=== PATIENT | female | born 1940 | race Caucasian/White ===

== ENCOUNTER → 2021-01-15 | Emergency (ER) | payer MEDICARE ==
[~2021-01-15] MED LIST: ACET325T53 GT; ACET650S26 NG; ALPR0.25 PO; AMIN30LI25 GT; AMIN887L GT; AMLO-213 PO; ASPI-1420 PO; BENZ236L TP; CALC667C6 PO; CARV3.122 PO; CYAN250T3 PO; EPOE1VIA IV; FAMO20TA8 PO; FURO80TA85 PO; GABA-532 PO; HYDR-4076 PO; HYDR-4303 GT; LOPE2CAP PO; MAG-55 GT; MAGN400O6 GT; NORM10004 IV; NUT.237L67 GT; Nepro GT; ONDA4TAB11 GT; Prosource GT; SEVE800T8 PO; TEMA15CA PO; [UNRECOGNIZED DRUG - CODE] IV
== END | disposition left against medical advice (07) ==
LOC: ER 16:16
DX: Z53.21 Procedure and treatment not carried out due to patient leaving prior to being seen by health care provider (principal)

== ENCOUNTER 2021-03-09 11:10 | Inpatient (IN) | payer MEDICARE, OTHER ==
[~2021-03-09] VITALS: Ht 152.4 cm; Wt 54.0 kg
[2021-03-09] VITALS (23 sets, daily range): BP systolic 86–143; BP diastolic 36–84
--- NOTE | 2021-03-09 11:16 | NUR ---
patient , from home, altered, last known well last night, unresponsive, 02 sat 60% on room air, ems using ambubag on the patient 02 sat 72%. Connected to the monitor and pulse ox.
--- NOTE | 2021-03-09 11:17 | NUR ---
Dr. Escamilla, RN, and RT at bedside for Intubation. 1117am etomidate and rocuronium given IVP, 1118am intubating patient, 1119am intubation done. ET 7.5/23cm, color changed noted. V/S stable. bilateral soft restraint in placed to prevent patient from pulling out IV line, and ET. Will continue to monitor accordingly.
[2021-03-09] MEDS ORDERED: ETOMIDATE 2 MG/ML VIAL IV ONE ×2 (11:30→14:44)
[2021-03-09] MEDS ORDERED: [UNRECOGNIZED DRUG - OTHER] IV ONE (11:30)
[2021-03-09 12:11] LABS: BASOPHILS % (AUTO) 0.8 % (0.0-2.0); HEMATOCRIT 29 % (33-45); HEMOGLOBIN 9.1 g/dL (11.5-14.8); LYMPHOCYTES # (AUTO) 0.3 /CMM (0.8-4.8); LYMPHOCYTES % (AUTO) 5.9 % (20.0-44.0); MEAN CORPUSCULAR HGB CONC 31 g/dl (31.0-36.0); MEAN CORPUSCULAR VOLUME 115 fL (82-100); MONOCYTES # (AUTO) 0.7 /CMM (0.1-1.30); MONOCYTES % (AUTO) 13.9 % (2.0-12.0); NEUTROPHILS # (AUTO) 3.9 /CMM (1.8-8.9); NEUTROPHILS % (AUTO) 79.4 % (43.0-81.0); PLATELET COUNT (AUTO) 146 /CMM (150-450); RED BLOOD CELL COUNT(AUTO) 2.54 MIL/uL (4.0-5.2); WHITE BLOOD COUNT (AUTO) 4.9 K/uL (4.3-11.0)
--- NOTE | 2021-03-09 12:11 | NUR ---
bed 260
[2021-03-09 12:16] LABS: CALCIUM, SERUM 8.4 mg/dL (8.5-10.1); CARBON DIOXIDE 27 mmol/L (21-32); CHLORIDE 94 mmol/L (98-107); CREATININE 3.4 mg/dL (0.6-1.3); GLUCOSE 81 mg/dL (74-106); SODIUM SERUM 132 mmol/L (136-145); UREA NITROGEN, BLOOD 24 mg/dL (7-18)
--- NOTE | 2021-03-09 12:20 | NUR ---
MOVE SHEET SUBMITTED AND CALLED FOR ICU BED.
[2021-03-09 12:26] LABS: D-DIMER 3.42 mg/L(FEU (0.17-0.50)
--- NOTE | 2021-03-09 12:26 | NUR ---
daughter at bedside and talking to Dr. Escamilla.
[2021-03-09 12:31] LABS: ACETAMINOPHEN 0 ug/ml (10-30); ALANINE AMINOTRANSFERASE 16 U/L (12-78); ALBUMIN 2.9 g/dL (3.4-5.0); ALCOHOL, BLOOD < 3 mg/dL (0-0); ALKALINE PHOSPHATASE 159 U/L (46-116); ASPARTATE AMINOTRANSFERASE 39 U/L (15-37); BILIRUBIN,TOTAL 0.8 mg/dL (0.2-1.0); TOTAL PROTEIN, SERUM 7.6 g/dL (6.4-8.2)
[2021-03-09 12:37] LABS: SERUM AMMONIA 53 umol/L (11-32)
[2021-03-09] MEDS ORDERED: CARV3.122 PO (12:52)
[2021-03-09] MEDS ORDERED: SEVE800T8 PO (12:52)
[2021-03-09] MEDS ORDERED: ASPI-1420 PO (12:52)
[2021-03-09] MEDS ORDERED: AMLO-213 PO (12:52)
[2021-03-09] MEDS ORDERED: CYAN250T3 PO (12:52)
[2021-03-09] MEDS ORDERED: LOPE2CAP PO (12:52)
[2021-03-09] MEDS ORDERED: FURO80TA85 PO (12:52)
[2021-03-09] MEDS ORDERED: ALPR0.25 PO (12:52)
[2021-03-09] MEDS ORDERED: CALC667C6 PO (12:52)
[2021-03-09] MEDS ORDERED: HYDR-4076 PO (12:52)
[2021-03-09] MEDS ORDERED: TEMA15CA PO (12:52)
[2021-03-09] MEDS ORDERED: GABA-532 PO (12:52)
[2021-03-09] MEDS ORDERED: FAMO20TA8 PO (12:52)
[2021-03-09 13:13] LABS: CREATINE KINASE, TOTAL 40 U/L (26-192); FERRITIN 7526 ng/mL (8-388); THYROID STIMULATING HORMONE 3.801 uIU/mL (0.358-3.74)
--- NOTE | 2021-03-09 13:13 | NUR ---
report given to Zeenat BAKER for che
[2021-03-09 13:15] LABS: C-REACTIVE PROTEIN 1.6 mg/dL (0.0-0.9)
--- NOTE | 2021-03-09 14:00 | NUR ---
senior government program analyst notes patient admitted from ER EET /vent dependent no acute respiratory distress, no sedation. fio2-100, peep-10, iv access on right forearm, and right femoral triple lumen intact. Left arm av shunt intact. Morales intact, no output. Edema bilateral lower extremities. will monitoring.
--- NOTE | 2021-03-09 14:04 | NUR ---
wheeled patient via gurney accompanied by RT, emt, and RN to ICU. RN assigned at bedside to assume care.
[2021-03-09 14:23] LABS: LYMPHOCYTES % (MANUAL) 4 % (16-48); MONOCYTES % (MANUAL) 8 % (0-11.0); NEUTROPHILS % (MANUAL) 88 (42-76)
[2021-03-09] MEDS ORDERED: ENOXAPARIN SODIUM 40 MG/0.4 ML DISP.SYRIN SQ SCH (14:30)
[2021-03-09] MEDS ORDERED: Z GUARD REMEDY 2 OZ OINT TP PRN (14:30)
[2021-03-09] MEDS ORDERED: MAG HYDROX/AL HYDROX/SIMETH 30 ML UDC PO PRN (14:30)
[2021-03-09] MEDS ORDERED: HYDROCODONE/APAP 5/325MG TABLET PO PRN (14:30)
[2021-03-09] MEDS ORDERED: MAGNESIUM HYDROXIDE 30 ML UDC PO PRN (14:30)
[2021-03-09] MEDS ORDERED: ACETAMINOPHEN 325 MG TABLET PO PRN (14:30)
[2021-03-09] MEDS ORDERED: PROPOFOL 100 ML IV PRN (14:30)
[2021-03-09] MEDS ORDERED: ONDANSETRON HCL/PF 4 MG/2 ML VIAL IVP PRN (14:30)
[2021-03-09] MEDS: PROPOFOL 10MG/ML 50ML 50 ML IV PRN ×2 (14:42→23:20)
[2021-03-09] MEDS ORDERED: ROCURONIUM BROMIDE 50 MG/5 ML IV ONE (14:44)
--- NOTE | 2021-03-09 15:40 | NUR ---
RT PATIENT REC'D TRANSFER FROM ER ON PEEP +10 100%, ABG DONE. PER DR VILA INCREASE PEEP TO 14. ALARMS CHECKED + AUDIBLE. AMBU BAG AT HOB Addendum: 03/09/21 at 1751 by MARV HUERTA RT Amended: Links added.
[2021-03-09 15:43] LABS: BILIRUBIN,DIRECT 0.7 mg/dL (0.0-0.2)
--- NOTE | 2021-03-09 15:45 | NUR ---
RN NOTES GET CALL FROM LAB LACTIC ACID 2.7 , NOTIFIED DR GALLARDO NO NEW ORDERS. WILL MONITORING.
[2021-03-09 15:59] LABS: ABG BASE EXCESS 0.9 mmol/L; ABG OXYGEN SATURATION 89.9 % (92.0-98.5); ABG PCO2 33.9 mmHg (35.0-45.0); ABG PH 7.472 (7.350-7.450); ABG PO2 51.6 mmHg (75.0-100.0); AaDO2 627.5 mmHg; COHb 0.7 % (0.5-1.5); MetHb 0.1 % (0.0-1.5); O2Hb 89.2 % (94.0-97.0); SITE, ABG Right Radial
--- NOTE | 2021-03-09 16:00 | NUR ---
RN NOTES ABG DONE VIA RT ACCORDING RESULT DR VILA ORDERED INCREASE PEEP 14, PO2-51.6 REPEAT ORDER WITHIN TWO HR. ORDER TAKEN AND CARRIED OUT.
--- NOTE | 2021-03-09 16:30 | NUR ---
RN NOTES PATIENT BP DROP 84/42, P- 75, CALLED HOSPITALIST AND GET ORDER LEVOPHED , ORDER TAKEN AND CARRIED OUT. ALSO PATIENT GOING DIALYZED NOW , GET ALBUMIN 25 % ORDER WELL.
[2021-03-09] MEDS: ALBUMIN 25% 25 GM in PREMIX 1 EA IV SCH (17:00)
[2021-03-09] MEDS: NOREPINEPHRINE 8 MG in IV NS 0.9% 242 ML IV PRN (17:16)
--- NOTE | 2021-03-09 17:29 | NUR ---
RN NOTES PT FAMILY NEXT TO THE BED , PATIENT GET HER 1-ST COVID VACCINATION, AND SECOND ONE IS DUE TODAY. ACCORDING DAUGHTER PATIENT HAS HISTORY OF PNEUMONIA.
--- NOTE | 2021-03-09 18:00 | NUR ---
RN NOTES NGT INSERTED, ORDERED CHEST X-RAY FOR PLACEMENT. FINISHED HD AT THIS TIME OUTPUT WAS 2000 ML.
[2021-03-09 18:28] LABS: ABG BASE EXCESS 1.1 mmol/L; ABG OXYGEN SATURATION 89.9 % (92.0-98.5); ABG PCO2 28.3 mmHg (35.0-45.0); ABG PH 7.531 (7.350-7.450); ABG PO2 45.5 mmHg (75.0-100.0); AaDO2 639.2 mmHg; COHb 0.9 % (0.5-1.5); MetHb 0.4 % (0.0-1.5); O2Hb 88.7 % (94.0-97.0); PEEP,BG 5 cm H2O; SITE, ABG Right Radial; VT, ABG 450 mL
--- NOTE | 2021-03-09 18:29 | NUR ---
RT END OF THE SHIFT REPORT, PT. 80 Y OLD FEMALE ORALLY INTUBATE @ [address] LAW Witt RT AT THE BEDSIDE. GOOD COLOR EXCHANGED VIA CAPNOGRAPHY, EQUAL CHEST RISE NOTED PLACED ON VENT WITH NOTED SETTINGS, ALARMS ARE SET AND FUNCTIONAL, VENT PLUGGED INTO RED OUTLET, AMBU BAG REMAIN AT THE BEDSIDE. @1300 VENT CHANGES DONE POST ABG B/S RALES BILATERALLY FAMILY MEMBER AT THE BEDSIDE. SUCTIONED FOR MINIMAL AMOUNT OF YELLOW THICK SECRETIONS, PT. TRANSFERRED TO WI, THAN ICU ROOM 260 REPORT WILL BE PASS TO COMPUTER INFORMATION SYSTEMS PROFESSOR. Addendum: 03/09/21 at 1834 by JAY CASH RT Amended: Links added.
--- NOTE | 2021-03-09 18:40 | NUR ---
RN NOTES NGT INTACT, NO ACUTE RESPIRATORY DISTRESS, INFUSING DIPRIVAN 35MCG/KG/HR, AND LEVOPHED 0.1 MCG/KG/HR ON RIGHT FEMORAL LINE. ASSIST TURN AND REPOSTION, PUGA HAS NO OUTPUT. BM X1. ENDORSED ONCOMING NURSE FOLLOW PLAN OF CARE.
[2021-03-09 18:51] LABS: THYROID STIMULATING HORMONE 3.912 uIU/mL (0.358-3.74)
--- NOTE | 2021-03-09 19:48 | NUR ---
COIL SHAPER NOTE: Rec'd pt in bed, intubated 7.5/23cm at the lip and sedated. Tolerating vent settings well, no resp distress noted at this time. SR on tele monitor. NGT in place, NPO dx. RAC #20 and R femoral HD cath in place, patent and flushed w/ Diprivan infusing at 35mcg/kg and Levo at 0.1mcg/kg/min. Will titrate per protocol. Left arm shunt noted. Morales catheter in place, no output noted at this time. Safety measures in place. Will continue to monitor.
--- NOTE | 2021-03-09 20:14 | NUR ---
RECEIVED PT INTUBATED 7.5 ETT SECURED AT 23CM LIP LINE. TOLERATING VENT SETTINGS. SX'D SML AMT OF THICK YELLOW SECRETIONS. VENT ALARMS SET AND AUDIBLE. CONTINUE [facility] VENT SUPPORT. Addendum: 03/09/21 at 2015 by KEEGAN MONTEMAYOR RT Amended: Links added.
--- NOTE | 2021-03-09 20:35 | NUR ---
PRELIMINARY ECHOCARDIOGRAM SHOWED EF 30-35% WITH SMALL PERICARDIAL EFFUSION. OLIVIA KAPLAN WAS ADVISED OF INITIAL RESULTS
[2021-03-09] MEDS ORDERED: HEPARIN SODIUM, PORCINE 5000 UNITS/1 ML VIAL SQ SCH (21:00)
--- NOTE | 2021-03-09 23:28 | NUR ---
CUSTOMER SALES CONSULTANT NOTE: FiO2 titrated down to 70% by RT. O2 sat WNL. Will continue to monitor closely.
[2021-03-10] VITALS (89 sets, daily range): BP systolic 78–133; BP diastolic 41–79
[2021-03-10] MEDS: PROPOFOL 10MG/ML 50ML 50 ML IV PRN ×2 (01:50→05:45)
--- NOTE | 2021-03-10 03:57 | NUR ---
GAS PROCESSING PLANT OPERATOR NOTE: FiO2 titrated down to 60% by RT. O2 sat WNL. Will continue to monitor.
[2021-03-10 04:16] LABS: BASOPHILS % (AUTO) 0.6 % (0.0-2.0); EOSINOPHILS % (AUTO) 0.4 % (0.0-6.0); HEMATOCRIT 28 % (33-45); HEMOGLOBIN 9.3 g/dL (11.5-14.8); LYMPHOCYTES # (AUTO) 0.7 /CMM (0.8-4.8); LYMPHOCYTES % (AUTO) 8.9 % (20.0-44.0); MEAN CORPUSCULAR HGB CONC 33 g/dl (31.0-36.0); MEAN CORPUSCULAR VOLUME 110 fL (82-100); MONOCYTES # (AUTO) 0.6 /CMM (0.1-1.30); NEUTROPHILS # (AUTO) 6.3 /CMM (1.8-8.9); NEUTROPHILS % (AUTO) 82.1 % (43.0-81.0); PLATELET COUNT (AUTO) 121 /CMM (150-450); RED BLOOD CELL COUNT(AUTO) 2.57 MIL/uL (4.0-5.2); WHITE BLOOD COUNT (AUTO) 7.7 K/uL (4.3-11.0)
[2021-03-10] MEDS: ALBUMIN 25% 25 GM in PREMIX 1 EA IV SCH (04:40)
--- NOTE | 2021-03-10 04:40 | NUR ---
ARTIFICIAL INSEMINATOR NOTE: Per am shift nurse, albumin was ordered for low BP, but pt on Levo drip. 0500 dose of albumin non-administered due to pt still on Levo. Will address in am w/ nephro.
[2021-03-10 04:48] LABS: ALANINE AMINOTRANSFERASE 15 U/L (12-78); ALBUMIN 2.2 g/dL (3.4-5.0); ALKALINE PHOSPHATASE 111 U/L (46-116); ASPARTATE AMINOTRANSFERASE 46 U/L (15-37); BILIRUBIN,TOTAL 0.9 mg/dL (0.2-1.0); CALCIUM, SERUM 7.9 mg/dL (8.5-10.1); CARBON DIOXIDE 25 mmol/L (21-32); CHLORIDE 97 mmol/L (98-107); CREATININE 3.8 mg/dL (0.6-1.3); GLUCOSE 79 mg/dL (74-106); MAGNESIUM 1.8 mg/dL (1.8-2.4); PHOSPHORUS 2.6 mg/dL (2.5-4.9); POTASSIUM 3.4 mmol/L (3.5-5.1); SODIUM SERUM 135 mmol/L (136-145); TOTAL PROTEIN, SERUM 6.2 g/dL (6.4-8.2); UREA NITROGEN, BLOOD 28 mg/dL (7-18)
[2021-03-10 04:49] LABS: IRON, SERUM 17 ug/dl (50-175); TOTAL IRON BINDING CAPACITY 143 ug/dl (250-450)
--- NOTE | 2021-03-10 07:06 | NUR ---
POWER REACTOR OPERATOR NOTE: No acute changes noted. Pt remains intubated and sedated tolerating vent settings well. No resp distress noted throughout shift. Diprivan infusing at 35mcg/kg and Levo infusing at 0.04mcg/kg/min. Kept clean/dry. All due meds given as ordered. Safety measures in place. Will endorse to oncoming nurse for NOAH.
[2021-03-10 07:54] LABS: ABG BASE EXCESS 0.5 mmol/L; ABG OXYGEN SATURATION 99.6 % (92.0-98.5); ABG PCO2 24.6 mmHg (35.0-45.0); ABG PH 7.563 (7.350-7.450); ABG PO2 204.6 mmHg (75.0-100.0); AaDO2 196.1 mmHg; COHb 0.1 % (0.5-1.5); MetHb 0.1 % (0.0-1.5); O2Hb 99.4 % (94.0-97.0); SITE, ABG Right Radial
--- NOTE | 2021-03-10 08:00 | NUR ---
rn notes Get order from shuttleless loom weaver Dr Martinez weaning, stop Diprivan infusion. Titrated Diprivan per protocol. seen patient via proofsheet corrector Dr Olvera notified increased troponin level, and Dr Burns, FIO2-40% at this time. will monitoring.
[2021-03-10] MEDS ORDERED: POTASSIUM PHOSPHATE MM 15 MMOL in IV NS 0.9% 250 ML IV SCH (08:30)
[2021-03-10] MEDS ORDERED: POTASSIUM CHLORIDE 20 MEQ POWDER PACKET NG SCH (08:30)
[2021-03-10] MEDS ORDERED: HEPARIN SODIUM, PORCINE 5000 UNITS/1 ML VIAL IV ONE (09:30)
--- NOTE | 2021-03-10 09:30 | NUR ---
rn notes Patient get extubated at this time, on O2-5LNC, no acute respiratory distress, v/s stable, get order Heparin drip at this time, NGT intact, due medication administered, recheck circulation for restrain. call light within to reach. safety precaution maintained all the time.
[2021-03-10] MEDS ORDERED: Sodium Phosphate 15 MMOL in IV NS 0.9% 245 ML IV SCH (10:00)
[2021-03-10] MEDS: HEPARIN INFUSION/D5W 500 ML IV PRN (10:25)
--- NOTE | 2021-03-10 11:58 | NUR ---
rn notes removed ngt , assess swallow evaluation by RN. Hospitalist notified about patient condition, get order, SE,and renal diet. order taken and carried out. daughter next to the bed.
[2021-03-10] MEDS ORDERED: DC PROPOFOL WHEN EXTUBATED XX SCH (12:00)
[2021-03-10] MEDS ORDERED: IRON SUCROSE COMPLEX 100 MG in IV NS 0.9% 100 ML IV SCH (14:00)
--- NOTE | 2021-03-10 16:56 | NUR ---
sophia ponce per energy conservation engineer order Dr Rivero removed Morales cath, because patient anuric .
--- NOTE | 2021-03-10 18:43 | NUR ---
RN NOTES ASSIST PATIENT EATING DINNER TOLERATED 25% WITH MAXIMUM ASSIST. PATIENT ON O2-5LNC, NO ACUTE DISTRESS, WILL CONSTANT REMIND PATIENT TAKE A DEEP BREATH. INFUSING HEPARIN 765 U/HR, RECHECKED RESTRAIN BILATERAL WRIST. PATIENT HAS BMX4, URINE OUTPUT WAS 15ML. ENDORSED ONCOMING NURSE FOLLOW PLAN OF CARE. WAITING PTT LAB RESULT FOR HEPARIN DRIP ADJUSTMENT.
--- NOTE | 2021-03-10 18:58 | NUR ---
RN NOTES GET CRITICAL LAB RESULT FOR PTT 108.4. NOTIFIED PHARMACIST AND WILL FOLLOW HEPARIN DOSING GUIDELINES ADJUSTMENT. WILL HOLD INFUSION AT THIS TIME, AND RESTART IN 60 MINS.. NOTIFIED ONCOMING RN FOLLOW UP.
--- NOTE | 2021-03-10 20:00 | NUR ---
RN NOTES STARTED HEPARIN DRIP @ 615 U/HR ORDERED. WILL REPEAT PTT @ 2 AM. NO ACTIVE BLEEDING NOTED
--- NOTE | 2021-03-10 21:00 | NUR ---
RN NOTED PERICARE PROVIDED PARTIAL BEDBATH DONE WITH MODERATE AMT. OF LOOSE BROWNISH STOOL.
[2021-03-11] VITALS (51 sets, daily range): BP systolic 80–149; BP diastolic 40–72
[2021-03-11 02:23] LABS: BASOPHILS # (AUTO) 0.1 /CMM (0.0-0.2); BASOPHILS % (AUTO) 0.8 % (0.0-2.0); EOSINOPHILS % (AUTO) 0.7 % (0.0-6.0); HEMATOCRIT 27 % (33-45); HEMOGLOBIN 8.8 g/dL (11.5-14.8); LYMPHOCYTES # (AUTO) 0.6 /CMM (0.8-4.8); LYMPHOCYTES % (AUTO) 7.6 % (20.0-44.0); MEAN CORPUSCULAR HGB CONC 33 g/dl (31.0-36.0); MEAN CORPUSCULAR VOLUME 112 fL (82-100); MONOCYTES # (AUTO) 0.8 /CMM (0.1-1.30); MONOCYTES % (AUTO) 9.6 % (2.0-12.0); NEUTROPHILS # (AUTO) 6.7 /CMM (1.8-8.9); NEUTROPHILS % (AUTO) 81.3 % (43.0-81.0); PLATELET COUNT (AUTO) 125 /CMM (150-450); RED BLOOD CELL COUNT(AUTO) 2.41 MIL/uL (4.0-5.2); WHITE BLOOD COUNT (AUTO) 8.3 K/uL (4.3-11.0)
[2021-03-11 02:46] LABS: BAND % (MANUAL) 1 % (0.0-5.0); EOSINOPHILS % (MANUAL) 1 % (0-4); LYMPHOCYTES % (MANUAL) 5 % (16-48); MONOCYTES % (MANUAL) 9 % (0-11.0); NEUTROPHILS % (MANUAL) 84 (42-76)
--- NOTE | 2021-03-11 03:00 | NUR ---
RN NOTES PATIENT PTT RESULT 54.5, NO CHANGED OF DOSE PER HEPARIN PROTOCOL PATIENT ASLEEP AT THIS TIME, NO ACTIVE BLEEDING PRESENT. HEPARIN DRIP CONTINUE.
[2021-03-11 03:02] LABS: CALCIUM, SERUM 7.5 mg/dL (8.5-10.1); CARBON DIOXIDE 29 mmol/L (21-32); CHLORIDE 96 mmol/L (98-107); CREATININE 4.2 mg/dL (0.6-1.3); GLUCOSE 106 mg/dL (74-106); MAGNESIUM 1.7 mg/dL (1.8-2.4); PHOSPHORUS 5.7 mg/dL (2.5-4.9); POTASSIUM 4.1 mmol/L (3.5-5.1); SODIUM SERUM 132 mmol/L (136-145); UREA NITROGEN, BLOOD 39 mg/dL (7-18)
--- NOTE | 2021-03-11 07:00 | NUR ---
RN NOTES RECEIVED PT ON BED, ALERT/ OPENS EYES TO VERBAL STIMULI, DOES NOT FOLLOW COMMAND, ON 8L O2 SIMPLE MASK , O2 SAT WNL ON TELE SR HR IN 60'S, HEPARIN DRIP AT 615 U/HR IS RUNNING VIA R FEMORAL TLC , SITE CLEAN, DRY AND INTACT, LEFT AV FISTULA WITH + BRUIT AND + THRILL , SR UP x3, CALL LIGHT WITHIN EASY REACH, BED LOCKED AND IN LOWEST POSITION, CONTINUE TO MONITOR
--- NOTE | 2021-03-11 07:02 | NUR ---
RN NOTES PATIENT ASLEEP WELL ON BED. NO SOB OR DISTRESS. FORGETFUL, KEEP ASKING THAT SHE WANT S TO GO TO THE BATHROOM. NEEDS REMINDER ABOUT SITUATION. AFEBRILE. CONTINUE ON O2 8-10 LPM VIA SM, PATIENT DESATING ON NASAL CANULA. SR ON MONITOR. SBP ON LOW 100'S BUT NEVER START PRESSOR PATIENT TOLERATED BUT CLOSELY MONITOR. LEFT AV FISTULA WITH + BRUIT AND + THRILL . KEPT PT CLEAN AND DRY. WITH BMX 2 ENDORSED CONT. OF CARE TO AM NURSE.
--- NOTE | 2021-03-11 09:45 | NUR ---
RN NOTES DR WILLOUGHBY NOTIFED REGARDING TROPONIN 2.042, CONTINUE TO MONITOR
--- NOTE | 2021-03-11 10:00 | NUR ---
RN NOTES heparin drip d/josé luis per dr valenzuela order, dr Cespedes notified , pt going for thoracentesis.
--- NOTE | 2021-03-11 10:00 | NUR ---
RN NOTES HEPARIN DRIP D/CODEY PER DR VILA ORDER , PT WILL HAVE U/S GUIDED THORACENTESIS PER MD ORDER .
--- NOTE | 2021-03-11 10:00 | NUR ---
RN NOTES HEPARIN DRIP D/CODEY PER DR VILA AT THIS TIME FOR THORACENTESIS .
--- NOTE | 2021-03-11 10:30 | NUR ---
RN NOTES TELEPHONE CONSENT OBTAINED FROM PT'S FOR LEFT SIDED THORACENTESIS .
--- NOTE | 2021-03-11 14:00 | NUR ---
RN NOTES LEFT SIDED THORACENTESIS DONE AT THE BEDSIDE BY DR PULIDO , 250CC PLURAL FLUID SENT TO LAB PER MD ORDER .DRESSING TO L UPPER BACH CLEAN ,DRY AND INTACT. CONTINUE TO MONITOR.
[2021-03-11] MEDS: FERRLICET 125MG in 100 ML NS IVPB IV SCH (14:34)
[2021-03-11] MEDS: HEPARIN INFUSION/D5W 500 ML IV PRN (15:37)
--- NOTE | 2021-03-11 15:37 | NUR ---
RN NOTES HEPARIN DRIP RESTARTED PER DR WILLOUGHBY ORDER AT THE PREVIOUS RATE WITH NO BOLUS .
[2021-03-11] MEDS ORDERED: ALBUMIN 25% 25 GM in PREMIX 1 EA IV PRN (17:30)
--- NOTE | 2021-03-11 18:33 | NUR ---
RN NOTES PT REMAINS ON FACE MASK AT 8 L , PT WILL DESATURATE TO LOW 80'S, ON NC, ON TELE SR , NO BM ON THIS SHIFT, HEPARIN GTT AT 615 U/HR RUNNING , NO SIGN OF COMPLICATION NOTED, PT RECEIVING HD AT THIS TIME, SR UP x3, CALL LIGHT WITHIN EASY REACH, BED LOCKED AND IN LOWEST POSITION, WILL ENDORSE TO APPLICATION PACKAGING SPECIALIST NURSE FOR CONTINUITY OF CARE .
--- NOTE | 2021-03-11 19:40 | NUR ---
RN NOTES RECEIVED PATIENT AWAKE ALERT ORIENTED X 2-3 PERIODS OF FORGETFUL NOTED. RESPONSIVE TO VERBAL AND TACTILE STIMULI. AFEBRILE. SR ON MONITOR. NO ACUTE RESPIRATORY DISTRESS ON O2 8LPM VIA SIMPLE MASK. IV SITE ON RIGHT FEMORAL TLC WITH HEPARIN @ 615 UNITS/HR INTACT AND PATENT NEXT PTT WILL BE AT 3AM IN THE MORNING. LEFT AV SHUNT WITH +BRUIT AND +THRILL. S/P DIALYSIS TODAY WITH 2000L PER AM SHIFT. NO SIGNIFICANT NOAH PRESENT. DINNER SERVE AND FED THE PSTIEN AT BEDSIDE WITH 100% MEAL. TOLERATED WELL. KEPT PT CLEAN AND COMFORTABLE IN BED.
--- NOTE | 2021-03-11 23:50 | NUR ---
RN NOTES NOTED PATIENT OXYGEN IS SUSTAINING TO 86-88% VIA SIMPLE MASK NON REBREATHER MASK PLACED @ 12LPM SATURATION WENT UP TO 99-100%. WILL CLOSELY MONITOR.
[2021-03-12] VITALS (24 sets, daily range): BP systolic 94–143; BP diastolic 32–76
[2021-03-12 03:48] LABS: BASOPHILS % (AUTO) 0.3 % (0.0-2.0); EOSINOPHILS % (AUTO) 2.4 % (0.0-6.0); HEMATOCRIT 26 % (33-45); HEMOGLOBIN 8.4 g/dL (11.5-14.8); LYMPHOCYTES # (AUTO) 0.4 /CMM (0.8-4.8); LYMPHOCYTES % (AUTO) 6.8 % (20.0-44.0); MEAN CORPUSCULAR HGB CONC 32 g/dl (31.0-36.0); MEAN CORPUSCULAR VOLUME 113 fL (82-100); MONOCYTES # (AUTO) 0.5 /CMM (0.1-1.30); MONOCYTES % (AUTO) 9.7 % (2.0-12.0); NEUTROPHILS # (AUTO) 4.5 /CMM (1.8-8.9); NEUTROPHILS % (AUTO) 80.8 % (43.0-81.0); PLATELET COUNT (AUTO) 101 /CMM (150-450); RED BLOOD CELL COUNT(AUTO) 2.31 MIL/uL (4.0-5.2); WHITE BLOOD COUNT (AUTO) 5.6 K/uL (4.3-11.0)
[2021-03-12 04:11] LABS: CALCIUM, SERUM 7.9 mg/dL (8.5-10.1); CARBON DIOXIDE 32 mmol/L (21-32); CHLORIDE 95 mmol/L (98-107); CREATININE 3.4 mg/dL (0.6-1.3); GLUCOSE 89 mg/dL (74-106); MAGNESIUM 1.9 mg/dL (1.8-2.4); PHOSPHORUS 5.1 mg/dL (2.5-4.9); SODIUM SERUM 134 mmol/L (136-145); UREA NITROGEN, BLOOD 29 mg/dL (7-18)
--- NOTE | 2021-03-12 06:43 | NUR ---
RN NOTES PATIENT ASLEEP WELL ON BED CONTINUE ON O2 8-10 LPM VIA SIMPLE MASK. AFEBRILE. VSS. NO ACUTE RESPIRATORY DISTRESS. REMAINED SR ON MONITOR. BREATHING EVEN AND UNLABORED. TOLERATED DIALYSIS WELL FROM YESTERDAY. DENIES CHEST PAIN OR ANY PAIN. CONTINUE ON HEPARIN DRIP 615 UNIT/HR LAST PTT RESULT AT 4AM - 66.2 NO DOSE CHANGES PER HEPARIN PROTOCOL ORDER. NEXT PTT IS TOMORROW @ 4AM. IV ISTE ON RIGHT FEMORAL TLC INTACT AND PATENT WITH GOOD BLOOD RETURN AND LAV SHUNT DRESSING IS CLEAN AND DRY WITH +BRUIT AND +THRILL. KEPT PT CLEAN AND COMFORTABLE IN BED. WILL CONT POC.
--- NOTE | 2021-03-12 09:08 | NUR ---
RN NOTE 0800: Received patient from [facility] for Cardioversion. A/Ox4. Noted with Afib 100's. PIV intact. On Amio drip 0.5mg. 0810: Signed consent for cardioversion and moderate sedation. 0838: Patient had cardioversion by Dr. Cespedes, with anesthesiologist at bedside. COnverted to SB 40-50's. Turned off Amio drip. 09: EKG done, relayed to Dr. Cespedes. 0905: Patient is fully awake.Talking to family via phone, VSS.
[2021-03-12] MEDS: ASPIRIN 81 MG TAB.CHEW PO SCH (09:21)
[2021-03-12] MEDS: HEPARIN SODIUM, PORCINE 5000 UNITS/1 ML VIAL SQ SCH ×2 (09:33→21:59)
--- NOTE | 2021-03-12 11:03 | NUR ---
RN NOTE 0715: Received patient resting. On 8LPM O2 via simple mask. Placed on 6LPM via NC, tolerated at this time. With right fem TLC intact. LFA AV shunt with dressing CDI, + bruit/thrill. Citizen Of [place] speaking, noted with confusion and forgetfulness at times. 0730: S/E by Dr. Cespedes, no new order at this time. 0830: DCd Heparin drip per cardio. 0840: Tolerated pureed diet, ST helped on feeding, per ST continue pureed for now due to episodes of desats during eating. 0900: S/E by Dr. Martinez, no thora today. Son at bedside, updated re: patient's condition. 1000: Placed back on 15LPM via NRB mask due to sustaining low 80's, now 93%, will continue to monitor. 1100: No any significant changes noted. Remained on NRB 15L.
[2021-03-12] MEDS: FERRLICET 125MG in 100 ML NS IVPB IV SCH (14:47)
--- NOTE | 2021-03-12 22:12 | NUR ---
CLINICAL PROFESSOR: CALLED AND NOTIFIED DR. VERDIN THAT PT 02 SAT. IN THE 88%-92 SINCE START OF THE SHIFT. MD BLACK ORDER FOR STAT ABG. NOTED AND CARRIED OUT. PT REMAINS LETHARGIC. ABLE TO FOLLOW SIMPLE COMMANDS. WILL CONTINUE TO MONITOR.
[2021-03-12 22:28] LABS: ABG BASE EXCESS 1.7 mmol/L; ABG OXYGEN SATURATION 83.9 % (92.0-98.5); ABG PCO2 112.3 mmHg (35.0-45.0); ABG PH 7.092 (7.350-7.450); ABG PO2 59.5 mmHg (75.0-100.0); AaDO2 541.2 mmHg; COHb 1.6 % (0.5-1.5); MetHb 0.7 % (0.0-1.5); SITE, ABG Right Radial
--- NOTE | 2021-03-12 22:30 | NUR ---
COCONUT JELLY ROLLER: RELAYED ABG RESULT TO DR. VERDIN WT ORDER TO INTUBATE PT. DR. JESUS FROM ED DEP'T. MADE AWARE. CHARGE NURSE GURMEET CALLED AND NOTIFIED DAUGHTER VIKTORIA. ALSO TALKED TO PT. AT BEDSIDE AND PT. NODDED HEAD IN AGREEMENT.
--- NOTE | 2021-03-12 22:40 | NUR ---
COCOA PRESS OPERATOR: PT S/P INTUBATION WITH SIZE 7.0 AND 23 AT THE [facility] WT SETTINGS AC18, TV 450, FI02 100% PEEP 5. SEDATED. 100% 02 SAT. VS WITHIN BASELINE. SAFETY PRECAUTION NOTED. WILL CONTINUE TO MONITOR.
--- NOTE | 2021-03-12 23:00 | NUR ---
PT ON NRB LOW O2 SAT. ABG DONE. NOTIFIED RN AND DR VERDIN WITH CRITICAL RESULTS. CALLED ER MD FOR INTUBATION. DR JESUS AT BEDSIDE FOR INTUBATION. 7.0 ETT SECURED AT 23CM. COLOR CHANGED ON CO2 DETECTOR. EQUAL CHEST RISE. PT PLACED ON 840 VENT. ABG IN 1HR.
--- NOTE | 2021-03-12 23:10 | NUR ---
ETT ADJUSTED TO 22CM.
--- NOTE | 2021-03-12 23:12 | NUR ---
OPTION TRADER: DR. LAMBERT BLACK ADDITIONAL ORDERS TO REPEAT ABG AND CXR IN AN HOUR, GIVE PROPOFOL, NGT INSERTION, AND BILAT. SOFT WRIST RESTRAINTS TO PREVENT SELF-EXTUBATION. NOTED AND CARRIED OUT. Addendum: 03/13/21 at 0004 by ALIVIA GORDON RN AMENDMENT: REPEAT ABG IN AN HOUR, NOT CXR.
[2021-03-13] VITALS (28 sets, daily range): BP systolic 93–158; BP diastolic 39–90
[2021-03-13 00:27] LABS: ABG OXYGEN SATURATION 97.9 % (92.0-98.5); ABG PCO2 40.1 mmHg (35.0-45.0); ABG PO2 90.3 mmHg (75.0-100.0); AaDO2 582.6 mmHg; MetHb 0.7 % (0.0-1.5); O2Hb 96.2 % (94.0-97.0); PEEP,BG 5 cm H2O; SITE, ABG Right Radial
--- NOTE | 2021-03-13 00:27 | NUR ---
ABG POST INTUBATION DONE. NOTIFIED RN WITH THE RESULT.
[2021-03-13] MEDS: PROPOFOL 100 ML IV PRN ×4 (00:58→18:54)
[2021-03-13 04:35] LABS: BASOPHILS % (AUTO) 0.3 % (0.0-2.0); EOSINOPHILS % (AUTO) 0.5 % (0.0-6.0); HEMATOCRIT 25 % (33-45); LYMPHOCYTES # (AUTO) 0.5 /CMM (0.8-4.8); LYMPHOCYTES % (AUTO) 9.2 % (20.0-44.0); MEAN CORPUSCULAR HGB CONC 32 g/dl (31.0-36.0); MEAN CORPUSCULAR VOLUME 114 fL (82-100); MONOCYTES # (AUTO) 0.5 /CMM (0.1-1.30); MONOCYTES % (AUTO) 10.7 % (2.0-12.0); NEUTROPHILS # (AUTO) 4.1 /CMM (1.8-8.9); NEUTROPHILS % (AUTO) 79.3 % (43.0-81.0); PLATELET COUNT (AUTO) 84 /CMM (150-450); RED BLOOD CELL COUNT(AUTO) 2.18 MIL/uL (4.0-5.2); WHITE BLOOD COUNT (AUTO) 5.1 K/uL (4.3-11.0)
[2021-03-13 05:02] LABS: CALCIUM, SERUM 7.8 mg/dL (8.5-10.1); CARBON DIOXIDE 29 mmol/L (21-32); CHLORIDE 93 mmol/L (98-107); GLUCOSE 84 mg/dL (74-106); MAGNESIUM 1.8 mg/dL (1.8-2.4); PHOSPHORUS 4.4 mg/dL (2.5-4.9); POTASSIUM 4.3 mmol/L (3.5-5.1); SODIUM SERUM 131 mmol/L (136-145); UREA NITROGEN, BLOOD 41 mg/dL (7-18)
[2021-03-13 06:01] LABS: BAND % (MANUAL) 1 % (0.0-5.0); EOSINOPHILS % (MANUAL) 1 % (0-4); LYMPHOCYTES % (MANUAL) 12 % (16-48); MONOCYTES % (MANUAL) 6 % (0-11.0); NEUTROPHILS % (MANUAL) 80 (42-76)
--- NOTE | 2021-03-13 06:30 | NUR ---
GARDEN EQUIPMENT MECHANIC: FI02 DECREASED TO 80% SINCE 399 AND TOLERATING WELL. ABG WT IMPROVED RESULTS. REMAINS SEDATED ON DIPRIVAN DRIP AT 30MCG/KG/MIN. OPENS EYES WHEN CALLED BY NAME OR TOUCH AND ABLE TO FOLLOW SIMPLE COMMANDS. BILAT. SOFT WRIST RESTRAINTS IN PLACE FOR EPISODES OF TRYING TO REACH FOR TUBINGS. SKIN AND CIRCULATION WNL. HOB AT 30 DEGREES, SIDERAILS UP X2, BED IN LOWEST POSITION AND LOCKED, BED ALARM ON. VS WITHIN BASELINE. WILL CONTINUE TO MONITOR.
--- NOTE | 2021-03-13 07:30 | NUR ---
OPENING NOTE: REPORT RECEIVED FROM ALIVIA BAKER. PT WAS INTUBATED AT 2250 LAT NIGHT PER REPORT. PT SEDATED ON PROPOFOL. NG TUBE IN PLACE. NO PUGA CATHETER, PT IS ANURIC. PT IS SCHEDULED FOR DIALYSIS TODAY. PT CHECKED ON HOURLY AND PRN BY NURSING STAFF.
[2021-03-13] MEDS: HEPARIN SODIUM, PORCINE 5000 UNITS/1 ML VIAL SQ SCH ×2 (09:02→21:01)
[2021-03-13] MEDS: ASPIRIN 81 MG TAB.CHEW PO SCH (09:02)
--- NOTE | 2021-03-13 09:35 | NUR ---
RT pt received on mechanical vent with current settings. orally intubated, ett size 7.0, 22 at lip. vent plugged in to red outlet. ambu bag at [facility]. small pink tinge, now yellow secretions, suctioned via ett. ett secure. alarms on and audible. no resp distress. no sob. will cont to monitor.
[2021-03-13] MEDS ORDERED: ASPIRIN 81 MG TAB.CHEW NG SCH (09:55)
[2021-03-13] MEDS: ACETAMINOPHEN 650 MG/20.3 ML UDC NG PRN (09:55)
[2021-03-13] MEDS ORDERED: MAG HYDROX/AL HYDROX/SIMETH 30 ML UDC NG PRN (09:56)
[2021-03-13] MEDS ORDERED: MAGNESIUM HYDROXIDE 30 ML UDC NG PRN (09:56)
[2021-03-13] MEDS ORDERED: PHARMACY TO CHANGE PO MEDS TO GT/NG XX PRN (10:00)
[2021-03-13] MEDS ORDERED: ROCURONIUM BROMIDE 50 MG/5 ML IV ONE (11:24)
[2021-03-13 11:29] LABS: ABG BASE EXCESS 1.3 mmol/L; ABG PCO2 31.3 mmHg (35.0-45.0); ABG PH 7.506 (7.350-7.450); AaDO2 256.3 mmHg; COHb 1.1 % (0.5-1.5); MetHb 0.5 % (0.0-1.5); O2Hb 92.5 % (94.0-97.0); SITE, ABG Right Radial; VENT MODE, BG AC 16 400 50% +5
--- NOTE | 2021-03-13 14:56 | NUR ---
DIALYSIS WILL BE STARTING SOON, MEDS DUE AT THIS TIME HELD TILL AFTER DIALYSIS
[2021-03-13] MEDS: NEPRO 1,000 ML BOTTLE GT PRN (18:02)
--- NOTE | 2021-03-13 19:30 | NUR ---
Received report patient HD in progress.Sedated and intubated on full vent support with same settings.No acute distress noted.VS stable.SR per tele monitoring.NGT feeding infusing no residual noted.Maintain HOB elevated. Anuric.NS infusing at TKO via right femoral TLC site intact.Continue monitoring.
--- NOTE | 2021-03-13 19:31 | NUR ---
END OF SHIFT NOTE: PT HAD A FAIRLY UNEVENTFUL DAY. PT IS ANURIC. PT CHECKED THROUGHOUT THE SHIFT FOR BM, NO BM UNTIL RIGHT DIALYSIS WAS STARTING AT 1835. ENDORSED TO NEXT SHIFT. PROPOFOL INFUSING AT 30MCG/KG/MIN PER MD ORDERS. PT CHECKED ON HOURLY AND PRN BY NURSING STAFF.
--- NOTE | 2021-03-13 20:30 | NUR ---
Patient resting HD finished with 500 ml out.Tolerated procedure well.
[2021-03-13] MEDS: FERRLICET 125MG in 100 ML NS IVPB IV SCH (20:38)
[2021-03-13] MEDS: IV NS 0.9% 250 ML IV PRN (22:35)
[2021-03-14] VITALS (58 sets, daily range): BP systolic 49–139; BP diastolic 23–72
--- NOTE | 2021-03-14 | NUR ---
Patient resting VS remains stable.Tolerating feeding well.Turned and repositioned.
[2021-03-14] MEDS: PROPOFOL 100 ML IV PRN ×4 (02:21→22:53)
--- NOTE | 2021-03-14 06:00 | NUR ---
Patient remains sedated and intubated on same settings.VS stable.SR.Oral care done.Bed bath rendered and complete linens changed.Turned and repositioned.No acute distress noted. No significant change noted during the shift.
--- NOTE | 2021-03-14 07:58 | NUR ---
RN NOTES ACCORDING Dr NJ PUT PATIENT CPAP MODE /SIMV FOR BREATHING/MIN, AND TITRATE DIPRIVAN PER PROTOCOL. ORDER TAKEN AND CARRIED OUT. RT NOTIFIED. PATIENT CALM AND COOPERATIVE, NO ACUTE RESPIRATORY DISTRESS HOLD NGR FEEDING. INFUSING TKO 10ML/HR AT FEMORAL, DIPRIVAN 25MCG/KG/HR. . RESIDUAL, AND PLACEMENT OF NGR RECHECKED. RECHECKED CIRCULATION OF RESTRAIN BILATERAL . ASSIST TURN AD REPOSTION. WILL MONITORING.
--- NOTE | 2021-03-14 08:23 | NUR ---
RN NOTES T piece trial at 8AM with ABG 30 minutes later if tolerating. PATIENT CALM AND COOPERATIVE, WILL MONITORING.
--- NOTE | 2021-03-14 08:33 | NUR ---
@ 0833 ON WEANING TRIAL WITH PARAMETERS BELOW PER DR. GOULD: CPAP 5 PS 7 FIO2 40% Addendum: 03/14/21 at 0835 by SLIM FLEMING RT Amended: Links added.
--- NOTE | 2021-03-14 08:42 | NUR ---
BACK TO AC MODE DUE TO 40 RESPIRATION Addendum: 03/14/21 at 0842 by SLIM FLEMING RT Amended: Links added.
--- NOTE | 2021-03-14 08:54 | NUR ---
RN NOTES PATIENT BACK TO THE AC MODEAT THISTIME BECAUSE RESPIRATION 40. will trial T piece tomorrow 7AM with repeat ABG in 30 minutes in anticipation for extubation to BiPAP. RESTARTED DIPRIVAN SEDATION AT THIS TIME.
[2021-03-14 09:26] LABS: BASOPHILS # (AUTO) 0.1 /CMM (0.0-0.2); BASOPHILS % (AUTO) 0.6 % (0.0-2.0); HEMATOCRIT 26 % (33-45); HEMOGLOBIN 8.6 g/dL (11.5-14.8); LYMPHOCYTES # (AUTO) 0.6 /CMM (0.8-4.8); LYMPHOCYTES % (AUTO) 7.3 % (20.0-44.0); MEAN CORPUSCULAR HGB CONC 33 g/dl (31.0-36.0); MEAN CORPUSCULAR VOLUME 113 fL (82-100); MONOCYTES # (AUTO) 0.8 /CMM (0.1-1.30); MONOCYTES % (AUTO) 10.2 % (2.0-12.0); NEUTROPHILS # (AUTO) 6.4 /CMM (1.8-8.9); NEUTROPHILS % (AUTO) 80.9 % (43.0-81.0); PLATELET COUNT (AUTO) 111 /CMM (150-450); RED BLOOD CELL COUNT(AUTO) 2.34 MIL/uL (4.0-5.2); WHITE BLOOD COUNT (AUTO) 7.9 K/uL (4.3-11.0)
[2021-03-14] MEDS: ASPIRIN 81 MG TAB.CHEW NG SCH (09:39)
[2021-03-14] MEDS: HEPARIN SODIUM, PORCINE 5000 UNITS/1 ML VIAL SQ SCH ×2 (09:44→21:08)
[2021-03-14 10:02] LABS: CALCIUM, SERUM 8.1 mg/dL (8.5-10.1); CARBON DIOXIDE 30 mmol/L (21-32); CHLORIDE 100 mmol/L (98-107); CREATININE 3.7 mg/dL (0.6-1.3); GLUCOSE 99 mg/dL (74-106); MAGNESIUM 1.8 mg/dL (1.8-2.4); PHOSPHORUS 3.2 mg/dL (2.5-4.9); SODIUM SERUM 137 mmol/L (136-145); UREA NITROGEN, BLOOD 37 mg/dL (7-18)
--- NOTE | 2021-03-14 11:08 | NUR ---
RN NOTES PATIENT CALM AND COOPERATIVE, SON NEXT TO THE BED, PATIENT SEDATED, NO ACUTE RESPIRATORY DISTRESS, INFUSING DIPRIVAN 35MCG/KG/HR INTACT ON RIGHT FEMORAL LINE. ASSIST TURN AND REPOSTION Q 2 HR. KEEP HOB ELEVATED FOR ASPIRATION PRECAUTION.
[2021-03-14 11:26] LABS: EOSINOPHILS % (MANUAL) 1 % (0-4); LYMPHOCYTES % (MANUAL) 9 % (16-48); MONOCYTES % (MANUAL) 7 % (0-11.0); NEUTROPHILS % (MANUAL) 83 (42-76)
[2021-03-14] MEDS: FERRLICET 125MG in 100 ML NS IVPB IV SCH (14:06)
[2021-03-14] MEDS: NEPRO 1,000 ML BOTTLE GT PRN (17:20)
--- NOTE | 2021-03-14 18:30 | NUR ---
RN NOTES PATIENT SEDATED, NO ACUTE RESPIRATORY DISTRESS, DUE MEDICATION ADMINISTERED. SUCTION, MOUTH CARE DONE. KEEP HOB ELEVATED, INFUSING DIPRIVAN 50MCG/KG/HR, AND TKO ON RIGHT FEMORAL LINE INTACT. PATIENT TOLERATING FEEDING WELL. PATIENT ANURIC, ASSIST TURN AND REPOSTION Q 2 HR. ENDORSED ONCOMING NURSE FOLLOW PLAN OF CARE.
--- NOTE | 2021-03-14 19:31 | NUR ---
HOUSE WIRER HELPER OPENING NOTES: Rec'd pt in bed, intubated 7/22cm at the lip. Tolerating vent settings well. No resp distress noted at this time. SB on tele monitor. Left NGT in place patent and infusing Nepro at 30ml/hr. NO residual noted at this time. Right groin TLC in place w/ Diprivan infusing at 50mcg/kg/min. Will titrate as needed. Bilateral soft wrist restraints in place, will remove per protocol. Pt anuric. Safety measures in place. Will continue to monitor.
--- NOTE | 2021-03-14 22:58 | NUR ---
DIRECTOR OF ANALYTICAL DEVELOPMENT NOTE: Pt noted to be desating down to mid 80s. RT titrated fio2 up to 60%. O2 sat WNL, will continue to monitor.
[2021-03-15] VITALS (61 sets, daily range): BP systolic 98–153; BP diastolic 46–101
[2021-03-15] MEDS: PROPOFOL 100 ML IV PRN ×3 (04:23→18:40)
--- NOTE | 2021-03-15 08:00 | NUR ---
rn notes Patient tolerating vent settings well. No respiratory distress noted at this time. Patient sedated infusing Diprivan 45 mcg/kg/hr. Left NGT in place patent and infusing Nepro at 30ml/hr. NO residual noted at this time.keep hob elevated for aspiration precaution. Right groin TLC in place. Bilateral soft wrist restraints rechecked circulation q2hr, assist turn and reposition q 2 hr. Pt anuric. Safety measures in place. Will continue to monitoring.
--- NOTE | 2021-03-15 08:05 | NUR ---
RN NOTES PATIENT ON SEDATION VACATION AT THIS TIME, TITRATING DIPRIVAN PER PROTOCOL , PATIENT STILL SEDATED. WILL MONITORING.
[2021-03-15] MEDS: ASPIRIN 81 MG TAB.CHEW NG SCH (08:48)
[2021-03-15] MEDS: HEPARIN SODIUM, PORCINE 5000 UNITS/1 ML VIAL SQ SCH ×2 (08:51→21:08)
--- NOTE | 2021-03-15 09:10 | NUR ---
RN NOTES PATIENT GETTING HD AT THIS TIME, WILL MONITORING. SON NEXT TO THE BED.
--- NOTE | 2021-03-15 11:15 | NUR ---
RN NOTES FINISHED HEMODIALYSIS AT THIS TIME OUTPUT WAS 1000ML, ASSIST TURN AND REPOSITION. PER Dr VILA WILL CONTINUE SEDATION TODAY, WILL DO SEDATION VACATION. FAMILY NEXT TO THE BED.
[2021-03-15] MEDS: FERRLICET 125MG in 100 ML NS IVPB IV SCH (14:20)
[2021-03-15] MEDS: NEPRO 1,000 ML BOTTLE GT PRN (16:08)
[2021-03-15] MEDS: IV NS 0.9% 250 ML IV PRN (17:51)
--- NOTE | 2021-03-15 18:30 | NUR ---
rn notes pm care done, suction, mouth care done, vss, no acute respiratory distress patient tolerating ETT setting well. infusing diprivan 30 mcg/kg/hr, and TKO 10ml/hr on femoral cath, intact. assist turn and reposition q 2 hr. running nepro 30ml/hr and intact. keep hob elevated. rechecked circulation of bilateral wrist. endorsed oncoming nurse che.
--- NOTE | 2021-03-15 19:27 | NUR ---
PROGRAMMABLE LOGIC CONTROLLER ASSEMBLER OPENING NOTES: Rec'd pt in bed, intubated 7/22cm at the lip. Tolerating vent settings well. No resp distress noted at this time. SR w/ BBB on tele monitor. Left NGT in place patent and infusing Nepro at 30ml/hr. NO residual noted at this time. Right groin TLC in place w/ Diprivan infusing at 30mcg/kg/min. Will titrate as needed. Bilateral soft wrist restraints in place, will remove per protocol. Pt anuric. Safety measures in place. Will continue to monitor.
[2021-03-16] VITALS (24 sets, daily range): BP systolic 113–158; BP diastolic 49–79
[2021-03-16] MEDS: PROPOFOL 100 ML IV PRN ×2 (02:45→17:16)
--- NOTE | 2021-03-16 07:15 | NUR ---
RN OPENING NOTES RECEIVED PATIENT SEDATED AND ORALLY INTUBATED. SETTINGS AT AC 12 TV 350 FIO2 50% PEEP 5. SR WITH BBB ON BEDSIDE MONITOR. LEFT NGT TO NEPRO AT 30ML/HR. RIGHT GROIN TLC NOTED WITH DIPRIVAN AT 30ML/HR AND N/S TKO. LEFT FA HD ACCESS NOTED. SAFETY CHECKS IN PLACE. WILL CONTINUE TO MONITOR.
[2021-03-16] MEDS: ASPIRIN 81 MG TAB.CHEW NG SCH (08:08)
[2021-03-16] MEDS: HEPARIN SODIUM, PORCINE 5000 UNITS/1 ML VIAL SQ SCH ×2 (08:09→21:28)
--- NOTE | 2021-03-16 09:28 | NUR ---
RT PER DR ARAUJO ORDER PATIENT PLACED ON VENT WEANING TRIAL. RN AWARE Addendum: 03/16/21 at 1341 by MARV HUERTA RT Amended: Links added.
[2021-03-16 10:29] LABS: ABG OXYGEN SATURATION 89.9 % (92.0-98.5); ABG PCO2 40.9 mmHg (35.0-45.0); ABG PH 7.456 (7.350-7.450); ABG PO2 57.7 mmHg (75.0-100.0); AaDO2 180.5 mmHg; COHb 1.1 % (0.5-1.5); MetHb 0.5 % (0.0-1.5); O2Hb 88.5 % (94.0-97.0); SITE, ABG Right Radial
--- NOTE | 2021-03-16 13:39 | NUR ---
RT PER DR VILA PATIENT PLACED BACK ON AC MODE AND PEEP WAS INCREASED TO +8. RN AWARE. Addendum: 03/16/21 at 1340 by MARV HUERTA RT Amended: Links added.
--- NOTE | 2021-03-16 14:00 | NUR ---
RN NOTE LEFT THORACENTESIS WAS PERFORMED AND [address] PULIDO AWARE THAT HEPARIN WAS ADMINISTERED THIS MORNING.
[2021-03-16] MEDS: NEPRO 1,000 ML BOTTLE GT PRN (16:23)
[2021-03-16] MEDS: IV NS 0.9% 250 ML IV PRN (17:16)
--- NOTE | 2021-03-16 18:50 | NUR ---
RN CLOSING NOTES PATIENT REMAINS SEDATED AND ORALLY INTUBATED. SETTINGS AT AC 12 TV 350 FIO2 50% PEEP 8. SR 66 WITH BBB ON BEDSIDE MONITOR. LEFT NGT TO NEPRO AT 30ML/HR. RIGHT GROIN TLC NOTED WITH DIPRIVAN AT 20MCG/KG/HR AND N/S TKO. LEFT FA HD ACCESS NOTED. SAFETY CHECKS IN PLACE. WILL ENDORSE TO NIGHT RN FOR CONTINUITY OF CARE.
--- NOTE | 2021-03-16 19:45 | NUR ---
ICU/WELDER FITTER ARC RECEIVED REPORT FROM DAY NURSE. SEE FLOWSHEET FOR ASSESSMENT. SEE IV SPREAD SHEET FOR TITRATIONS TO THIS. PT WAS TURNED AND REPOSITIONED FOR COMFORT AND CARE. NO ACUTE DISTRESS SEEN AT THIS TIME WILL CONTINUE MONITOR THIS PT.
[2021-03-17] VITALS (40 sets, daily range): BP systolic 111–156; BP diastolic 53–85
--- NOTE | 2021-03-17 | NUR ---
ICU/FIRST AID TEACHER PT WAS TURNED AND REPOSITIONED FOR COMFORT AND CARE. AT THIS TIME FOR MIDNIGHT, PT HAD A TEMP OF 100.6 AX, TYLENOL WAS GIVEN FOR THIS. WILL CONTINUE TO MONITOR THIS PT AND HER TEMP.
[2021-03-17] MEDS: ACETAMINOPHEN 650 MG/20.3 ML UDC NG PRN (01:09)
--- NOTE | 2021-03-17 02:10 | NUR ---
ICU/REIMBURSEMENT REPRESENTATIVE PT WAS GIVEN ORAL CARE AT THIS TIME, PT TOLERATED THIS WELL. PT WAS THEN GIVEN AM CARE AT THIS TIME. PT TOLERATED THIS WELL, PT REMAINS ON CURRENT VENT SETTINGS WITH SATURATION AT 100%. PT WAS TURNED AND REPOSITIONED FOR COMFORT AND CARE. WILL CONTINUE TO MONITOR THIS PT. NO ACUTE DISTRESS SEEN AT THIS TIME.
[2021-03-17 04:16] LABS: BASOPHILS % (AUTO) 0.5 % (0.0-2.0); EOSINOPHILS % (AUTO) 1.7 % (0.0-6.0); HEMATOCRIT 23 % (33-45); HEMOGLOBIN 7.3 g/dL (11.5-14.8); LYMPHOCYTES # (AUTO) 0.7 /CMM (0.8-4.8); LYMPHOCYTES % (AUTO) 7.7 % (20.0-44.0); MEAN CORPUSCULAR HGB CONC 32 g/dl (31.0-36.0); MEAN CORPUSCULAR VOLUME 116 fL (82-100); MONOCYTES # (AUTO) 0.9 /CMM (0.1-1.30); MONOCYTES % (AUTO) 10.5 % (2.0-12.0); NEUTROPHILS # (AUTO) 6.9 /CMM (1.8-8.9); NEUTROPHILS % (AUTO) 79.6 % (43.0-81.0); PLATELET COUNT (AUTO) 139 /CMM (150-450); WHITE BLOOD COUNT (AUTO) 8.6 K/uL (4.3-11.0)
[2021-03-17 04:19] LABS: RED BLOOD CELL COUNT(AUTO) 1.97 MIL/uL (4.0-5.2)
--- NOTE | 2021-03-17 04:20 | NUR ---
ICU/SEGMENT BLOCK LAYER AM LABS WERE DRAWN AND AM CXR WAS DONE. AWAIT FOR ANY ABNORMAL RESULTS.
[2021-03-17 04:22] LABS: CALCIUM, SERUM 8.5 mg/dL (8.5-10.1); CARBON DIOXIDE 29 mmol/L (21-32); CHLORIDE 104 mmol/L (98-107); GLUCOSE 109 mg/dL (74-106); MAGNESIUM 2.1 mg/dL (1.8-2.4); SODIUM SERUM 141 mmol/L (136-145); UREA NITROGEN, BLOOD 50 mg/dL (7-18)
[2021-03-17] MEDS: IV NS 0.9% 250 ML IV PRN (04:38)
[2021-03-17] MEDS: PROPOFOL 100 ML IV PRN ×3 (04:39→17:42)
--- NOTE | 2021-03-17 05:10 | NUR ---
ICU/MULTI SLIDE MACHINE TENDER PT APPEARED AGITATED AFTER AM LABS, NOTIFED CHARGE NURSE WHO THEN INCREASED THE SEDATION TO 25MCG FROM 20. WILL CONTINUE TO MONITOR THIS PT.
--- NOTE | 2021-03-17 07:15 | NUR ---
QA SPECIALIST Bedside report taken from Sarah. Pt sedated and intubated. pt arousable moves bue 2/5 and ble 1/5 but does not follow commands. pt on fio2 50 % tolerating well spo2 100% milagros lung sounds clear and diminished at this bases. pt has ngt and getting nepro @ 30 ml/hr, tolerating well, residuals 0 ml, bowel sounds present. pt anuric, HD pt. pt has generalized edema 2+, no wounds noted. all lines traced. all drips verified. safety measures in place. will continue to monitor.
--- NOTE | 2021-03-17 07:30 | NUR ---
EMERGENCY GENERATOR MECHANIC pt sedated and intubated. pt coughing, aggitated and fighting against ventilator, propofol increased to 30 mcg/kg/min. vitals stable. will continue to monitor.
--- NOTE | 2021-03-17 08:00 | NUR ---
METAL BOX MAKER Pt sedated but still aggitated, pulling at restraints, coughing and fighting against the ventilator. sedation increased to 35 mcg/kg/min. vitals stable. will continue to monitor. sedation increased for comfort and preparation for right side thoracentesis. Dr Martinez aware sedation increased and that aspirin and heparin dose not given in am pending procedure, ok per md. no new orders.
[2021-03-17] MEDS: ASPIRIN 81 MG TAB.CHEW NG SCH (09:00)
[2021-03-17] MEDS: HEPARIN SODIUM, PORCINE 5000 UNITS/1 ML VIAL SQ SCH ×2 (09:00→21:37)
--- NOTE | 2021-03-17 10:30 | NUR ---
STUDIO TECHNICIAN VIDEO OPERATOR Dr Martinez aware that 2 units prbc ready in lab and asked if pt was to be transfused. per md pt hgb 7.3, pt not to be transfused at this time. charge nurse Christine BAKER aware.
--- NOTE | 2021-03-17 10:44 | NUR ---
RESPIRATORY THERAPY MANAGER Telephone consent obtained from bailey Jordan French [phone] , witnessed with Stevie BAKER and placed in pt chart. pathology tech aware. Addendum: 03/17/21 at 1253 by REGISTRY [facility] INPATIENT RN4 RN RESPIRATORY THERAPY MANAGER Telephone consent obtained from bailey French [phone] , witnessed with Stevie BAKER and placed in pt chart. pathology tech aware.
--- NOTE | 2021-03-17 11:01 | NUR ---
PROMOTION PRODUCER roofing technician adrian at bedside doing US and preparing for US guided right thoracentesis. pt sedated. vitals stable. no signs of acute distress at this time. will continue to monitor.
--- NOTE | 2021-03-17 11:22 | NUR ---
PER DIEM PHYSICAL THERAPIST Dr Bolanos at bedside doing right side thoracentesis. pt tolerating well. vitals stable. no signs of acute distress at this time. will continue to monitor.
--- NOTE | 2021-03-17 11:27 | NUR ---
WHEAT AND OATS FLAKE MILLER Stat chest xray ordered per md status post right thoracentesis. awaiting tech.
--- NOTE | 2021-03-17 11:35 | NUR ---
PSYCHOLOGY PHYSICIAN lab called to pharmacy picking tech thoracentesis fluid, fluid labeled and verified. awaiting pickup
--- NOTE | 2021-03-17 11:45 | NUR ---
CARDIOPULMONARY SPECIALIST Pt right thoracentesis pleural fluid samples taken to lab by RN with requisition for cytology per md order and other lab tests labels verified with cath lab manager.
--- NOTE | 2021-03-17 12:49 | NUR ---
COMPUTER ASSEMBLER Telephone consent for blood transfusion taken from pt Jordan French [phone], witnessed with charge nurse Christine BAKER and placed in pt chart.
[2021-03-17] MEDS: PROSOURCE / PROSTAT (PYXIS) 30 ML UDC GT SCH (13:03)
--- NOTE | 2021-03-17 13:25 | NUR ---
PMP Blood transfusion initiated , blood witnessed with charge nurse Christine BAKER. pt vitals stable. no signs of acute distress at this time. blood transfusion started at 60 ml/hr per md order will increase rate per md order as pt tolerate.
--- NOTE | 2021-03-17 13:40 | NUR ---
CLINICAL DOCUMENTATION CONSULTANT pt has no reaction to blood transfusion, rate increased to 150ml/hr per md order to infuse over 2 hrs. pt tolerating well. vitals stable. will continue to monitor.
--- NOTE | 2021-03-17 13:43 | NUR ---
HONEY EXTRACTOR Spoke to Dr Valenzuela and informed that sedation was increased in the morning due to aggitation, coughing and fighting against ventilator and also in preparation for right thoracentesis and blood transfusion, md asked if he would like weaning trial done at this time, no weaning trial to be done at this time, ok to keep sedation as is and will attempt to wean tomorrow 03/[address] valenzuela. charge nurse Christine BAKER aware.
--- NOTE | 2021-03-17 15:45 | NUR ---
MANAGER BATTERY 1 unit PRBC transfusion completed. pt tolerated well. vitals stable. safety measures in place. will continue to monitor.
--- NOTE | 2021-03-17 16:15 | NUR ---
PROJECT CONTROLS SCHEDULER pt had bm, pt bathed and cleaned. linen change done. skin check done, no wounds noted, skin intact. pt tolerated well. vitals stable. safety measures in place. will continue to monitor
[2021-03-17 17:47] LABS: BASOPHILS % (AUTO) 0.2 % (0.0-2.0); EOSINOPHILS % (AUTO) 1.8 % (0.0-6.0); HEMATOCRIT 30 % (33-45); HEMOGLOBIN 9.8 g/dL (11.5-14.8); LYMPHOCYTES # (AUTO) 0.8 /CMM (0.8-4.8); LYMPHOCYTES % (AUTO) 7.7 % (20.0-44.0); MEAN CORPUSCULAR HGB CONC 32 g/dl (31.0-36.0); MEAN CORPUSCULAR VOLUME 109 fL (82-100); MONOCYTES # (AUTO) 0.9 /CMM (0.1-1.30); MONOCYTES % (AUTO) 8.4 % (2.0-12.0); NEUTROPHILS # (AUTO) 8.7 /CMM (1.8-8.9); NEUTROPHILS % (AUTO) 81.9 % (43.0-81.0); PLATELET COUNT (AUTO) 172 /CMM (150-450); RED BLOOD CELL COUNT(AUTO) 2.76 MIL/uL (4.0-5.2); WHITE BLOOD COUNT (AUTO) 10.6 K/uL (4.3-11.0)
[2021-03-17 18:31] LABS: BAND % (MANUAL) 8 % (0.0-5.0); LYMPHOCYTES % (MANUAL) 4 % (16-48); MONOCYTES % (MANUAL) 6 % (0-11.0); NEUTROPHILS % (MANUAL) 82 (42-76)
--- NOTE | 2021-03-17 19:07 | NUR ---
RETAIL SALES LEAD Bedside report given to [facility] nurse Smith . pt sedated and intubated but arousable. pt clean and dry. all lines traced. all drips verified. safety measures in place. no signs of acute distress at this time.
--- NOTE | 2021-03-17 19:25 | NUR ---
ICU/MEDICAL SOCIOLOGIST RECEIVED REPORT FROM DAY NURSE. SEE FLOWSHEET FOR ASSESSMENT. SEE IV SPREAD SHEET FOR TITRATIONS TO THIS. PT WAS TURNED AND REPOSITIONED FOR COMFORT AND CARE. NO ACUTE DISTRESS SEEN AT THIS TIME WILL CONTINUE MONITOR THIS PT.
--- NOTE | 2021-03-17 19:55 | NUR ---
RCVD PT ORALLY INTUBATED WITH ETT 7.0 SECURED @ 22 CM LIP LINE ON VENT WITH THE SETTINGS OF AC 12 ,VT 350, 50% , PEEP 8. SUCTIONED SMALL AMOUNT OF WHITE THIN SECRETIONS. VENT PLUGGED INTO RED OUTLET, VENT ALARMS ON AND AUDIBLE. NO RESPIRATORY DISTRESS NOTED AT THIS TIME. WILL CONTINUE TO MONITOR T/O SHIFT.
--- NOTE | 2021-03-17 21:07 | NUR ---
ICU/SAP SPECIALIST PIANO TUNER POLISHER AND BUFFER CALLED WHO HAPPENED TO BE DR CHIU WAS NOTIFIED THAT THE AM CXR DONE SHOWED THAT THE ETT TUBE SHOULD HAVE BE PULLED BACK 2CM. DR PRECIADO SAID THAT HE ISN'T GOING TO ADDRESS THIS. THAT THIS IS A DAYSHIFT ISSUE, NOT TO BE CALLED IN 14 HRS LATER TO FIXED. CHARGE NURSE MADE AWARE OF THIS OUTCOME AND THAT PT IS GETTING GOOD VOLUME AND NO DISTRESS SEEN.
[2021-03-17] MEDS: NEPRO 1,000 ML BOTTLE GT PRN (21:40)
--- NOTE | 2021-03-17 22:00 | NUR ---
ICU/SOLAR PHOTOVOLTAIC SYSTEMS ENGINEER PT COMPLETED HD TONIGHT WAS ABLE TO REMOVE 2600ML FLUID OFF PT. PT REMAINS STABLE WITH GOOD BLOOD PRESSURE. WILL CONTINUE TO MONITOR THIS PT.
--- NOTE | 2021-03-17 22:30 | NUR ---
ICU/INVESTMENT CONSULTANT PT WAS GIVEN ORAL CARE AT THIS TIME, PT TOLERATED THIS WELL. PT WAS THEN GIVEN PM CARE AT THIS TIME. PT TOLERATED THIS WELL, PT REMAINS ON CURRENT VENT SETTINGS WITH SATURATION AT 100%. PT WAS TURNED AND REPOSITIONED FOR COMFORT AND CARE. WILL CONTINUE TO MONITOR THIS PT. NO ACUTE DISTRESS SEEN AT THIS TIME.
[2021-03-18] VITALS (30 sets, daily range): BP systolic 91–155; BP diastolic 31–81
--- NOTE | 2021-03-18 00:10 | NUR ---
ICU/STUDENT SUCCESS COUNSELOR PT WAS TURNED AND REPOSITIONED FOR COMFORT AND CARE. AT THIS TIME FOR MIDNIGHT, PT HAD A TEMP OF 99.0 AX, WILL CONTINUE TO MONITOR THIS PT. NO ACUTE DISTRESS SEEN AT THIS TIME.
[2021-03-18] MEDS: PROPOFOL 100 ML IV PRN (00:52)
[2021-03-18] MEDS: IV NS 0.9% 250 ML IV PRN (02:14)
[2021-03-18 04:20] LABS: BASOPHILS % (AUTO) 0.2 % (0.0-2.0); EOSINOPHILS % (AUTO) 1.8 % (0.0-6.0); HEMATOCRIT 28 % (33-45); HEMOGLOBIN 9.1 g/dL (11.5-14.8); LYMPHOCYTES # (AUTO) 0.6 K/uL (0.8-4.8); LYMPHOCYTES % (AUTO) 4.8 % (20.0-44.0); MEAN CORPUSCULAR HGB CONC 32 g/dl (31.0-36.0); MEAN CORPUSCULAR VOLUME 109 fL (82-100); MONOCYTES # (AUTO) 0.8 K/uL (0.1-1.30); MONOCYTES % (AUTO) 6.5 % (2.0-12.0); NEUTROPHILS # (AUTO) 9.9 K/uL (1.8-8.9); NEUTROPHILS % (AUTO) 86.7 % (43.0-81.0); PLATELET COUNT (AUTO) 170 K/uL (150-450); RED BLOOD CELL COUNT(AUTO) 2.58 MIL/uL (4.0-5.2); WHITE BLOOD COUNT (AUTO) 11.5 K/uL (4.3-11.0)
[2021-03-18 04:30] LABS: CALCIUM, SERUM 8.4 mg/dL (8.5-10.1); CARBON DIOXIDE 31 mmol/L (21-32); CHLORIDE 102 mmol/L (98-107); CREATININE 3.3 mg/dL (0.6-1.3); GLUCOSE 88 mg/dL (74-106); MAGNESIUM 1.8 mg/dL (1.8-2.4); POTASSIUM 3.9 mmol/L (3.5-5.1); SODIUM SERUM 140 mmol/L (136-145); UREA NITROGEN, BLOOD 39 mg/dL (7-18)
--- NOTE | 2021-03-18 06:00 | NUR ---
ICU/OPS ANALYST SEDATION IS TITRATED DOWN BY CHARGE NURSE DUE TO THE FACT PT WILL BE WING DOWN ON VENT SETTINGS. WILL CONTINUE TO MONITOR THIS PT.
--- NOTE | 2021-03-18 07:20 | NUR ---
ICU/RN PT IS INTUBATED ON THE VENT AC MODE,FIO2-40%,SAT O2-100%.V/S STABLE,AFEBRILE.SEDATED ON DIPRIVAN DRIP.RIGHT FEMORAL TLC.ANURIC ON HD.LEFT FOREARM HD FISTULA, COVERED WITH DRESSING.NG TUBE INFUSING WITH NEPRO AT 30 ML/HR NO RESIDUAL NOTED.SUCTION PROVIDED.LABS REVIEW.
--- NOTE | 2021-03-18 09:00 | NUR ---
ICU/RN DUE MEDS ARE GIVEN ORDERED.PT DIPRIVAN STOP.VENT SETTING CHANGED TO SIMV MODE.PT IS AWAKE,ALERT.FAMILY AT BED SIDE.PT HAS A LOT OF ORAL AND ETT SECRETION.SUCTION PROVIDED.
[2021-03-18] MEDS: PROSOURCE / PROSTAT (PYXIS) 30 ML UDC GT SCH (09:13)
[2021-03-18] MEDS: ASPIRIN 81 MG TAB.CHEW NG SCH (09:34)
[2021-03-18] MEDS: HEPARIN SODIUM, PORCINE 5000 UNITS/1 ML VIAL SQ SCH ×2 (09:34→20:25)
[2021-03-18 11:56] LABS: BAND % (MANUAL) 9 % (0.0-5.0); EOSINOPHILS % (MANUAL) 2 % (0-4); MONOCYTES % (MANUAL) 4 % (0-11.0); NEUTROPHILS % (MANUAL) 85 (42-76)
[2021-03-18 13:03] LABS: LYMPHOCYTES % (MANUAL) 0 % (16-48)
[2021-03-18 15:51] LABS: ABG BASE EXCESS 0.5 mmol/L; ABG OXYGEN SATURATION 91.8 % (92.0-98.5); ABG PCO2 37.2 mmHg (35.0-45.0); ABG PH 7.437 (7.350-7.450); ABG PO2 65.1 mmHg (75.0-100.0); AaDO2 177.3 mmHg; COHb 1.9 % (0.5-1.5); MetHb 1.4 % (0.0-1.5); O2Hb 88.8 % (94.0-97.0); PEEP,BG 5 cm H2O; SITE, ABG Right Radial; VENT MODE, BG SIMV 4 PSV 15
[2021-03-18] MEDS: ACETAMINOPHEN 650 MG/20.3 ML UDC NG PRN (16:53)
[2021-03-18] MEDS: NEPRO 1,000 ML BOTTLE GT PRN (16:53)
--- NOTE | 2021-03-18 17:00 | NUR ---
ICU/RN PM CARE PROVIDED.T-101.7.TYLENOL VIA NG TUBE GIVEN ORDERED.REPOSITION FOR COMFORT.PT IS STILL ON SIMV MODE.AWAKE ,ALERT.FAMILY AT BED SIDE.
--- NOTE | 2021-03-18 19:30 | NUR ---
RN NOTES Received patient in bed on SIMV MODE no distress noted. ETT 04/15,TV-350, FIO2-40, PEEP-5, tolerating well saturation 97% at this time. Femoral TLC, Anuric on HD. Left Forearm HD. NGT in place Nepro running at 30ML/HR no residual noted. All safety measures in place, call light within reach. Will cont to monitor for che.
--- NOTE | 2021-03-18 20:14 | NUR ---
RECEIVED PT ON SIMV MODE. PT IS AWAKE AND NO RESP DISTRESS NOTED. ETT IS 7.0 SECURED AT 22CM. SX'D SML AMT OF THICK YELLOW SECRETIONS. VENT ALARMS SET AND AUDIBLE. AMBU BAG AT BEDSIDE. CONTINUE TO MONITOR. Addendum: 03/18/21 at 2015 by KEEGAN MONTEMAYOR RT Amended: Links added.
[2021-03-19] VITALS (51 sets, daily range): BP systolic 83–164; BP diastolic 35–88
[2021-03-19 04:29] LABS: BASOPHILS % (AUTO) 0.2 % (0.0-2.0); EOSINOPHILS % (AUTO) 0.4 % (0.0-6.0); HEMATOCRIT 25 % (33-45); HEMOGLOBIN 8.1 g/dL (11.5-14.8); LYMPHOCYTES # (AUTO) 0.6 K/uL (0.8-4.8); LYMPHOCYTES % (AUTO) 3.7 % (20.0-44.0); MEAN CORPUSCULAR HGB CONC 33 g/dl (31.0-36.0); MEAN CORPUSCULAR VOLUME 110 fL (82-100); MONOCYTES # (AUTO) 1.2 K/uL (0.1-1.30); MONOCYTES % (AUTO) 7.9 % (2.0-12.0); NEUTROPHILS # (AUTO) 13.4 K/uL (1.8-8.9); NEUTROPHILS % (AUTO) 87.8 % (43.0-81.0); PLATELET COUNT (AUTO) 201 K/uL (150-450); RED BLOOD CELL COUNT(AUTO) 2.28 MIL/uL (4.0-5.2); WHITE BLOOD COUNT (AUTO) 15.2 K/uL (4.3-11.0)
[2021-03-19 04:38] LABS: CALCIUM, SERUM 8.7 mg/dL (8.5-10.1); CARBON DIOXIDE 31 mmol/L (21-32); CHLORIDE 100 mmol/L (98-107); CREATININE 4.1 mg/dL (0.6-1.3); GLUCOSE 103 mg/dL (74-106); POTASSIUM 4.1 mmol/L (3.5-5.1); SODIUM SERUM 138 mmol/L (136-145); UREA NITROGEN, BLOOD 65 mg/dL (7-18)
[2021-03-19] MEDS: ACETAMINOPHEN 650 MG/20.3 ML UDC NG PRN (05:20)
--- NOTE | 2021-03-19 05:20 | NUR ---
PRN Tylenol 650mg given via NGT for Temp-101.1. will cont to monitor.
[2021-03-19 05:41] LABS: LYMPHOCYTES % (MANUAL) 6 % (16-48); MONOCYTES % (MANUAL) 6 % (0-11.0); NEUTROPHILS % (MANUAL) 88 (42-76)
--- NOTE | 2021-03-19 06:20 | NUR ---
Tylenol was effective Fever down to 100.0. Will cont to monitor.
--- NOTE | 2021-03-19 06:39 | NUR ---
RN NOTES No s/s of acute distress noted patient continues on SIMV mode. AM care provided, Turning and repositioning as tolerated. NGT continues on Nephro running at 30ML/hr no residual noted. All safety measures in place, call light within reach. Will endorse to AM nurse for che.
--- NOTE | 2021-03-19 07:05 | NUR ---
RN NOTES Received patient in bed on bed , eyes open, follows simple command , intubated, on SIMV mode, tolerating the setting well, T=99.9, R groin Femoral TLC site clean, dry and intact, pt is Anuric and on HD. NGT in place Nepro running at 30ML/HR no residual noted. All safety measures in place, call light within reach. SR up X3,continue to monitor.
--- NOTE | 2021-03-19 07:49 | NUR ---
WOUND CARE CONSULT: PT PRESENTS WITH BONY SACRAL AREA, PRESENT ON ADMISSION. PT ALSO NOTED TO HAVE ESCHAR/SKIN TEAR TO LEFT ARM NEAR HEMODIALYSIS ACCESS. RECOMMEND SURGICAL CONSULT. DR RENAE NOTIFIED OF CONSULT REQUEST. PT IS ON DAMI ISOFLEX LOW AIRLOSS BED. RECOMMENDATIONS MADE FOR SKIN PROTECTION AND DISCUSSED WITH NURSING STAFF. PT IS INCONTINENT OF STOOL. IN AGREEMENT WITH PLAN OF CARE. Addendum: 03/19/21 at 0750 by LAURENCE SOLIS WNDNU Amended: Links added.
[2021-03-19] MEDS: ASPIRIN 81 MG TAB.CHEW NG SCH (08:17)
[2021-03-19] MEDS: PROSOURCE / PROSTAT (PYXIS) 30 ML UDC GT SCH (08:17)
[2021-03-19] MEDS: HEPARIN SODIUM, PORCINE 5000 UNITS/1 ML VIAL SQ SCH (08:18)
[2021-03-19 08:45] LABS: ABG BASE EXCESS 1.8 mmol/L; ABG OXYGEN SATURATION 92.1 % (92.0-98.5); ABG PCO2 44.8 mmHg (35.0-45.0); ABG PH 7.397 (7.350-7.450); ABG PO2 66.1 mmHg (75.0-100.0); AaDO2 167.6 mmHg; COHb 2.5 % (0.5-1.5); MetHb 0.8 % (0.0-1.5); O2Hb 89.1 % (94.0-97.0); PEEP,BG 5 cm H2O; SITE, ABG Right Radial; VENT MODE, BG SIMV 4 PSV15; VT, ABG 350 mL
[2021-03-19] MEDS ORDERED: DC PROPOFOL WHEN EXTUBATED XX PRN (09:00)
[2021-03-19] MEDS ORDERED: VANCOMYCIN 1 GM in IV D5W 250ml IV ONE (09:30)
[2021-03-19] MEDS: ZOSYN IVPB 2.25 G in IV D5W 50ml IV SCH ×2 (10:37→17:25)
--- NOTE | 2021-03-19 11:05 | NUR ---
RN NOTES PT EXTUBATED PER MD ORDER , ON 6L O2 N/C , O2 SAT WNL, FAMILY AT THE BEDSIDE, CONTINUE TO MONITOR .
--- NOTE | 2021-03-19 11:05 | NUR ---
pt extubated. zero distress noted. placed on 6lpm n/c strong cough. b/s equal
--- NOTE | 2021-03-19 12:58 | NUR ---
RN NOTES PT IS NOT RESPONDING TO PAINFUL STIMULI , EYES CLOSED , NON VERBAL, NOT FOLLOWING COMMAND, ABG DONE DR CADENCE LEE, ABG DONE, ORDER RECEIVED FOR REINTUBATION . ER DOCTOR AND NURSING DRAFTER PLUMBING NOTIFIED, CONTINUE TO MONITOR .
--- NOTE | 2021-03-19 13:04 | NUR ---
RN NOTES PT REINTUBATED, PLACED ON VENT , CONTINUE TO MONITOR
[2021-03-19 13:41] LABS: ABG BASE EXCESS 0.6 mmol/L; ABG OXYGEN SATURATION 90.7 % (92.0-98.5); ABG PCO2 158.8 mmHg (35.0-45.0); ABG PH 6.963 (7.350-7.450); ABG PO2 89.4 mmHg (75.0-100.0); AaDO2 13.2 mmHg; COHb 1.4 % (0.5-1.5); MetHb 0.9 % (0.0-1.5); O2Hb 88.6 % (94.0-97.0)
--- NOTE | 2021-03-19 14:25 | NUR ---
RN NOTES ET TUBE PULLED OUT [address] VILA ORDER BY RT.
[2021-03-19] MEDS: NOREPINEPHRINE 8 MG in IV NS 0.9% 242 ML IV PRN (14:33)
[2021-03-19] MEDS ORDERED: PROPOFOL 100 ML IV PRN (15:00)
[2021-03-19] MEDS ORDERED: MIDAZOLAM HCL 2 MG/2ML VIAL IV STA (15:01)
[2021-03-19] MEDS ORDERED: FENTANYL PF 100MCG/2ML AMPUL IV PRN (15:30)
[2021-03-19] MEDS ORDERED: FENTANYL PF 100MCG/2ML AMPUL IV ONE (15:30)
--- NOTE | 2021-03-19 15:35 | NUR ---
RN NOTES R SIDED CHEST TUBE INSERTED BY DR NORTON, PT TOLERATED WELL, VSS STABLE , CONTINUE TO MONITOR.
[2021-03-19] MEDS ORDERED: ETOMIDATE 2 MG/ML VIAL IV ONE (16:01)
[2021-03-19] MEDS: PROPOFOL 10MG/ML 50ML 50 ML IV PRN (16:09)
[2021-03-19 16:29] LABS: ABG BASE EXCESS 2.7 mmol/L; ABG OXYGEN SATURATION 99.7 % (92.0-98.5); ABG PCO2 35.6 mmHg (35.0-45.0); ABG PH 7.484 (7.350-7.450); ABG PO2 268.7 mmHg (75.0-100.0); AaDO2 408.7 mmHg; COHb 0.9 % (0.5-1.5); MetHb 0.8 % (0.0-1.5); SITE, ABG Right Femoral; VENT MODE, BG AC 20 450 100% +0
--- NOTE | 2021-03-19 18:35 | NUR ---
RN NOTES PT REINTUBATED ON THIS SHIFT , TOLERATING THE VENT SETTING WELL , ON SEDATION AT 15MCG/KG/MIN RUNNING , LEVO AT .04 MCG/KG/MIN FOR BP SUPPORT INFUSING VIA R FEMORAL TLC , RIGHT SIDED CHEST TUBE INTACT, DRAINING LIGHT BLOODY DRAINING , DR NORTON AWARE, TF AT 30CC/HR RUNNING , NO RESIDUAL NOTED, R GROIN TLC SITE , CLEAN , DRY AND INTACT, SR UP x3, CALL LIGHT WITHIN EASY REACH, BED LOCKED AND IN LOWEST POSITION, CONTINUE TO MONITOR.
--- NOTE | 2021-03-19 19:30 | NUR ---
ICU/PRESS TENDER LONG GOODS RECEIVED REPORT FROM DAY NURSE. SEE FLOWSHEET FOR ASSESSMENT. SEE IV SPREAD SHEET FOR TITRATIONS TO THIS. PT WAS TURNED AND REPOSITIONED FOR COMFORT AND CARE. NO ACUTE DISTRESS SEEN AT THIS TIME WILL CONTINUE MONITOR THIS PT.
--- NOTE | 2021-03-19 20:16 | NUR ---
RECEIVED PT INTUBATED ON VENT, 6.0 ETT SECURED AT 21CM. PT IS AWAKE. SX'D MOD AMT OF RED SECRETIONS. ETT CUFF CHECKED. VENT ALARMS SET AND AUDIBLE. AMBU BAG AT BEDSIDE. CONTINUE TO MONITOR. Addendum: 03/19/21 at 2020 by KEEGAN MONTEMAYOR RT Amended: Links added.
--- NOTE | 2021-03-19 22:30 | NUR ---
ICU/MEDICAL RECORDS ANALYST POST HD DONE, HD NURSE TOOK OFF 1000ML.
[2021-03-20] VITALS (61 sets, daily range): BP systolic 69–147; BP diastolic 36–74
[2021-03-20] MEDS: ZOSYN IVPB 2.25 G in IV D5W 50ml IV SCH ×3 (00:11→11:00)
[2021-03-20] MEDS: PROPOFOL 10MG/ML 50ML 50 ML IV PRN ×6 (00:12→22:14)
--- NOTE | 2021-03-20 00:30 | NUR ---
ICU/HELP DESK SUPERVISOR TEMP WAS 103.2, COOLING MEASURES DONE ALONG WITH TYLENOL GIVEN THROUGH N/G TUBE. WILL MONITOR THIS PT
[2021-03-20] MEDS: ACETAMINOPHEN 650 MG/20.3 ML UDC NG PRN ×2 (00:40→20:13)
--- NOTE | 2021-03-20 02:45 | NUR ---
ICU/MARBLE WORKER LEVO WAS TITRATED UP FOR LOW BLOOD PRESSURE FROM [id number], THEN BP STABILIZED. SEE FLOW SHEET FOR ASSESSMENT AND TITRATIONS. WILL CONTINUE TO MONITOR THIS PT AND HER BLOOD PRESSURE.
--- NOTE | 2021-03-20 05:20 | NUR ---
ICU/FULFILLMENT ASSOCIATE LEVO WAS TITRATED DOWN FOR HIGH BLOOD PRESSURE FROM [id number], THEN BP STABILIZED. SEE FLOW SHEET FOR ASSESSMENT AND TITRATIONS. WILL CONTINUE TO MONITOR THIS PT AND HER BLOOD PRESSURE.
[2021-03-20 05:28] LABS: BASOPHILS # (AUTO) 0.1 K/uL (0.0-0.2); BASOPHILS % (AUTO) 0.4 % (0.0-2.0); EOSINOPHILS % (AUTO) 1.7 % (0.0-6.0); HEMATOCRIT 25 % (33-45); HEMOGLOBIN 8.2 g/dL (11.5-14.8); LYMPHOCYTES # (AUTO) 0.6 K/uL (0.8-4.8); LYMPHOCYTES % (AUTO) 3.9 % (20.0-44.0); MEAN CORPUSCULAR HGB CONC 33 g/dl (31.0-36.0); MEAN CORPUSCULAR VOLUME 111 fL (82-100); MONOCYTES # (AUTO) 0.9 K/uL (0.1-1.30); MONOCYTES % (AUTO) 5.5 % (2.0-12.0); NEUTROPHILS # (AUTO) 14.5 K/uL (1.8-8.9); NEUTROPHILS % (AUTO) 88.5 % (43.0-81.0); PLATELET COUNT (AUTO) 241 K/uL (150-450); RED BLOOD CELL COUNT(AUTO) 2.28 MIL/uL (4.0-5.2); WHITE BLOOD COUNT (AUTO) 16.4 K/uL (4.3-11.0)
[2021-03-20 05:39] LABS: CALCIUM, SERUM 8.5 mg/dL (8.5-10.1); CARBON DIOXIDE 29 mmol/L (21-32); CHLORIDE 98 mmol/L (98-107); CREATININE 3.2 mg/dL (0.6-1.3); GLUCOSE 100 mg/dL (74-106); PHOSPHORUS 2.4 mg/dL (2.5-4.9); POTASSIUM 3.6 mmol/L (3.5-5.1); SODIUM SERUM 135 mmol/L (136-145); UREA NITROGEN, BLOOD 50 mg/dL (7-18); VANCOMYCIN,RANDOM 14 ug/ml (18-26)
[2021-03-20] MEDS ORDERED: VANCOMYCIN POST DIALYSIS 500MG IV PRN ×2 (06:00→13:30)
[2021-03-20] MEDS: NEPRO 1,000 ML BOTTLE GT PRN (06:20)
[2021-03-20] MEDS: IV NS 0.9% 250 ML IV PRN (06:21)
--- NOTE | 2021-03-20 07:15 | NUR ---
FUELER NOTES RECEIVED PATIENT SEDATED , RESPONSIVE TO DEEP PAIN STIMULI , NOT IN ACUTE DISTRESS , RESPIRATIONS EVEN AND UNLABORED WITH SPO2 OF 99% VIA MECHANICAL VENT SETTINGS ORDERED , ETT 03/[address] , SR 75 ON BEDSIDE MONITOR , LEFT NARE NGT IN PLACE WITH NEPHRO @ 30ML/HR TOLERATING WELL , R TLC WITH DIRPRIVAN @ 20MCG/KG/MIN , LEVOPHED @ 0.03MCG/KG/MIN AND NS @ TKO INFUSING WELL , ALL NEEDS ATTENDED , HOB @ 45, WILL CONTINUE TO MONITOR Addendum: 03/20/21 at 0827 by NIGEL FRYE RN RIGHT CHEST TUBE IN PLACE , ATTACHED TO SUCTION -20MMHG , NO LEAK NOTED , DRAINING WITH PINK MINIMAL OUTPUT .
--- NOTE | 2021-03-20 08:00 | NUR ---
HOT MILL WORKER NOTES SEDATION VACATION @ 0720 AM , PLACED BACK PT ON DIPRIVAN DUE TO RR OF 30CPM WITH SPO2 OF 90% , PT TRACKS , ABLE TO FOLLOW SIMPLE COMMANDS , WILL CONTINUE TO MONITOR
[2021-03-20] MEDS: PROSOURCE / PROSTAT (PYXIS) 30 ML UDC GT SCH (08:18)
[2021-03-20] MEDS: ASPIRIN 81 MG TAB.CHEW NG SCH (08:19)
--- NOTE | 2021-03-20 08:28 | NUR ---
HEALTH POLICY ANALYST NOTES ASPIRIN HELD NOTED WITH MINIMAL PINKISH OUTPUT THRU CHEST TUBE . WILL CONTINUE TO MONITOR.
--- NOTE | 2021-03-20 10:36 | NUR ---
MANAGER MAINTENANCE NOTES SEEN AND EVALUATED BY DR COTA, DISCUSSED LABS , PT ON LEVOPHED @ 0.01MCG/KG/MIN , SEDATED @ 20MCG/KG/MIN OF DIPRIVAN , T MAX OF 103.2 @ MIDNIGHT , BLOOD CULTURES ARE STILL PENDING , 98.3 TEMP @ 0800 , RIGHT CHEST TUBE NOTED WITH MINIMAL BLOODY OUTPUT , ASPIRIN ORDERED HELD , DISCUSSED CURRENT CHEST XRAY , ROOFING SALES REPRESENTATIVE AWARE .
[2021-03-20] MEDS: FLUCONAZOLE (100 MG) 100 MG TABLET PO SCH (11:57)
--- NOTE | 2021-03-20 12:09 | NUR ---
CHILD CARE ASSISTANT NOTES SEEN AND EVALUATED BY DR GOULD @ 6313 , DISCUSSED CHEST XRAY , LABS , OFF LEVOPHED @1030 AM , SEDATED , T MAX OF 103.2 AT MIDNIGHT , TOLERATING TUBE FEEDING , NO BLEEDING NOTED , NOTED WITH JUGULAR VEIN DISTENTION , HD YESTERDAY 1L OUT , PER MD CHANGE TV TO 380 AND ORDER ABG , NOTIFIED DR GOULD REGARDING ABG RESULTS , NO NEW ORDERS RECEIVED .
[2021-03-20] MEDS: MEROPENEM 500 MG in IV NS 0.9% 50 ML IV SCH ×2 (12:21→23:13)
--- NOTE | 2021-03-20 14:04 | NUR ---
BRAKES INSPECTOR NOTES CHANDNI MIDLINE # 18 PLACED , RIGHT FEMORAL TLC REMOVED , SENT CATH TIP FOR CULTURE , NO BLEEDING NOTED , WILL CONTINUE TO MONITOR
[2021-03-20] MEDS ORDERED: VANCOMYCIN 500 MG in IV D5W 100 ML IV ONE (15:00)
[2021-03-20] MEDS ORDERED: VANCOMYCIN 500 MG in IV D5W 100ml IV ONE (15:00)
[2021-03-20 16:45] LABS: ABG BASE EXCESS 3.5 mmol/L; ABG OXYGEN SATURATION 90.9 % (92.0-98.5); ABG PCO2 39.6 mmHg (35.0-45.0); ABG PH 7.461 (7.350-7.450); ABG PO2 57.8 mmHg (75.0-100.0); AaDO2 181.9 mmHg; COHb 2.4 % (0.5-1.5); MetHb 1.1 % (0.0-1.5); O2Hb 87.7 % (94.0-97.0); PEEP,BG 0 cm H2O; SITE, ABG Right Brachial; VT, ABG 380 mL
[2021-03-20] MEDS ORDERED: VANCOMYCIN 1 GM in IV D5W 250 ML IV ONE (18:00)
--- NOTE | 2021-03-20 20:14 | NUR ---
ICU/REVERSE UNIT OPERATOR 1999 TEMP WAS 101.6, COOLING MEASURES DONE ALONG WITH TYLENOL GIVEN. WILL MONITOR THIS PT'S TEMP.
[2021-03-21] VITALS (24 sets, daily range): BP systolic 93–154; BP diastolic 46–80
[2021-03-21] MEDS: IV NS 0.9% 250 ML IV PRN ×2 (02:11→23:52)
[2021-03-21] MEDS: NEPRO 1,000 ML BOTTLE GT PRN (02:11)
[2021-03-21] MEDS: PROPOFOL 10MG/ML 50ML 50 ML IV PRN ×2 (02:19→06:26)
[2021-03-21] MEDS ORDERED: VANCOMYCIN POST DIALYSIS 500MG IV PRN (05:00)
[2021-03-21 05:13] LABS: BASOPHILS # (AUTO) 0.1 K/uL (0.0-0.2); BASOPHILS % (AUTO) 0.5 % (0.0-2.0); EOSINOPHILS % (AUTO) 1.8 % (0.0-6.0); HEMATOCRIT 22 % (33-45); HEMOGLOBIN 7.2 g/dL (11.5-14.8); LYMPHOCYTES # (AUTO) 0.5 K/uL (0.8-4.8); LYMPHOCYTES % (AUTO) 4.2 % (20.0-44.0); MEAN CORPUSCULAR HGB CONC 33 g/dl (31.0-36.0); MEAN CORPUSCULAR VOLUME 110 fL (82-100); MONOCYTES # (AUTO) 0.9 K/uL (0.1-1.30); MONOCYTES % (AUTO) 6.5 % (2.0-12.0); NEUTROPHILS # (AUTO) 11.5 K/uL (1.8-8.9); PLATELET COUNT (AUTO) 250 K/uL (150-450); WHITE BLOOD COUNT (AUTO) 13.2 K/uL (4.3-11.0)
[2021-03-21 05:14] LABS: RED BLOOD CELL COUNT(AUTO) 1.97 MIL/uL (4.0-5.2)
[2021-03-21 05:59] LABS: CALCIUM, SERUM 8.9 mg/dL (8.5-10.1); CARBON DIOXIDE 28 mmol/L (21-32); CHLORIDE 96 mmol/L (98-107); CREATININE 3.7 mg/dL (0.6-1.3); GLUCOSE 95 mg/dL (74-106); MAGNESIUM 2.1 mg/dL (1.8-2.4); POTASSIUM 3.7 mmol/L (3.5-5.1); SODIUM SERUM 134 mmol/L (136-145); UREA NITROGEN, BLOOD 71 mg/dL (7-18)
--- NOTE | 2021-03-21 07:00 | NUR ---
INK JET OPERATOR NOTES RECEIVED PATIENT, INTUBATED AND SEDATED, ON DIPRIVAN AT 30MCG/KG/MIN, , RESPONSIVE TO PAINFUL STIMULI , NOT IN ACUTE DISTRESS , RESPIRATIONS EVEN AND UNLABORED WITH SPO2 OF 95% VIA MECHANICAL VENT SETTINGS ORDERED , ETT 03/[address] , SR 73 ON BEDSIDE MONITOR , LEFT NARE NGT IN PLACE WITH NEPHRO @ 30ML/HR TOLERATING WELL , R UPPER ARM MIDLINE SITE CLEAN, DRY AND INTACT, SR UP x3, CALL LIGHT WITHIN EASY REACH, BED LOCKED AND IN LOWEST POSITION, ALL NEEDS ATTENDED , HOB @ 45, WILL CONTINUE TO MONITOR.
[2021-03-21] MEDS: FLUCONAZOLE (100 MG) 100 MG TABLET PO SCH (08:23)
[2021-03-21] MEDS: PROSOURCE / PROSTAT (PYXIS) 30 ML UDC GT SCH (08:23)
[2021-03-21] MEDS: ASPIRIN 81 MG TAB.CHEW NG SCH (08:23)
[2021-03-21] MEDS: MEROPENEM 500 MG in IV NS 0.9% 50 ML IV SCH ×2 (11:47→23:46)
--- NOTE | 2021-03-21 12:00 | NUR ---
RN NOTES PT TOLERATING SIMV MODE WELL, MODERATED AMOUNT OF THIN SECRETION NOTED, O2 SAT WNL, CONTINUE TO MONITOR.
--- NOTE | 2021-03-21 17:56 | NUR ---
RT PATIENT REMAINS ORALLY INTUBATED ON [facility] VENT ON SIMV WEANING MODE. PATIENT TOLERATING WEANING MODE AT THIS TIME. KOKOU BAG AT HOG. Addendum: 03/21/21 at 1757 by MARV HUERTA RT Amended: Links added.
--- NOTE | 2021-03-21 18:00 | NUR ---
RN NOTES PT REMAINS INTUBATED , CALM AND COOPERATIVE , ON SIMV MODE, ET TUBE SUCTIONING DONE PRN ON THIS SHIFT, NO CHEST TUBE DRAINING NOTED ON THIS SHIFT, R UPPER ARM MIDLINE SITE CLEAN, DRY AND INTACT, SR UP x3, CALL LIGHT WITHIN EASY REACH, BED LOCKED AND IN LOWEST POSITION, SUPPORTIVE FAMILY AT THE BEDSIDE, WILL ENDORSE TO MIRROR POLISHER NURSE FOR CONTINUITY OF CARE .
--- NOTE | 2021-03-21 19:00 | NUR ---
RN NOTE RECEIVED PATIENT IN BED RESTING CLOSE EYES,RESPONSIVE TO PAIN STIMULI, ON MECHANICAL VENT ETT 03/15 AC 14 TV 380 FIO2 40% PEEP 0 ON CHEST TUBE, ON ORAL G-TUBE NEPHRO 30CC/HR CHECKED PLACEMENT IN PLACE,NO RESIDUAL NOTED,IV SITE IS ON RIGHT UPPER ARM MIDLINE INTACT PATENT AND LEFT FOREARM AV FISTULA,INCONTINENT TO BOWEL/BLADDER SAFETY MEASURE IMPLEMENT,BED IN LOW POSITION AND LOCKED,HEAD OF THE BED ELEVATED,CONTINUE TO MONITOR.
[2021-03-21] MEDS: ACETAMINOPHEN 650 MG/20.3 ML UDC NG PRN (21:04)
[2021-03-22] VITALS (50 sets, daily range): BP systolic 112–166; BP diastolic 49–97
[2021-03-22] MEDS ORDERED: diphenhydrAMINE HCL 50 MG/ML VIAL ONE (01:16)
[2021-03-22 05:09] LABS: BASOPHILS % (AUTO) 0.5 % (0.0-2.0); EOSINOPHILS % (AUTO) 2.6 % (0.0-6.0); HEMATOCRIT 23 % (33-45); HEMOGLOBIN 7.3 g/dL (11.5-14.8); LYMPHOCYTES # (AUTO) 0.4 K/uL (0.8-4.8); LYMPHOCYTES % (AUTO) 4.8 % (20.0-44.0); MEAN CORPUSCULAR HGB CONC 32 g/dl (31.0-36.0); MEAN CORPUSCULAR VOLUME 113 fL (82-100); MONOCYTES # (AUTO) 0.8 K/uL (0.1-1.30); MONOCYTES % (AUTO) 8.7 % (2.0-12.0); NEUTROPHILS # (AUTO) 7.8 K/uL (1.8-8.9); NEUTROPHILS % (AUTO) 83.4 % (43.0-81.0); PLATELET COUNT (AUTO) 299 K/uL (150-450); WHITE BLOOD COUNT (AUTO) 9.3 K/uL (4.3-11.0)
[2021-03-22 05:29] LABS: CALCIUM, SERUM 9.1 mg/dL (8.5-10.1); CARBON DIOXIDE 27 mmol/L (21-32); CHLORIDE 95 mmol/L (98-107); CREATININE 4.3 mg/dL (0.6-1.3); GLUCOSE 99 mg/dL (74-106); MAGNESIUM 2.2 mg/dL (1.8-2.4); PHOSPHORUS 3.8 mg/dL (2.5-4.9); POTASSIUM 3.8 mmol/L (3.5-5.1); SODIUM SERUM 133 mmol/L (136-145)
[2021-03-22 05:38] LABS: UREA NITROGEN, BLOOD 88 mg/dL (7-18)
--- NOTE | 2021-03-22 07:05 | NUR ---
AMPOULE EXAMINER NOTES RECEIVED PATIENT, INTUBATED , FOLLOWS SIMPLE COMMAND, TOLERAING SIMV MODE ON VENT WELL, NO DISTRESS NOTED, LEFT NARE NGT IN PLACE WITH NEPHRO @ 30ML/HR TOLERATING WELL , R UPPER ARM MIDLINE SITE CLEAN, DRY AND INTACT, SR UP x3, CALL LIGHT WITHIN EASY REACH, BED LOCKED AND IN LOWEST POSITION, ALL NEEDS ATTENDED , HOB @ 45, WILL CONTINUE TO MONITOR.
--- NOTE | 2021-03-22 07:19 | NUR ---
RN NOTE PATIENT REMAINS ON MECHANICAL VENT OPEN EYES ORALLY INTUBATED, ON NGT HEAD OF THE BED ELEVATED NOT ACUTE DISTRESS NOTED,ALL DUE MEDS GIVEN MD ORDERED KEPT CLEAN AND DRY REPOSITIONED EVERY 2 HOURS ALL NEEDS MET ENDORSE NEXT COMING SHIFT FOR CONTINUATION OF CARE.
[2021-03-22] MEDS: FLUCONAZOLE (100 MG) 100 MG TABLET PO SCH (08:25)
[2021-03-22] MEDS: ASPIRIN 81 MG TAB.CHEW NG SCH (08:25)
[2021-03-22] MEDS: PROSOURCE / PROSTAT (PYXIS) 30 ML UDC GT SCH (08:25)
[2021-03-22] MEDS: MEROPENEM 500 MG in IV NS 0.9% 50 ML IV SCH ×2 (11:08→23:43)
[2021-03-22] MEDS: ACETAMINOPHEN 650 MG/20.3 ML UDC NG PRN (12:41)
--- NOTE | 2021-03-22 13:00 | NUR ---
RN NOTES O2 SAT IN 80'S , PT PLACED BACK ON AC MODE , FIO2 100%, PER DR VILA ORDER .
--- NOTE | 2021-03-22 13:38 | NUR ---
RT POST DIALYSIS PATIENT WAS PLACED BACK ON AC MODE AND FIO2 INCREASED TO 100% FOR DESATURATION AND INCREASED HR. Addendum: 03/22/21 at 1339 by MARV HUERTA RT Amended: Links added.
[2021-03-22] MEDS: NEPRO 1,000 ML BOTTLE GT PRN (15:32)
--- NOTE | 2021-03-22 18:00 | NUR ---
RN NOTES PT REMAINS INTUBATED, ON AC MODE , O2 SAT WNL, PT RECEIVED HD ON AND ONE UNIT OF PRBC ON THIS SHIFT, ON TELE SR HR IN 90'S, TOLERATING TF AT 30CC/HR WELL, SR UP x3, CALL LIGHT WITHIN EASY REACH, BED LOCKED AND IN LOWEST POSITION, WILL ENDORSE TO [employer] SPECIALIST NURSE FOR CONTINUITY OF CARE .
--- NOTE | 2021-03-22 19:37 | NUR ---
ACCOUNTS RECEIVABLE REPRESENTATIVE OPENING NOTES: Rec'd pt in bed, asleep, easily arousable. Pt intubated 6/21cm at the lip. Tolerating vent settings well. No resp distress noted at this time. SR on tele monitor. CHANDNI midline patent and flushed. LFA AV fistula in place. GTF patent and infusing Nepro at 30ml/hr. Pt anuric. Safety measures in place. Will continue to monitor. Addendum: 03/22/21 at 2028 by ROSAURA FAM RN TF via Left NGT Right chest tube in place, dressing secure.
[2021-03-23] VITALS (29 sets, daily range): BP systolic 93–164; BP diastolic 50–102
[2021-03-23] MEDS: IV NS 0.9% 250 ML IV PRN (06:15)
--- NOTE | 2021-03-23 07:30 | NUR ---
RN OPENING NOTES Patient is on mechanical vent settings bernabe well with 02 sat 95%. No c/o pain or discomfort. Patient ng tube to LEFT nare, running at patent at 30 cc/hour. Chest tube noted. Bed is in lowest and locked position. Call light with in reach.
[2021-03-23 08:30] LABS: ABG BASE EXCESS 3.1 mmol/L; ABG OXYGEN SATURATION 93.5 % (92.0-98.5); ABG PCO2 51.9 mmHg (35.0-45.0); ABG PH 7.365 (7.350-7.450); ABG PO2 69.1 mmHg (75.0-100.0); COHb 1.6 % (0.5-1.5); MetHb 1.8 % (0.0-1.5); O2Hb 90.3 % (94.0-97.0); PEEP,BG 5 cm H2O; SITE, ABG Right Radial; VENT MODE, BG AC 50%; VT, ABG 380 mL
--- NOTE | 2021-03-23 09:30 | NUR ---
Spoke to Dr ELLSWORTH regarding patient's surgery consult for Trach. Per MD unable to do so today and will inform staff.
[2021-03-23] MEDS: ASPIRIN 81 MG TAB.CHEW NG SCH (09:46)
[2021-03-23] MEDS: FLUCONAZOLE (100 MG) 100 MG TABLET PO SCH (09:46)
[2021-03-23] MEDS: PROSOURCE / PROSTAT (PYXIS) 30 ML UDC GT SCH (09:46)
--- NOTE | 2021-03-23 12:00 | NUR ---
Received call from Anna ( daughter ) , per daughter the family and patient't do not wish to have the tracheostomy placed and would also like to change the code status to DNR. Informed SECURITY ASSISTANT Sherri regarding patient's family's request.
[2021-03-23] MEDS: MEROPENEM 500 MG in IV NS 0.9% 50 ML IV SCH (12:08)
--- NOTE | 2021-03-23 12:18 | NUR ---
SS Note: Per pt.'s daughter, Kimberly's request SW completed verification of admission letter and emailed it to . SW will be available as needed.
--- NOTE | 2021-03-23 14:16 | NUR ---
Called Dr Shi in ED and informed her regarding patient's ET cuff being not able to inflate fully per RT. Awaiting arrival
--- NOTE | 2021-03-23 14:35 | NUR ---
Called Surgery and spoke to Chetan and per staff, anesthesiologist will be called. Patient monitored in the mean time with RT.
--- NOTE | 2021-03-23 15:01 | NUR ---
Patient current vitals 139/84, RR 20 Pulse 106 and 94% on vent trach settings of fi02 50 %, PEEP of 5
--- NOTE | 2021-03-23 15:15 | NUR ---
AWAITING DR YANCEY FOR ET TUBE INSERTION, TRANSFER AND PUMPHOUSE OPERATOR IN ROOM FOR OBSERVATION WHILE WAITING.
--- NOTE | 2021-03-23 16:00 | NUR ---
ET TUBE INSERTED BY MD YANCEY TO RIGHT SIDE OF THE MOUTH 6.0 21 AT THE LIP, 02 SATURATION AND VITALS STABLE. [address] VILA IN THE ROOM.
[2021-03-23] MEDS: PROPOFOL 100 ML IV PRN (16:39)
[2021-03-23 16:57] LABS: ABG BASE EXCESS -1.3 mmol/L; ABG OXYGEN SATURATION 99.5 % (92.0-98.5); ABG PCO2 42.3 mmHg (35.0-45.0); ABG PO2 209.2 mmHg (75.0-100.0); AaDO2 461.5 mmHg; COHb 1.6 % (0.5-1.5); MetHb 1.2 % (0.0-1.5); O2Hb 96.7 % (94.0-97.0); SITE, ABG Right Radial; VENT MODE, BG AC 14 380 +5 100%
[2021-03-23] MEDS ORDERED: ETOMIDATE 2 MG/ML VIAL IV ONE (18:13)
[2021-03-23] MEDS ORDERED: SUCCINYLCHOLINE CHLORIDE 20 MG/ML VIAL IV ONE (18:13)
--- NOTE | 2021-03-23 18:37 | NUR ---
RT END OF THE SHIFT REPORT PT. 80 Y OLD FEMALE. REC. IN ICU 0700 ORALLY INTUBATED, ETT #6.0@21 CM LIP LINE, ON VENT WITH NOTED SETTINGS, ALARMS ARE SET AND FUNCTIONAL. B/S RALES BILATERALLY SUX'D FOR MINIMAL AMT. WHITE THICK SECRETIONS. BILATERALLY CHEST RISE NOTED VENT PLUGGED INTO RED OUTLET, AMBU BAG AT THE BEDSIDE. NO CHANGES POST ABG PER DR. VILA, @0800 FIO2 TITRATED TO 50% @1510 NOTICED ETT CUFF IS LEAKING DIGITAL DIRECTOR, RN AND ER MD NOTIFIED, DR. VILA NOTIFIED, @1553 X2 RT AT THE BEDSIDE. ASSISTED ANESTHESIOLOGIST TO REINTUBATED AND EXCHANGED ETT #6.0 @21 CM LIP LINE PLACED BACK ON VENT WITH NOTED SETTINGS, DR. VILA AT THE BEDSIDE. AND POST ABG IN WILL BE DRAWN. @1655 POST ABG FIO2 TITRATED TO 50% PER DR. VILA ORDER GI TECH DONE HME CHANGED. NO CHANGES PT. REMAIN STABLE AND REPORT WILL PASS TO PM SHIFT. Addendum: 03/23/21 at 1843 by JAY CASH RT Amended: Links added.
--- NOTE | 2021-03-23 19:27 | NUR ---
RN CLOSING NOTES Patient is sedated and on mechanical vent settings bernabe well with 02 sat 97%. No c/o pain or discomfort. Patient ng tube to right nare, running at patent at 30 cc/hour. Patient had two small bm's during shift. On propofol drip started at 5mcg/kg /min and increased to 15 mcg/kg/min during shift report due to patient being slightly restless. Patient's vitals WNL. Turned and repositioned q2h. Chest tube noted . Endorsed to next shift for NOAH. Bed is in lowest and locked position. Call light with in reach.
--- NOTE | 2021-03-23 19:30 | NUR ---
ICU/ELECTRIC MOTOR REPAIRING SUPERVISOR RECEIVED REPORT FROM DAY NURSE. SEE FLOWSHEET FOR ASSESSMENT. SEE IV SPREAD SHEET FOR TITRATIONS TO SEDATION BY TUBE LANCER NURSE. PT WAS TURNED AND REPOSITIONED FOR COMFORT AND CARE. NO ACUTE DISTRESS SEEN AT THIS TIME WILL CONTINUE MONITOR THIS PT.
--- NOTE | 2021-03-23 21:10 | NUR ---
ICU/THERAPEUTIC RECREATION DIRECTOR PT APPEARS TO BE SLIGHTLY AGITATED, NOTIFED CHARGE NURSE WHO THEN INCREASED THE SEDATION TO 20MCG FROM 15. WILL CONTINUE TO CLOSELY MONITOR THIS PT AND HER SEDATION.
--- NOTE | 2021-03-23 23:00 | NUR ---
ICU/MANAGER SPEECH PT WAS GIVEN ORAL CARE AT THIS TIME, PT TOLERATED THIS WELL. PT WAS THEN GIVEN PM CARE AT THIS TIME. PT TOLERATED THIS WELL, PT REMAINS ON CURRENT VENT SETTINGS WITH SATURATION AT 95-99%. PT WAS TURNED AND REPOSITIONED FOR COMFORT AND CARE. WILL CONTINUE TO MONITOR THIS PT. NO ACUTE DISTRESS SEEN AT THIS TIME.
[2021-03-24] VITALS (49 sets, daily range): BP systolic 110–169; BP diastolic 50–99
[2021-03-24] MEDS: MEROPENEM 500 MG in IV NS 0.9% 50 ML IV SCH (00:13)
[2021-03-24] MEDS: PROPOFOL 100 ML IV PRN ×3 (00:13→21:09)
--- NOTE | 2021-03-24 02:35 | NUR ---
ICU/MEAT SEAFOOD ASSOCIATE PT WAS GIVEN ORAL CARE AT THIS TIME, PT TOLERATED THIS WELL. PT WAS THEN GIVEN PM CARE AT THIS TIME. PT TOLERATED THIS WELL, PT REMAINS ON CURRENT VENT SETTINGS WITH SATURATION AT 95%. PT WAS TURNED AND REPOSITIONED FOR COMFORT AND CARE. WILL CONTINUE TO MONITOR THIS PT. NO ACUTE DISTRESS SEEN AT THIS TIME.
[2021-03-24 04:25] LABS: BASOPHILS # (AUTO) 0.1 K/uL (0.0-0.2); BASOPHILS % (AUTO) 0.7 % (0.0-2.0); EOSINOPHILS % (AUTO) 4.3 % (0.0-6.0); HEMATOCRIT 22 % (33-45); HEMOGLOBIN 7.4 g/dL (11.5-14.8); LYMPHOCYTES # (AUTO) 0.6 K/uL (0.8-4.8); LYMPHOCYTES % (AUTO) 6.1 % (20.0-44.0); MEAN CORPUSCULAR HGB CONC 34 g/dl (31.0-36.0); MEAN CORPUSCULAR VOLUME 111 fL (82-100); MONOCYTES # (AUTO) 0.8 K/uL (0.1-1.30); MONOCYTES % (AUTO) 8.1 % (2.0-12.0); NEUTROPHILS # (AUTO) 7.8 K/uL (1.8-8.9); NEUTROPHILS % (AUTO) 80.8 % (43.0-81.0); PLATELET COUNT (AUTO) 329 K/uL (150-450); WHITE BLOOD COUNT (AUTO) 9.6 K/uL (4.3-11.0)
[2021-03-24 04:27] LABS: RED BLOOD CELL COUNT(AUTO) 1.98 MIL/uL (4.0-5.2)
[2021-03-24 04:42] LABS: CALCIUM, SERUM 8.6 mg/dL (8.5-10.1); CARBON DIOXIDE 28 mmol/L (21-32); CHLORIDE 98 mmol/L (98-107); GLUCOSE 87 mg/dL (74-106); MAGNESIUM 2.1 mg/dL (1.8-2.4); PHOSPHORUS 3.4 mg/dL (2.5-4.9); POTASSIUM 3.6 mmol/L (3.5-5.1); SODIUM SERUM 135 mmol/L (136-145); UREA NITROGEN, BLOOD 79 mg/dL (7-18)
--- NOTE | 2021-03-24 04:55 | NUR ---
ICU/RECRUITMENT AND OUTREACH ASSISTANT AM LABS WERE DRAWN AND AM CXR WAS DONE. AWAIT FOR ANY ABNORMAL RESULTS.
[2021-03-24] MEDS: NEPRO 1,000 ML BOTTLE GT PRN ×2 (04:56→17:37)
[2021-03-24] MEDS: IV NS 0.9% 250 ML IV PRN (04:56)
--- NOTE | 2021-03-24 08:00 | NUR ---
rn notes X-ray result: Stable congestive heart failure. Left lower lung atelectasis or airspace disease. patient calm and cooperative. on EEt sedation, infusing Diprivan 25mcg/kg/hr intact on right ua midline.. chest tub intact, no leakage, monitoring. rechecked bilateral soft restrain circulation. running Nepro 30ml/hr intact residual is 10ml. patient un uric, going to be dialyzed today. av shunt intact on left arm. keep hob elevated for aspiration precaution. will monitoring.
[2021-03-24 08:44] LABS: ABG BASE EXCESS 2.4 mmol/L; ABG OXYGEN SATURATION 96.5 % (92.0-98.5); ABG PCO2 45.4 mmHg (35.0-45.0); ABG PH 7.401 (7.350-7.450); ABG PO2 91.4 mmHg (75.0-100.0); COHb 1.5 % (0.5-1.5); O2Hb 94.1 % (94.0-97.0); PEEP,BG 5 cm H2O; SITE, ABG Right Radial; VT, ABG 380 mL
[2021-03-24] MEDS: ASPIRIN 81 MG TAB.CHEW NG SCH (09:30)
[2021-03-24] MEDS: FLUCONAZOLE (100 MG) 100 MG TABLET PO SCH (09:32)
[2021-03-24] MEDS: PROSOURCE / PROSTAT (PYXIS) 30 ML UDC GT SCH (09:33)
--- NOTE | 2021-03-24 11:00 | NUR ---
RN Notes According at bedside agrees to proceed with tracheostomy. patient sedation vacation done. increased sedation to 25mcg/kg/hr. due medication administered. assist turn and reposition .
[2021-03-24] MEDS: CEFEPIME 1 GM in IV D5W 50 ML IV SCH (12:00)
[2021-03-24] MEDS ORDERED: EPOETIN ALFA (4000 UNIT) 4,000 UNIT/ML VIAL IV SCH (15:00)
[2021-03-24] MEDS: EPOETIN ALFA (2000 UNIT) 2,000 UNIT/ML VIAL IV SCH (15:04)
--- NOTE | 2021-03-24 16:00 | NUR ---
RN NOTES PM CARE DONE, SUCTION, MOUTH CARE, DUE MEDICATION ADMINISTERED, INFUSING DIPRIVAN 20MCG/KG/HR, AND TKO 10ML/HR ON RIGHT MIDLINE. ASSIST TURN AND REPOSTION Q 2 HR.
--- NOTE | 2021-03-24 17:56 | NUR ---
rn notes patient getting HD at this time.
--- NOTE | 2021-03-24 18:49 | NUR ---
rn notes patient getting one units of blood at this time given to the hemodialysis nure to be infused during HD, t-97.4, p-80, r-17, bp- 153/78. patient EET/vent with sedation. no acute respiratory distress. endorsed oncoming nurse follow plan of care.
--- NOTE | 2021-03-24 19:20 | NUR ---
ICU/JOCKEY AGENT TRIED TO GET CONSENT FOR TRACH FROM , HOWEVER HE SAID HE WOULD SIGN IT IN THE MORNING AT BEDSIDE. CHARGE NURSE MADE AWARE.
--- NOTE | 2021-03-24 19:45 | NUR ---
ICU/FACSIMILE MACHINE OPERATOR RECEIVED REPORT FROM DAY NURSE. SEE FLOWSHEET FOR ASSESSMENT. SEE IV SPREAD SHEET FOR TITRATIONS TO SEDATION BY ONION TOPPER NURSE. PT WAS TURNED AND REPOSITIONED FOR COMFORT AND CARE. NO ACUTE DISTRESS SEEN AT THIS TIME WILL CONTINUE MONITOR THIS PT.
--- NOTE | 2021-03-24 21:50 | NUR ---
ICU/PRIMARY GRADE TEACHER PROGRESS CLERK NURSE INCREASED SEDATION FOR AGITATION, PT WAS ABLE TO OPEN EYES AND MOVE AROUND. SEDATION WAS INCREASED TO 25MCG FROM 20MCG. WILL CONTINUE TO MONITOR THIS PT.
--- NOTE | 2021-03-24 22:30 | NUR ---
ICU/COTTON CANDY MAKER JEWELRY TECHNICIAN NURSE INCREASED SEDATION FOR AGITATION, PT WAS ABLE TO OPEN EYES AND MOVE AROUND. SEDATION WAS INCREASED TO 30MCG FROM 25MCG. WILL CONTINUE TO MONITOR THIS PT.
--- NOTE | 2021-03-24 23:10 | NUR ---
ICU/CLINICAL RESEARCH SPEC CAREER SERVICES ASSISTANT NURSE INCREASED SEDATION FOR AGITATION, PT WAS ABLE TO OPEN EYES AND MOVE AROUND. SEDATION WAS INCREASED TO 35MCG FROM 30MCG. WILL CONTINUE TO MONITOR THIS PT.
[2021-03-25] VITALS (25 sets, daily range): BP systolic 120–160; BP diastolic 57–91
--- NOTE | 2021-03-25 02:00 | NUR ---
ICU/CHILD PROTECTIVE SERVICES SOCIAL WORKER PT WAS GIVEN ORAL CARE AT THIS TIME, PT TOLERATED THIS WELL. PT WAS THEN GIVEN AM CARE AT THIS TIME. PT TOLERATED THIS WELL, PT REMAINS ON CURRENT VENT SETTINGS WITH SATURATION AT 95%-97%. PT WAS TURNED AND REPOSITIONED FOR COMFORT AND CARE. WILL CONTINUE TO MONITOR THIS PT. NO ACUTE DISTRESS SEEN AT THIS TIME.
[2021-03-25] MEDS: IV NS 0.9% 250 ML IV PRN (03:30)
[2021-03-25] MEDS: PROPOFOL 100 ML IV PRN ×3 (03:43→18:46)
[2021-03-25 04:26] LABS: BASOPHILS % (AUTO) 0.2 % (0.0-2.0); EOSINOPHILS % (AUTO) 4.4 % (0.0-6.0); HEMATOCRIT 26 % (33-45); HEMOGLOBIN 8.7 g/dL (11.5-14.8); LYMPHOCYTES # (AUTO) 0.4 K/uL (0.8-4.8); LYMPHOCYTES % (AUTO) 4.6 % (20.0-44.0); MEAN CORPUSCULAR HGB CONC 34 g/dl (31.0-36.0); MEAN CORPUSCULAR VOLUME 109 fL (82-100); MONOCYTES # (AUTO) 0.6 K/uL (0.1-1.30); MONOCYTES % (AUTO) 6.3 % (2.0-12.0); NEUTROPHILS # (AUTO) 7.7 K/uL (1.8-8.9); NEUTROPHILS % (AUTO) 84.5 % (43.0-81.0); PLATELET COUNT (AUTO) 362 K/uL (150-450); WHITE BLOOD COUNT (AUTO) 9.1 K/uL (4.3-11.0)
[2021-03-25 04:39] LABS: CALCIUM, SERUM 8.5 mg/dL (8.5-10.1); CARBON DIOXIDE 30 mmol/L (21-32); CHLORIDE 100 mmol/L (98-107); GLUCOSE 100 mg/dL (74-106); MAGNESIUM 2.1 mg/dL (1.8-2.4); PHOSPHORUS 3.4 mg/dL (2.5-4.9); POTASSIUM 3.9 mmol/L (3.5-5.1); SODIUM SERUM 137 mmol/L (136-145); UREA NITROGEN, BLOOD 56 mg/dL (7-18)
[2021-03-25 06:11] LABS: EOSINOPHILS % (MANUAL) 9 % (0-4); LYMPHOCYTES % (MANUAL) 2 % (16-48); METAMYELOCYTES % 1 % (0-0); MONOCYTES % (MANUAL) 4 % (0-11.0); MYELOCYTES % 2 % (0-0); NEUTROPHILS % (MANUAL) 82 (42-76)
--- NOTE | 2021-03-25 07:00 | NUR ---
RN NOTES RECEIVED PT ON BED, INTUBATED AND SEDATED ON DIPRIVAN AT 35 MCG/KG/MIN, PT RESPONDS TO PAINFUL STIMULI , ON TELE SR HR IN 60'S , TF AT 30CC/HR RUNNING , TOLERATING WELL, NO RESIDUAL NOTED, R CHEST TUBE SITE CLEAN, DRY AND INTACT, NO COMPLICATION NOTED, R UPPER ARM MIDLINE SITE CLEAN ,DRY AND INTACT, SR UP x3, CALL LIGHT WITHIN EASY REACH, BED LOCKED AND IN LOWEST POSITION, CONTINUE TO MONITOR.
[2021-03-25] MEDS: PROSOURCE / PROSTAT (PYXIS) 30 ML UDC GT SCH (08:18)
[2021-03-25] MEDS: FLUCONAZOLE (100 MG) 100 MG TABLET PO SCH (08:18)
[2021-03-25] MEDS: ASPIRIN 81 MG TAB.CHEW NG SCH (08:18)
--- NOTE | 2021-03-25 10:45 | NUR ---
RN NOTES TRACHEOSTOMY TUBE PLACEMENT CONSENT OBTAINED FROM PT'S .
[2021-03-25] MEDS: CEFEPIME 1 GM in IV D5W 50 ML IV SCH (12:04)
--- NOTE | 2021-03-25 14:00 | NUR ---
RN NOTES DR SURESH NOTIFIED REGARDING TRACHEOSTOMY TUBE PLACEMENT .
--- NOTE | 2021-03-25 14:15 | NUR ---
RT NOTE: PATIENT'S ANCHORFAST WITH BUILT IN BITE BLOCK CHANGED DUE TO IT PUSHING ON THE TONGUE AND DRAWING BLOOD. SECURED 6.0 ETT AT 21CM MID LIP LINE WITH NEW ANCHOR FAST AND SEPARATE ORANGE BITE BLOCK. PATIENT TOLERATING WELL. WILL CONTINUE TO MONITOR.
--- NOTE | 2021-03-25 18:00 | NUR ---
RN NOTES PT REMAINS INTUBATED AND SEDATED ON VENT , TOLERAING CURRENT SETTING WELL, O2 SAT WNL, TOLERATING TF AT 30CC/HR WELL,FAMILY NOTIFED REGARDING TRACHEOSTOMY TUBE PLACEMENT TOMORROW , SR UP x3, CALL LIGHT WITHIN EASY REACH, BED LOCKED AND IN LOWEST POSITION, WILL ENDORSE TO STRIPING MACHINE OPERATOR NURSE FOR CONTINUITY OF CARE .
[2021-03-26] VITALS (35 sets, daily range): BP systolic 121–160; BP diastolic 54–89
[2021-03-26] MEDS: PROPOFOL 100 ML IV PRN ×3 (02:59→15:24)
[2021-03-26] MEDS: IV NS 0.9% 250 ML IV PRN (03:00)
[2021-03-26 04:29] LABS: BASOPHILS # (AUTO) 0.1 K/uL (0.0-0.2); BASOPHILS % (AUTO) 0.7 % (0.0-2.0); EOSINOPHILS % (AUTO) 5.8 % (0.0-6.0); HEMATOCRIT 27 % (33-45); HEMOGLOBIN 8.9 g/dL (11.5-14.8); LYMPHOCYTES # (AUTO) 0.7 K/uL (0.8-4.8); LYMPHOCYTES % (AUTO) 7.6 % (20.0-44.0); MEAN CORPUSCULAR HGB CONC 33 g/dl (31.0-36.0); MEAN CORPUSCULAR VOLUME 108 fL (82-100); MONOCYTES # (AUTO) 0.7 K/uL (0.1-1.30); MONOCYTES % (AUTO) 8.2 % (2.0-12.0); NEUTROPHILS # (AUTO) 6.9 K/uL (1.8-8.9); NEUTROPHILS % (AUTO) 77.7 % (43.0-81.0); PLATELET COUNT (AUTO) 437 K/uL (150-450); RED BLOOD CELL COUNT(AUTO) 2.47 MIL/uL (4.0-5.2); WHITE BLOOD COUNT (AUTO) 8.9 K/uL (4.3-11.0)
[2021-03-26 04:40] LABS: ALANINE AMINOTRANSFERASE 12 U/L (12-78); ALBUMIN 1.5 g/dL (3.4-5.0); ALKALINE PHOSPHATASE 307 U/L (46-116); ASPARTATE AMINOTRANSFERASE 35 U/L (15-37); BILIRUBIN,TOTAL 1.4 mg/dL (0.2-1.0); CALCIUM, SERUM 8.9 mg/dL (8.5-10.1); CARBON DIOXIDE 27 mmol/L (21-32); CHLORIDE 99 mmol/L (98-107); CREATININE 3.7 mg/dL (0.6-1.3); GLUCOSE 93 mg/dL (74-106); MAGNESIUM 2.1 mg/dL (1.8-2.4); PHOSPHORUS 4.2 mg/dL (2.5-4.9); POTASSIUM 3.9 mmol/L (3.5-5.1); SODIUM SERUM 136 mmol/L (136-145); TOTAL PROTEIN, SERUM 6.5 g/dL (6.4-8.2); UREA NITROGEN, BLOOD 71 mg/dL (7-18)
[2021-03-26 04:58] LABS: NEUTROPHILS % (MANUAL) 73 (42-76)
[2021-03-26 04:59] LABS: BAND % (MANUAL) 7 % (0.0-5.0); BASOPHILS % (MANUAL) 0 % (0.0-2.0); EOSINOPHILS % (MANUAL) 4 % (0-4); LYMPHOCYTES % (MANUAL) 6 % (16-48); MONOCYTES % (MANUAL) 10 % (0-11.0)
--- NOTE | 2021-03-26 06:30 | NUR ---
YARDER OPERATOR: NO SIGNIFICANT NOAH DURING THE SHIFT. REMAINED INTUBATED/SEDATED WT VENT SETTINGS ORDERED. VS WITHIN BASELINE. STARTED NPO AT MIDNIGHT FOR TRACHEOSTOMY PROCEDURE TODAY. PRE-OP CHECKLIST INITIATED. BILAT. WRIST RESTRAINTS IN PLACE FOR EPISODES OF TRYING TO REACH TUBINGS. SKIN AND CIRCULATION WNL. HOB AT 35 DEGREES. BED IN LOWEST POSITION AND LOCKED. BED ALARM ACTIVATED. SIDERAILS UP X2. HEMODIALYSIS STARTED. HD NURSE AT BED SIDE. WILL CONTINUE TO MONITOR.
--- NOTE | 2021-03-26 07:05 | NUR ---
WELLNESS TRAINER Bedside report taken from [facility] nurse Bijal BAKER. pt sedated and intubated but arousable. pt opens eyes, does not follow commands but moves bue 3/5 and ble 1/5. PERRLA. pt on ventilator, tolerating well fio2 40%, milagros lung sounds clear but diminished. pt sr on monitor. pt has ngt, clamped, npo pending trach placement later today. bowel sounds present. pt has bue bruising and skin tear and sacral redness see flowsheet. all lines traced. all drips verified. vitals stable. safety measures in place. HD in progress at this time. HD nurse at bedside. pt tolerating well. will continue to monitor.
--- NOTE | 2021-03-26 07:48 | NUR ---
FISH CONSERVATIONIST Dr Olvera at bedside assessing pt and updated on pt status. md aware that pt to have trach placement later today approx 1pm, ok per md. no new orders.
[2021-03-26] MEDS: PROSOURCE / PROSTAT (PYXIS) 30 ML UDC GT SCH (08:49)
[2021-03-26] MEDS: ASPIRIN 81 MG TAB.CHEW NG SCH (08:50)
--- NOTE | 2021-03-26 08:50 | NUR ---
TECHNICAL SUPPORT CONSULTANT Aspirin held per Dr Martinez d/t trach placement and risk of bleeding. Charge nurse Christine BAKER aware.
--- NOTE | 2021-03-26 09:10 | NUR ---
REGISTERED LAND SURVEYOR propofol and tubing changed per protocol. pt had bm. pt bathed and cleaned. linen changed. skin check done, MASD and skin breakdown noted on lower buttocks, barrier cream applied. pt tolerated well. will continue to monitor
--- NOTE | 2021-03-26 10:34 | NUR ---
RUG SIZER Pt and son at bedside, per and son they discussed with pt family about trach placement. family is refusing trach placement at this time because per son and "pt is very sick and trach is just a short term fix". Pt , son and family want to initiate comfort measures and allow pt to pass peacefully. Charge nurse Christine informed and came to bedside to discuss decision with pt and son, pt family verbalized understanding, no questions noted at this time, family want comfort measures. Dr Tai, OR team and Dr Leal called and informed of pt family decision for comfort measures.
[2021-03-26] MEDS: CEFEPIME 1 GM in IV D5W 50 ML IV SCH (11:12)
[2021-03-26] MEDS: Z GUARD REMEDY 2 OZ OINT TP SCH ×2 (12:00→20:42)
--- NOTE | 2021-03-26 13:00 | NUR ---
ON SITE MANAGER Dr Leal at bedside talking to pt family about comfort measures. per family they want pt to be on comfort measures initiated 03/27/2021 around 12 pm so that pt , pt daughter and pt 2 sons are all able to be at bedside. Dr Leal also discussed code status with pt family also to which they agreed to making pt DNR and code status was updated in pt chart. Charge nurse Christine BAKER aware.
[2021-03-26] MEDS: EPOETIN ALFA (2000 UNIT) 2,000 UNIT/ML VIAL IV SCH (15:17)
--- NOTE | 2021-03-26 19:05 | NUR ---
QUARRY BOSS Bedside report given to Jeni BAKER. pt sedated and intubated but arousable. vitals stable. no signs of acute distress at this time. pt clean and dry. safety measures in place. comfort measures 03/27/2021 endorsed to [facility] nurse.
--- NOTE | 2021-03-26 19:16 | NUR ---
horticulture supervisor notes PT REMAINS INTUBATED AND SEDATED ON VENT , TOLERATING CURRENT SETTING WELL, O2 SAT WNL, PER ENDORSEMENT FAMILY WILL COME [place] DAUGHTER AND SON WILL COME [place] TO DO COMFORT MEASURES AT BEDSIDE AT 12NOON ,WITH RIGHT ARM UA MIDLINE INTACT AND PATENT , LEFT FA AV FISTULA WITH BRUIT AND THRILL , PTS ON PROPOFOL AT 35 MCG/KG /MIN TOLERATING WELL , WITH RIGHT CHEST TUBE INTACT AND PATENT , NGT INTACT AT 55CM MARKED ON RIGHT NOSTRILS . SR UP x3, CALL LIGHT WITHIN EASY REACH, BED LOCKED AND IN LOWEST POSITION, WILL ENDORSE TO CORK INSULATION INSTALLER NURSE FOR CONTINUITY OF CARE .
--- NOTE | 2021-03-26 20:15 | NUR ---
horticulture supervisor notes at bedside updated with pts condition ,v/s stable afebrile , pts on npo status , on monitor sr 72 ,no sob no distress noted , suction secretion done and prn sating 97%. turn and reposition .continue to monitor pts .
[2021-03-27] VITALS (27 sets, daily range): BP systolic 111–151; BP diastolic 49–77
[2021-03-27] MEDS: PROPOFOL 100 ML IV PRN ×3 (01:12→17:42)
--- NOTE | 2021-03-27 06:53 | NUR ---
agricultural education instructor notes Pts remains on vent deisy setting , will endorse to rn day shift for continuity of care family will come today for patient at 12noon to be comfort measures.
--- NOTE | 2021-03-27 07:59 | NUR ---
RN Note; Pt received asleep, Open eyes with tactile stimuli. On ETT/Vent settings tolerating well. SR on tele monitor. No S/S of distress noted. Aspiration precautions observed. Safety measures observed. Will continue to monitor closely. Plan for comfort measures today.
[2021-03-27] MEDS: PROSOURCE / PROSTAT (PYXIS) 30 ML UDC GT SCH (08:35)
[2021-03-27] MEDS: ASPIRIN 81 MG TAB.CHEW NG SCH (08:36)
[2021-03-27] MEDS: Z GUARD REMEDY 2 OZ OINT TP SCH ×2 (08:36→21:30)
--- NOTE | 2021-03-27 12:00 | NUR ---
RN note: decided to go with tracheostomy procedure. Refused comfort measures. Family spoke with Dr. Santiago at bedside. New consent signed by for tracheostomy. Placed in the chart.
[2021-03-27] MEDS: NEPRO 1,000 ML BOTTLE GT PRN (17:22)
--- NOTE | 2021-03-27 18:49 | NUR ---
RN Note: Spoke with glass laminating operator, Confirm no plan for tracheostomy procedure today, Ok to resume tube feeding. G-tube placement checked. Started tube feeding, aspiration precaution observed. No significant changes noted during shift. Will endorse to PM shift for continuity of care.
--- NOTE | 2021-03-27 19:00 | NUR ---
RN NOTE REPORT RECEIVED FROM BRADY BAKER, PATIENT IN BED, SEDATED, IN NO S/SX OF ACUTE DISTRESS AT THIS TIME. SATURATION AT 93% ON ET TUBE CONNECTED TO MECHANICAL VENTILATOR WITH SETTINGS PRESCRIBED, SR ON THE MONITOR, HR IS 73. NOTED NG TUBE AT R NARE, POSITIVE PLACEMENT VERIFIED BY ASPIRATION AND AUSCULTATION, ON TUBE FEEDING OF NEPRO AT 30 ML/HR. NOTED B SOFT WRIST RESTRAINTS, SKIN AND CIRCULATION WAS CHECKED. NOTED LFA AV SHUNT, AND CHANDNI MIDLINE, ALL HUBS PATENT AND FLUSHING WELL, NO S/S OF INFECTION NOTED, WITH PROPOFOL AT 35 MCG/KG/MIN, AND NS AT TKO. SAFETY MEASURES IMPLEMENTED. PATIENT BED ALARM IS ON. HEAD OF BED ELEVATED. BED IS LOCKED, IN LOWEST POSITION AND SIDE RAILS UP. CALL LIGHT WITHIN REACH OF THE PATIENT. WILL CONTINUE TO MONITOR AND REASSESS FOR ANY CHANGES.
[2021-03-28] VITALS (43 sets, daily range): BP systolic 113–164; BP diastolic 53–104
[2021-03-28] MEDS: PROPOFOL 100 ML IV PRN ×3 (02:23→17:52)
--- NOTE | 2021-03-28 07:23 | NUR ---
RN NOTE PATIENT REMAINS SEDATED, CHANDNI MIDLINE INTACT WITH PROPOFOL INFUSING AT 30 MCG/KG/MIN, AND NS AT TKO, SATURATION AT 94% ON 40% FIO2 VIA ET TUBE CONNECTED TO MECHANICAL VENTILATOR. NEPRO RUNNING AT 30 ML/HR VIA NG TUBE AT R NARE. ASPIRATION PRECAUTIONS MAINTAINED, SAFETY MEASURES IMPLEMENTED. PATIENT BED ALARM IS ON. HEAD OF BED ELEVATED. BED IS LOCKED, IN LOWEST POSITION AND SIDE RAILS UP. ENDORSED TO MARSHA BAKER FOR CONTINUATION OF CARE.
--- NOTE | 2021-03-28 07:40 | NUR ---
RN OPENING NOTE RECEIVED PATIENT SEDATED AND ORALLY INTUBATED. TOLERATING MECHVENT SETTINGS AC 14 TV 350 FIO2 40% PEEP 5. SR 72 ON BEDSIDE MONITOR. NG TUBE RIGHT NARE CONNECTED TO NEPRO AT 30 ML/HR. LFA AV SHUNT. BRUIT AND THRILL PRESENT. CHANDNI MIDLINE WITH PROPFOL AT 30 MCG/KG/HR AND N/S AT TKO. SAFETY CHECKS IN PLACE. WILL CONTINUE TO MONITOR.
[2021-03-28] MEDS: PROSOURCE / PROSTAT (PYXIS) 30 ML UDC GT SCH (08:11)
[2021-03-28] MEDS: ASPIRIN 81 MG TAB.CHEW NG SCH (08:12)
[2021-03-28] MEDS: Z GUARD REMEDY 2 OZ OINT TP SCH ×2 (08:12→21:07)
[2021-03-28] MEDS: IV NS 0.9% 250 ML IV PRN (17:06)
[2021-03-28] MEDS: NEPRO 1,000 ML BOTTLE GT PRN (17:06)
--- NOTE | 2021-03-28 18:43 | NUR ---
RN CLOSING NOTE PATIENT REMAINS SEDATED AND ORALLY INTUBATED. TOLERATING MECHVENT SETTINGS AC 14 TV 350 FIO2 40% PEEP 5. SR 81 ON BEDSIDE MONITOR. NG TUBE RIGHT NARE CONNECTED TO NEPRO AT 30 ML/HR TOLERATING WELL. LFA AV SHUNT. BRUIT AND THRILL PRESENT. CHANDNI MIDLINE WITH PROPOFOL AT 30 MCG/KG/HR AND N/S AT TKO. SAFETY CHECKS IN PLACE. WILL ENDORSE TO NIGHT RN FOR CONTINUITY OF CARE.
[2021-03-29] VITALS (49 sets, daily range): BP systolic 116–180; BP diastolic 51–95
[2021-03-29] MEDS: PROPOFOL 100 ML IV PRN ×2 (05:05→14:58)
--- NOTE | 2021-03-29 08:00 | NUR ---
RN NOTES RECEIVED PATIENT REMAINS SEDATED, ON EET /MECHANICAL VENTFIO2-40%, O2-94%, NO ACUTE RESPIRATORY DISTRESS. CHANDNI MIDLINE INTACT WITH PROPOFOL INFUSING AT 30 MCG/KG/MIN, AND NS AT TKO. NGT NEPRO RUNNING AT 30 ML/HR , NO RESIDUAL, PLACEMENT ALSO CHECKED. KEEP HOB ELEVATED ALL THE TOME 40%. PATIENT UNURIC. AV SHUNT ON LEFT ARM INTACT. SAFETY MEASURES IMPLEMENTED. SIDE RAILS UP.ASSIST TURN AND REPOSTION Q 2 HR. WILL MONITORING.
--- NOTE | 2021-03-29 09:28 | NUR ---
RN NOTES NO SEDATION VACATION PATIENT TODAY PER DR ARAUJO ORDER. WILL MONITORING.
[2021-03-29] MEDS: ASPIRIN 81 MG TAB.CHEW NG SCH (09:29)
[2021-03-29] MEDS: PROSOURCE / PROSTAT (PYXIS) 30 ML UDC GT SCH (09:29)
[2021-03-29] MEDS: Z GUARD REMEDY 2 OZ OINT TP SCH ×2 (09:30→21:29)
[2021-03-29 11:42] LABS: CALCIUM, SERUM 8.6 mg/dL (8.5-10.1); CARBON DIOXIDE 23 mmol/L (21-32); CHLORIDE 99 mmol/L (98-107); CREATININE 4.2 mg/dL (0.6-1.3); GLUCOSE 116 mg/dL (74-106); POTASSIUM 3.9 mmol/L (3.5-5.1); SODIUM SERUM 134 mmol/L (136-145); UREA NITROGEN, BLOOD 71 mg/dL (7-18)
[2021-03-29 11:48] LABS: ALANINE AMINOTRANSFERASE 6 U/L (12-78); ALKALINE PHOSPHATASE 268 U/L (46-116); ASPARTATE AMINOTRANSFERASE 27 U/L (15-37); BILIRUBIN,TOTAL 1.2 mg/dL (0.2-1.0); MAGNESIUM 2.2 mg/dL (1.8-2.4); PHOSPHORUS 5.7 mg/dL (2.5-4.9); TOTAL PROTEIN, SERUM 6.3 g/dL (6.4-8.2)
[2021-03-29 11:58] LABS: ALBUMIN 1.4 g/dL (3.4-5.0)
--- NOTE | 2021-03-29 12:00 | NUR ---
RN NOTES PATIENT DNR, PALN IS TRACHEOSTOMY INSERTION ON 03/30/21. CONSENT SIGNED WITH . ASSIST TURN AND REPOSTION Q 2 HR.
--- NOTE | 2021-03-29 13:00 | NUR ---
RN NOTES PATIENT VSS, NO ACUTE RESPIRATORY DISTRESS, REPORT GIVEN ADEL RN FOR FOLLOW UP PLAN OF CARE.
--- NOTE | 2021-03-29 13:00 | NUR ---
RN NOTES RECEIVED PT FROM MAXINE BAKER, CONTINUE TO MONITOR.
[2021-03-29 14:35] LABS: BASOPHILS # (AUTO) 0.1 K/uL (0.0-0.2); BASOPHILS % (AUTO) 1.1 % (0.0-2.0); EOSINOPHILS % (AUTO) 4.2 % (0.0-6.0); HEMATOCRIT 24 % (33-45); HEMOGLOBIN 7.9 g/dL (11.5-14.8); LYMPHOCYTES # (AUTO) 0.7 K/uL (0.8-4.8); LYMPHOCYTES % (AUTO) 5.4 % (20.0-44.0); MEAN CORPUSCULAR HGB CONC 32 g/dl (31.0-36.0); MEAN CORPUSCULAR VOLUME 114 fL (82-100); MONOCYTES # (AUTO) 0.6 K/uL (0.1-1.30); MONOCYTES % (AUTO) 4.7 % (2.0-12.0); NEUTROPHILS # (AUTO) 10.7 K/uL (1.8-8.9); NEUTROPHILS % (AUTO) 84.6 % (43.0-81.0); PLATELET COUNT (AUTO) 475 K/uL (150-450); RED BLOOD CELL COUNT(AUTO) 2.14 MIL/uL (4.0-5.2); WHITE BLOOD COUNT (AUTO) 12.7 K/uL (4.3-11.0)
[2021-03-29 15:48] LABS: BAND % (MANUAL) 1 % (0.0-5.0); EOSINOPHILS % (MANUAL) 4 % (0-4); LYMPHOCYTES % (MANUAL) 8 % (16-48); MONOCYTES % (MANUAL) 1 % (0-11.0); NEUTROPHILS % (MANUAL) 85 (42-76); REACTIVE LYMPHOCYTES 1 % (0-0)
--- NOTE | 2021-03-29 15:50 | NUR ---
RN NOTES AT THE END OF THE HEMODIALYSIS, PT'S HR DROPPED TO 50'S , O2 SAT IN 60'S , HD STOPPED . 900 CC OUTPUT FROM HD PER HD NURSE OBTAINED . VSS BACK TO NORMAL SOON HD STOPPED . CONTINUE TO MONITOR
[2021-03-29] MEDS: EPOETIN ALFA (2000 UNIT) 2,000 UNIT/ML VIAL IV SCH (15:58)
--- NOTE | 2021-03-29 17:06 | NUR ---
RT POST DIALYSIS PATIENT WAS PLACED ON 100% FOR SOB AND DESATURATION. SPO2 INCREASED. WILL REMAIN ON 100% AND WILL BEGIN TO TITRATE DOWN SLOWLY Addendum: 03/29/21 at 1708 by MARV HUERTA RT Amended: Links added.
[2021-03-29] MEDS: NEPRO 1,000 ML BOTTLE GT PRN (17:45)
--- NOTE | 2021-03-29 18:37 | NUR ---
RN NOTES PT REMAINS INTUBATED AND SEDATED , ON DIPRIVAN AT 25MCG/KG/MIN INFUSING, ET TUBE SUCTIONING DONE NEEDED, TF TA 30CC/HR RUNNING , NO RESIDUAL NOTED, WILL ENDORSE TO BOBJ DEVELOPER NURSE FOR CONTINUITY OF CARE
--- NOTE | 2021-03-29 19:33 | NUR ---
AUTO GARAGE ATTENDANT OPENING NOTES: Rec'd pt in bed, intubated and sedated. Tolerating vent settings well. No resp distress noted at this time. SR on tele monitor. Right nare NGT in place w/ Nepro infusing at 30ml/hr. Tolerating well, no residual noted at this time. CHANDNI midline with Propofol at 25mcg/kg. LFA AV shunt intact. Pt anuric. No pain noted at this time. Safety measures in place. Will continue to monitor.
--- NOTE | 2021-03-29 21:21 | NUR ---
BUILD TECHNICIAN NOTE: Pt's fio2 titrated down to 80% by RT. O2 sat WNL. Will continue to monitor.
[2021-03-29] MEDS: IV NS 0.9% 250 ML IV PRN (23:23)
--- NOTE | 2021-03-29 23:50 | NUR ---
ELECTRIC ACCOUNTING MACHINE OPERATOR NOTE: Pt's TF turned off, pt npo after mn dx for trach placement in am.
[2021-03-30] VITALS (29 sets, daily range): BP systolic 109–154; BP diastolic 56–86
[2021-03-30] MEDS: PROPOFOL 100 ML IV PRN ×3 (00:45→22:00)
--- NOTE | 2021-03-30 02:08 | NUR ---
FREEZER LABORATORY TECHNICIAN NOTE: RT titrated fio2 down to 60%. Will continue to monitor.
[2021-03-30 04:17] LABS: BASOPHILS % (AUTO) 0.2 % (0.0-2.0); EOSINOPHILS % (AUTO) 4.8 % (0.0-6.0); HEMATOCRIT 23 % (33-45); HEMOGLOBIN 7.3 g/dL (11.5-14.8); LYMPHOCYTES # (AUTO) 0.7 K/uL (0.8-4.8); LYMPHOCYTES % (AUTO) 5.4 % (20.0-44.0); MEAN CORPUSCULAR HGB CONC 32 g/dl (31.0-36.0); MEAN CORPUSCULAR VOLUME 115 fL (82-100); MONOCYTES # (AUTO) 0.9 K/uL (0.1-1.30); MONOCYTES % (AUTO) 6.8 % (2.0-12.0); NEUTROPHILS # (AUTO) 10.4 K/uL (1.8-8.9); NEUTROPHILS % (AUTO) 82.8 % (43.0-81.0); PLATELET COUNT (AUTO) 464 K/uL (150-450); WHITE BLOOD COUNT (AUTO) 12.6 K/uL (4.3-11.0)
[2021-03-30 04:49] LABS: RED BLOOD CELL COUNT(AUTO) 1.98 MIL/uL (4.0-5.2)
[2021-03-30 04:50] LABS: CALCIUM, SERUM 8.4 mg/dL (8.5-10.1); CARBON DIOXIDE 28 mmol/L (21-32); CHLORIDE 101 mmol/L (98-107); CREATININE 3.5 mg/dL (0.6-1.3); GLUCOSE 93 mg/dL (74-106); MAGNESIUM 2.1 mg/dL (1.8-2.4); SODIUM SERUM 138 mmol/L (136-145); UREA NITROGEN, BLOOD 57 mg/dL (7-18)
--- NOTE | 2021-03-30 05:51 | NUR ---
MEMBERSHIP SALES ADVISOR NOTE: RT titrated fio2 down to 50%. Will continue to monitor.
--- NOTE | 2021-03-30 07:10 | NUR ---
TELE MARKETING EXECUTIVE OPENING NOTES: Received pt in bed, intubated and sedated. Tolerating vent settings well. No resp distress noted at this time. SR on tele monitor. Right nare NGT in place, clamped for pending surgery.CHANDNI midline with Propofol at 25mcg/kg/min. LFA AV shunt intact. Pt anuric. No pain noted at this time. Safety measures in place. Will continue to monitor.
[2021-03-30] MEDS: ASPIRIN 81 MG TAB.CHEW NG SCH (08:18)
[2021-03-30] MEDS: Z GUARD REMEDY 2 OZ OINT TP SCH ×2 (08:18→21:10)
[2021-03-30] MEDS: PROSOURCE / PROSTAT (PYXIS) 30 ML UDC GT SCH (08:18)
--- NOTE | 2021-03-30 18:48 | NUR ---
DIGITAL COORDINATOR NOTES PATIENT IN BED INTUBATED AND ON VENT TOLERATING CURRENT SETTING OF AC 14, TV 380, FIO2 50%, PEEP 5. SATING 95%, TF ON HOLD, NPO DUE TO PENDING TRACH AND PEG PLACEMENT, ALL CONSENT SIGNED AND PRE OP CHECKLIST DONE, S/P 1 UNIT OF PRBC, TOLERATED WELL, WOUND CARE TX DONE, IV ACCESS CHANDNI MIDLINE WITH PROPOFOL RUNNING @ 25MCG/KG/MIN, LFA AV SHUNT, BRUIT AND THRILL NOTED, PER FAMILY TO CALL THEM WHEN THE SURGEON IS ABOUT TO DO THE PROCEDURE, SAFETY MEASURES IN MAINTAINED, WILL ENDORSE TO RIGGING WORKER NURSE FOR NOAH.
--- NOTE | 2021-03-30 19:21 | NUR ---
DETAILER PHARMACEUTICALS OPENING NOTES: Rec'd pt in bed, intubated 6/21cm at the lip and sedated. Tolerating vent settings well. No resp distress noted at this time. SR on tele monitor. Right nare NGT in place. Pt NPO dx for trach and gt placement. CHANDNI midline in place w/ Propofol infusing at 25mcg/kg. LFA AV shunt intact. Pt anuric. No pain noted at this time. Safety measures in place. Will continue to monitor.
--- NOTE | 2021-03-30 19:30 | NUR ---
BALING MACHINE OPERATOR NOTE: Dr. Garica at bedside for GT placement.
--- NOTE | 2021-03-30 19:39 | NUR ---
WORKERS COMPENSATION ATTORNEY NOTE: GT placed w/ new order from Dr. Garcia to start tube feeding tomorrow. Addendum: 03/30/21 at 2013 by ROSAURA FAM RN Right OSPINA d/c'd
[2021-03-31] VITALS (53 sets, daily range): BP systolic 91–196; BP diastolic 34–104
--- NOTE | 2021-03-31 02:45 | NUR ---
CENTRIFUGAL SUPERVISOR NOTE: Pt's PEG site noted to have small amount of blood. Pressure applied, will continue to monitor.
[2021-03-31] MEDS: IV NS 0.9% 250 ML IV PRN (04:46)
--- NOTE | 2021-03-31 06:24 | NUR ---
AIRPLANE DISPATCH CLERK NOTE: 0600: Pt noted to be bleeding from new peg site w/ clotting. 0610: Paged container washer machine Chema Burton NP who stated to call TEREZA who placed the peg. 06: Paged Dr. Garcia, awaiting response. Addendum: 03/31/21 at 0629 by ROSAURA FAM RN Moderate amount of bleeding noted.
--- NOTE | 2021-03-31 06:39 | NUR ---
MISSILE TRACKING TECHNICIAN NOTE: Spoke w/ Dr. Garcia who gave order to apply essie. Noted and will carry out.
--- NOTE | 2021-03-31 07:22 | NUR ---
WOUND CARE CONSULT: PT SEEN FOR SACRAL INTACT DEEP TISSUE INJURY. RECOMMENDATIONS MADE FOR SKIN PROTECTION AND DISCUSSED WITH NURSING STAFF. PT FOLLOWED BY PLASTIC SURGERY TEAM FOR LEFT ARM. PT NOTED TO HAVE MULTIPLE CO-MORBIDITIES INCLUDING ACUTE RESPIRATORY FAILURE (CURRENTLY INTUBATED0, NON ST ELEVATION NE, END STAGE RENAL FAILURE (ON HEMODIALYSIS), ANEMIA, GENERALIZED EDEMA, ENCEPHALOPATHY WELL RT PNEUMOTHORAX WITH CHEST TUBE. PT RECEIVED PEG TUBE YESTERDAY. DUE TO MULTIPLE CO-MORBIDITIES, FURTHER SKIN BREAKDOWN MAY BE UNAVOIDABLE. PT IS ON DAMI ISOFLEX LOW AIRLOSS BED. ALL SKIN PROTECTION MEASURES IN PLACE. MD IN AGREEMENT WITH PLAN OF CARE. Addendum: 03/31/21 at 0726 by LAURENCE SOLIS WNDNU Amended: Links added.
--- NOTE | 2021-03-31 07:30 | NUR ---
RN OPENING NOTE ETT PT SEMIFOWLER'SAND SEDATED ON VENT SETTINGS 6/21 CM AT THE LIP, AC 14, TV 380, FIO2 50%, PEEP 5, TOLERATING WELL, SPO2 99%, NO S/S OF RESP DISTRESS OR SOB, BREATHING EVEN AND UNLABORED. PT HAS RT CHEST TUBE INTACT TO SUCTION. PT HAS ACTIVE BLEED AT PEG TUBE INSERTION SITE, COVERED IN DRESSINGS (SATURATED) AND SANDBAGS FOR PRESSURE (PER CLINICAL VETERINARIAN RN, DR EMMA FIELD); INFORMED HEADEND TECHNICIAN YE WELL. PT BP CURRENTLY STABLE, ASYMPTOMATIC. WILL CHANGE DRSG SHORTLY. PT HAS CHANDNI MIDLINE INFUSING DIPRIVAN @ 25 MCG/KG/MIN, FLUSHED AND PATENT, NO S/S OF INFECTION OR INFILTRATION. PT LFA AV SHUNT INTACT. PT HAS LFA SKIN TEAR COVERED IN C/D/I DRSG AND MASD TO BUTTOCKS COVERED IN MEPILEX. ALL PT SAFETY PRECAUTIONS IN PLACE, WILL CONT TO MONITOR
[2021-03-31] MEDS: PROPOFOL 100 ML IV PRN (07:57)
[2021-03-31] MEDS ORDERED: ROCURONIUM BROMIDE 50 MG/5 ML IV ONE (08:30)
[2021-03-31] MEDS ORDERED: FENTANYL PF 100MCG/2ML AMPUL IV ONE (08:30)
[2021-03-31] MEDS: PROSOURCE / PROSTAT (PYXIS) 30 ML UDC GT SCH (08:55)
[2021-03-31] MEDS: ASPIRIN 81 MG TAB.CHEW NG SCH (08:56)
[2021-03-31] MEDS ORDERED: LIDOCAINE 2%-EPI 1:100,000 30 ML VIAL TP ONE (09:00)
[2021-03-31] MEDS: Z GUARD REMEDY 2 OZ OINT TP SCH ×2 (09:03→22:00)
--- NOTE | 2021-03-31 09:15 | NUR ---
RN NOTE DR JAN NORTON SUTURED PEG SITE LACERATION THAT WAS BLEEDING FROM PEG PLACEMENT YESTERDAY. BLEEDING HAS STOPPED, WILL CONT TO MONITOR.
[2021-03-31 09:27] LABS: CALCIUM, SERUM 8.6 mg/dL (8.5-10.1); CARBON DIOXIDE 25 mmol/L (21-32); CHLORIDE 102 mmol/L (98-107); CREATININE 4.2 mg/dL (0.6-1.3); GLUCOSE 73 mg/dL (74-106); POTASSIUM 4.5 mmol/L (3.5-5.1); SODIUM SERUM 140 mmol/L (136-145); UREA NITROGEN, BLOOD 65 mg/dL (7-18)
--- NOTE | 2021-03-31 09:30 | NUR ---
@ 6345 BEDSIDE TR[address] DONE BY DR. MEJIA AND DR. NORTON. NEW TRACH INSERTED WITH SIZE 8.0 SHILEY. BREATH SOUNDS CLEAR BILATERAL ON POST TRACH PROCEDURE. Addendum: 03/31/21 at 1011 by SLIM FLEMING RT Amended: Links added.
[2021-03-31 09:31] LABS: MAGNESIUM 2.1 mg/dL (1.8-2.4); PHOSPHORUS 5.8 mg/dL (2.5-4.9)
[2021-03-31 09:42] LABS: BASOPHILS # (AUTO) 0.1 K/uL (0.0-0.2); BASOPHILS % (AUTO) 0.8 % (0.0-2.0); EOSINOPHILS % (AUTO) 5.1 % (0.0-6.0); HEMATOCRIT 26 % (33-45); HEMOGLOBIN 8.5 g/dL (11.5-14.8); LYMPHOCYTES # (AUTO) 0.7 K/uL (0.8-4.8); LYMPHOCYTES % (AUTO) 6.4 % (20.0-44.0); MEAN CORPUSCULAR HGB CONC 32 g/dl (31.0-36.0); MEAN CORPUSCULAR VOLUME 111 fL (82-100); MONOCYTES # (AUTO) 0.9 K/uL (0.1-1.30); MONOCYTES % (AUTO) 8.3 % (2.0-12.0); NEUTROPHILS # (AUTO) 8.8 K/uL (1.8-8.9); NEUTROPHILS % (AUTO) 79.4 % (43.0-81.0); PLATELET COUNT (AUTO) 471 K/uL (150-450); RED BLOOD CELL COUNT(AUTO) 2.38 MIL/uL (4.0-5.2); WHITE BLOOD COUNT (AUTO) 11.1 K/uL (4.3-11.0)
--- NOTE | 2021-03-31 10:00 | NUR ---
RN NOTE OCTAVIANO 8 TRACH PLACED BEDSIDE AT 0930. NO COMPLICATIONS DURING PROCEDURE. PT STABLE ON SAME VENT SETTINGS, SPO2 98%, NO SIGNS OF RESP DISTRESS OR SOB, BREATHING EVENA ND UNLABORED. WILL CONT TO MONITOR
[2021-03-31] MEDS ORDERED: NEPRO 1,000 ML BOTTLE GT SCH (14:00)
[2021-03-31] MEDS: EPOETIN ALFA (2000 UNIT) 2,000 UNIT/ML VIAL IV SCH (15:53)
[2021-03-31] MEDS: NEPRO 1,000 ML BOTTLE GT PRN (16:27)
--- NOTE | 2021-03-31 16:30 | NUR ---
RN NOTE PT HD FINISHED, 500cc REMOVED. PT TOLERATED WELL WITH NO COMPLICATIONS. SLIGHT MP ELEVATION, WILL CONT TO MONITOR
--- NOTE | 2021-03-31 17:00 | NUR ---
OLIVIA FERGUSON NEPRO 1.8 STARTED @ 1700 @ 15 ML/HR; GOAL RATE OF 30 ML/HR. GTUBE AUSCULTATED FOR POSITIVE PLACEMENT, FLUSHED AND IS PATENT
[2021-03-31] MEDS: HYDROCODONE/APAP 5/325MG TABLET NG PRN (18:31)
--- NOTE | 2021-03-31 19:00 | NUR ---
JOURNEYMAN ELECTRICIAN PV INSTALLER CLOSING NOTE PT IN STABLE CONDITION. TOLERATING VENT SETTING WELL. ALL PT SAFETY PRECAUTION INPLACE. NOAH ENDORSED TO DEPARTMENT SUPERVISOR NURSE
--- NOTE | 2021-03-31 19:45 | NUR ---
ICU/CAFETERIA MANAGER RECEIVED REPORT FROM DAY NURSE. SEE FLOWSHEET FOR ASSESSMENT. NO IV TO ADDRESS ON THE IV SPREAD SHEET FOR TITRATIONS. THE SEDATION WAS TURNED OFF BY THE DAY RN NURSE. PT WAS TURNED AND REPOSITIONED FOR COMFORT AND CARE. NO ACUTE DISTRESS SEEN AT THIS TIME WILL CONTINUE MONITOR THIS PT
--- NOTE | 2021-03-31 23:00 | NUR ---
ICU/ENERGY PROJECTS LEAD INCREASED THE FEEDING TO 20ML FROM 15ML. PT IS TOLERATING THIS WELL WITH NO RESIDUALS. GOAL IS SET FOR 30.
[2021-04-01] VITALS (29 sets, daily range): BP systolic 116–185; BP diastolic 64–96
[2021-04-01] MEDS: HYDROCODONE/APAP 5/325MG TABLET NG PRN ×4 (01:29→20:52)
--- NOTE | 2021-04-01 01:30 | NUR ---
ICU/SUPERVISOR HANGING AND TRIMMING PT APPEARS TO BE IN PAIN WITH INCREASED HEART RATE OF 100'S, NORCO 1 TAB WAS GIVEN FOR THIS. FLACC SCALE USED WAS 7/10. WILL CONTINUE TO MONITOR THIS PT.
--- NOTE | 2021-04-01 03:17 | NUR ---
ICU/ORDER ENTRY CLERK RT TITRATED FIO2 DOWN TO 40% FROM 50%. WILL CONTINUE TO MONITOR THIS PT AND HER SATURATION.
[2021-04-01 04:35] LABS: BASOPHILS # (AUTO) 0.1 K/uL (0.0-0.2); BASOPHILS % (AUTO) 0.8 % (0.0-2.0); EOSINOPHILS % (AUTO) 4.2 % (0.0-6.0); HEMATOCRIT 23 % (33-45); HEMOGLOBIN 7.4 g/dL (11.5-14.8); LYMPHOCYTES # (AUTO) 0.6 K/uL (0.8-4.8); LYMPHOCYTES % (AUTO) 4.8 % (20.0-44.0); MEAN CORPUSCULAR HGB CONC 32 g/dl (31.0-36.0); MEAN CORPUSCULAR VOLUME 112 fL (82-100); NEUTROPHILS # (AUTO) 11.3 K/uL (1.8-8.9); NEUTROPHILS % (AUTO) 83.2 % (43.0-81.0); PLATELET COUNT (AUTO) 430 K/uL (150-450); RED BLOOD CELL COUNT(AUTO) 2.07 MIL/uL (4.0-5.2); WHITE BLOOD COUNT (AUTO) 13.6 K/uL (4.3-11.0)
[2021-04-01 04:54] LABS: CALCIUM, SERUM 8.7 mg/dL (8.5-10.1); CARBON DIOXIDE 27 mmol/L (21-32); CHLORIDE 102 mmol/L (98-107); CREATININE 3.3 mg/dL (0.6-1.3); GLUCOSE 84 mg/dL (74-106); MAGNESIUM 2.2 mg/dL (1.8-2.4); POTASSIUM 3.9 mmol/L (3.5-5.1); SODIUM SERUM 140 mmol/L (136-145); UREA NITROGEN, BLOOD 46 mg/dL (7-18)
--- NOTE | 2021-04-01 06:00 | NUR ---
icu/card feeder g/tube feeding is at goal of 30ml. no residuals seen or noted.
--- NOTE | 2021-04-01 06:26 | NUR ---
ICU/INFORMIX DEVELOPER PT APPEARS TO BE IN PAIN WITH INCREASED HEART RATE OF 110'S, NORCO 1 TAB WAS GIVEN FOR THIS. FLACC SCALE USED WAS 7/10. WILL CONTINUE TO MONITOR THIS PT.
--- NOTE | 2021-04-01 07:30 | NUR ---
REPORT RECEIVED FROM ALMA STOKES. PT LETHARGIC, RESPONDS TO PAIN ONLY. TRACH WAS PLACED YESTERDAY. TUBE FEEDING INFUSING PER PEG TUBE PER MD ORDERS. PT IS ANURIC. LAST DIALYSIS WAS YESTERDAY. PT CHECKED ON HOURLY AND PRN BY NURSING STAFF.
--- NOTE | 2021-04-01 07:38 | NUR ---
vent changes below for weaning trial per dr. valenzuela: cpap 5 ps 15 fio2 40% Addendum: 04/01/21 at 0739 by SLIM FLEMING RT Amended: Links added.
[2021-04-01] MEDS: Z GUARD REMEDY 2 OZ OINT TP SCH ×2 (09:12→20:38)
[2021-04-01] MEDS: PROSOURCE / PROSTAT (PYXIS) 30 ML UDC GT SCH (09:12)
[2021-04-01 09:25] LABS: ABG BASE EXCESS 0.7 mmol/L; ABG OXYGEN SATURATION 95.5 % (92.0-98.5); ABG PCO2 49.4 mmHg (35.0-45.0); ABG PO2 81.5 mmHg (75.0-100.0); AaDO2 146.9 mmHg; COHb 1.5 % (0.5-1.5); MetHb 0.2 % (0.0-1.5); O2Hb 93.9 % (94.0-97.0); SITE, ABG Right Radial; VENT MODE, BG PS 15
--- NOTE | 2021-04-01 18:22 | NUR ---
END OF SHIFT NOTE: PT HAD A FAIRLY UNEVENTFUL SHIFT. 1 UNIT OF PRBC'S GIVEN PER MD ORDERS. CHEST TUBE WAS CLAMPED PER DR VILA. NO DIALYSIS TODAY. 1 BM NOTED. PT IS ANURIC. PT PUT ON CPAP AT 0735 THIS AM AND REMAINS AT THIS TIME. PT CHECKED ON HOURLY AND PRN BY NURSING STAFF.
--- NOTE | 2021-04-01 19:45 | NUR ---
ICU/BOOM TRUCK DRIVER RECEIVED REPORT FROM DAY NURSE. SEE FLOWSHEET FOR ASSESSMENT. NO IV TO ADDRESS ON THE IV SPREAD SHEET FOR TITRATIONS. PT IS CURRENTLY ON CPAP ON THE VENT, SATURATION IS 100%. PT WAS TURNED AND REPOSITIONED FOR COMFORT AND CARE. NO ACUTE DISTRESS SEEN AT THIS TIME WILL CONTINUE MONITOR THIS PT
--- NOTE | 2021-04-01 20:06 | NUR ---
RCVD PT WITH TRACH SHILEY 8 PERC ON MECH VENT WITH THE SETTING OF CPAP , PS 15, PEEP 5 AND FIO2 40%. SUCTIONED MODERATE AMOUNT OF HILLIARD THICK SECRETIONS. VENT PLUGGED INTO RED OUTLET, VENT ALARMS ON AND AUDIBLE. MOBILE HEALTH VEHICLE OPERATOR DONE. CUFF INFLATED. NO RESPIRATORY DISTRESS NOTED AT THIS TIME. AMBU BAG @ BEDSIDE. WILL CONTINUE TO MONITOR PT T/O SHIFT
--- NOTE | 2021-04-01 20:15 | NUR ---
ICU/BOWLING BALL ASSEMBLER NOTICED THAT PT HAS A LEFT EAR WOUND WITH SCAB, PHOTO DOCUMENT WAS DONE AND PLACED IN CHART.
[2021-04-01] MEDS: NEPRO 1,000 ML BOTTLE GT PRN (20:39)
--- NOTE | 2021-04-01 21:00 | NUR ---
ICU/BAR CATCHER PT APPEARS TO BE IN PAIN WITH INCREASED HEART RATE TO 100'S AND BLOOD PRESSURE OF 170'S. NORCO 5/325 1 TAB GIVEN VIA G/TUBE. WILL MONITOR THIS PT AND HER PAIN.
--- NOTE | 2021-04-01 22:00 | NUR ---
ICU/MEDICAL DIRECTOR/HEAD TEAM PHYSICIAN ID LEAD DATA ENTRY OPERATOR CAME IN SAID THAT IF PT RUNS TEMP AGAIN AT 100.5 THEN DO BLOOD C[address]. PLACE THIS A NURSING MISC. STANDING ORDER.
[2021-04-02] VITALS (26 sets, daily range): BP systolic 119–180; BP diastolic 71–91
--- NOTE | 2021-04-02 00:10 | NUR ---
ICU/MANAGER SERVICES AT BEDSIDE FOR AWHILE, THEN WENT HOME.
--- NOTE | 2021-04-02 02:25 | NUR ---
ICU/FRUIT FARMWORKER PT WAS GIVEN ORAL CARE AT THIS TIME, PT TOLERATED THIS WELL. PT WAS THEN GIVEN AM CARE AT THIS TIME. PT TOLERATED THIS WELL, PT REMAINS ON CURRENT VENT SETTINGS OF CPAP WITH SATURATION AT 100%. PT WAS TURNED AND REPOSITIONED FOR COMFORT AND CARE. WILL CONTINUE TO MONITOR THIS PT. NO ACUTE DISTRESS SEEN AT THIS TIME.
[2021-04-02 04:19] LABS: BASOPHILS # (AUTO) 0.1 K/uL (0.0-0.2); BASOPHILS % (AUTO) 0.5 % (0.0-2.0); EOSINOPHILS % (AUTO) 4.8 % (0.0-6.0); HEMATOCRIT 25 % (33-45); HEMOGLOBIN 8.4 g/dL (11.5-14.8); LYMPHOCYTES # (AUTO) 0.9 K/uL (0.8-4.8); LYMPHOCYTES % (AUTO) 6.3 % (20.0-44.0); MEAN CORPUSCULAR HGB CONC 33 g/dl (31.0-36.0); MEAN CORPUSCULAR VOLUME 108 fL (82-100); MONOCYTES # (AUTO) 1.4 K/uL (0.1-1.30); MONOCYTES % (AUTO) 9.4 % (2.0-12.0); NEUTROPHILS # (AUTO) 11.7 K/uL (1.8-8.9); PLATELET COUNT (AUTO) 426 K/uL (150-450); RED BLOOD CELL COUNT(AUTO) 2.36 MIL/uL (4.0-5.2); WHITE BLOOD COUNT (AUTO) 14.9 K/uL (4.3-11.0)
[2021-04-02 04:44] LABS: CALCIUM, SERUM 8.9 mg/dL (8.5-10.1); CARBON DIOXIDE 28 mmol/L (21-32); CHLORIDE 102 mmol/L (98-107); CREATININE 4.1 mg/dL (0.6-1.3); GLUCOSE 116 mg/dL (74-106); MAGNESIUM 2.1 mg/dL (1.8-2.4); PHOSPHORUS 4.6 mg/dL (2.5-4.9); POTASSIUM 3.8 mmol/L (3.5-5.1); SODIUM SERUM 141 mmol/L (136-145); UREA NITROGEN, BLOOD 55 mg/dL (7-18)
[2021-04-02] MEDS: ACETAMINOPHEN 650 MG/20.3 ML UDC NG PRN (05:15)
--- NOTE | 2021-04-02 05:15 | NUR ---
icu/real estate recruiter pt given Tylenol via g/tube for flacc scale of 4/10. will monitor this pt's pain. pt had a large bm, this was cleaned then pt was turned and repositioned for comfort and care.
[2021-04-02 06:24] LABS: EOSINOPHILS % (MANUAL) 4 % (0-4); LYMPHOCYTES % (MANUAL) 6 % (16-48); MONOCYTES % (MANUAL) 4 % (0-11.0); NEUTROPHILS % (MANUAL) 86 (42-76)
--- NOTE | 2021-04-02 07:30 | NUR ---
OPENING NOTE: REPORT RECEIVED FROM [facility]. UNEVENTFUL NIGHT EXCEPT 2 LOOSE BMS. PT APPEARS TO BE A LITTLE MORE ALERT TODAY, OPENS EYES AND APPEARS TO BE MOUTHING WORDS. PT CHECKED ON HOURLY AND PRN BY NURSING STAFF.
--- NOTE | 2021-04-02 08:50 | NUR ---
CHEST TUBE REMOVED WITHOUT DIFFICULTY BY DR VILA. OCCLUSIVE DRESSING APPLIED.
[2021-04-02] MEDS: PROSOURCE / PROSTAT (PYXIS) 30 ML UDC GT SCH (10:58)
[2021-04-02] MEDS: Z GUARD REMEDY 2 OZ OINT TP SCH ×2 (10:58→21:57)
[2021-04-02] MEDS: HYDROCODONE/APAP 5/325MG TABLET NG PRN (14:44)
[2021-04-02] MEDS: EPOETIN ALFA (2000 UNIT) 2,000 UNIT/ML VIAL IV SCH (14:45)
[2021-04-02 18:15] LABS: ABG BASE EXCESS 3.9 mmol/L; ABG OXYGEN SATURATION 98.6 % (92.0-98.5); ABG PCO2 45.9 mmHg (35.0-45.0); ABG PH 7.417 (7.350-7.450); AaDO2 178.9 mmHg; COHb 2.6 % (0.5-1.5); MetHb 4.1 % (0.0-1.5); PEEP,BG 5 cm H2O; SITE, ABG Right Radial; VT, ABG 400 mL
--- NOTE | 2021-04-02 18:26 | NUR ---
END OF SHIFT NOTE: PT WAS SUPPOSED TO TRANSFER TO SUB ACUTE AFTER DIALYSIS BUT PT'S SATS DROPPED ON CPAP. PT WAS PUT ON AC AT 1710, O2 TITRATED UP TO 50% AT 1745. DR VILA NOTIFIED. TRANSFER CANCELLED FOR TONIGHT. CHEST XRAY AND ABGS ORDERED. PT HAD 3 BMS THIS SHIFT. HD WITH 1000 OUT. PAIN MEDICATION GIVEN X1 FOR ELEVATED BP AND FACIAL GRIMACING. PT CHECKED ON HOURLY AND PRN BY NURSING STAFF.
--- NOTE | 2021-04-02 20:00 | NUR ---
RN NOTE RECEIVED PT ON VENT WITH SETTINGS OF AC 14 TV 400 FIO2 40 % PEEP 5. NO SIGNS OF DISTRESS NOTED. O2 SAT AT 93-94 %. RT MADE AWARE, RT CHANGED FIO2 TO 50 %. PT GT PATENT AND IN PLACE, ON GT FEEDING OF NEPRO, NO RESIDUALS NOTED. KEPT HOB ELEVATED. IV PATENT AND INTACT. RESTRAINTS ON BILATERAL WRIST, WITH GOOD CIRCULATION. WILL CONTINUE TO MONITOR.
--- NOTE | 2021-04-02 20:35 | NUR ---
RN NOTE PT AT BEDSIDE.
[2021-04-03] VITALS (13 sets, daily range): BP systolic 131–172; BP diastolic 75–95
[2021-04-03] MEDS: HYDROCODONE/APAP 5/325MG TABLET NG PRN ×2 (01:23→08:42)
--- NOTE | 2021-04-03 02:30 | NUR ---
RN NOTE PT SLEEPING, CALM. RELEASED FROM WRIST RESTRAINTS, NO EPISODE OF PULLING OUT TUBINGS. WILL CONTINUE TO MONITOR.
[2021-04-03] MEDS: NEPRO 1,000 ML BOTTLE GT PRN (05:06)
--- NOTE | 2021-04-03 06:14 | NUR ---
RT NOTE Pt rec'd tr[facility] on noted settings as charted. pt sx'd for mod amt of pale yellow secretions. trach is patent and secured. Alarms are set and audible. Ambu bag bedside. Vent plugged into red outlet. will continue to monitor closely. Addendum: 04/03/21 at 0616 by RENE GAO RT Amended: Links added.
--- NOTE | 2021-04-03 06:45 | NUR ---
RN NOTE PT TOLERATING VENT SETTINGS, NOT IN ANY DISTRESS. NO SIGNIFICANT CHANGES NOTED. PT OPEN EYES TO TOUCH TACTILE. CONTINUE ON GT FEEDING, TOLERATING WELL NO RESIDUAL NOTED, NO S/SX OF ASPIRATION NOTED. KEPT HOB ELEVATED. BRUIT AND THRILL PRESENT ON LEFT ARM AV SHUNT, NO BLEEDING NOTED. KEPT CLEAN AND COMFORTABLE, PT HAD 1 BM. CONTINUE OFF RESTRAINTS, NO EPISODE OF RESTLESSNESS OR PULLING OUT TUBES. WILL ENDORSE TO NEXT SHIFT NURSE FOR NOAH.
--- NOTE | 2021-04-03 07:15 | NUR ---
RN OPENING NOTE Received patient asleep in bed appears calm and relaxed no signs of distress. Patient on vent, settings: AC 14, TV 400 FiO2 50% PEEP 5, O2 sat: 94% Patient is obtunded opens eyes but non verbal. Tele reading SR 90s. GTF running Nepro 30cc/hr tolerating well. Bilateral restraints off will monitor if needed throughout the day. CHANDNI midline flushes well. Noted with high BP 170 mmHg. Safety measures reinforced. Will cont to monitor.
[2021-04-03] MEDS: PROSOURCE / PROSTAT (PYXIS) 30 ML UDC GT SCH (08:40)
[2021-04-03] MEDS: Z GUARD REMEDY 2 OZ OINT TP SCH (08:41)
--- NOTE | 2021-04-03 08:45 | NUR ---
Switched to CPAP 15, PEEP 5 40%. O2 Sat 95%
[2021-04-03] MEDS ORDERED: Nepro GT (10:49)
[2021-04-03] MEDS ORDERED: Prosource GT (10:49)
[2021-04-03] MEDS ORDERED: EPOE1VIA IV (10:49)
[2021-04-03] MEDS ORDERED: ACET650S26 NG (10:49)
[2021-04-03 10:55] LABS: ABG BASE EXCESS 3.2 mmol/L; ABG OXYGEN SATURATION 97.1 % (92.0-98.5); ABG PH 7.386 (7.350-7.450); ABG PO2 93.5 mmHg (75.0-100.0); AaDO2 135.4 mmHg; COHb 1.9 % (0.5-1.5); MetHb 1.3 % (0.0-1.5); SITE, ABG Right Radial
--- NOTE | 2021-04-03 11:00 | NUR ---
ABG RESULTS CAME BACK WITHIN NORMAL LIMITS
--- NOTE | 2021-04-03 13:10 | NUR ---
SUPERVISOR CIGAR MAKING HAND NOTE Patient was transferred to Subacute Unit room 273 with resp therapist. Patient hooked to CPAP. No signs of distress. Gave report to Sarah Garcia Chart and paperwork given.
[2021-04-03] MEDS ORDERED: MAGN400O6 GT (17:51)
[2021-04-03] MEDS ORDERED: NORM10004 IV (17:51)
[2021-04-03] MEDS ORDERED: ACET325T53 GT (17:51)
[2021-04-03] MEDS ORDERED: MAG-55 GT (17:51)
[2021-04-03] MEDS ORDERED: AMIN30LI25 GT (17:51)
[2021-04-03] MEDS ORDERED: BENZ236L TP ×2 (17:51)
[2021-04-03] MEDS ORDERED: [UNRECOGNIZED DRUG - CODE] IV (17:51)
[2021-04-03] MEDS ORDERED: HYDR-4303 GT (17:51)
== END 2021-04-03 12:36 | DRG 4 ==
LOC: ER 11:14 → ICU 13:42
PROVIDERS: ADMIT Internal Medicine; ATTEND Nurse Practitioner Acute Care
PROC: 0BH18EZ Insertion of Endotracheal Airway into Trachea, Via Natural or Artificial Opening Endoscopic (ICD-10-PCS; 2021-03-09)
PROC: 5A1945Z Respiratory Ventilation, 24-96 Consecutive Hours (ICD-10-PCS; 2021-03-09)
PROC: 5A1D70Z Performance of Urinary Filtration, Intermittent, Less than 6 Hours Per Day (ICD-10-PCS; 2021-03-09)
PROC: 0W9B3ZZ Drainage of Left Pleural Cavity, Percutaneous Approach (ICD-10-PCS; 2021-03-11)
PROC: 0BH18EZ Insertion of Endotracheal Airway into Trachea, Via Natural or Artificial Opening Endoscopic (ICD-10-PCS; 2021-03-12)
PROC: 5A1955Z Respiratory Ventilation, Greater than 96 Consecutive Hours (ICD-10-PCS; principal; 2021-03-13)
PROC: 30233N1 Transfusion of Nonautologous Red Blood Cells into Peripheral Vein, Percutaneous Approach (ICD-10-PCS; 2021-03-17)
PROC: 0W993ZZ Drainage of Right Pleural Cavity, Percutaneous Approach (ICD-10-PCS; 2021-03-17)
PROC: 5A1955Z Respiratory Ventilation, Greater than 96 Consecutive Hours (ICD-10-PCS; 2021-03-19)
PROC: 0W9930Z Drainage of Right Pleural Cavity with Drainage Device, Percutaneous Approach (ICD-10-PCS; 2021-03-19)
PROC: 05HB33Z Insertion of Infusion Device into Right Basilic Vein, Percutaneous Approach (ICD-10-PCS; 2021-03-20)
PROC: 0DH63UZ Insertion of Feeding Device into Stomach, Percutaneous Approach (ICD-10-PCS; 2021-03-30)
PROC: 0B113F4 Bypass Trachea to Cutaneous with Tracheostomy Device, Percutaneous Approach (ICD-10-PCS; 2021-03-31)
PROC: 0BJ08ZZ Inspection of Tracheobronchial Tree, Via Natural or Artificial Opening Endoscopic (ICD-10-PCS; 2021-03-31)
DX: J96.21 Acute and chronic respiratory failure with hypoxia (principal); J69.0 Pneumonitis due to inhalation of food and vomit; I21.A1 Myocardial infarction type 2; N18.6 End stage renal disease; E43 Unspecified severe protein-calorie malnutrition; I50.23 Acute on chronic systolic (congestive) heart failure; I13.2 Hypertensive heart and chronic kidney disease with heart failure and with stage 5 chronic kidney disease, or end stage renal disease; G93.40 Encephalopathy, unspecified; E87.2 Acidosis; J90 Pleural effusion, not elsewhere classified; J98.11 Atelectasis; J93.9 Pneumothorax, unspecified; I31.3 Pericardial effusion (noninflammatory); J96.22 Acute and chronic respiratory failure with hypercapnia; Z86.73 Personal history of transient ischemic attack (TIA), and cerebral infarction without residual deficits; D50.9 Iron deficiency anemia, unspecified; D63.8 Anemia in other chronic diseases classified elsewhere; G62.9 Polyneuropathy, unspecified; I25.2 Old myocardial infarction; I70.0 Atherosclerosis of aorta; K29.70 Gastritis, unspecified, without bleeding; M89.8X9 Other specified disorders of bone, unspecified site; Z88.5 Allergy status to narcotic agent; Z79.82 Long term (current) use of aspirin; Z79.899 Other long term (current) drug therapy; Z20.822 Contact with and (suspected) exposure to COVID-19; Z99.2 Dependence on renal dialysis; S51.812A Laceration without foreign body of left forearm, initial encounter; X58.XXXA Exposure to other specified factors, initial encounter; Y92.9 Unspecified place or not applicable; L89.156 Pressure-induced deep tissue damage of sacral region; L98.9 Disorder of the skin and subcutaneous tissue, unspecified; R32 Unspecified urinary incontinence; Z66 Do not resuscitate; Z51.5 Encounter for palliative care
CPT/HCPCS: 31623; 31720; 36415; 36600; 43246; 70450-TC; 71045-TC; 80048-TC; 80053-TC; 80061-TC; 80202-TC; 82140-TC; 82248-TC; 82550-TC; 82728-TC; 82803-TC; 82962-TC; 83540-TC; 83605-TC; 83615-TC; 83735-TC; 83880; 83970; 84100-TC; 84439-TC; 84443-TC; 84478-TC; 84484-TC; 85025-TC; 85378-TC; 85610-TC; 85730-TC; 86140-TC; 86704; 86705; 86706; 86803; 86850-TC; 87040-TC; 87070-TC; 87075-TC; 87081-TC; 87086-TC; 87102-TC; 87340; 88108-TC; 88305-TC; 89051-TC; 90935-TC; 92526; 92611-TC; 93307-TC; 94002-TC; 94003-TC; 94760-TC; 94799-TC; 99082-TC; A4216; A4624; A6253; A6403; A7526; A9563; C1751; G0378; G0480; J0330; J0692; J0885; J1200; J1644; J2185; J2250; J2405; J2543; J2704; J2916; J3010; J3370; J3490; J7030; J7050; J7060; P9016; P9047; U0003

== ENCOUNTER 2021-04-02 15:45 | Inpatient (IN) | payer MEDICARE, OTHER ==
[~2021-04-02] VITALS: Ht 152.4 cm; Wt 57.6 kg
[~2021-04-02 15:45] MED LIST changes: -ACET325T53 GT; -ACET650S26 NG; -AMIN30LI25 GT; -AMIN887L GT; -BENZ236L TP; -EPOE1VIA IV; -HYDR-4303 GT; -MAG-55 GT; -MAGN400O6 GT; -NORM10004 IV; -NUT.237L67 GT; -Nepro GT; -ONDA4TAB11 GT; -Prosource GT; -[UNRECOGNIZED DRUG - CODE] IV
[2021-04-03] MEDS ORDERED: ACET650S26 NG (10:49)
[2021-04-03] MEDS ORDERED: EPOE1VIA IV (10:49)
[2021-04-03] MEDS ORDERED: Nepro GT (10:49)
[2021-04-03] MEDS ORDERED: Prosource GT (10:49)
[2021-04-03] MEDS ORDERED: AMIN30LI25 GT (17:51)
[2021-04-03] MEDS ORDERED: ACET325T53 GT (17:51)
[2021-04-03] MEDS ORDERED: NORM10004 IV (17:51)
[2021-04-03] MEDS ORDERED: BENZ236L TP ×2 (17:51)
[2021-04-03] MEDS ORDERED: MAG-55 GT (17:51)
[2021-04-03] MEDS ORDERED: MAGN400O6 GT (17:51)
[2021-04-03] MEDS ORDERED: [UNRECOGNIZED DRUG - CODE] IV (17:51)
[2021-04-03] MEDS ORDERED: HYDR-4303 GT (17:51)
--- NOTE | 2021-04-03 18:00 | NUR ---
Resident admitted to subacute under the care of Dr. López with the following diagnosis, respiratory failure, acute hypoxemic and hypercarbic, tracheostomy, non-ST elevation NE, End Stage Renal Disease on Hemodialysis, CHF, GT, Severe protein calorie, malnutrition, Anemia of chronic disease, Hx. CVA, S/P sepsis/ pneumonia, mineral bone disease, acute on chronic encephalopathy. Patient awake, open eyes make eye contact, does not follow command. Body check done, L FA wound with scab, L fistula and R midline in place. Per report patient has been tolerating CPAP setting PS 15, Peep 5, and Fio2 40%. Resident received first dose of Covid-19 vaccine on 12/16/20. Admission orders verified with Dr. López. Notified patient's of admission by leaving message in his voice mail. Frequent monitoring done.
[2021-04-03 18:34] VITALS: BP 166/95
[2021-04-03] MEDS ORDERED: MAG HYDROX/AL HYDROX/SIMETH 30 ML UDC NG PRN (18:52)
[2021-04-03] MEDS ORDERED: MAGNESIUM HYDROXIDE 30 ML UDC NG PRN (18:52)
[2021-04-03] MEDS ORDERED: ACETAMINOPHEN 650 MG/20.3 ML UDC NG PRN (18:52)
[2021-04-03] MEDS ORDERED: EPOETIN ALFA (2000 UNIT) 2,000 UNIT/ML VIAL IV SCH (18:52)
[2021-04-03] MEDS ORDERED: HYDROCODONE/APAP 5/325MG TABLET NG PRN (18:52)
[2021-04-03] MEDS ORDERED: MAGNESIUM HYDROXIDE 30 ML UDC GT PRN (18:55)
[2021-04-03] MEDS ORDERED: MAG HYDROX/AL HYDROX/SIMETH 30 ML UDC GT PRN (18:55)
[2021-04-03] MEDS ORDERED: HYDROCODONE/APAP 5/325MG TABLET GT PRN (18:56)
[2021-04-03] MEDS ORDERED: ACETAMINOPHEN 650 MG/20 ML UDC- SA PATIENTS-FEVER ONLY GT PRN (19:00)
[2021-04-03 19:28] VITALS: BP 157/83
[2021-04-03 22:00] VITALS: BP 155/95
--- NOTE | 2021-04-04 00:53 | NUR ---
RN NOTE INITIAL BP FOR 0000 157/83 RECHECKED PATIENT BP FOR 0000. 147/82. MADE CHARGE KNOWN. NO PRN BP MEDICATION DAVID.
[2021-04-04 01:12] VITALS: BP 155/95
--- NOTE | 2021-04-04 01:30 | NUR ---
SA RN NOTES EPISODES OF CONSTANT TRACH PULL OUT ATTEMPTS. WILL KEEP CLOSE MONITORING OF PATIENT. CHARGE NURSE MADE KNOWN.
[2021-04-04 04:00] VITALS: BP 156/88
--- NOTE | 2021-04-04 06:37 | NUR ---
RN NOTES PATIENT MRSA AND COVID TEST DONE AND SENT IN THE LAB.
[2021-04-04] MEDS ORDERED: NEPRO 1,000 ML BOTTLE NG PRN (07:00)
[2021-04-04] MEDS ORDERED: HYDROGEN PEROXIDE 480 ML BOTTLE TP PRN (07:00)
[2021-04-04 08:00] VITALS: BP 106/80
[2021-04-04] MEDS ORDERED: TUBERCULIN,PURIF.PROT.DERIV. 5 TU/0.1 ML VIAL ID ONE (08:00)
--- NOTE | 2021-04-04 08:00 | NUR ---
Seen and examined by Dr. Martinez, no new order given.
[2021-04-04] MEDS: HYDROGEN PEROXIDE 480 ML BOTTLE TP SCH ×2 (08:28→20:24)
[2021-04-04] MEDS: PROSOURCE / PROSTAT (PYXIS) 30 ML UDC GT SCH (08:30)
[2021-04-04] MEDS: Z GUARD REMEDY 4 OZ OINT TP SCH ×2 (09:00→21:16)
[2021-04-04] MEDS: NEOMY SULF/BACITRAC ZN/POLY 15 GM TUBE TP SCH ×2 (09:00→21:16)
[2021-04-04] MEDS: VITAMINS A AND D 56.7 GM TUBE TP SCH ×4 (09:00→21:16)
--- NOTE | 2021-04-04 12:30 | NUR ---
Seen and examined by Dr. López, no new order given.
[2021-04-04 17:43] VITALS: BP 145/85
[2021-04-04] MEDS: ACETAMINOPHEN 650 MG/20 ML UDC- SA PATIENTS-PAIN ONLY GT PRN (17:58)
[2021-04-04 18:36] VITALS: BP 143/84
--- NOTE | 2021-04-04 19:20 | NUR ---
4 Family members visited today, 1 at a time, son, , and 2 granddaughters. Screened, showed vaccination record, temp checked, washed hands before entering pt. room.
[2021-04-04 20:38] VITALS: BP 144/77
[2021-04-05 07:33] VITALS: BP 152/83
[2021-04-05] MEDS: HYDROGEN PEROXIDE 480 ML BOTTLE TP SCH ×2 (08:12→21:02)
[2021-04-05] MEDS: NEOMY SULF/BACITRAC ZN/POLY 15 GM TUBE TP SCH ×2 (09:33→21:02)
[2021-04-05] MEDS: Z GUARD REMEDY 4 OZ OINT TP SCH (09:33)
[2021-04-05] MEDS: PROSOURCE / PROSTAT (PYXIS) 30 ML UDC GT SCH (09:33)
[2021-04-05] MEDS: VITAMINS A AND D 56.7 GM TUBE TP SCH ×4 (09:33→21:02)
--- NOTE | 2021-04-05 10:22 | NUR ---
WOUND CARE CONSULT: PT PRESENTS WITH INTACT SACRAL DEEP TISSUE INJURY, LEFT EAR INTACT DEEP TISSUE INJURY AND LEFT ARM DRY WOUND, ALL PRESENT ON ADMISSION. PT HAS BEEN FOLLOWED IN PAST BY SURGICAL TEAM FOR LEFT ARM. DR TRIVEDI MADE AWARE OF PT ADMISSION TO SUBACUTE. RECOMMENDATIONS MADE FOR SKIN PROTECTION AND WOUND CARE. DISCUSSED WITH NURSING STAFF. MD IN AGREEMENT WITH PLAN OF CARE. PT IS ON FIRST STEP [facility].
--- NOTE | 2021-04-05 12:00 | NUR ---
Called , Jordan French, at home phone number no answer; called work phone number and picked up by son, Pérez-he said per his father it is ok to talk to him and give information. Discussed Sub acute Baseline Resident Care Plan with Pérez and was thankful.
--- NOTE | 2021-04-05 12:37 | NUR ---
INTAKE PAPERWORK: The patient was admitted to on 04/12/2021. RON met with the pt.s , Jordan French [phone] to obtain collateral information and complete the patient's intake paperwork consisting of : (Patient Right's Acknowledgement, Documentation of Preferred Intensity of Care, Conditions of Admission, CDPH Agreement, Voluntary Prior Express Consent form, and An Important Message from Medicare). Jordan expressed that the intensity of care provided to the pt. should include Full Code: Maximum Treatment & CPR. RON notified charge nurse of code status change and filed admission paperwork in pt.'s chart. This SW addressed all of the familys questions. RON provided Jordan with a copy of the Bill of Rights (In German), [facility] visitation guidelines, and Conservatorship/Advanced Healthcare Directive informational packet. Pairer Substandard educated Jordan on Advanced Health Care Directive and Conservatorship. Per Jordan, he there is no conservator or POA at this time. Jordan stated he will notify RON if he becomes interested in filing for conservatorship. RON will be available as needed. Addendum: 04/07/21 at 1524 by DAVE VELASQUEZ The patient was admitted to on 04/03/2021.
[2021-04-05] MEDS: ONDANSETRON HCL/PF 4 MG/2 ML VIAL IVP PRN (13:33)
--- NOTE | 2021-04-05 14:05 | NUR ---
Resident left for dialysis via ambulance but taken back to the room because patient vomited in the hallway. According to ambulance staff they spoke with someone at the dialysis (unable to recall the name) who said that they cannot take the patient because she is unstable with VS as follows: HR 111, B/P 155/85 and vomiting episode. Attempted to call [facility] to confirm conversation but placed on a long hold and unable to speak with anybody until ambulance staff decided to leave. Called dialysis center again, spoke with OLIVIA Gillis explained the delay and action taken by ambulance staff. She said to send the patient back and they will reassess the patient when she gets there. Elis said to call them back once ambulance picked up the patient. Immediately inform SSD to call ambulance to return back to the facility.
[2021-04-05 14:12] VITALS: BP 165/90
--- NOTE | 2021-04-05 14:35 | NUR ---
Called [facility] at [phone], spoke with Sarah Cardona requesting to contact ambulance to ask if they will be able to come back. While waiting for Sarah Cardona to confirm if she was able to contact the ambulance, spoke with Mimi from dialysis center informing her that we are still waiting for ambulance to arrive. According to Mimi, their cut off time is 1430 and will reschedule her treatment tomorrow at 1230 PM. Meanwhile cancelled transportation for today instead to reschedule for tomorrow with rock picker time between 11-11:30, reservation number [id number].
--- NOTE | 2021-04-05 15:42 | NUR ---
Dr. Rivero, piping drafter covering for Dr. Walters seen and examined resident. Reported that patient did not go for dialysis today due to episode of vomiting and tachycardia, however dialysis is reschedule for tomorrow and last dialysis was done on Monday. Dr. Rivero ordered stat CBC and CMP. Resident's Jordan French made aware that dialysis was not done today. He requested to see patient today.
[2021-04-05 16:03] LABS: BASOPHILS % (AUTO) 0.3 % (0.0-2.0); EOSINOPHILS % (AUTO) 2.2 % (0.0-6.0); HEMATOCRIT 23 % (33-45); HEMOGLOBIN 7.6 g/dL (11.5-14.8); LYMPHOCYTES # (AUTO) 0.6 K/uL (0.8-4.8); LYMPHOCYTES % (AUTO) 5.3 % (20.0-44.0); MEAN CORPUSCULAR HGB CONC 33 g/dl (31.0-36.0); MEAN CORPUSCULAR VOLUME 112 fL (82-100); MONOCYTES # (AUTO) 1.2 K/uL (0.1-1.30); NEUTROPHILS # (AUTO) 8.7 K/uL (1.8-8.9); NEUTROPHILS % (AUTO) 81.2 % (43.0-81.0); PLATELET COUNT (AUTO) 330 K/uL (150-450); RED BLOOD CELL COUNT(AUTO) 2.06 MIL/uL (4.0-5.2); WHITE BLOOD COUNT (AUTO) 10.7 K/uL (4.3-11.0)
--- NOTE | 2021-04-05 16:24 | NUR ---
Left a message to Dr. López informing him that patient did not go to dialysis today due to episode of vomiting, and tachycardia. MD also made aware that patient's signed Preferred Intensity of Care (PIC) indicating patient is Full Code.
[2021-04-05 16:28] LABS: CALCIUM, SERUM 8.9 mg/dL (8.5-10.1); CARBON DIOXIDE 28 mmol/L (21-32); CHLORIDE 97 mmol/L (98-107); CREATININE 4.7 mg/dL (0.6-1.3); GLUCOSE 120 mg/dL (74-106); POTASSIUM 4.3 mmol/L (3.5-5.1); SODIUM SERUM 136 mmol/L (136-145); UREA NITROGEN, BLOOD 75 mg/dL (7-18)
[2021-04-05 16:34] LABS: ALANINE AMINOTRANSFERASE 6 U/L (12-78); ALBUMIN 1.7 g/dL (3.4-5.0); ALKALINE PHOSPHATASE 221 U/L (46-116); ASPARTATE AMINOTRANSFERASE 23 U/L (15-37); BILIRUBIN,TOTAL 1.8 mg/dL (0.2-1.0); TOTAL PROTEIN, SERUM 7.1 g/dL (6.4-8.2)
[2021-04-05 16:58] LABS: BAND % (MANUAL) 1 % (0.0-5.0); EOSINOPHILS % (MANUAL) 1 % (0-4); LYMPHOCYTES % (MANUAL) 5 % (16-48); MONOCYTES % (MANUAL) 12 % (0-11.0); NEUTROPHILS % (MANUAL) 81 (42-76)
--- NOTE | 2021-04-05 17:40 | NUR ---
Resident's visited, Covid-19 screening done and hand hygiene protocol followed. Resident in bed at this time no further episode of vomiting, HOB elevated, no s/s of aspiration. Reported stat CBC and CMP result to Dr. Rivero, upholstery cutter no new order given. Endorsed to incoming shift.
--- NOTE | 2021-04-05 18:35 | NUR ---
PATIENT NOTICED FEVER 100.8, ALSO EPISODE OF VOMITED X 2. TEMPERATURE DOWN 98.7 AFTER GIVEN TYLENOL AND STOP VOMITING AFTER ADMINISTERED ZOFRAN. RECEDED STAT LABS ORDER, WILL CONTINUE TO MONITOR.
[2021-04-05] MEDS ORDERED: EPOETIN ALFA (2000 UNIT) 2,000 UNIT/ML VIAL IV PRN (19:30)
--- NOTE | 2021-04-05 19:35 | NUR ---
RN NOTES Seen and examined by Aisha Allan NP, with no new orders.
[2021-04-05 20:03] VITALS: BP 130/75
[2021-04-06 07:24] VITALS: BP 155/81
[2021-04-06] MEDS: HYDROGEN PEROXIDE 480 ML BOTTLE TP SCH ×2 (08:02→21:00)
[2021-04-06] MEDS: VITAMINS A AND D 56.7 GM TUBE TP SCH ×4 (09:00→21:07)
[2021-04-06] MEDS: NEOMY SULF/BACITRAC ZN/POLY 15 GM TUBE TP SCH ×2 (09:00→21:07)
[2021-04-06] MEDS: PROSOURCE / PROSTAT (PYXIS) 30 ML UDC GT SCH (09:00)
--- NOTE | 2021-04-06 09:10 | NUR ---
pressure support decrease from [address] valenzuela. spo2 98% hr - 91 94 bpm RR - 16 - 18 BPM no increase work of breathing noted. Addendum: 04/06/21 at 0912 by SLIM FLEMING RT Amended: Links added.
--- NOTE | 2021-04-06 11:07 | NUR ---
Called pt's Jordan to offer Covid-19 vaccine, left message. Informed Dr Martinez this morning that pt received the first dose of Covid vaccine in November 2020. Dr Martinez said to give the second dose if pt is off antibiotics. Pt not on antibiotics at this time.
[2021-04-06 12:00] VITALS: BP 126/74
[2021-04-06 12:21] VITALS: BP 151/75
--- NOTE | 2021-04-06 13:54 | NUR ---
Pt on contact and droplet isolation for Covid observation. Reminded staff to observe isolation precautions, perform proper handwashing/hand hygiene and wear PPEs.
[2021-04-06] MEDS: NEPRO 1,000 ML BOTTLE NG PRN (16:43)
--- NOTE | 2021-04-06 17:58 | NUR ---
Pt's Jordan French visited this afternoon. He has no Covid symptoms, T 97.7 F. He gave proof of Covid vaccination. Educated him regarding visitation policies, isolation precautions, hand hygiene, and wearing of PPEs. He gave consent for pt's second dose of Moderna Covid vaccine. Education was provided regarding vaccine and possible side effects.
[2021-04-06] MEDS ORDERED: COVID-19 VACC,MRNA(MODERNA) 100 MCG/0.5 ML IM ONE (18:30)
[2021-04-06 20:00] VITALS: BP 126/74
[2021-04-07 07:47] VITALS: BP 169/83
[2021-04-07] MEDS: HYDROGEN PEROXIDE 480 ML BOTTLE TP SCH ×2 (08:24→19:38)
[2021-04-07] MEDS: NEOMY SULF/BACITRAC ZN/POLY 15 GM TUBE TP SCH ×2 (09:00→21:49)
[2021-04-07] MEDS: VITAMINS A AND D 56.7 GM TUBE TP SCH ×4 (09:00→21:49)
[2021-04-07] MEDS: PROSOURCE / PROSTAT (PYXIS) 30 ML UDC GT SCH (09:00)
[2021-04-07] MEDS: ONDANSETRON HCL/PF 4 MG/2 ML VIAL IVP PRN (09:03)
[2021-04-07 13:17] VITALS: BP 155/78
[2021-04-07] MEDS: NEPRO 1,000 ML BOTTLE NG PRN (17:29)
[2021-04-07 20:15] VITALS: BP 127/81
[2021-04-08] MEDS: ONDANSETRON HCL/PF 4 MG/2 ML VIAL IVP PRN (01:53)
--- NOTE | 2021-04-08 02:15 | NUR ---
RN NOTES Patient noted with episode of vomiting coffee-ground emesis, Zofran 4mg IV given IVP. GT feeding held. Notified with orders to do STAT CBC and CMP, start Protonix 40mg IV BID and GI consult; all noted and carried out. Will closely monitor.
[2021-04-08 02:43] LABS: BASOPHILS # (AUTO) 0.1 K/uL (0.0-0.2); BASOPHILS % (AUTO) 0.5 % (0.0-2.0); EOSINOPHILS % (AUTO) 0.9 % (0.0-6.0); HEMATOCRIT 24 % (33-45); HEMOGLOBIN 7.4 g/dL (11.5-14.8); LYMPHOCYTES # (AUTO) 0.6 K/uL (0.8-4.8); LYMPHOCYTES % (AUTO) 4.5 % (20.0-44.0); MEAN CORPUSCULAR HGB CONC 31 g/dl (31.0-36.0); MEAN CORPUSCULAR VOLUME 117 fL (82-100); MONOCYTES # (AUTO) 1.2 K/uL (0.1-1.30); MONOCYTES % (AUTO) 9.2 % (2.0-12.0); NEUTROPHILS # (AUTO) 11.4 K/uL (1.8-8.9); NEUTROPHILS % (AUTO) 84.9 % (43.0-81.0); PLATELET COUNT (AUTO) 363 K/uL (150-450); RED BLOOD CELL COUNT(AUTO) 2.03 MIL/uL (4.0-5.2); WHITE BLOOD COUNT (AUTO) 13.4 K/uL (4.3-11.0)
[2021-04-08 02:56] LABS: ALANINE AMINOTRANSFERASE 6 U/L (12-78); ALBUMIN 1.8 g/dL (3.4-5.0); ALKALINE PHOSPHATASE 195 U/L (46-116); ASPARTATE AMINOTRANSFERASE 23 U/L (15-37); BILIRUBIN,TOTAL 1.1 mg/dL (0.2-1.0); CARBON DIOXIDE 27 mmol/L (21-32); CHLORIDE 101 mmol/L (98-107); CREATININE 1.8 mg/dL (0.6-1.3); GLUCOSE 126 mg/dL (74-106); POTASSIUM 3.2 mmol/L (3.5-5.1); SODIUM SERUM 137 mmol/L (136-145); TOTAL PROTEIN, SERUM 7.4 g/dL (6.4-8.2); UREA NITROGEN, BLOOD 32 mg/dL (7-18)
[2021-04-08] MEDS: ACETAMINOPHEN 650 MG/20 ML UDC- SA PATIENTS-PAIN ONLY GT PRN (03:30)
[2021-04-08] MEDS ORDERED: POTASSIUM CHLORIDE 10 MEQ/50 ML PREMIXED IVPB FOR PERIPHERAL LINE IV ONE (06:00)
[2021-04-08] MEDS ORDERED: POTASSIUM CL. PREMIX PERIPHER. 100 ML ONE (06:20)
--- NOTE | 2021-04-08 06:55 | NUR ---
RN NOTES Relayed lab results to with orders to replace Potassium with 20meq's KCL IV one time. Also called and spoke to with orders to drain gtube by gravity and get consent for EGD, noted and carried out. Will endorsed accordingly to morning shift.
--- NOTE | 2021-04-08 07:40 | NUR ---
RN NOTES Hooked patient gtube to drain by gravity, draining bloody output continuously. Patient turned pale, heart rate increased to 130's. Notified Dr. López with orders to transfer patient to ER for evaluation. Gtube clamped, transferred and endorsed to OCCUPATIONAL THERAPY TECHNICIAN accordingly.
--- NOTE | 2021-04-08 07:45 | NUR ---
RN NOTES Called and spoke to spouse Jordan French, notified of transfer and bed hold for 7days.
[2021-04-08] MEDS ORDERED: PANTOPRAZOLE 40 MG VIAL IV SCH (09:00)
[2021-04-08] MEDS ORDERED: Z GUARD REMEDY 2 OZ OINT TP SCH (09:00)
[2021-04-08] MEDS ORDERED: NUT.237L67 GT (09:34)
[2021-04-08] MEDS ORDERED: AMIN887L GT (09:34)
[2021-04-08] MEDS ORDERED: ONDA4TAB11 GT (09:34)
[2021-04-13] MEDS ORDERED: CT SWABBABLE VALVE TRANS SET 1 EA INFUS.SET MC ONE (12:39)
[2021-04-13] MEDS ORDERED: IOHEXOL-300 100 ML VIAL IV ONE (12:39)
[2021-04-13] MEDS ORDERED: IV NS 0.9% 250 ML IV ONE (12:39)
--- NOTE | 2021-04-15 14:34 | NUR ---
RON called the pt.'s , Jordan French [phone] to notify him that the 7 day bed hold was up yesterday. Family stated they are unable to pay bed hold fee. Noted. SW will be available as needed.
== END 2021-04-08 16:00 | disposition short-term general hospital (02) | DRG 207 ==
LOC: SA 04-03 13:05
PROVIDERS: ADMIT Internal Medicine; ATTEND Internal Medicine
PROC: 5A1955Z Respiratory Ventilation, Greater than 96 Consecutive Hours (ICD-10-PCS; principal; 2021-04-03)
DX: J96.11 Chronic respiratory failure with hypoxia (principal); N18.6 End stage renal disease; I21.4 Non-ST elevation (NSTEMI) myocardial infarction; Z99.11 Dependence on respirator [ventilator] status; I13.2 Hypertensive heart and chronic kidney disease with heart failure and with stage 5 chronic kidney disease, or end stage renal disease; K92.2 Gastrointestinal hemorrhage, unspecified; J96.12 Chronic respiratory failure with hypercapnia; J96.22 Acute and chronic respiratory failure with hypercapnia; R13.10 Dysphagia, unspecified; D64.9 Anemia, unspecified; I50.9 Heart failure, unspecified; S30.0XXA Contusion of lower back and pelvis, initial encounter; S00.432A Contusion of left ear, initial encounter; X58.XXXA Exposure to other specified factors, initial encounter; Y93.9 Activity, unspecified; Y92.89 Other specified places as the place of occurrence of the external cause; Z99.2 Dependence on renal dialysis
CPT/HCPCS: 31720; 36415; 80053-TC; 85025-TC; 86580-TC; 87081-TC; 94003-TC; 94760-TC; 94762-TC; 94799-TC; 97110-TC; 97112-TC; 97530-TC; A4623; A7526; J0885; J2405; J3480; J7030; J7050; Q9967; U0003

== ENCOUNTER 2021-06-23 12:53 | Inpatient (IN) | payer MEDICARE, OTHER ==
[~2021-06-23] VITALS: Ht 162.6 cm; Wt 80.3 kg
[~2021-06-23 12:53] MED LIST changes: +ACET325T53 GT; +ALBU2.5V13 IH; -ALPR0.25 PO; +AMIN30LI25 GT; -AMLO-213 PO; +AMLO10TA4 GT; -ASPI-1420 PO; -CALC667C6 PO; -CARV3.122 PO; +CARV6.25 GT; +CHOL4PAC GT; -CYAN250T3 PO; +EPOE40002 IJ; -FAMO20TA8 PO; -FURO80TA85 PO; -GABA-532 PO; -HYDR-4076 PO; +HYDR-4303 GT; +IPRA0.2S49 IH; -LOPE2CAP PO; +LORA-259 GT; +METR-147 GT; +NUT.237L67 GT; +ONDA4TAB11 GT; -SEVE800T8 PO; -TEMA15CA PO; +VANC50SO3 GT; +WHEA1POW6 GT
--- NOTE | 2021-06-23 13:08 | NUR ---
[facility] NA[facility]A. PATIENT A/OX2, BREATHING EVEN AND UNLABORED, ON A TRACHE, TOLERATING CURRENT VENT SETTINGS. PLACED ON THE PRODUCTION ENGINEER TRACK.
[2021-06-23] MEDS ORDERED: ONDANSETRON HCL/PF 4 MG/2 ML VIAL ONE (14:12)
--- NOTE | 2021-06-23 14:29 | NUR ---
PER DR. BERUMEN, CANCEL IV FLUIDS AT THIS TIME.
[2021-06-23] MEDS ORDERED: ONDANSETRON HCL/PF 4 MG/2 ML VIAL IVP ONE (14:30)
[2021-06-23] MEDS ORDERED: IV NS 0.9% 1,000 ML BAG IV ONE (14:30)
[2021-06-23 14:41] LABS: BASOPHILS % (AUTO) 0.5 % (0.0-2.0); EOSINOPHILS % (AUTO) 2.1 % (0.0-6.0); HEMATOCRIT 35 % (33-45); LYMPHOCYTES # (AUTO) 0.8 K/uL (0.8-4.8); LYMPHOCYTES % (AUTO) 11.1 % (20.0-44.0); MEAN CORPUSCULAR HGB CONC 32 g/dl (31.0-36.0); MEAN CORPUSCULAR VOLUME 120 fL (82-100); MONOCYTES # (AUTO) 0.7 K/uL (0.1-1.30); MONOCYTES % (AUTO) 9.9 % (2.0-12.0); NEUTROPHILS # (AUTO) 5.6 K/uL (1.8-8.9); NEUTROPHILS % (AUTO) 76.4 % (43.0-81.0); PLATELET COUNT (AUTO) 259 K/uL (150-450); RED BLOOD CELL COUNT(AUTO) 2.91 MIL/uL (4.0-5.2); WHITE BLOOD COUNT (AUTO) 7.3 K/uL (4.3-11.0)
--- NOTE | 2021-06-23 14:45 | NUR ---
PER REPORT FROM SUB-ACUTE PATIENT IS ANURIC.
--- NOTE | 2021-06-23 14:50 | NUR ---
COVID SWAB SENT TO LAB.
[2021-06-23] MEDS ORDERED: NEUTRA PHOS GT (14:51)
[2021-06-23] MEDS ORDERED: METO5SOL2 GT (14:51)
[2021-06-23] MEDS ORDERED: FOLI0.8T2 GT (14:51)
[2021-06-23] MEDS ORDERED: PETR113O TP (14:51)
[2021-06-23] MEDS ORDERED: MELA3TAB41 GT (14:51)
[2021-06-23] MEDS ORDERED: ALLA266C2 TP (14:51)
[2021-06-23] MEDS ORDERED: PANT40SU2 GT (14:51)
[2021-06-23] MEDS ORDERED: DIPH25CA51 GT (14:51)
[2021-06-23] MEDS ORDERED: ACID1TAB12 GT (14:51)
[2021-06-23] MEDS ORDERED: ONDA-97 GT (14:51)
[2021-06-23] MEDS ORDERED: GUAI100S11 GT (14:51)
[2021-06-23] MEDS ORDERED: HYDR1SOL TP (14:51)
[2021-06-23] MEDS ORDERED: IPRA0.2S9 IH (14:51)
[2021-06-23 16:32] LABS: CARBON DIOXIDE 26 mmol/L (21-32); CHLORIDE 102 mmol/L (98-107); CREATININE 2.7 mg/dL (0.6-1.3); GLUCOSE 111 mg/dL (74-106); POTASSIUM 3.9 mmol/L (3.5-5.1); SODIUM SERUM 138 mmol/L (136-145); UREA NITROGEN, BLOOD 48 mg/dL (7-18)
[2021-06-23 16:38] LABS: ALANINE AMINOTRANSFERASE 14 U/L (12-78); ALBUMIN 1.9 g/dL (3.4-5.0); ALKALINE PHOSPHATASE 281 U/L (46-116); ASPARTATE AMINOTRANSFERASE 27 U/L (15-37); BILIRUBIN,DIRECT 0.2 mg/dL (0.0-0.2); BILIRUBIN,TOTAL 0.3 mg/dL (0.2-1.0); LIPASE 309 U/L (73-393)
[2021-06-23] MEDS ORDERED: ASPIRIN 300 MG/SUPP.RECT RC ONE ×2 (17:00→17:11)
--- NOTE | 2021-06-23 17:36 | NUR ---
REPORT GIVEN TO PHYLLIS BAKER FOR NOAH.
--- NOTE | 2021-06-23 18:15 | NUR ---
RN NOTES RECEIVED REPORT FROM NIR ELLIOTT RN. PATIENT CAME AT 1815 VITAL SIGN WAS TAKEN AND WILL ENDORSE TO CARVER HAND RN FOR NOAH.
[2021-06-23] MEDS ORDERED: MAGNESIUM HYDROXIDE 30 ML UDC PO PRN (19:00)
[2021-06-23] MEDS ORDERED: ACETAMINOPHEN 325 MG TABLET PO PRN (19:00)
[2021-06-23] MEDS ORDERED: ZOLPIDEM TARTRATE 5 MG TABLET PO PRN (19:00)
[2021-06-23] MEDS ORDERED: MAG HYDROX/AL HYDROX/SIMETH 30 ML UDC PO PRN (19:00)
[2021-06-23] MEDS ORDERED: ONDANSETRON HCL/PF 4 MG/2 ML VIAL IVP PRN (19:00)
[2021-06-23] MEDS ORDERED: Z GUARD REMEDY 2 OZ OINT TP PRN (19:00)
--- NOTE | 2021-06-23 19:15 | NUR ---
RN OPENING/ADMITTING NOTE PATIENT IN BED, EYES OPEN, PATIENT IS NON VERBAL, ABLE TO NOD HEAD TO ANSWER QUESTIONS. PATIENT IS ON VENT SUPPORT, TOLERATING CURRENT SETTINGS AT 95% O2 SAT. PATIENT HAS A RECTAL TUBE, INTACT. GTUBE IN PLACE, NO RESIDUAL AT THIS TIME. PATIENT HAS A JOSE AV FISTULA AND A RFA 20 G, FLUSHING WELL. FAMILY AT BEDSIDE. SAFETY MEASURES IN PLACE: BED LOCKED AND IN LOWEST POSITION, CALL LIGHT WITHIN REACH, SIDE RAILS UP, HOB ELEVATED. WILL MONITOR PATIENT CLOSELY.
[2021-06-23 20:00] VITALS: BP 116/66
--- NOTE | 2021-06-23 20:00 | NUR ---
RN NOTE FOLLOWED UP WITH DR. COBURN REGARDING MED RECON AND NPO STATUS. NO RESPONSE.
[2021-06-23 23:04] LABS: BAND % (MANUAL) 4 % (0.0-5.0); EOSINOPHILS % (MANUAL) 1 % (0-4); LYMPHOCYTES % (MANUAL) 9 % (16-48); METAMYELOCYTES % 1 % (0-0); MONOCYTES % (MANUAL) 9 % (0-11.0); MYELOCYTES % 2 % (0-0); NEUTROPHILS % (MANUAL) 74 (42-76)
[2021-06-24] VITALS: BP 154/76
[2021-06-24 04:00] VITALS: BP 125/61
[2021-06-24 06:46] LABS: BASOPHILS # (AUTO) 0.1 K/uL (0.0-0.2); BASOPHILS % (AUTO) 0.9 % (0.0-2.0); EOSINOPHILS % (AUTO) 4.5 % (0.0-6.0); HEMATOCRIT 36 % (33-45); HEMOGLOBIN 11.2 g/dL (11.5-14.8); LYMPHOCYTES # (AUTO) 0.7 K/uL (0.8-4.8); LYMPHOCYTES % (AUTO) 11.9 % (20.0-44.0); MEAN CORPUSCULAR HGB CONC 31 g/dl (31.0-36.0); MEAN CORPUSCULAR VOLUME 121 fL (82-100); MONOCYTES # (AUTO) 0.6 K/uL (0.1-1.30); MONOCYTES % (AUTO) 10.5 % (2.0-12.0); NEUTROPHILS # (AUTO) 4.4 K/uL (1.8-8.9); NEUTROPHILS % (AUTO) 72.2 % (43.0-81.0); PLATELET COUNT (AUTO) 242 K/uL (150-450); RED BLOOD CELL COUNT(AUTO) 2.99 MIL/uL (4.0-5.2); WHITE BLOOD COUNT (AUTO) 6.1 K/uL (4.3-11.0)
--- NOTE | 2021-06-24 07:20 | NUR ---
RN CLOSING NOTE PATIENT IN BED, EYES OPEN. PATIENT ABLE TO MAKE NEEDS KNOWN BY MOUTHING WORDS AND GESTURING. PATIENT ABLE TO FOLLOW COMMANDS. VENT SETTINGS TOLERATED. BREATHING EVEN AND UNLABORED, SATURATING 98%. SAFETY MEASURES MAINTAINED. ALL NEEDS MET AND ATTENDED. ALL ORDERS CARRIED OUT. ENDORSED TO DAY SHIFT RN FOR NOAH.
[2021-06-24 07:31] LABS: CALCIUM, SERUM 8.2 mg/dL (8.5-10.1); CARBON DIOXIDE 24 mmol/L (21-32); CHLORIDE 102 mmol/L (98-107); CHOLESTEROL 68 mg/dL (<200); CREATININE 2.8 mg/dL (0.6-1.3); GLUCOSE 83 mg/dL (74-106); HDL CHOLESTEROL 36 mg/dL (40-60); LDL 26 mg/dL (0-99); MAGNESIUM 2.5 mg/dL (1.8-2.4); PHOSPHORUS 4.1 mg/dL (2.5-4.9); POTASSIUM 3.9 mmol/L (3.5-5.1); SODIUM SERUM 134 mmol/L (136-145); THYROID STIMULATING HORMONE 3.469 uIU/mL (0.358-3.74); TRIGLYCERIDES 77 mg/dL (30-150); UREA NITROGEN, BLOOD 52 mg/dL (7-18)
--- NOTE | 2021-06-24 07:50 | NUR ---
TELE/RN OPENING NOTES RECEIVED PATIENT IN BED, EYES OPEN. PATIENT IS ON TRACH AND VENT DEPENDENT. PATIENT IN NO APPARENT RESPIRATORY DISTRESS NOTED. NO SIGN AND SYMPTOM OF PAIN NOTED AT THIS TIME. WILL CONTINUE TO MONITOR.
[2021-06-24 08:00] VITALS: BP 134/64
[2021-06-24] MEDS: ASPIRIN EC 81 MG TABLET.DR PO SCH (09:00)
[2021-06-24] MEDS: PANTOPRAZOLE 40 MG VIAL IV SCH (09:17)
--- NOTE | 2021-06-24 11:16 | NUR ---
TELE/RN NOTES VTE SCORE >5 AND HOME MEDICATIONS RECONCILIATION DR[address] COBURN WAS AWARE. NO NEW ORDER AT THIS TIME. WILL FOLLOW UP.
[2021-06-24 12:00] VITALS: BP 104/60
[2021-06-24 16:00] VITALS: BP 130/65
--- NOTE | 2021-06-24 19:25 | NUR ---
TELE/RN CLOSING NOTES PATIENT IS ON BED ALERT AND ORIENTED X1. PATIENT IS ON TRACH AND VENT DEPENDENT SATURATION 100%. PATIENT IN NO APPARENT RESPIRATORY DISTRESS NOTED. NO SIGN AND SYMPTOM OF PAIN NOTED AT THIS TIME. TELE MONITOR READING SINUS RHYTHM 67BPM. IV ACCESS AT RIGHT FOREARM # 20G PATENT AND INTACT. SEEN AND EXAMINED BY MD WITH ORDERS MADE AND CARRIED OUT. ALL DUE MEDICATIONS WAS GIVEN. SAFETY PRECAUTIONS WAS IN PLACED. BED IN LOWEST POSITION AND LOCKED. SIDE RAILS UP X2. HEMODIALYSIS IS ON GOING. CALL LIGHT WITHIN REACH. WILL ENDORSE TO BEAN SORTER RN FOR CONTINUITY OF CARE.
--- NOTE | 2021-06-24 19:30 | NUR ---
CIVIL CAD DESIGNER OPENING NOTES PATIENT WAS LAST SEEN AWAKE IN BED RESTING. PATIENT'S ALERT AND ORIENTED X1. PATIENT IS ON A VENT IN NO RESPIRATORY DISTRESS NOTED. PATIENT'S CONNECTED TO A TELE MONITOR WITH NO CARDIAC DISTRESS NOTED. SAFETY MEASURES IN PLACE: BED LOCKED, BED ALARM ON, SIDE RAILS UP X3, AND CALL LIGHT WITHIN REACH. HEMODIALYSIS IS ONGOING. WILL CONTINUE TO MONITOR THE PATIENT.
--- NOTE | 2021-06-24 19:55 | NUR ---
PT RCVD TRACHED WITH SHILEY 8 CUFFED ON VENT WITH CPAP MODE 40%, PEEP 5 , PS 15. TRACH IS PATENT AND SECURED . SUCTIONED SMALL AMOUNT OF YELLOW THICK SECRETIONS. VENT PLUGGED INTO RED OUTLET , VENT ALARMS ON AND AUDIBLE. NO RESPIRATORY DISTRESS NOTED AT THIS TIME. WILL CONTINUE TO MONITOR PT T/O THE SHIFT.
[2021-06-24 20:00] VITALS: BP 115/72
--- NOTE | 2021-06-24 21:12 | NUR ---
OXYACETYLENE WELDER NOTES PATIENT'S HD IS FINISHED. OUTPUT IS 2L. PATIENT'S IN NO ACUTE DISTRESS, WILL CONTINUE TO MONITOR THE PATIENT. Addendum: 06/25/21 at 0346 by ANALIA WELLS RN BP= 132/66, HR= 62, 02 SAT.=100%
[2021-06-25] VITALS: BP 125/59
[2021-06-25 04:00] VITALS: BP 114/57
[2021-06-25 07:00] LABS: BASOPHILS # (AUTO) 0.1 K/uL (0.0-0.2); BASOPHILS % (AUTO) 1.5 % (0.0-2.0); EOSINOPHILS % (AUTO) 3.3 % (0.0-6.0); HEMATOCRIT 32 % (33-45); HEMOGLOBIN 10.3 g/dL (11.5-14.8); LYMPHOCYTES # (AUTO) 0.7 K/uL (0.8-4.8); LYMPHOCYTES % (AUTO) 12.3 % (20.0-44.0); MEAN CORPUSCULAR HGB CONC 32 g/dl (31.0-36.0); MEAN CORPUSCULAR VOLUME 117 fL (82-100); MONOCYTES # (AUTO) 0.5 K/uL (0.1-1.30); MONOCYTES % (AUTO) 8.3 % (2.0-12.0); NEUTROPHILS # (AUTO) 4.3 K/uL (1.8-8.9); NEUTROPHILS % (AUTO) 74.6 % (43.0-81.0); PLATELET COUNT (AUTO) 246 K/uL (150-450); RED BLOOD CELL COUNT(AUTO) 2.76 MIL/uL (4.0-5.2); WHITE BLOOD COUNT (AUTO) 5.7 K/uL (4.3-11.0)
[2021-06-25 07:18] LABS: CALCIUM, SERUM 7.9 mg/dL (8.5-10.1); CARBON DIOXIDE 27 mmol/L (21-32); CHLORIDE 98 mmol/L (98-107); CREATININE 2.2 mg/dL (0.6-1.3); GLUCOSE 52 mg/dL (74-106); MAGNESIUM 2.2 mg/dL (1.8-2.4); PHOSPHORUS 3.8 mg/dL (2.5-4.9); POTASSIUM 3.7 mmol/L (3.5-5.1); SODIUM SERUM 133 mmol/L (136-145); UREA NITROGEN, BLOOD 34 mg/dL (7-18)
--- NOTE | 2021-06-25 07:50 | NUR ---
INTERNATIONAL SOURCING MANAGER OPENING NOTES CHECKED MORNING LABS; GLUCOSE 53. DID ACCU-CHECK WITH A RESULT OF 46 AND REPEAT BS 45. D50 ORDERED AND INFORMED MD PER PROTOCOL. PATIENT AWAKE
[2021-06-25] MEDS ORDERED: DEXTROSE 50%-WATER 50 ML DISP.SYRIN IVP ONE (08:00)
[2021-06-25 08:17] VITALS: BP 124/61
[2021-06-25] MEDS: PANTOPRAZOLE 40 MG VIAL IV SCH (08:20)
[2021-06-25] MEDS: ASPIRIN EC 81 MG TABLET.DR PO SCH (08:20)
--- NOTE | 2021-06-25 08:25 | NUR ---
SPEECH THERAPY TEACHER NOTES ACCU-CHECK WITH BS 81
--- NOTE | 2021-06-25 08:39 | NUR ---
RED HAT ENGINEER NOTES RECEIVED PATIENT IN BED, AWAKE, A/OX1, NON-VERBAL. PATIENT ON VENT, TOLERATING VENT SETTINGS WELL AT THIS TIME. BREATHING EVEN AND UNLABORED; NO SOB NOTED. TELE MONITOR WITH A CURRENT READING OF NSR 67. R WRIST IV ACCESS; SL PRESENT AND INTACT. JOSE AV FISTULA PRESENT. FLEXI-SEAL IN PLACE AND INTACT. SAFETY PRECAUTIONS IN PLACE; BED IN LOW POSITION AND LOCKED, RAILS UP X2, CALL LIGHT WITHIN REACH. WILL CONTINUE TO MONITOR PATIENT.
[2021-06-25 09:44] LABS: BAND % (MANUAL) 6 % (0.0-5.0); EOSINOPHILS % (MANUAL) 3 % (0-4); LYMPHOCYTES % (MANUAL) 14 % (16-48); METAMYELOCYTES % 2 % (0-0); MONOCYTES % (MANUAL) 8 % (0-11.0); NEUTROPHILS % (MANUAL) 67 (42-76)
[2021-06-25 11:28] VITALS: BP 125/57
[2021-06-25] MEDS ORDERED: NEPRO 1,000 ML BOTTLE GT PRN ×2 (12:00→15:00)
[2021-06-25 16:30] VITALS: BP 120/64
--- NOTE | 2021-06-25 18:34 | NUR ---
SOLID CENTER WINDER CLOSING NOTES: PATIENT REMAINS IN BED, ASLEEP, A/OX1, NON-VERBAL. PATIENT ON VENT, TOLERATING VENT SETTINGS WELL AT THIS TIME. BREATHING EVEN AND UNLABORED; NO SOB NOTED. TELE MONITOR WITH A CURRENT READING OF NSR 60S. R WRIST IV ACCESS; SL PRESENT AND INTACT. JOSE AV FISTULA PRESENT. G-TUBE IN PLACE INFUSING NEPRO AT 35 MLS/HR. FLEXI-SEAL IN PLACE AND INTACT. ALL NEEDS ATTENDED DURING THE DAY. SAFETY PRECAUTIONS IN PLACE; BED IN LOW POSITION AND LOCKED, RAILS UP X2, CALL LIGHT WITHIN REACH. WILL ENDORSE TO TAX CONSULTANT NURSE.
--- NOTE | 2021-06-25 19:20 | NUR ---
EMERGENCY DEPARTMENT NURSE OPENING NOTES: RECEIVED PATIENT IN BED, AWAKE, NON VERBAL. OPENS MOUTH, SMILES. NO S/S OF DISTRESS NOTED. NO COMPLAIN OF PAIN. HOB ELEVATED AT ALL TIMES. AT THE BEDSIDE. WITH TF AT 35ML/HOUR, MACHINE IS BEEN BEEPING SINCE IT WAS STARTED PER OILVIA LEMUS, OCCLUDED. TUBING FLUSHED AND CLEARED THE OCCLUSION, MACHINE WORKED AND FEEDING IS RUNNING AT 35ML/HOUR. CALL LIGHT WITHIN REACH. BED IN LOWEST AND LOCKED POSITION. BED ALARM ON.
[2021-06-25 20:00] VITALS: BP 109/53
[2021-06-26] VITALS: BP 124/70
--- NOTE | 2021-06-26 03:59 | NUR ---
PATIENT RECEIVED ON TRACH TO VENT WITH SETTINGS OF CPAP 5, PS 15, 40%. SUCTIONED FOR MINIMAL, THIN, CLEAR SECRETIONS. AMBU BAG AT BEDSIDE. VENT AND PULSE OXIMETER ALARMS AUDIBLE AND VISIBLE. TRACH ADAM AND HME CHANGED. Addendum: 06/26/21 at 0400 by CARLEY TURNER RT Amended: Links added.
[2021-06-26 04:00] VITALS: BP 113/61
--- NOTE | 2021-06-26 06:15 | NUR ---
LEATHER STRETCHER CLOSING NOTES: PATIENT IN BED, AWAKE, NON-VERBAL. ALERT. NO S/S OF DISTRESS NOTED. CALL LIGHT WITHIN REACH. HOB ELEVATED AT ALL TIMES. WITH TF NEPRO AT 35ML/ HOUR. GT SITE IS CLEAN AND DRY NO LEAKING, DRY GAUZE PLACED. BED ALARM ON, BED IN LOWEST AND LOCKED POSITION. TURNED AND REPOSITIONED U2RTFEP. HEELS OFFLOADED AT ALL TIMES.
[2021-06-26 06:31] LABS: BASOPHILS % (AUTO) 0.6 % (0.0-2.0); EOSINOPHILS % (AUTO) 2.5 % (0.0-6.0); HEMATOCRIT 32 % (33-45); HEMOGLOBIN 10.3 g/dL (11.5-14.8); LYMPHOCYTES # (AUTO) 0.7 K/uL (0.8-4.8); LYMPHOCYTES % (AUTO) 11.7 % (20.0-44.0); MEAN CORPUSCULAR HGB CONC 32 g/dl (31.0-36.0); MEAN CORPUSCULAR VOLUME 117 fL (82-100); MONOCYTES # (AUTO) 0.7 K/uL (0.1-1.30); MONOCYTES % (AUTO) 11.2 % (2.0-12.0); NEUTROPHILS # (AUTO) 4.4 K/uL (1.8-8.9); PLATELET COUNT (AUTO) 259 K/uL (150-450); RED BLOOD CELL COUNT(AUTO) 2.76 MIL/uL (4.0-5.2)
[2021-06-26 07:09] LABS: CALCIUM, SERUM 7.7 mg/dL (8.5-10.1); CARBON DIOXIDE 27 mmol/L (21-32); CHLORIDE 98 mmol/L (98-107); CREATININE 2.8 mg/dL (0.6-1.3); GLUCOSE 89 mg/dL (74-106); MAGNESIUM 2.3 mg/dL (1.8-2.4); PHOSPHORUS 3.8 mg/dL (2.5-4.9); POTASSIUM 3.7 mmol/L (3.5-5.1); SODIUM SERUM 132 mmol/L (136-145); UREA NITROGEN, BLOOD 42 mg/dL (7-18)
--- NOTE | 2021-06-26 07:55 | NUR ---
TELE/RN OPENING NOTE RECEIVED PATIENT IN BED, AWAKE, NON-VERBAL. ALERT. NO S/S OF DISTRESS NOTED. CURRENTLY ON TRACH TO VENT WITH SETTINGS CPAP-5, PS-15, 40%. WITH TF NEPRO AT 35ML/ HOUR. GT SITE IS CLEAN AND DRY NO LEAKING, DRY GAUZE PLACED. SAFETY PRECAUTIONS IN PLACED: CALL LIGHT WITHIN REACH. HOB ELEVATED AT ALL TIMES. BED ALARM ON, BED IN LOWEST AND LOCKED POSITION. HEELS OFFLOADED. WILL CONTINUE TO MONITOR PATIENT.
[2021-06-26 08:00] VITALS: BP 129/65
[2021-06-26] MEDS ORDERED: PANTOPRAZOLE 40 MG/PACK PACK GT SCH (09:00)
[2021-06-26] MEDS: ASPIRIN EC 81 MG TABLET.DR PO SCH (09:29)
[2021-06-26 12:12] VITALS: BP 127/60
[2021-06-26 12:18] LABS: BAND % (MANUAL) 4 % (0.0-5.0); EOSINOPHILS % (MANUAL) 2 % (0-4); LYMPHOCYTES % (MANUAL) 11 % (16-48); METAMYELOCYTES % 2 % (0-0); MONOCYTES % (MANUAL) 10 % (0-11.0); MYELOCYTES % 2 % (0-0); NEUTROPHILS % (MANUAL) 69 (42-76)
--- NOTE | 2021-06-26 13:00 | NUR ---
TELE/RN NOTES- HEMODIALYSIS HEMODIALYSIS STARTED. WILL MONITOR.
--- NOTE | 2021-06-26 15:00 | NUR ---
TELE/RN NOTES HEMODIALYSIS ENDED. 3 LITERS OUT.
[2021-06-26 16:00] VITALS: BP 118/68
[2021-06-26] MEDS ORDERED: PANT40SU2 GT (16:44)
[2021-06-26] MEDS ORDERED: Aspirin Ec PO (16:44)
--- NOTE | 2021-06-26 18:50 | NUR ---
TELE/OVERHAULER HELPER NOTES PATIENT IS MEDICALLY STABLE, DR COBURN ORDERED DISCHARGE BACK TO [facility] FOR THE PATIENT. CALLED IN ENDORSEMENT AND WAS ABLE TO SPEAK TO OLIVIA CHAMBERS CHARGE NURSE AT THE SUBACUTE UNIT. TRANSFERRED PATIENT AT THE UNIT.
[2021-06-28 11:07] LABS: HEPATITIS Be AB Negative (Negative)
== END 2021-06-26 18:48 | DRG 280 ==
LOC: ER 13:01 → TELE 17:13
PROVIDERS: ADMIT Student in an Organized Health Care Education/Training Program; ATTEND Student in an Organized Health Care Education/Training Program
PROC: 5A1945Z Respiratory Ventilation, 24-96 Consecutive Hours (ICD-10-PCS; principal; 2021-06-23)
PROC: 5A1D70Z Performance of Urinary Filtration, Intermittent, Less than 6 Hours Per Day (ICD-10-PCS; 2021-06-24)
DX: I21.4 Non-ST elevation (NSTEMI) myocardial infarction (principal); N18.6 End stage renal disease; I50.31 Acute diastolic (congestive) heart failure; I13.2 Hypertensive heart and chronic kidney disease with heart failure and with stage 5 chronic kidney disease, or end stage renal disease; G93.40 Encephalopathy, unspecified; J96.10 Chronic respiratory failure, unspecified whether with hypoxia or hypercapnia; Z99.11 Dependence on respirator [ventilator] status; D62 Acute posthemorrhagic anemia; Z93.0 Tracheostomy status; Z99.2 Dependence on renal dialysis; D63.1 Anemia in chronic kidney disease; R13.10 Dysphagia, unspecified; E83.89 Other disorders of mineral metabolism; Z87.19 Personal history of other diseases of the digestive system; M81.0 Age-related osteoporosis without current pathological fracture; Z93.1 Gastrostomy status
CPT/HCPCS: 31720; 36415; 71045-TC; 80048-TC; 80061-TC; 80076-TC; 82962-TC; 83690-TC; 83735-TC; 84100-TC; 84443-TC; 84484-TC; 85025-TC; 86707; 87081-TC; 87350; 90935-TC; 93307-TC; 94002-TC; 94003-TC; 94760-TC; 94762-TC; 94799-TC; 99082-TC; C9113; C9803; G0378; J2405; J7030; U0003

== ENCOUNTER 2021-07-09 16:39 | Inpatient (IN) | payer MEDICARE, OTHER ==
[~2021-07-09] VITALS: Ht 162.6 cm; Wt 65.3 kg
[~2021-07-09 16:39] MED LIST changes: +ACID1TAB12 GT; +ALLA266C2 TP; +Aspirin Ec PO; +DIPH25CA51 GT; -EPOE40002 IJ; +FOLI0.8T2 GT; +GUAI100S11 GT; +HYDR1SOL TP; -IPRA0.2S49 IH; +IPRA0.2S9 IH; +MELA3TAB41 GT; +METO5SOL2 GT; -METR-147 GT; +NEUTRA PHOS GT; +ONDA-97 GT; -ONDA4TAB11 GT; +PANT40SU2 GT; +PETR113O TP; -VANC50SO3 GT; -WHEA1POW6 GT
--- NOTE | 2021-07-09 17:02 | NUR ---
BIB [facility]. STARTED VOMITING [facility]. THE PATIENT RESPONSIVE TO HER NAME. THE PATIENT IS VENT DEPENDENT. RECTAL TUBE AND GT PRESENT. ATTACHED TO THE MONITOR.
--- NOTE | 2021-07-09 17:10 | NUR ---
PATIENT IS KNOWN TO BE ANURIC FROM PREVIOUS REPORT.
--- NOTE | 2021-07-09 17:10 | NUR ---
RT NOTE PT PLACED ON MECHANICAL VENT WITH CHARTED SETTINGS. SETTINGS RCVD FROM TRANSPORT RT. PT TRACH IS PATENT AND SECURE. AMBU BAG AT BEDSIDE. VENT ALARMS ARE ON AND AUDIBLE. VENT PLUGGED INTO RED OUTLET.
--- NOTE | 2021-07-09 17:14 | NUR ---
BLOOD SPECIMEN COLLECTED AND SENT TO THE LAB
[2021-07-09 17:25] LABS: BASOPHILS % (AUTO) 0.3 % (0.0-2.0); EOSINOPHILS % (AUTO) 2.9 % (0.0-6.0); HEMATOCRIT 32 % (33-45); HEMOGLOBIN 10.2 g/dL (11.5-14.8); LYMPHOCYTES # (AUTO) 0.8 K/uL (0.8-4.8); LYMPHOCYTES % (AUTO) 12.8 % (20.0-44.0); MEAN CORPUSCULAR HGB CONC 32 g/dl (31.0-36.0); MEAN CORPUSCULAR VOLUME 119 fL (82-100); MONOCYTES # (AUTO) 0.4 K/uL (0.1-1.30); MONOCYTES % (AUTO) 6.6 % (2.0-12.0); NEUTROPHILS # (AUTO) 4.9 K/uL (1.8-8.9); NEUTROPHILS % (AUTO) 77.4 % (43.0-81.0); PLATELET COUNT (AUTO) 294 K/uL (150-450); RED BLOOD CELL COUNT(AUTO) 2.71 MIL/uL (4.0-5.2); WHITE BLOOD COUNT (AUTO) 6.4 K/uL (4.3-11.0)
[2021-07-09 17:36] LABS: CALCIUM, SERUM 8.2 mg/dL (8.5-10.1); CARBON DIOXIDE 30 mmol/L (21-32); CHLORIDE 99 mmol/L (98-107); CREATININE 1.6 mg/dL (0.6-1.3); GLUCOSE 87 mg/dL (74-106); POTASSIUM 3.3 mmol/L (3.5-5.1); SODIUM SERUM 136 mmol/L (136-145); UREA NITROGEN, BLOOD 25 mg/dL (7-18)
[2021-07-09 17:49] LABS: ALANINE AMINOTRANSFERASE 17 U/L (12-78); ALBUMIN 1.9 g/dL (3.4-5.0); ALKALINE PHOSPHATASE 216 U/L (46-116); ASPARTATE AMINOTRANSFERASE 30 U/L (15-37); BILIRUBIN,DIRECT 0.1 mg/dL (0.0-0.2); BILIRUBIN,TOTAL 0.4 mg/dL (0.2-1.0); LIPASE 286 U/L (73-393); TOTAL PROTEIN, SERUM 8.5 g/dL (6.4-8.2)
[2021-07-09] MEDS ORDERED: MAG355OR18 GT (17:49)
[2021-07-09 19:06] LABS: BAND % (MANUAL) 1 % (0.0-5.0); EOSINOPHILS % (MANUAL) 6 % (0-4); LYMPHOCYTES % (MANUAL) 17 % (16-48); MONOCYTES % (MANUAL) 4 % (0-11.0); NEUTROPHILS % (MANUAL) 72 (42-76)
--- NOTE | 2021-07-09 19:28 | NUR ---
CALLED [facility], PAGED PENNY CHACON NP
[2021-07-09] MEDS ORDERED: ONDANSETRON HCL/PF - ER 4 MG/2 ML VIAL IV ONE (20:00)
--- NOTE | 2021-07-09 20:02 | NUR ---
PATIENT RETURNED FROM CT
--- NOTE | 2021-07-09 20:12 | NUR ---
covid swab collected and sent to lab
[2021-07-09] MEDS ORDERED: ONDANSETRON HCL/PF 4 MG/2 ML VIAL ONE (20:19)
[2021-07-09] MEDS ORDERED: Z GUARD REMEDY 2 OZ OINT TP PRN (21:00)
[2021-07-09] MEDS ORDERED: MAGNESIUM HYDROXIDE 30 ML UDC PO PRN (21:00)
[2021-07-09] MEDS ORDERED: VANCOMYCIN HCL 1.25 GM in IV D5W 260 ML IV ONE (21:00)
[2021-07-09] MEDS ORDERED: MAG HYDROX/AL HYDROX/SIMETH 30 ML UDC PO PRN (21:00)
[2021-07-09] MEDS ORDERED: ONDANSETRON HCL/PF 4 MG/2 ML VIAL IVP PRN (21:00)
[2021-07-09] MEDS ORDERED: CEFEPIME 1 GM in IV D5W 50 ML IV ONE (21:00)
[2021-07-09] MEDS ORDERED: ACETAMINOPHEN 325 MG TABLET PO PRN (21:00)
--- NOTE | 2021-07-09 21:09 | NUR ---
REPORT GIVEN TO NICHOLAS BAKER FOR NOAH.
[2021-07-09] MEDS ORDERED: CEFEPIME 1 GM VIAL ONE (21:25)
[2021-07-09] MEDS ORDERED: VANCOMYCIN 1 GM VIAL ONE (21:31)
[2021-07-09] MEDS ORDERED: VANCOMYCIN 500 MG VIAL ONE (21:50)
--- NOTE | 2021-07-09 22:10 | NUR ---
Patient taken up to assigned room via ACLS protocols. Alert and oriented. Patient denies any pain.
[2021-07-09 22:15] VITALS: BP 112/41
--- NOTE | 2021-07-09 23:00 | NUR ---
Patient arrived to unit at 2215 via gurney accompanied by RN, EMT, RT. Patient alert and oriented to self. Able to nod head and mouth words for basic communication. Initial VS Temp 99.7 (cooling measures initiated), HR 58, RR 19, O2 sat 98%, BP 112/41. Patient has generalized edema/anasarca +3 making bodily tissues firm to touch. Heart rate and rhythm regular. Lung sounds diminished at bases, bowel sounds hypoactive, abdomen firm and tender, cap refill <3 seconds to extremities. Discoloration to sacrum -blanchable applied mepilex, will reposition q2h, keep clean and dry. Bruising to RFA, AVF to LFA +bruit and thrill. No signs of distress currently. Patient denies pain. Oriented to unit protocols, call light, and staff members, all safety measures in place.
[2021-07-09] MEDS ORDERED: GUAIFENESIN 300 MG/15 ML UDC GT PRN (23:30)
[2021-07-09] MEDS ORDERED: NEPRO VAN 237 ML CAN GT SCH (23:30)
[2021-07-09] MEDS ORDERED: ACETAMINOPHEN 650 MG/20.3 ML UDC GT PRN (23:30)
[2021-07-09] MEDS ORDERED: HYDROCODONE/APAP 5/325MG TABLET GT PRN (23:30)
[2021-07-09] MEDS ORDERED: MAG HYDROX/AL HYDROX/SIMETH 30 ML UDC GT PRN (23:30)
[2021-07-09] MEDS ORDERED: CARVEDILOL 6.25 MG TABLET GT SCH (23:30)
[2021-07-09] MEDS ORDERED: ONDANSETRON 4 MG TAB.RAPDIS GT PRN (23:45)
[2021-07-09] MEDS ORDERED: DIPHENHYDRAMINE HCL 12.5 MG/5 ML UDC GT PRN (23:45)
[2021-07-09] MEDS ORDERED: LORAZEPAM 0.5 MG TABLET GT PRN (23:45)
[2021-07-10] VITALS: BP 137/57
[2021-07-10] MEDS ORDERED: METOCLOPRAMIDE HCL 10 MG/10 ML UDC GT SCH
[2021-07-10] MEDS: METOCLOPRAMIDE HCL 10 MG/2 ML VIAL IV SCH ×4 (00:33→17:46)
[2021-07-10] MEDS: HEPARIN SODIUM, PORCINE 5000 UNITS/1 ML VIAL SQ SCH ×3 (00:35→21:20)
[2021-07-10] MEDS: ALBUTEROL FS 2.5 MG/0.5 ML VIAL.NEB IH SCH ×4 (01:30→20:00)
[2021-07-10] MEDS: IPRATROPIUM NEB FS 0.5 MG/2.5 ML AMPUL.NEB IH SCH ×4 (01:30→20:00)
[2021-07-10 04:00] VITALS: BP 136/72
--- NOTE | 2021-07-10 06:37 | NUR ---
Patient has been alert to sound and touch oriented to self. Slept well though easy to wake. No further episodes of nausea or vomiting. Patient's GT on LIS 100cc output yellowish stomach contents. Patient suctioned frequently - minimal thick white sputum output. R hand #20G intact and patent -flushing well. SR low 60s on monitor. O2 sats kept above 93%. Repositioned q2h, kept clean and dry.
[2021-07-10] MEDS ORDERED: VANCOMYCIN POST DIALYSIS 500MG IV PRN (07:00)
--- NOTE | 2021-07-10 07:10 | NUR ---
RN OPENING NOTES. RECEIVED PATIENT AWAKE IN BED AT THIS TIME. NON-VERBAL. NO SOB NOTED, NO S/O PAIN OR FACIAL GRIMACE NOTED. RESPIRATIONS EVEN AND UNLABORED. PT NOTED ON A MECHANICAL VENT READING AC 15, TV 350, FIO2 40%, PEEP 5, CUFFED ESTHER #8, ON TELEMONITOR READING SR 63. LFA AVF INTACT, CLEAN AND DRY, IV ACCESS NOTED IN RHAND G#20, INTACT, PATENT AND FLUSHING WELL. ASPIRATION AND SAFETY PRECAUTIONS IN PLACE AND MAINTAINED AT ALL TIMES. BED IN LOWEST LOCKED POSITION, HOB ELEVATED, SIDE RAILS UP X2, CALL LIGHT AND TABLE WITHIN REACH, WILL CONTINUE TO MONITOR
[2021-07-10 08:00] VITALS: BP 121/55
[2021-07-10] MEDS: PANTOPRAZOLE 40 MG VIAL IV SCH (08:47)
[2021-07-10] MEDS: NEUTRA PHOS 1 POWD.PACKET GT SCH ×2 (09:00→17:00)
[2021-07-10] MEDS: CHOLESTYRAMINE/ASPARTAME 4 G/PKT PACKET GT SCH ×2 (09:00→21:00)
[2021-07-10] MEDS: ACIDOPHILUS/BULGARICUS 1 EACH TAB.CHEW GT SCH ×2 (09:00→17:00)
[2021-07-10] MEDS: AMLODIPINE BESYLATE 10 MG TABLET GT SCH (09:00)
[2021-07-10] MEDS ORDERED: HEPARIN SODIUM, PORCINE 5000 UNITS/1 ML VIAL SQ SCH (09:00)
[2021-07-10] MEDS ORDERED: PANTOPRAZOLE 40 MG/PACK PACK GT SCH (09:00)
[2021-07-10] MEDS: PROSOURCE / PROSTAT (PYXIS) 30 ML UDC GT SCH ×2 (09:00→17:00)
[2021-07-10] MEDS: VIT B CMPLX 3/FA/VIT C/BIOTIN 1 TAB TABLET GT SCH (09:00)
[2021-07-10] MEDS: CARVEDILOL 6.25 MG TABLET GT SCH ×2 (09:00→22:00)
[2021-07-10] MEDS: Z GUARD REMEDY 2 OZ OINT TP SCH ×2 (09:13→21:20)
[2021-07-10 15:10] LABS: BASOPHILS % (AUTO) 0.5 % (0.0-2.0); EOSINOPHILS % (AUTO) 2.1 % (0.0-6.0); HEMATOCRIT 26 % (33-45); HEMOGLOBIN 8.3 g/dL (11.5-14.8); LYMPHOCYTES # (AUTO) 1.2 K/uL (0.8-4.8); LYMPHOCYTES % (AUTO) 14.9 % (20.0-44.0); MEAN CORPUSCULAR HGB CONC 32 g/dl (31.0-36.0); MEAN CORPUSCULAR VOLUME 118 fL (82-100); MONOCYTES # (AUTO) 0.6 K/uL (0.1-1.30); MONOCYTES % (AUTO) 8.1 % (2.0-12.0); NEUTROPHILS # (AUTO) 5.9 K/uL (1.8-8.9); NEUTROPHILS % (AUTO) 74.4 % (43.0-81.0); PLATELET COUNT (AUTO) 237 K/uL (150-450); RED BLOOD CELL COUNT(AUTO) 2.16 MIL/uL (4.0-5.2)
[2021-07-10 15:40] LABS: CALCIUM, SERUM 7.4 mg/dL (8.5-10.1); CARBON DIOXIDE 30 mmol/L (21-32); CHLORIDE 101 mmol/L (98-107); CREATININE 2.1 mg/dL (0.6-1.3); GLUCOSE 69 mg/dL (74-106); MAGNESIUM 1.9 mg/dL (1.8-2.4); PHOSPHORUS 2.3 mg/dL (2.5-4.9); POTASSIUM 3.3 mmol/L (3.5-5.1); SODIUM SERUM 134 mmol/L (136-145); UREA NITROGEN, BLOOD 35 mg/dL (7-18)
[2021-07-10 15:49] LABS: CHOLESTEROL 60 mg/dL (<200); HDL CHOLESTEROL 27 mg/dL (40-60); LDL 23 mg/dL (0-99); THYROID STIMULATING HORMONE 3.286 uIU/mL (0.358-3.74); TRIGLYCERIDES 80 mg/dL (30-150)
[2021-07-10 16:09] VITALS: BP 140/66
[2021-07-10 17:02] LABS: EOSINOPHILS % (MANUAL) 5 % (0-4); LYMPHOCYTES % (MANUAL) 14 % (16-48); MONOCYTES % (MANUAL) 5 % (0-11.0); NEUTROPHILS % (MANUAL) 76 (42-76)
--- NOTE | 2021-07-10 18:40 | NUR ---
RN CLOSING NOTES PATIENT AWAKE IN BED AT THIS TIME.PATIENT REMAINED STABLE THROUGHOUT SHIFT. ALL CARE, NEEDS, MEDICATIONS AND TREATMENT ADMINISTERED ANTICIPATED PER ORDER. PATIENT KEPT CLEAN AND DRY. PATIENT ONGOING HD AT THIS TIME. PATIENT REPOSITIONED Q2H AND PRN. ASPIRATION AND SAFETY PRECAUTIONS IN PLACE AND MAINTAINED AT ALL TIMES. BED IN LOWEST LOCKED POSITION, HOB ELEVATED, SIDE RAILS UP X2, CALL LIGHT AND TABLE WITHIN REACH, WILL ENDORSE TO JUKE BOX MECHANIC NURSE FOR NOAH
[2021-07-10 20:00] VITALS: BP 115/50
[2021-07-10] MEDS ORDERED: CEFEPIME 1 GM in IV D5W 50 ML IV SCH (21:00)
[2021-07-10] MEDS ORDERED: VANCOMYCIN 1 GM VIAL ONE (21:23)
[2021-07-10] MEDS: MELATONIN 3 MG TABLET GT SCH (22:00)
[2021-07-11] VITALS: BP 121/76
[2021-07-11] MEDS: METOCLOPRAMIDE HCL 10 MG/2 ML VIAL IV SCH ×4 (00:36→17:07)
[2021-07-11] MEDS: ALBUTEROL FS 2.5 MG/0.5 ML VIAL.NEB IH SCH ×4 (01:34→19:55)
[2021-07-11] MEDS: IPRATROPIUM NEB FS 0.5 MG/2.5 ML AMPUL.NEB IH SCH ×4 (01:34→19:55)
[2021-07-11 04:00] VITALS: BP 145/66
--- NOTE | 2021-07-11 06:40 | NUR ---
WEB DEVELOPMENT MANAGER NOTES AWAKE & ALERT. NOT IN ANY DISTRESS. NO SOB NOTED. DENIES ANY PAIN OR DISCOMFORT AT THIS TIME. ON TELE SR @ 71 WITH IV-HL PATENT & INTACT. AM CARE DONE. MONITORED ACCORDINGLY. CALL LIGHT WITHIN REACH. BED IN LOWEST POSITION. SR UP X 3 WITH BED ALARM ON FOR SAFETY. WILL ENDORSE TO NEXT SHIFT.
--- NOTE | 2021-07-11 07:30 | NUR ---
RN OPENING NOTE RECEIVED PATIENT IN BED. A/O X1. NON VERBAL. ON [facility] VENT SHILEY #8 WITH SETTINGS OF AC 15 TV 350 FI02 40% PEEP 5. TELE READING SHOWS SR 80's. FLEXI SEAL, INTACT. GT CONNECTED TO LOW INTERMITTENT SUCTION. LFA AV FISTULA C/D/I. R HAND #20 G, INTACT AND PATENT. SAFETY MEASURES MAINTAINED. BED IN LOWEST POSITION, BRAKES LOCKED. SIDE RAILS UP X2. CALL LIGHT WITHIN REACH. WILL CONTINUE PLAN OF CARE.
[2021-07-11 08:00] VITALS: BP 122/53
[2021-07-11] MEDS ORDERED: POTASSIUM CHLORIDE 20 MEQ POWDER PACKET GT ONE (08:00)
[2021-07-11] MEDS: CARVEDILOL 6.25 MG TABLET GT SCH ×2 (08:40→21:57)
[2021-07-11] MEDS: AMLODIPINE BESYLATE 10 MG TABLET GT SCH (08:41)
[2021-07-11] MEDS: ACIDOPHILUS/BULGARICUS 1 EACH TAB.CHEW GT SCH ×2 (08:41→16:09)
[2021-07-11] MEDS: VIT B CMPLX 3/FA/VIT C/BIOTIN 1 TAB TABLET GT SCH (08:41)
[2021-07-11] MEDS: NEUTRA PHOS 1 POWD.PACKET GT SCH ×2 (08:41→16:10)
[2021-07-11] MEDS: CHOLESTYRAMINE/ASPARTAME 4 G/PKT PACKET GT SCH ×2 (08:42→21:00)
[2021-07-11] MEDS: PROSOURCE / PROSTAT (PYXIS) 30 ML UDC GT SCH ×2 (08:42→16:10)
[2021-07-11] MEDS: PANTOPRAZOLE 40 MG VIAL IV SCH (08:43)
[2021-07-11] MEDS: HEPARIN SODIUM, PORCINE 5000 UNITS/1 ML VIAL SQ SCH ×2 (08:44→21:58)
[2021-07-11] MEDS: Z GUARD REMEDY 2 OZ OINT TP SCH ×2 (08:51→21:56)
[2021-07-11 12:00] VITALS: BP 144/72
[2021-07-11 16:00] VITALS: BP 126/56
--- NOTE | 2021-07-11 18:07 | NUR ---
RN CLOSING NOTE PATIENT RESTING IN BED. A/O X2. ON [facility] VENT [place] #8 REMAINS ON SETTINGS AC 15 TV 350 FI02 40% PEEP 5. TELE READING SHOWS SR 70-80's. FLEXI SEAL, INTACT. GT CONNECTED TO LOW INTERMITTENT SUCTION. LFA AV FISTULA C/D/I. R FA #22 G, INTACT AND PATENT. DUE MEDS GIVEN ORDERED. SAFETY MEASURES MAINTAINED. BED IN LOWEST POSITION, BRAKES LOCKED. SIDE RAILS UP X2. KEPT CALL LIGHT WITHIN REACH. WILL ENDORSE CONTINUITY OF CARE TO ONCOMING SHIFT. .
[2021-07-11 20:35] VITALS: BP 128/56
[2021-07-11] MEDS: MELATONIN 3 MG TABLET GT SCH (21:58)
[2021-07-12 01:09] VITALS: BP 121/74
[2021-07-12] MEDS: METOCLOPRAMIDE HCL 10 MG/2 ML VIAL IV SCH ×3 (01:14→12:20)
[2021-07-12] MEDS: ALBUTEROL FS 2.5 MG/0.5 ML VIAL.NEB IH SCH ×3 (01:40→13:09)
[2021-07-12] MEDS: IPRATROPIUM NEB FS 0.5 MG/2.5 ML AMPUL.NEB IH SCH ×3 (01:40→13:09)
[2021-07-12 04:23] VITALS: BP 149/55
--- NOTE | 2021-07-12 06:08 | NUR ---
CATTLE KNOCKER NOTES AWAKE & ALERT. NOT IN ANY DISTRESS. NO SOB NOTED. WITH SAME VENT SETTINGS. DENIES ANY PAIN OR DISCOMFORT AT THIS TIME. ON TELE SB @ 56 WITH IV-HL PATENT & INTACT. AM CARE DONE. MONITORED ACCORDINGLY. CALL LIGHT WITHIN REACH. BED IN LOWEST POSITION. SR UP X 3 WITH BED ALARM ON FOR SAFETY. WILL ENDORSE TO NEXT SHIFT.
--- NOTE | 2021-07-12 07:34 | NUR ---
RN NOTES RECEIVED PATIENT IN BED, AWAKE AND ALERT. NON VERBAL, BUT ABLE TO ANSWER SIMPLE YES OR NO QUESTIONS BY NODDING OR SHAKING HEAD. ON [facility] VENT SHILEY #8 WITH SETTINGS OF AC 15, TV 350, FI02 40%, PEEP 5. TELE READING SHOWS SR 80's. FLEXI SEAL, INTACT. GT CONNECTED TO LOW INTERMITTENT SUCTION. LFA AV FISTULA C/D/I. R HAND #20 G, INTACT AND PATENT. SAFETY MEASURES MAINTAINED. BED IN LOWEST POSITION, BRAKES LOCKED. SIDE RAILS UP X2. CALL LIGHT WITHIN REACH. WILL CONTINUE TO MONITOR PATIENT.
[2021-07-12 08:00] VITALS: BP 136/64
[2021-07-12] MEDS: ACIDOPHILUS/BULGARICUS 1 EACH TAB.CHEW GT SCH (09:00)
[2021-07-12] MEDS: NEUTRA PHOS 1 POWD.PACKET GT SCH (09:00)
[2021-07-12] MEDS: VIT B CMPLX 3/FA/VIT C/BIOTIN 1 TAB TABLET GT SCH (09:00)
[2021-07-12] MEDS: CHOLESTYRAMINE/ASPARTAME 4 G/PKT PACKET GT SCH (09:00)
[2021-07-12] MEDS: PROSOURCE / PROSTAT (PYXIS) 30 ML UDC GT SCH (09:00)
[2021-07-12] MEDS: PANTOPRAZOLE 40 MG VIAL IV SCH (09:30)
[2021-07-12] MEDS: HEPARIN SODIUM, PORCINE 5000 UNITS/1 ML VIAL SQ SCH (09:31)
--- NOTE | 2021-07-12 10:59 | NUR ---
RN NOTES DIALYSIS NURSE CURRENTLY AT BEDSIDE FOR HD.
[2021-07-12] MEDS: Z GUARD REMEDY 2 OZ OINT TP SCH (11:47)
[2021-07-12 12:00] VITALS: BP 142/62
[2021-07-12 13:04] LABS: ALANINE AMINOTRANSFERASE 12 U/L (12-78); ALBUMIN 1.7 g/dL (3.4-5.0); ALKALINE PHOSPHATASE 126 U/L (46-116); ASPARTATE AMINOTRANSFERASE 22 U/L (15-37); BILIRUBIN,TOTAL 0.5 mg/dL (0.2-1.0); CALCIUM, SERUM 7.9 mg/dL (8.5-10.1); CARBON DIOXIDE 29 mmol/L (21-32); CHLORIDE 101 mmol/L (98-107); CREATININE 1.9 mg/dL (0.6-1.3); MAGNESIUM 1.9 mg/dL (1.8-2.4); PHOSPHORUS 2.1 mg/dL (2.5-4.9); POTASSIUM 3.1 mmol/L (3.5-5.1); SODIUM SERUM 139 mmol/L (136-145); TOTAL PROTEIN, SERUM 7.3 g/dL (6.4-8.2); UREA NITROGEN, BLOOD 21 mg/dL (7-18)
[2021-07-12 13:15] LABS: GLUCOSE 38 mg/dL (74-106)
[2021-07-12 13:58] LABS: BASOPHILS % (AUTO) 0.4 % (0.0-2.0); EOSINOPHILS % (AUTO) 1.3 % (0.0-6.0); HEMATOCRIT 25 % (33-45); HEMOGLOBIN 8.2 g/dL (11.5-14.8); LYMPHOCYTES # (AUTO) 0.8 K/uL (0.8-4.8); LYMPHOCYTES % (AUTO) 14.2 % (20.0-44.0); MEAN CORPUSCULAR HGB CONC 32 g/dl (31.0-36.0); MEAN CORPUSCULAR VOLUME 118 fL (82-100); MONOCYTES # (AUTO) 0.6 K/uL (0.1-1.30); MONOCYTES % (AUTO) 11.7 % (2.0-12.0); NEUTROPHILS # (AUTO) 3.9 K/uL (1.8-8.9); NEUTROPHILS % (AUTO) 72.4 % (43.0-81.0); PLATELET COUNT (AUTO) 236 K/uL (150-450); RED BLOOD CELL COUNT(AUTO) 2.15 MIL/uL (4.0-5.2); WHITE BLOOD COUNT (AUTO) 5.4 K/uL (4.3-11.0)
--- NOTE | 2021-07-12 14:04 | NUR ---
RN NOTES SPOKE W/ DR. LAM AND MADE AWARE OF PATIENT'S BLOOD GLUCOSE LEVEL PER LAB REPORT, W/ ORDER NOTED. PER MD, STILL OKAY TO DISCHARGE PATIENT TO SUB ACUTE TODAY.
[2021-07-12] MEDS ORDERED: DEXTROSE 50%-WATER 50 ML DISP.SYRIN IVP ONE (14:30)
--- NOTE | 2021-07-12 14:45 | NUR ---
RN NOTES INITIAL PATIENT REPORT GIVEN TO RANI CHARGE NURSE T SUB-ACUTE.
--- NOTE | 2021-07-12 14:57 | NUR ---
RN NOTES BLOOD GLUCOSE INCREASED TO 99MG/DL.
--- NOTE | 2021-07-12 14:58 | NUR ---
RN NOTES SPOKE W/ RT AND RANI, CHARGE NURSE; OK TO TRANSFER PATIENT TO SUB-ACUTE IN 30MINS.
--- NOTE | 2021-07-12 16:24 | NUR ---
CRITICAL CARE CNS NOTES PATIENT WAS SEEN BY DR. LAM TODAY, WITH ORDER TO DISCHARGE BACK TO SUB ACUTE UNIT FOR CONTINUITY OF CARE. DISCHARGE INSTRUCTION AND EDUCATION GIVEN TO PATIENT AND RY SARAVIA. PATIENT UNABLE TO SIGN THE DISCHARGE FORM AND BELONGINGS LIST FORM. FORMS WERE CO-SIGNED AND WITNESSED BY 2 RN'S. IV LINE REMOVED, NO BLEEDING NOTED. FLEXISEAL INTACT, RT AT BEDSIDE FOR TRACH MANAGEMENT. TRANSFERRED PATIENT TO SUB ACUTE VIA OWN BED, ACCOMPANIED BY 3 STAFF. BEDSIDE ENDORSEMENT GIVEN TO RANI. RY AND AWARE OF THIS DISCAHRGE.
[2021-07-12 17:39] LABS: BAND % (MANUAL) 3 % (0.0-5.0); LYMPHOCYTES % (MANUAL) 7 % (16-48); MONOCYTES % (MANUAL) 3 % (0-11.0); NEUTROPHILS % (MANUAL) 87 (42-76)
[2021-07-12] MEDS ORDERED: MAGN400O6 GT (19:07)
[2021-07-12] MEDS ORDERED: ALLA266C2 TP (19:07)
[2021-07-12] MEDS ORDERED: PANT40SU2 GT (19:07)
[2021-07-12] MEDS ORDERED: CARV6.252 GT (19:07)
[2021-07-12] MEDS ORDERED: CHOL4PAC9 GT (19:07)
[2021-07-13] MEDS ORDERED: PANTOPRAZOLE 40 MG/PACK PACK GT SCH (09:00)
== END 2021-07-12 15:58 | DRG 208 ==
LOC: ER 17:34 → MED 22:05 → TELE 07-10 00:01
PROVIDERS: ADMIT Registered Nurse; ATTEND Internal Medicine
PROC: 5A1945Z Respiratory Ventilation, 24-96 Consecutive Hours (ICD-10-PCS; principal; 2021-07-09)
PROC: 5A1D70Z Performance of Urinary Filtration, Intermittent, Less than 6 Hours Per Day (ICD-10-PCS; 2021-07-10)
DX: J69.0 Pneumonitis due to inhalation of food and vomit (principal); I50.33 Acute on chronic diastolic (congestive) heart failure; N18.6 End stage renal disease; I13.2 Hypertensive heart and chronic kidney disease with heart failure and with stage 5 chronic kidney disease, or end stage renal disease; J96.10 Chronic respiratory failure, unspecified whether with hypoxia or hypercapnia; J98.11 Atelectasis; Z99.11 Dependence on respirator [ventilator] status; G93.49 Other encephalopathy; M81.0 Age-related osteoporosis without current pathological fracture; D63.1 Anemia in chronic kidney disease; E78.5 Hyperlipidemia, unspecified; Z99.2 Dependence on renal dialysis; Z87.440 Personal history of urinary (tract) infections; R13.10 Dysphagia, unspecified; Z86.73 Personal history of transient ischemic attack (TIA), and cerebral infarction without residual deficits; Z93.0 Tracheostomy status; Z93.1 Gastrostomy status; E83.9 Disorder of mineral metabolism, unspecified; Z20.822 Contact with and (suspected) exposure to COVID-19; Z86.19 Personal history of other infectious and parasitic diseases
CPT/HCPCS: 31720; 36415; 71045-TC; 80048-TC; 80053-TC; 80061-TC; 80076-TC; 80202-TC; 82962-TC; 83690-TC; 83735-TC; 83880; 84100-TC; 84443-TC; 84484-TC; 85025-TC; 87081-TC; 90935-TC; 94003-TC; 94760-TC; 94762-TC; 94799-TC; 99082-TC; C9113; C9803; G0378; J0692; J1644; J2405; J2765; J3370; J7030; J7060; U0003

== ENCOUNTER 2021-08-23 14:39 | Inpatient (IN) | payer MEDICARE, OTHER ==
[~2021-08-23] VITALS: Ht 162.6 cm; Wt 67.3 kg
[~2021-08-23 14:39] MED LIST changes: -Aspirin Ec PO; +CARV6.252 GT; -CHOL4PAC GT; +CHOL4PAC9 GT; -HYDR1SOL TP; +MAG355OR18 GT; +MAGN400O6 GT; -PETR113O TP
--- NOTE | 2021-08-23 14:50 | NUR ---
The patient is bibra88, from HD center, 58 mins on HD c/o chest pain non radiating. Vent/trach dependent and tolerates vent settings well. RT at the bedside.GT, rectal tube present. Left lower arm AV shunt present. Attached to the monitor. Will continue to monitor the patient.
--- NOTE | 2021-08-23 14:57 | NUR ---
IV LINE IS ESTABLISHED, BLOOD SPECIMEN COLLECTED AND SENT TO THE LAB
--- NOTE | 2021-08-23 15:00 | NUR ---
RT Pt brought into ER by paramedics, pt received trached and being manually ventilated. Pt was placed on mechanical ventilation and initially started on SIMV 6, 350, 40%, +5, PS 15 and was not tolerating, pt had mild abdominal muscle usage, was unable to maintain adequate VT, and was hypoxic. Pt was placed on her last known AC settings. Pt appears to be more comfortable at this time, no SOB or respiratory distress noted. P Addendum: 08/23/21 at 1510 by LOPEZ ORDONEZ RT Amended: Links added.
--- NOTE | 2021-08-23 15:11 | NUR ---
X-RAY TECH AT THE BEDSIDE
--- NOTE | 2021-08-23 15:29 | NUR ---
COVID PCR COLLECTED AND SENT TO LAB
--- NOTE | 2021-08-23 15:30 | NUR ---
1530 ABG DONE FIO2 ON 40%; DR. BARDALES AWARE
[2021-08-23 15:34] LABS: ABG BASE EXCESS 1.1 mmol/L; ABG PCO2 57.9 mmHg (35.0-45.0); ABG PH 7.309 (7.350-7.450); ABG PO2 59.1 mmHg (75.0-100.0); COHb 1.5 % (0.5-1.5); MetHb 0.3 % (0.0-1.5); O2Hb 88.8 % (94.0-97.0); PEEP,BG 5 cm H2O; SITE, ABG Right Radial; VT, ABG 350 mL
--- NOTE | 2021-08-23 15:36 | NUR ---
PT TOLERATING VENT SETTINGS WELL AT 95% AC 16 PEEPP FIO2 50% VT 350
[2021-08-23 15:42] LABS: BASOPHILS % (AUTO) 0.3 % (0.0-2.0); EOSINOPHILS % (AUTO) 5.3 % (0.0-6.0); HEMATOCRIT 38 % (33-45); HEMOGLOBIN 11.8 g/dL (11.5-14.8); LYMPHOCYTES # (AUTO) 0.8 K/uL (0.8-4.8); LYMPHOCYTES % (AUTO) 9.6 % (20.0-44.0); MEAN CORPUSCULAR HGB CONC 31 g/dl (31.0-36.0); MEAN CORPUSCULAR VOLUME 128 fL (82-100); MONOCYTES # (AUTO) 0.3 K/uL (0.1-1.30); MONOCYTES % (AUTO) 3.3 % (2.0-12.0); NEUTROPHILS # (AUTO) 6.5 K/uL (1.8-8.9); NEUTROPHILS % (AUTO) 81.5 % (43.0-81.0); PLATELET COUNT (AUTO) 299 K/uL (150-450); RED BLOOD CELL COUNT(AUTO) 2.96 MIL/uL (4.0-5.2)
[2021-08-23 15:53] LABS: CALCIUM, SERUM 8.3 mg/dL (8.5-10.1); CHLORIDE 97 mmol/L (98-107); CREATININE 2.1 mg/dL (0.6-1.3); GLUCOSE 124 mg/dL (74-106); POTASSIUM 3.9 mmol/L (3.5-5.1); SODIUM SERUM 132 mmol/L (136-145); UREA NITROGEN, BLOOD 33 mg/dL (7-18)
[2021-08-23] MEDS ORDERED: ONDANSETRON HCL/PF 4 MG/2 ML VIAL ONE (15:57)
[2021-08-23 15:59] LABS: CARBON DIOXIDE 26 mmol/L (21-32)
[2021-08-23] MEDS ORDERED: ONDANSETRON HCL/PF - ER 4 MG/2 ML VIAL IV ONE (16:00)
--- NOTE | 2021-08-23 16:10 | NUR ---
RALPH (SON) AT PT'S BEDSIDE.
[2021-08-23] MEDS ORDERED: ASPIRIN 81 MG TAB.CHEW ONE (17:27)
[2021-08-23] MEDS ORDERED: ASPIRIN 81 MG TAB.CHEW GT ONE (17:30)
--- NOTE | 2021-08-23 17:38 | NUR ---
ADMINISTERED ASPIRIN 162MG GT ORDERED. GT TO LLQ; PATENT AND INTACT. 0ML RESIDUAL OUTPUT.
[2021-08-23] MEDS ORDERED: VANC125C11 GT (18:12)
[2021-08-23] MEDS ORDERED: VITS5OIN2 TP (18:12)
[2021-08-23] MEDS ORDERED: HYDR1SOL TD (18:12)
[2021-08-23 18:45] LABS: BAND % (MANUAL) 7 % (0.0-5.0); EOSINOPHILS % (MANUAL) 4 % (0-4); LYMPHOCYTES % (MANUAL) 13 % (16-48); MONOCYTES % (MANUAL) 2 % (0-11.0); NEUTROPHILS % (MANUAL) 74 (42-76)
--- NOTE | 2021-08-23 19:40 | NUR ---
RT Pt received trached on [facility] vent on MD ordered AC mode settings. Airway patent and secured. PRACTICE ADMINISTRATOR done. Pt suctioned. Alarms set and audible. Vent plugged into red outlet. Will cont to monitor. Addendum: 08/24/21 at 0259 by DONA ANDERSON RT Amended: Links added.
[2021-08-23] MEDS ORDERED: ACETAMINOPHEN 325 MG TABLET PO ONE (21:00)
[2021-08-23] MEDS ORDERED: MEROPENEM 500 MG in IV NS 0.9% 50 ML IV ONE (21:00)
--- NOTE | 2021-08-23 21:00 | NUR ---
ORAL TEMP 101.8. CATIA SALGADO AWARE
--- NOTE | 2021-08-23 21:05 | NUR ---
COOLING MEASURES IN PLACE. SKIN WARM TO TOUCH. WILL REASSES TEMP PER PROTOCOL.
--- NOTE | 2021-08-23 21:12 | NUR ---
RT Attempted to titrate FIO2 to 40%, SpO2 decreased to 91%. Placed backed on 50% FIO2. Will cont to monitor.
[2021-08-23] MEDS ORDERED: MEROPENEM 500 MG VIAL IV ONE (21:32)
[2021-08-23] MEDS ORDERED: ACETAMINOPHEN 325 MG TABLET ONE (21:33)
--- NOTE | 2021-08-23 22:48 | NUR ---
CALLED ICU TO GIVE REPORT; AWAITING CALL BACK FROM ULICES BAKER
[2021-08-24] VITALS (23 sets, daily range): BP systolic 96–158; BP diastolic 37–93
--- NOTE | 2021-08-24 00:30 | NUR ---
REPORT GIVEN TO ULICES BAKER FOR NOAH
--- NOTE | 2021-08-24 00:32 | NUR ---
REPORT GIVEN TO OLIVIA ELENA FOR NOAH
--- NOTE | 2021-08-24 00:49 | NUR ---
PT TRANSFERRED TO ICU 252 VIA ACLS PROTOCOL AND WITH RT. VSS.
--- NOTE | 2021-08-24 01:30 | NUR ---
RN NOTES 0044 AM - ADMITTED PATIETN FROM ER WITH TRACH SHILEY 8 CONNECTED TO VENT SETTING AC 16 TV 350 FIO2 50% PEEP 5 TOLERATED WELL SATURATION 95%.PATIENT COMES FROM HD AND COMPLAINED OF NON RADIATING CHEST PAIN. DENIES CHEST PAIN AT THIS TIME. NO SOB OR DISTRESS NOTED. CONNECTED TO MONITOR WITH NSR. LOW GRADE FEVER NOTED. TEMP 99.8 COOLING MEASURES PROVIDED. IV SITE ON RAC AND RFA G 20 INTACT AND PATENT. RECTAL TUBE PRESENT WITH WATERY BROWNISH , YELLOW COLOR STOOL. SKIN INTACT. TURN AND REPOSITION PATIENT COMFORTABLE. KEPT PT CLEAN AND DRY. WILL CONTINUE MONITOR. 0500 AM - NOTED THAT THE PATIENT STILL DONT HAVE PHYSICIAN ORDER ,CALL AND SPOKE [facility] DR. JONES AND ASKED AN ONCALL DOCTOR PER MD TO CALL THE ONE WHO ADMITTED PATIENT OR THE LITIGATION EXAMINER OF PATIENT. WE WILL TRY TO CALL LITIGATION EXAMINER,. 0700 AM - PATIENT REMAINED STABLE. DENIES CHEST PAIN. NO SIGNIFICANT CHANGE OF CONDITION THROUGHOUT THE SHIFT. PATIENT DOESN'T HAVE ADMIT ORDER YET ENDORSED TO NEXT AM SHIFT TO GET HOLD WITH LITIGATION EXAMINER FOR ORDER.
--- NOTE | 2021-08-24 07:53 | NUR ---
RN NOTE RECEIVED PT FROM RN. NO ORDERS PLACED. MESSAGED DR. STEVE TO PLACE ORDERS.
--- NOTE | 2021-08-24 08:29 | NUR ---
RN NOTE PT AXILLARY FEVER OF 100.4. COOLING MEASURES APPLIED. NO ORDERS PLACED YET.
[2021-08-24] MEDS ORDERED: MAG HYDROX/AL HYDROX/SIMETH 30 ML UDC GT PRN (09:00)
[2021-08-24] MEDS ORDERED: diphenhydrAMINE HCL 25 MG CAPSULE MC PRN (09:00)
[2021-08-24] MEDS ORDERED: MAGNESIUM HYDROXIDE 30 ML UDC GT PRN (09:00)
--- NOTE | 2021-08-24 09:22 | NUR ---
RT DR VILA VT INCREASED TO 400 Addendum: 08/24/21 at 0923 by MARV HUERTA RT Amended: Links added.
[2021-08-24] MEDS: ACETAMINOPHEN 325 MG TABLET PO PRN (09:30)
[2021-08-24] MEDS ORDERED: MAG HYDROX/AL HYDROX/SIMETH 30 ML UDC PO PRN (09:30)
[2021-08-24] MEDS ORDERED: Z GUARD REMEDY 2 OZ OINT TP PRN (09:30)
[2021-08-24] MEDS ORDERED: PIPERACILLIN /TAZOBACTAM 2.25 G in IV D5W 50 ML IV SCH (09:30)
[2021-08-24] MEDS ORDERED: MAGNESIUM HYDROXIDE 30 ML UDC PO PRN (09:30)
[2021-08-24] MEDS ORDERED: ONDANSETRON HCL/PF 4 MG/2 ML VIAL IVP PRN (09:30)
[2021-08-24] MEDS: AMLODIPINE BESYLATE 10 MG TABLET GT SCH (09:31)
[2021-08-24] MEDS: CARVEDILOL 6.25 MG TABLET GT SCH ×2 (09:31→17:39)
[2021-08-24] MEDS: Z GUARD REMEDY 2 OZ OINT TP SCH ×2 (09:31→21:29)
[2021-08-24] MEDS: PANTOPRAZOLE 40 MG/PACK PACK GT SCH (09:31)
[2021-08-24] MEDS: PIPERACILLIN /TAZOBACTAM 2.25 G in IV D5W 50 ML IV SCH ×3 (10:00→15:46)
[2021-08-24] MEDS ORDERED: VANCOMYCIN 1 GM in IV D5W 250 ML IV ONE (10:00)
[2021-08-24] MEDS: CHOLESTYRAMINE/ASPARTAME 4 G/PKT PACKET GT SCH ×2 (11:01→23:11)
--- NOTE | 2021-08-24 11:50 | NUR ---
RN NOTE BOTH R FOREARM IV'S REMOVED DUE TO PAIN. MIDLINE REQUESTED
[2021-08-24] MEDS: ALBUTEROL FS 2.5 MG/0.5 ML VIAL.NEB IH SCH ×2 (13:07→19:54)
[2021-08-24] MEDS: IPRATROPIUM NEB FS 0.5 MG/2.5 ML AMPUL.NEB IH SCH ×2 (13:07→19:54)
--- NOTE | 2021-08-24 13:36 | NUR ---
RN NOTE RU MIDLINE PLACED
[2021-08-24] MEDS: NEPRO 1,000 ML BOTTLE GT PRN (13:37)
--- NOTE | 2021-08-24 14:10 | NUR ---
RN NOTE PER LAB CALCITONIN 8.33. KORY COTA NOTIFIED
[2021-08-24] MEDS: VANCOMYCIN HCL 125 MG/2.5 ML ORAL.SUSP PO SCH ×2 (18:57→23:11)
--- NOTE | 2021-08-24 19:30 | NUR ---
RN NOTES PT FOUND SEMI FALL'S DISPLAYING NO S/S OF DISTRESS, FLACC = 0 AND BILATERAL RISE AND FALL OF THE CHEST OBSERVED. RECTAL TUBE INTACT BELOW PATIENT DRAINING BY GRAVITY. SBAR AND REPORT GIVEN TO CANTEEN OPERATOR RN. SAFETY MEASURES IN PLACE, BED LOCKED AND IN LOWEST POSITION, SIDE RAILS UPX2, CALL LIGHT WITHIN REACH, BED ALARM ARMED. PT ENDORSED IN STABLE CONDITION FOR NOAH. ALL QUESTIONS ANSWERED.
--- NOTE | 2021-08-24 19:35 | NUR ---
RN NOTES RECEIVED PATIENT AWAKE ON BED WITH TRACH CONNECTED TO MECHANICAL VENTILATOR, SETTING TOLERATED WELL. SR ON MONITOR SATURATION 98%. DROPLET PRECAUTION STRICTLY OBSERVED DUE TO PENDING PCR. PATIENT IS AOX1-2 MOUTHING WORDS IN JAPANESE. DENIES SOB OR CHEST PAIN. WITH IV SITE ON CHANDNI MIDLINE HL INTACT AND PATENT. + BRUIT AND + THRILL ON JOSE PRESENT FO RHD ACCESS. WITH GOOD PULSES. GTF NEPHRO @ 45 CC/HR ONGOING HOB KEPT ELEVATED LOW RESIDUAL, PATENCY CHECKED. PATIENT CONTINUE WITH RECTAL TUBE WITH LOOSE YELLOW BROWN COLOR OUTPUT. TURN AND REPOSITION FOR SKIN MANAGEMENT. KEPT CLEAN AND COMFORTABLE IN BED. SAFETY MEASURES PROVIDED. WILL CONTINUE TO MONITOR.
[2021-08-24] MEDS: LORAZEPAM 1 MG TABLET GT PRN (23:11)
[2021-08-25] VITALS (30 sets, daily range): BP systolic 97–143; BP diastolic 54–76
[2021-08-25] MEDS: IPRATROPIUM NEB FS 0.5 MG/2.5 ML AMPUL.NEB IH SCH ×4 (02:02→19:37)
[2021-08-25] MEDS: ALBUTEROL FS 2.5 MG/0.5 ML VIAL.NEB IH SCH ×4 (02:02→19:37)
[2021-08-25] MEDS ORDERED: VANCOMYCIN 500 MG in IV D5W 100 ML IV PRN (06:00)
[2021-08-25] MEDS: VANCOMYCIN HCL 125 MG/2.5 ML ORAL.SUSP PO SCH ×4 (06:04→23:15)
[2021-08-25] MEDS: ACETAMINOPHEN 325 MG TABLET PO PRN ×3 (06:05→23:15)
[2021-08-25 06:10] LABS: BASOPHILS # (AUTO) 0.1 K/uL (0.0-0.2); BASOPHILS % (AUTO) 0.9 % (0.0-2.0); EOSINOPHILS % (AUTO) 1.6 % (0.0-6.0); HEMATOCRIT 31 % (33-45); HEMOGLOBIN 9.8 g/dL (11.5-14.8); LYMPHOCYTES # (AUTO) 0.4 K/uL (0.8-4.8); LYMPHOCYTES % (AUTO) 2.9 % (20.0-44.0); MEAN CORPUSCULAR HGB CONC 32 g/dl (31.0-36.0); MEAN CORPUSCULAR VOLUME 123 fL (82-100); MONOCYTES # (AUTO) 0.7 K/uL (0.1-1.30); MONOCYTES % (AUTO) 5.3 % (2.0-12.0); NEUTROPHILS # (AUTO) 11.9 K/uL (1.8-8.9); NEUTROPHILS % (AUTO) 89.3 % (43.0-81.0); PLATELET COUNT (AUTO) 267 K/uL (150-450); WHITE BLOOD COUNT (AUTO) 13.3 K/uL (4.3-11.0)
[2021-08-25 06:25] LABS: CALCIUM, SERUM 7.9 mg/dL (8.5-10.1); CARBON DIOXIDE 25 mmol/L (21-32); CHLORIDE 99 mmol/L (98-107); GLUCOSE 106 mg/dL (74-106); PHOSPHORUS 4.6 mg/dL (2.5-4.9); POTASSIUM 4.1 mmol/L (3.5-5.1); SODIUM SERUM 134 mmol/L (136-145); UREA NITROGEN, BLOOD 48 mg/dL (7-18)
[2021-08-25 06:27] LABS: EOSINOPHILS % (MANUAL) 1 % (0-4); LYMPHOCYTES % (MANUAL) 10 % (16-48); MONOCYTES % (MANUAL) 5 % (0-11.0); NEUTROPHILS % (MANUAL) 84 (42-76)
--- NOTE | 2021-08-25 07:22 | NUR ---
RN NOTES PATIENT ASLEEP WELL. TRACH AND VENT TOLERATED WELL. LOW GRADE FEVER NOTED TMAX 100 DEGREE. COOLING MEASURES PROVIDED LAST TEMP CHECKED WAS 99.6 DEG FAHRENHEIT. GTF TOLERATED WELL WITH MINIMAL RESIDUAL. DUE MEDS ADMINISTERED ORDERED. TURN AND REPOSITION Q2H AND PRN. PATIENT COMPLAIN OF PAIN ON LOWER EXT NOTED BLE SWOLLEN, WARM TO TOUCH AND RED. TYLENOL PRN ADMINISTERED TO COVER THE PAIN AND LOW GRADE TEMP. KEPT PT CLEAN AND COMFORTABLE IN BED. CALL LIGHT PROMPTLY ATTENDED.
--- NOTE | 2021-08-25 07:22 | NUR ---
RN OPENING; RECEIVED PT IN BED, A/OX1. PT ON MECH VENT, WITH SETTINGS ORDERED. PT ON NEPHRO FEEDING @ [id number] HRS NOTED. RUNNING WELL. NO C/O PAIN AT THIS TIME. NO SOB OR DISTRESS NOTED. SAFETY MEASURES RENDERED, BED IN LOWEST POS. LOCKED, SIDE RAILS UP X3, WITH CALL LIGHT WITHIN REACH. WILL CONTINUE TO MONITOR.
[2021-08-25] MEDS: PANTOPRAZOLE 40 MG/PACK PACK GT SCH (08:07)
[2021-08-25] MEDS: VIT B CMPLX 3/FA/VIT C/BIOTIN 1 TAB TABLET GT SCH (08:07)
[2021-08-25 08:15] LABS: ABG BASE EXCESS -0.1 mmol/L; ABG OXYGEN SATURATION 94.4 % (92.0-98.5); ABG PCO2 37.3 mmHg (35.0-45.0); ABG PH 7.427 (7.350-7.450); ABG PO2 70.8 mmHg (75.0-100.0); AaDO2 171.5 mmHg; COHb 1.3 % (0.5-1.5); MetHb 0.3 % (0.0-1.5); O2Hb 92.9 % (94.0-97.0); PEEP,BG 5 cm H2O; SITE, ABG Right Radial; VT, ABG 400 mL
[2021-08-25] MEDS: Z GUARD REMEDY 2 OZ OINT TP SCH ×2 (09:10→21:05)
[2021-08-25] MEDS ORDERED: ALBUMIN 25% 25 GM in PREMIX 1 EA IV PRN (09:30)
[2021-08-25] MEDS: CHOLESTYRAMINE/ASPARTAME 4 G/PKT PACKET GT SCH ×2 (10:36→23:16)
--- NOTE | 2021-08-25 16:01 | NUR ---
RN NOTES; REPORT GIVEN TO OLIVIA LEAHY. PT IN BED RESTING. NO SIGNIFICANT CHANGES IN PT HEALTH STATUS.
--- NOTE | 2021-08-25 16:01 | NUR ---
RN NOTES RECEIVID PT FROM MELA RN FOR CONTINUITY OF CARE.
[2021-08-25] MEDS: CARVEDILOL 6.25 MG TABLET GT SCH (17:18)
--- NOTE | 2021-08-25 18:25 | NUR ---
RN NOTES NO SIGNIFICANT CHANGES NOTED , WILL ENDORSE TO FAMILY AND MARRIAGE COUNSELLOR NURSE FOR CONTINUITY OF CARE.
--- NOTE | 2021-08-25 19:35 | NUR ---
RN OPENING NOTE ICU PT REC'D IN BED, STILL ON PRECAUTIONS FOR CDIFF AND R/O COVID PER HOSP POLICY. PT IS ALERT AND ORIENTED, PT IS TRACH TO VENT. ON TELE MONITORING NSR HR 67. PT VENT SETTINGS SH 8 AC 16 TIDAL VOL 400 FIO2 40% AND PEEP 5. NO DISTRESS NOTED, PT O2 SAT 99% AT THIS TIME. PT DENIES PAIN. GT PATENT, 0 RESIDUAL. ASPIRATED, FLUSHED. MID LINE FLUSHED ASEPTICALLY. LEFT AV FISTULA NOTED, SIGN FOR NO /IV/BP/LAB DRAW ON LEFT POSTED. PT ABLE TO MAKE NEEDS KNOWN. SAFETY MEASURES IN PLACE. HOB ELEVATED SIDE RAILS UP X3 BED LOCKED IN LOWEST POSITION WITH BED ALARM ON. CALL LIGHT WITHIN REACH WILL CONT TO MONITOR.
[2021-08-25] MEDS: LORAZEPAM 1 MG TABLET GT PRN (21:12)
--- NOTE | 2021-08-25 21:12 | NUR ---
RN NOTE ANXIETY PT C/O ANXIETY, MAKING IT DIFFICULT TO BREATHE, ADMIN ATIVAN 0.5MG REQUESTED BY PT, ORDERED
--- NOTE | 2021-08-25 21:15 | NUR ---
RECEIVED PT TRACHED SHLY 8 ON [facility] VENT. PT IS AWAKE NO RESP DISTRESS. SX'D SMALL AMT OF THICK YELLOW SECRETIONS. VENT ALARMS SET AND AUDIBLE. CONTINUE TO MONITOR. Addendum: 08/25/21 at 2116 by KEEGAN MONTEMAYOR RT Amended: Links added.
[2021-08-25] MEDS: NEPRO 1,000 ML BOTTLE GT PRN (21:28)
--- NOTE | 2021-08-25 23:46 | NUR ---
RN NOTE TEMP PT ORAL TEMP 101.4 ADMIN TYLENOL 650MG ORDERED, COOLING MEASURES IN PLACE, COLD BATH AND ICE PACKS APPLIED TO AXILLARY AND GROIN, COLD COMPRESS APPLIED TO HEAD, BUT PT REFUSES AND CONTINUES TO ASK FOR BLANKETS DESPITE EDUCATION X3 WILL F/U TEMP
[2021-08-26] VITALS (21 sets, daily range): BP systolic 108–142; BP diastolic 56–75
[2021-08-26] MEDS: ALBUTEROL FS 2.5 MG/0.5 ML VIAL.NEB IH SCH ×4 (01:06→19:56)
[2021-08-26] MEDS: IPRATROPIUM NEB FS 0.5 MG/2.5 ML AMPUL.NEB IH SCH ×4 (01:06→19:56)
--- NOTE | 2021-08-26 01:30 | NUR ---
RN NOTE TEMP F/U IS 99.6
[2021-08-26 04:17] LABS: BASOPHILS % (AUTO) 0.3 % (0.0-2.0); EOSINOPHILS % (AUTO) 2.6 % (0.0-6.0); HEMATOCRIT 30 % (33-45); HEMOGLOBIN 9.6 g/dL (11.5-14.8); LYMPHOCYTES # (AUTO) 0.6 K/uL (0.8-4.8); LYMPHOCYTES % (AUTO) 6.6 % (20.0-44.0); MEAN CORPUSCULAR HGB CONC 33 g/dl (31.0-36.0); MEAN CORPUSCULAR VOLUME 123 fL (82-100); MONOCYTES # (AUTO) 0.8 K/uL (0.1-1.30); MONOCYTES % (AUTO) 8.9 % (2.0-12.0); NEUTROPHILS # (AUTO) 7.2 K/uL (1.8-8.9); NEUTROPHILS % (AUTO) 81.6 % (43.0-81.0); PLATELET COUNT (AUTO) 243 K/uL (150-450); RED BLOOD CELL COUNT(AUTO) 2.41 MIL/uL (4.0-5.2); WHITE BLOOD COUNT (AUTO) 8.9 K/uL (4.3-11.0)
[2021-08-26 04:39] LABS: CARBON DIOXIDE 29 mmol/L (21-32); CHLORIDE 100 mmol/L (98-107); CREATININE 2.3 mg/dL (0.6-1.3); GLUCOSE 98 mg/dL (74-106); MAGNESIUM 2.1 mg/dL (1.8-2.4); PHOSPHORUS 3.4 mg/dL (2.5-4.9); POTASSIUM 3.7 mmol/L (3.5-5.1); SODIUM SERUM 134 mmol/L (136-145); UREA NITROGEN, BLOOD 29 mg/dL (7-18)
[2021-08-26] MEDS: VANCOMYCIN HCL 125 MG/2.5 ML ORAL.SUSP PO SCH ×3 (06:04→17:15)
[2021-08-26] MEDS ORDERED: IV NS 0.9% 250 ML IV PRN ×2 (06:30)
[2021-08-26] MEDS ORDERED: IV NS 0.9% 250 ML IV ONE (06:30)
[2021-08-26 06:31] LABS: EOSINOPHILS % (MANUAL) 1 % (0-4); LYMPHOCYTES % (MANUAL) 6 % (16-48); MONOCYTES % (MANUAL) 7 % (0-11.0); NEUTROPHILS % (MANUAL) 86 (42-76)
--- NOTE | 2021-08-26 06:41 | NUR ---
RN NOTE ASIDE FROM TEMP, NO SIGNIFICANT CHANGES. PT STILL PENDING BLOOD CX, NO CHANGE TO VENT SETTINGS, VS STABLE, WNL OF PT. GTUBE RUNNING, TO BE TURNED OFF AT 1400. 400CC OUT OF RECTAL TUBE. PT NEEDS ATTENDED, RESTING AT THIS TIME. SAFETY MEASURES IN PLACE. WILL ENDORSE TO DAY SHIFT RN FOR CONTINUATION OF CARE Addendum: 08/26/21 at 0643 by FRANSICO HAUSER RN WOUND CARE DONE, TURN REPOSITIONED Q2H. BED BATH LINEN CHANGE DONE.
--- NOTE | 2021-08-26 07:00 | NUR ---
RN NOTE RECEIVED PT ON BED, STILL ON PRECAUTIONS FOR C-DIFF AND R/O COVID PER HOSPITAL POLICY. PT IS ALERT/ NON VERBAL , VENT/ TRACH DEPENDENT , TOLERATING VENT SETTING WELL , O2 SAT WNL, PT IS TRACH TO VENT. ON TELE MONITORING NSR HR IN 60'S , GT PATENT, 0 RESIDUAL. ASPIRATED, FLUSHED. MID LINE FLUSHED ASEPTICALLY. LEFT AV FISTULA NOTED, PT ABLE TO MAKE NEEDS KNOWN. SAFETY MEASURES IN PLACE. HOB ELEVATED SIDE RAILS UP X3 BED LOCKED IN LOWEST POSITION WITH BED ALARM ON. CALL LIGHT WITHIN EASY REACH WILL CONT TO MONITOR.-
[2021-08-26] MEDS: VIT B CMPLX 3/FA/VIT C/BIOTIN 1 TAB TABLET GT SCH (08:11)
[2021-08-26] MEDS: CARVEDILOL 6.25 MG TABLET GT SCH ×2 (08:14→17:15)
[2021-08-26] MEDS: AMLODIPINE BESYLATE 10 MG TABLET GT SCH (08:14)
[2021-08-26] MEDS: PANTOPRAZOLE 40 MG/PACK PACK GT SCH (08:14)
[2021-08-26] MEDS: Z GUARD REMEDY 2 OZ OINT TP SCH ×2 (08:15→21:07)
[2021-08-26] MEDS: CHOLESTYRAMINE/ASPARTAME 4 G/PKT PACKET GT SCH ×2 (11:04→22:42)
[2021-08-26] MEDS ORDERED: DOSING PER PHARMACY-AMIKACI IV XX PRN (12:00)
--- NOTE | 2021-08-26 12:00 | NUR ---
RN NOTES FAMILY AT THE BEDSIDE, TOLERAING TF WELL, CONTINUE TO MONITOR.
[2021-08-26] MEDS ORDERED: VANCOMYCIN 1 GM in IV D5W 250 ML IV ONE (13:00)
[2021-08-26] MEDS ORDERED: AMIKACIN 1,000 MG in IV D5W 100 ML IV ONE (13:00)
[2021-08-26] MEDS: LORAZEPAM 1 MG TABLET GT PRN (13:13)
[2021-08-26] MEDS: METRONIDAZOLE 500 MG TABLET PO SCH ×2 (13:13→21:03)
--- NOTE | 2021-08-26 16:15 | NUR ---
RN NOTES PT TRANSFERRED TO ROOM 311-1, TELE STATUS VIA ACLS PROTOCOL , REPORT GIVEN TO LYLY BAKER FOR CONTINUITY OF CARE .
--- NOTE | 2021-08-26 16:20 | NUR ---
MINE LABORER NOTES RECEIVED PT FROM ICU VIA BED, PATIENT IS AWAKE, A&O X 3, ABLE TO MOUTH WORDS, ON PRECAUTIONS FOR C-DIFF, VENT/ TRACH DEPENDENT , TOLERATING VENT SETTINGS WELL , O2 SAT WNL, ON TELE MONITORING SHOWING NSR HR IN 60'S , GT IN PLACE, PATENT, NO RESIDUAL NOTED. ASPIRATED, FLUSHED. NOTED WITH CHANDNI MID LINE, PATENT NAD FLUSHES WELL. LEFT AV FISTULA NOTED, (+) BRUIT, (+) THRILL. SAFETY MEASURES IN PLACE: KEPT HOB ELEVATED, SIDE RAILS UP X3 BED LOCKED IN LOWEST POSITION WITH BED ALARM ON. CALL LIGHT WITHIN EASY REACH, WILL CONTINUE TO MONITOR ACCORDINGLY. Addendum: 08/26/21 at 1702 by LYLY HERNANDEZ RN NOTED WITH FLEXISEAL.
--- NOTE | 2021-08-26 18:55 | NUR ---
PACKING MACHINE FEEDER CLOSING NOTES PATIENT IN BED, AWAKE, A&O X 3, ABLE TO MOUTH WORDS, ON PRECAUTIONS FOR C-DIFF, VENT/ TRACH DEPENDENT , TOLERATING VENT SETTINGS WELL , O2 SAT WNL, ON TELE MONITORING SHOWING NSR HR IN 60'S , GT IN PLACE, PATENT, NO RESIDUAL NOTED. ASPIRATED, FLUSHED. NOTED WITH CHANDNI MID LINE, PATENT AND FLUSHES WELL. LEFT AV FISTULA NOTED, (+) BRUIT, (+) THRILL. NOTED WITH FLEXISEAL. SAFETY MEASURES IN PLACE: KEPT HOB ELEVATED, SIDE RAILS UP X3 BED LOCKED IN LOWEST POSITION WITH BED ALARM ON. CALL LIGHT WITHIN EASY REACH. ALL NEEDS ATTENDED AND MET, DUE MEDS GIVEN ORDERED. WILL ENDORSE TO ONCOMING SHIFT FOR NOAH.
--- NOTE | 2021-08-26 19:30 | NUR ---
HIRED HAND NOTES SR-82 ON TELE MONITOR,ON BED A/O X3,ON TRACH TO VENT AC-16,TV-400,FIO1-40%,PEEP-5,SHILEY#6 TOLERATED WELL,SUCTION MUCUS NEEDED.WITH CHANDNI MIDLINE FOR MEDS,LEFT ARM FISTULA FOR HD ACCESS,GT IN PLACE,INTACT AND PATENT.NO RESIDUAL VOLUME NOTED.ISOLATION PRECAUTION FOR C-DIFF POSITIVE.ON FLEXICIL.WILL CONTINUE TO MONITOR STATUS.
[2021-08-26] MEDS: NEPRO 1,000 ML BOTTLE GT PRN (19:56)
--- NOTE | 2021-08-26 20:00 | NUR ---
TRUCK STRIKER NOTES STARTED ON GT FEEDING AT 45ML/HR RATE X 18 HOURS,ON AT 2000,OFF AT 1300.HOB ELEVATED FOR ASPIRATION PRECAUTION.
[2021-08-27] VITALS (7 sets, daily range): BP systolic 122–144; BP diastolic 66–75
[2021-08-27] MEDS: VANCOMYCIN HCL 125 MG/2.5 ML ORAL.SUSP PO SCH ×4 (00:43→17:00)
[2021-08-27] MEDS: IPRATROPIUM NEB FS 0.5 MG/2.5 ML AMPUL.NEB IH SCH ×3 (01:38→13:12)
[2021-08-27] MEDS: ALBUTEROL FS 2.5 MG/0.5 ML VIAL.NEB IH SCH ×3 (01:38→13:12)
[2021-08-27] MEDS: METRONIDAZOLE 500 MG TABLET PO SCH ×2 (05:09→12:43)
[2021-08-27] MEDS: ACETAMINOPHEN 325 MG TABLET PO PRN (05:15)
[2021-08-27] MEDS ORDERED: VANCOMYCIN 500 MG in IV D5W 100 ML IV PRN (06:00)
[2021-08-27] MEDS ORDERED: AMIKACIN 500 MG in IV D5W 100 ML IV PRN (06:00)
--- NOTE | 2021-08-27 06:24 | NUR ---
WATER SYSTEMS ENGINEER NOTES NO SIGNIFICANT CHANGE IN STATUS,SLIGHT TEMP OF 99.2,GT FEEDING TOLERATED WELL,NO RESIDUAL VOLUME.HOB ELEVATED,SUCTION MUCUS NEEDED.VENT SETTINGS TOLERATED WELL,IN NO ACUTE DISTRESS.
[2021-08-27 06:51] LABS: BASOPHILS % (AUTO) 0.5 % (0.0-2.0); EOSINOPHILS % (AUTO) 5.7 % (0.0-6.0); HEMATOCRIT 29 % (33-45); HEMOGLOBIN 9.6 g/dL (11.5-14.8); LYMPHOCYTES # (AUTO) 0.6 K/uL (0.8-4.8); LYMPHOCYTES % (AUTO) 8.3 % (20.0-44.0); MEAN CORPUSCULAR HGB CONC 33 g/dl (31.0-36.0); MEAN CORPUSCULAR VOLUME 121 fL (82-100); MONOCYTES # (AUTO) 0.7 K/uL (0.1-1.30); MONOCYTES % (AUTO) 9.9 % (2.0-12.0); NEUTROPHILS # (AUTO) 5.1 K/uL (1.8-8.9); NEUTROPHILS % (AUTO) 75.6 % (43.0-81.0); PLATELET COUNT (AUTO) 241 K/uL (150-450); RED BLOOD CELL COUNT(AUTO) 2.42 MIL/uL (4.0-5.2); WHITE BLOOD COUNT (AUTO) 6.8 K/uL (4.3-11.0)
[2021-08-27 07:04] LABS: CALCIUM, SERUM 8.1 mg/dL (8.5-10.1); CARBON DIOXIDE 24 mmol/L (21-32); CHLORIDE 98 mmol/L (98-107); CREATININE 2.8 mg/dL (0.6-1.3); GLUCOSE 114 mg/dL (74-106); MAGNESIUM 2.3 mg/dL (1.8-2.4); PHOSPHORUS 3.3 mg/dL (2.5-4.9); POTASSIUM 3.9 mmol/L (3.5-5.1); SODIUM SERUM 131 mmol/L (136-145); UREA NITROGEN, BLOOD 38 mg/dL (7-18)
--- NOTE | 2021-08-27 07:30 | NUR ---
BANQUET SERVER ON CALL OPENING NOTE RECEIVED PT IN BED WITH EYES CLOSED, AROUSABLE TO STIMULATION. A/O X3. PT ON TRACH TO VENT WITH PRESCRIBED SETTINGS: AC-16, TV-400, FIO2-40%, PEEP-5, SHILEY-#6 WITH NO SOB OR S/S OF RESPIRATORY DISTRESS NOTED. PT ON EXTERNAL DIGITAL PHOTOGRAPHIC PRINTER READING SR. PT HAS NO C/O PAIN OR DISCOMFORT AT THIS TIME. PT ON GTUBE WITH NEPRO RUNNING AT 45ML/HR, INTACT AND PATENT. PT NOTED WITH FLEXISEAL INTACT. IV ACCESS IN CHANDNI MIDLINE, INTACT AND PATENT. PT NOTED WITH LEFT ARM FISTULA FOR HD ACCESS. ISOLATION PRECAUTIONS MAINTAINED FOR POSITIVE C-DIFF. SAFETY PRECAUTIONS MAINTAINED. BED IN LOWEST LOCKED POSITION, HOB ELEVATED, SIDE RAILS UP X2. CALL LIGHT AND TABLE WITHIN REACH. WILL CONTINUE TO MONITOR.
[2021-08-27] MEDS: VIT B CMPLX 3/FA/VIT C/BIOTIN 1 TAB TABLET GT SCH (08:32)
[2021-08-27] MEDS: PANTOPRAZOLE 40 MG/PACK PACK GT SCH (08:32)
[2021-08-27] MEDS: Z GUARD REMEDY 2 OZ OINT TP SCH (09:26)
[2021-08-27 09:37] LABS: EOSINOPHILS % (MANUAL) 8 % (0-4); LYMPHOCYTES % (MANUAL) 7 % (16-48); MONOCYTES % (MANUAL) 9 % (0-11.0); NEUTROPHILS % (MANUAL) 76 (42-76)
[2021-08-27] MEDS: CHOLESTYRAMINE/ASPARTAME 4 G/PKT PACKET GT SCH (11:18)
--- NOTE | 2021-08-27 11:48 | NUR ---
RN NOTE HD TX COMPLETED AT THIS TIME. PER COLLEGE BASKETBALL COACH EVELYN, OUTPUT=3L. PT IN STABLE CONDITION AND TOLERATED WELL WITH NO COMPLICATIONS NOTED. WILL CONTINUE TO MONITOR PT.
[2021-08-27] MEDS: CARVEDILOL 6.25 MG TABLET GT SCH (16:40)
--- NOTE | 2021-08-27 18:00 | NUR ---
REPORT GIVEN TO OLIVIA EARLY FOR NOAH.
--- NOTE | 2021-08-27 19:20 | NUR ---
SOA INTEGRATION DEVELOPERMILLINERY BLOCKER NOTE PT DISCHARGED TO [facility] SUBACUTE AT THIS TIME. PT IS MEDICALLY STABLE AND CLEARED FOR DISCHARGE BY KORY COTA. ALL PT CARE, NEEDS, MEDICATIONS, AND TREATMENT ADMINISTERED PER ORDER. PT KEPT CLEAN AND DRY. PT TRANSPORTED TO SUBACUTE UNIT VIA BED ACCOMPANIED BY OLIVIA MONTESINOS AND RT RENE. CHARGE NURSE MARCO A AND KORY COTA AWARE.
== END 2021-08-27 19:20 | DRG 870 ==
LOC: ER 14:44 → ICU 22:12 → TELE 08-26 16:23
PROVIDERS: ADMIT Internal Medicine; ATTEND Nurse Practitioner Family
PROC: 5A1955Z Respiratory Ventilation, Greater than 96 Consecutive Hours (ICD-10-PCS; principal; 2021-08-23)
PROC: 05H533Z Insertion of Infusion Device into Right Subclavian Vein, Percutaneous Approach (ICD-10-PCS; 2021-08-24)
PROC: B546ZZA Ultrasonography of Right Subclavian Vein, Guidance (ICD-10-PCS; 2021-08-24)
PROC: 5A1D70Z Performance of Urinary Filtration, Intermittent, Less than 6 Hours Per Day (ICD-10-PCS; 2021-08-25)
DX: A41.9 Sepsis, unspecified organism (principal); J15.6 Pneumonia due to other Gram-negative bacteria; I50.33 Acute on chronic diastolic (congestive) heart failure; N18.6 End stage renal disease; J96.22 Acute and chronic respiratory failure with hypercapnia; J96.21 Acute and chronic respiratory failure with hypoxia; I13.2 Hypertensive heart and chronic kidney disease with heart failure and with stage 5 chronic kidney disease, or end stage renal disease; E87.1 Hypo-osmolality and hyponatremia; Z99.11 Dependence on respirator [ventilator] status; G93.40 Encephalopathy, unspecified; A04.72 Enterocolitis due to Clostridium difficile, not specified as recurrent; Z20.822 Contact with and (suspected) exposure to COVID-19; Z87.440 Personal history of urinary (tract) infections; Z99.2 Dependence on renal dialysis; D63.1 Anemia in chronic kidney disease; E78.5 Hyperlipidemia, unspecified; F41.9 Anxiety disorder, unspecified; M81.0 Age-related osteoporosis without current pathological fracture; E83.9 Disorder of mineral metabolism, unspecified; R13.10 Dysphagia, unspecified; Z86.19 Personal history of other infectious and parasitic diseases; Z86.73 Personal history of transient ischemic attack (TIA), and cerebral infarction without residual deficits; D53.1 Other megaloblastic anemias, not elsewhere classified; Z93.1 Gastrostomy status; Z93.0 Tracheostomy status; I25.2 Old myocardial infarction
CPT/HCPCS: 31720; 36410; 36415; 36600; 71045-TC; 80048-TC; 80150; 80202-TC; 82803-TC; 83735-TC; 84100-TC; 84484-TC; 85025-TC; 86706; 87040-TC; 87081-TC; 87340; 90935-TC; 94002-TC; 94003-TC; 94760-TC; 94762-TC; 94799-TC; 99082-TC; A4216; A7526; G0378; J0278; J2185; J2405; J2543; J3370; J7030; J7042; J7050; J7060; P9047; U0003

== ENCOUNTER 2021-09-25 00:01 | Inpatient (IN) | payer MEDICARE, MEDICAID ==
[~2021-09-25] VITALS: Ht 162.6 cm; Wt 75.3 kg
[~2021-09-25 00:01] MED LIST changes: -GUAI100S11 GT; +HYDR1SOL TD; -MAG355OR18 GT; -MAGN400O6 GT; +VITS5OIN2 TP
[2021-09-27] MEDS: HYDROGEN PEROXIDE 480 ML BOTTLE TP SCH ×2 (10:00→21:03)
[2021-09-27] MEDS ORDERED: LORAZEPAM 0.5 MG TABLET GT PRN (10:00)
[2021-09-27] MEDS ORDERED: MAGNESIUM HYDROXIDE 30 ML UDC GT PRN (10:00)
[2021-09-27] MEDS: VIT B CMPLX 3/FA/VIT C/BIOTIN 1 TAB TABLET GT SCH (10:46)
[2021-09-27] MEDS: NEUTRA PHOS 1 POWD.PACKET GT SCH (10:46)
[2021-09-27] MEDS: ACIDOPHILUS/BULGARICUS 1 EACH TAB.CHEW GT SCH ×2 (10:46→17:00)
[2021-09-27] MEDS: CHOLESTYRAMINE/ASPARTAME 4 G/PKT PACKET GT SCH ×2 (10:46→21:11)
[2021-09-27] MEDS: PANTOPRAZOLE 40 MG/PACK PACK GT SCH (10:46)
[2021-09-27] MEDS: PROSOURCE / PROSTAT (PYXIS) 30 ML UDC GT SCH ×2 (10:46→17:00)
[2021-09-27] MEDS: METOCLOPRAMIDE HCL 10 MG/10 ML UDC GT SCH ×2 (12:33→18:29)
[2021-09-27] MEDS: HYDROCODONE/APAP 5/325MG TABLET GT PRN (12:34)
[2021-09-27] MEDS: IPRATROPIUM NEB FS 0.5 MG/2.5 ML AMPUL.NEB NEB SCH ×2 (13:30→19:56)
[2021-09-27] MEDS: ALBUTEROL FS 2.5 MG/0.5 ML VIAL.NEB NEB SCH ×2 (13:30→19:56)
[2021-09-27 14:25] VITALS: BP 148/60
[2021-09-27 19:21] VITALS: BP 156/82
[2021-09-27] MEDS: MELATONIN 3 MG TABLET GT SCH (21:11)
[2021-09-27] MEDS: Z GUARD REMEDY 4 OZ OINT TP SCH (21:11)
[2021-09-27] MEDS: VITAMINS A AND D 56.7 GM TUBE TP SCH (21:11)
[2021-09-27 22:00] VITALS: BP 156/82
[2021-09-28] MEDS: METOCLOPRAMIDE HCL 10 MG/10 ML UDC GT SCH ×4 (00:37→17:03)
[2021-09-28] MEDS: IPRATROPIUM NEB FS 0.5 MG/2.5 ML AMPUL.NEB NEB SCH ×4 (01:24→19:19)
[2021-09-28] MEDS: ALBUTEROL FS 2.5 MG/0.5 ML VIAL.NEB NEB SCH ×4 (01:24→19:19)
[2021-09-28 07:25] VITALS: BP 106/66
[2021-09-28] MEDS: HYDROGEN PEROXIDE 480 ML BOTTLE TP SCH ×2 (08:38→21:39)
[2021-09-28] MEDS: CARVEDILOL 6.25 MG TABLET PEG SCH (09:00)
[2021-09-28] MEDS: NEUTRA PHOS 1 POWD.PACKET GT SCH (09:08)
[2021-09-28] MEDS: PANTOPRAZOLE 40 MG/PACK PACK GT SCH (09:08)
[2021-09-28] MEDS: CHOLESTYRAMINE/ASPARTAME 4 G/PKT PACKET GT SCH ×2 (09:08→20:31)
[2021-09-28] MEDS: VIT B CMPLX 3/FA/VIT C/BIOTIN 1 TAB TABLET GT SCH (09:08)
[2021-09-28] MEDS: AMLODIPINE BESYLATE 10 MG TABLET PEG SCH (09:08)
[2021-09-28] MEDS: ACIDOPHILUS/BULGARICUS 1 EACH TAB.CHEW GT SCH ×2 (09:08→17:03)
[2021-09-28] MEDS: PROSOURCE / PROSTAT (PYXIS) 30 ML UDC GT SCH ×2 (09:08→17:03)
[2021-09-28] MEDS: VITAMINS A AND D 56.7 GM TUBE TP SCH ×2 (09:09→20:31)
[2021-09-28] MEDS: Z GUARD REMEDY 4 OZ OINT TP SCH ×2 (09:09→20:31)
[2021-09-28 12:44] VITALS: BP 143/64
[2021-09-28 17:05] VITALS: BP 143/54
[2021-09-28 19:39] VITALS: BP 152/79
[2021-09-28] MEDS: MELATONIN 3 MG TABLET GT SCH (21:12)
[2021-09-28 22:33] VITALS: BP 152/74
[2021-09-29] MEDS: METOCLOPRAMIDE HCL 10 MG/10 ML UDC GT SCH ×4 (00:28→17:13)
[2021-09-29] MEDS: NEPRO 1,000 ML BOTTLE GT PRN (00:42)
[2021-09-29 01:07] VITALS: BP 127/74
[2021-09-29] MEDS: IPRATROPIUM NEB FS 0.5 MG/2.5 ML AMPUL.NEB NEB SCH ×4 (01:15→19:45)
[2021-09-29] MEDS: ALBUTEROL FS 2.5 MG/0.5 ML VIAL.NEB NEB SCH ×4 (01:15→19:45)
[2021-09-29 07:25] VITALS: BP 152/75
[2021-09-29] MEDS: ACIDOPHILUS/BULGARICUS 1 EACH TAB.CHEW GT SCH ×2 (08:24→17:12)
[2021-09-29] MEDS: PROSOURCE / PROSTAT (PYXIS) 30 ML UDC GT SCH ×2 (08:25→17:12)
[2021-09-29] MEDS: Z GUARD REMEDY 4 OZ OINT TP SCH ×2 (08:26→21:10)
[2021-09-29] MEDS: VITAMINS A AND D 56.7 GM TUBE TP SCH ×2 (08:27→21:10)
[2021-09-29] MEDS: VIT B CMPLX 3/FA/VIT C/BIOTIN 1 TAB TABLET GT SCH (08:29)
[2021-09-29] MEDS: NEUTRA PHOS 1 POWD.PACKET GT SCH (08:29)
[2021-09-29] MEDS: CHOLESTYRAMINE/ASPARTAME 4 G/PKT PACKET GT SCH ×2 (08:29→21:10)
[2021-09-29] MEDS: PANTOPRAZOLE 40 MG/PACK PACK GT SCH (08:29)
[2021-09-29] MEDS: HYDROGEN PEROXIDE 480 ML BOTTLE TP SCH ×2 (09:09→19:45)
[2021-09-29 10:00] VITALS: BP 152/75
[2021-09-29] MEDS: ONDANSETRON 4 MG TAB.RAPDIS GT PRN ×2 (13:22→21:52)
[2021-09-29 13:26] VITALS: BP 143/72
[2021-09-29 19:27] VITALS: BP 149/84
[2021-09-29] MEDS: MELATONIN 3 MG TABLET GT SCH (21:10)
[2021-09-29] MEDS: LOPERAMIDE HCL UDC 2 MG/15 ML LIQUID PO PRN (21:52)
[2021-09-29 22:00] VITALS: BP 149/84
[2021-09-30 00:15] VITALS: BP 121/65
[2021-09-30] MEDS: ALBUTEROL FS 2.5 MG/0.5 ML VIAL.NEB NEB SCH ×4 (01:31→19:45)
[2021-09-30] MEDS: IPRATROPIUM NEB FS 0.5 MG/2.5 ML AMPUL.NEB NEB SCH ×4 (01:31→19:45)
[2021-09-30] MEDS: METOCLOPRAMIDE HCL 10 MG/10 ML UDC GT SCH ×5 (05:20→23:32)
[2021-09-30 07:22] VITALS: BP 138/72
[2021-09-30] MEDS: HYDROGEN PEROXIDE 480 ML BOTTLE TP SCH ×2 (08:03→20:36)
[2021-09-30] MEDS: Z GUARD REMEDY 4 OZ OINT TP SCH ×2 (09:00→21:35)
[2021-09-30] MEDS: CARVEDILOL 6.25 MG TABLET PEG SCH (09:00)
[2021-09-30] MEDS: VITAMINS A AND D 56.7 GM TUBE TP SCH ×2 (09:00→21:35)
[2021-09-30] MEDS: AMLODIPINE BESYLATE 10 MG TABLET PEG SCH (09:00)
[2021-09-30] MEDS: ONDANSETRON 4 MG TAB.RAPDIS GT PRN (09:23)
[2021-09-30] MEDS: ACIDOPHILUS/BULGARICUS 1 EACH TAB.CHEW GT SCH ×2 (09:25→17:42)
[2021-09-30] MEDS: NEUTRA PHOS 1 POWD.PACKET GT SCH (09:25)
[2021-09-30] MEDS: CHOLESTYRAMINE/ASPARTAME 4 G/PKT PACKET GT SCH ×2 (09:25→21:35)
[2021-09-30] MEDS: PANTOPRAZOLE 40 MG/PACK PACK GT SCH (09:25)
[2021-09-30] MEDS: VIT B CMPLX 3/FA/VIT C/BIOTIN 1 TAB TABLET GT SCH (09:25)
[2021-09-30] MEDS: PROSOURCE / PROSTAT (PYXIS) 30 ML UDC GT SCH ×2 (09:25→17:42)
[2021-09-30 11:58] VITALS: BP 148/85
[2021-09-30] MEDS: NEPRO 1,000 ML BOTTLE GT PRN (18:00)
[2021-09-30 20:40] VITALS: BP 147/72
[2021-09-30] MEDS: MELATONIN 3 MG TABLET GT SCH (21:35)
[2021-10-01] MEDS: IPRATROPIUM NEB FS 0.5 MG/2.5 ML AMPUL.NEB NEB SCH ×5 (01:23→19:16)
[2021-10-01] MEDS: ALBUTEROL FS 2.5 MG/0.5 ML VIAL.NEB NEB SCH ×5 (01:23→19:16)
[2021-10-01 01:38] VITALS: BP 125/65
[2021-10-01] MEDS: METOCLOPRAMIDE HCL 10 MG/10 ML UDC GT SCH ×4 (05:30→23:18)
[2021-10-01 07:11] VITALS: BP 142/73
[2021-10-01] MEDS: HYDROGEN PEROXIDE 480 ML BOTTLE TP SCH ×2 (09:00→21:00)
[2021-10-01] MEDS: PROSOURCE / PROSTAT (PYXIS) 30 ML UDC GT SCH ×2 (09:50→17:48)
[2021-10-01] MEDS: NEUTRA PHOS 1 POWD.PACKET GT SCH (09:50)
[2021-10-01] MEDS: PANTOPRAZOLE 40 MG/PACK PACK GT SCH (09:50)
[2021-10-01] MEDS: Z GUARD REMEDY 4 OZ OINT TP SCH ×2 (09:50→20:40)
[2021-10-01] MEDS: CHOLESTYRAMINE/ASPARTAME 4 G/PKT PACKET GT SCH ×2 (09:50→20:40)
[2021-10-01] MEDS: VIT B CMPLX 3/FA/VIT C/BIOTIN 1 TAB TABLET GT SCH (09:50)
[2021-10-01] MEDS: VITAMINS A AND D 56.7 GM TUBE TP SCH ×2 (09:50→20:40)
[2021-10-01] MEDS: ACIDOPHILUS/BULGARICUS 1 EACH TAB.CHEW GT SCH ×2 (09:50→17:48)
[2021-10-01] MEDS: ONDANSETRON 4 MG TAB.RAPDIS GT PRN (09:51)
[2021-10-01] MEDS: ACETAMINOPHEN 650 MG/20 ML UDC- SA PATIENTS-PAIN ONLY GT PRN ×2 (12:22→20:41)
[2021-10-01 12:24] VITALS: BP 140/71
[2021-10-01 19:35] VITALS: BP 136/74
[2021-10-01] MEDS: LOPERAMIDE HCL UDC 2 MG/15 ML LIQUID PO PRN (20:41)
[2021-10-01] MEDS: MELATONIN 3 MG TABLET GT SCH (21:20)
[2021-10-02] MEDS: ALBUTEROL FS 2.5 MG/0.5 ML VIAL.NEB NEB SCH ×4 (01:48→19:17)
[2021-10-02] MEDS: IPRATROPIUM NEB FS 0.5 MG/2.5 ML AMPUL.NEB NEB SCH ×4 (01:48→19:17)
[2021-10-02] MEDS: NEPRO 1,000 ML BOTTLE GT PRN (05:08)
[2021-10-02] MEDS: METOCLOPRAMIDE HCL 10 MG/10 ML UDC GT SCH ×3 (05:08→17:13)
[2021-10-02 07:23] VITALS: BP 138/67
[2021-10-02 07:24] VITALS: BP 138/67
[2021-10-02] MEDS: HYDROGEN PEROXIDE 480 ML BOTTLE TP SCH ×2 (08:13→21:05)
[2021-10-02] MEDS: PROSOURCE / PROSTAT (PYXIS) 30 ML UDC GT SCH ×2 (08:52→17:13)
[2021-10-02] MEDS: ACIDOPHILUS/BULGARICUS 1 EACH TAB.CHEW GT SCH ×2 (08:52→17:13)
[2021-10-02] MEDS: VIT B CMPLX 3/FA/VIT C/BIOTIN 1 TAB TABLET GT SCH (08:55)
[2021-10-02] MEDS: NEUTRA PHOS 1 POWD.PACKET GT SCH (08:55)
[2021-10-02] MEDS: CHOLESTYRAMINE/ASPARTAME 4 G/PKT PACKET GT SCH ×2 (08:55→21:08)
[2021-10-02] MEDS: PANTOPRAZOLE 40 MG/PACK PACK GT SCH (08:55)
[2021-10-02] MEDS: VITAMINS A AND D 56.7 GM TUBE TP SCH ×2 (08:56→21:27)
[2021-10-02] MEDS: Z GUARD REMEDY 4 OZ OINT TP SCH ×2 (08:56→21:08)
[2021-10-02] MEDS: CARVEDILOL 6.25 MG TABLET PEG SCH (08:58)
[2021-10-02] MEDS: AMLODIPINE BESYLATE 10 MG TABLET PEG SCH (08:59)
[2021-10-02] MEDS: ACETAMINOPHEN 650 MG/20 ML UDC- SA PATIENTS-PAIN ONLY GT PRN (10:34)
[2021-10-02 13:15] VITALS: BP 135/69
[2021-10-02 19:54] VITALS: BP 162/73
[2021-10-02] MEDS: MELATONIN 3 MG TABLET GT SCH (21:27)
[2021-10-02] MEDS: MAG HYDROX/AL HYDROX/SIMETH 30 ML UDC GT PRN (21:28)
[2021-10-03 00:30] VITALS: BP 130/66
[2021-10-03] MEDS: IPRATROPIUM NEB FS 0.5 MG/2.5 ML AMPUL.NEB NEB SCH ×4 (01:26→19:26)
[2021-10-03] MEDS: ALBUTEROL FS 2.5 MG/0.5 ML VIAL.NEB NEB SCH ×4 (01:26→19:26)
[2021-10-03] MEDS: METOCLOPRAMIDE HCL 10 MG/10 ML UDC GT SCH ×4 (05:42→17:38)
[2021-10-03 07:38] VITALS: BP 140/72
[2021-10-03] MEDS: HYDROGEN PEROXIDE 480 ML BOTTLE TP SCH ×2 (08:10→20:06)
[2021-10-03] MEDS: ACIDOPHILUS/BULGARICUS 1 EACH TAB.CHEW GT SCH ×2 (09:00→17:38)
[2021-10-03] MEDS: CARVEDILOL 6.25 MG TABLET PEG SCH (09:00)
[2021-10-03] MEDS: AMLODIPINE BESYLATE 10 MG TABLET PEG SCH (09:00)
[2021-10-03] MEDS: NEUTRA PHOS 1 POWD.PACKET GT SCH (09:00)
[2021-10-03] MEDS: CHOLESTYRAMINE/ASPARTAME 4 G/PKT PACKET GT SCH ×2 (09:00→20:35)
[2021-10-03] MEDS: PROSOURCE / PROSTAT (PYXIS) 30 ML UDC GT SCH ×2 (09:00→17:38)
[2021-10-03] MEDS: PANTOPRAZOLE 40 MG/PACK PACK GT SCH (09:00)
[2021-10-03] MEDS: Z GUARD REMEDY 4 OZ OINT TP SCH ×2 (09:00→20:36)
[2021-10-03] MEDS: VIT B CMPLX 3/FA/VIT C/BIOTIN 1 TAB TABLET GT SCH (09:00)
[2021-10-03] MEDS: VITAMINS A AND D 56.7 GM TUBE TP SCH ×2 (09:00→20:36)
[2021-10-03 11:57] VITALS: BP 136/72
[2021-10-03] MEDS: NEPRO 1,000 ML BOTTLE GT PRN (13:03)
[2021-10-03 20:19] VITALS: BP 142/78
[2021-10-03] MEDS: MELATONIN 3 MG TABLET GT SCH (21:13)
[2021-10-04] MEDS: METOCLOPRAMIDE HCL 10 MG/10 ML UDC GT SCH ×4 (00:10→18:17)
[2021-10-04] MEDS: ALBUTEROL FS 2.5 MG/0.5 ML VIAL.NEB NEB SCH ×5 (00:54→19:25)
[2021-10-04] MEDS: IPRATROPIUM NEB FS 0.5 MG/2.5 ML AMPUL.NEB NEB SCH ×5 (00:54→19:25)
[2021-10-04] MEDS: HYDROCODONE/APAP 5/325MG TABLET GT PRN (00:59)
[2021-10-04 07:46] VITALS: BP 142/77
[2021-10-04] MEDS: HYDROGEN PEROXIDE 480 ML BOTTLE TP SCH ×2 (09:15→21:00)
[2021-10-04] MEDS: VIT B CMPLX 3/FA/VIT C/BIOTIN 1 TAB TABLET GT SCH (09:52)
[2021-10-04] MEDS: Z GUARD REMEDY 4 OZ OINT TP SCH ×2 (09:52→20:33)
[2021-10-04] MEDS: ACIDOPHILUS/BULGARICUS 1 EACH TAB.CHEW GT SCH ×2 (09:52→18:00)
[2021-10-04] MEDS: PANTOPRAZOLE 40 MG/PACK PACK GT SCH (09:52)
[2021-10-04] MEDS: VITAMINS A AND D 56.7 GM TUBE TP SCH ×2 (09:52→20:33)
[2021-10-04] MEDS: CHOLESTYRAMINE/ASPARTAME 4 G/PKT PACKET GT SCH ×2 (09:52→20:31)
[2021-10-04] MEDS: NEUTRA PHOS 1 POWD.PACKET GT SCH (09:52)
[2021-10-04] MEDS: PROSOURCE / PROSTAT (PYXIS) 30 ML UDC GT SCH ×2 (09:52→18:00)
[2021-10-04] MEDS: ONDANSETRON 4 MG TAB.RAPDIS GT PRN (09:54)
[2021-10-04] MEDS: ACETAMINOPHEN 650 MG/20 ML UDC- SA PATIENTS-PAIN ONLY GT PRN (11:59)
[2021-10-04 13:18] VITALS: BP 140/68
[2021-10-04 20:17] VITALS: BP 128/71
[2021-10-04] MEDS: MELATONIN 3 MG TABLET GT SCH (21:14)
[2021-10-05] MEDS: METOCLOPRAMIDE HCL 10 MG/10 ML UDC GT SCH ×5 (00:26→23:25)
[2021-10-05] MEDS: NEPRO 1,000 ML BOTTLE GT PRN (00:29)
[2021-10-05] MEDS: ALBUTEROL FS 2.5 MG/0.5 ML VIAL.NEB NEB SCH ×4 (01:52→19:52)
[2021-10-05] MEDS: IPRATROPIUM NEB FS 0.5 MG/2.5 ML AMPUL.NEB NEB SCH ×4 (01:52→19:52)
[2021-10-05 07:56] VITALS: BP 142/70
[2021-10-05] MEDS: VIT B CMPLX 3/FA/VIT C/BIOTIN 1 TAB TABLET GT SCH (08:05)
[2021-10-05] MEDS: NEUTRA PHOS 1 POWD.PACKET GT SCH (08:05)
[2021-10-05] MEDS: ACIDOPHILUS/BULGARICUS 1 EACH TAB.CHEW GT SCH ×2 (08:05→16:59)
[2021-10-05] MEDS: PROSOURCE / PROSTAT (PYXIS) 30 ML UDC GT SCH ×2 (08:05→16:59)
[2021-10-05] MEDS: CARVEDILOL 6.25 MG TABLET PEG SCH (08:05)
[2021-10-05] MEDS: PANTOPRAZOLE 40 MG/PACK PACK GT SCH (08:05)
[2021-10-05] MEDS: CHOLESTYRAMINE/ASPARTAME 4 G/PKT PACKET GT SCH ×2 (08:05→20:23)
[2021-10-05] MEDS: AMLODIPINE BESYLATE 10 MG TABLET PEG SCH (08:06)
[2021-10-05] MEDS: VITAMINS A AND D 56.7 GM TUBE TP SCH ×2 (08:06→20:23)
[2021-10-05] MEDS: Z GUARD REMEDY 4 OZ OINT TP SCH ×2 (08:06→20:23)
[2021-10-05] MEDS: HYDROGEN PEROXIDE 480 ML BOTTLE TP SCH ×2 (09:00→20:08)
[2021-10-05] MEDS: HYDROCODONE/APAP 5/325MG TABLET GT PRN ×2 (11:18→20:23)
[2021-10-05 13:21] VITALS: BP 136/72
[2021-10-05 20:11] VITALS: BP 134/55
[2021-10-05] MEDS: MELATONIN 3 MG TABLET GT SCH (21:09)
[2021-10-05] MEDS: ONDANSETRON 4 MG TAB.RAPDIS GT PRN (23:25)
[2021-10-06] MEDS: ALBUTEROL FS 2.5 MG/0.5 ML VIAL.NEB NEB SCH ×4 (00:41→20:00)
[2021-10-06] MEDS: IPRATROPIUM NEB FS 0.5 MG/2.5 ML AMPUL.NEB NEB SCH ×4 (00:41→20:00)
[2021-10-06] MEDS: METOCLOPRAMIDE HCL 10 MG/10 ML UDC GT SCH ×3 (05:23→17:52)
[2021-10-06] MEDS: NEPRO 1,000 ML BOTTLE GT PRN (05:23)
[2021-10-06 08:02] VITALS: BP 140/72
[2021-10-06] MEDS: HYDROGEN PEROXIDE 480 ML BOTTLE TP SCH ×2 (09:27→21:46)
[2021-10-06] MEDS: VIT B CMPLX 3/FA/VIT C/BIOTIN 1 TAB TABLET GT SCH (09:53)
[2021-10-06] MEDS: Z GUARD REMEDY 4 OZ OINT TP SCH ×2 (09:53→21:16)
[2021-10-06] MEDS: PROSOURCE / PROSTAT (PYXIS) 30 ML UDC GT SCH ×2 (09:53→17:52)
[2021-10-06] MEDS: NEUTRA PHOS 1 POWD.PACKET GT SCH (09:53)
[2021-10-06] MEDS: ACIDOPHILUS/BULGARICUS 1 EACH TAB.CHEW GT SCH ×2 (09:53→17:52)
[2021-10-06] MEDS: CHOLESTYRAMINE/ASPARTAME 4 G/PKT PACKET GT SCH ×2 (09:53→21:16)
[2021-10-06] MEDS: PANTOPRAZOLE 40 MG/PACK PACK GT SCH (09:53)
[2021-10-06] MEDS: VITAMINS A AND D 56.7 GM TUBE TP SCH ×2 (09:54→21:17)
[2021-10-06 13:49] VITALS: BP 141/69
[2021-10-06 20:21] VITALS: BP 141/82
[2021-10-06] MEDS: MELATONIN 3 MG TABLET GT SCH (22:27)
[2021-10-07] MEDS: METOCLOPRAMIDE HCL 10 MG/10 ML UDC GT SCH ×4 (00:09→17:18)
[2021-10-07] MEDS: GUAIFENESIN 300 MG/15 ML UDC GT PRN (00:22)
[2021-10-07] MEDS: ONDANSETRON 4 MG TAB.RAPDIS GT PRN (02:03)
[2021-10-07] MEDS: IPRATROPIUM NEB FS 0.5 MG/2.5 ML AMPUL.NEB NEB SCH ×4 (02:21→20:04)
[2021-10-07] MEDS: ALBUTEROL FS 2.5 MG/0.5 ML VIAL.NEB NEB SCH ×4 (02:21→20:04)
[2021-10-07 08:24] VITALS: BP 165/87
[2021-10-07] MEDS: HYDROGEN PEROXIDE 480 ML BOTTLE TP SCH ×2 (08:44→20:38)
[2021-10-07] MEDS: Z GUARD REMEDY 4 OZ OINT TP SCH ×2 (08:50→21:11)
[2021-10-07] MEDS: NEUTRA PHOS 1 POWD.PACKET GT SCH (08:50)
[2021-10-07] MEDS: PROSOURCE / PROSTAT (PYXIS) 30 ML UDC GT SCH ×2 (08:50→17:18)
[2021-10-07] MEDS: VIT B CMPLX 3/FA/VIT C/BIOTIN 1 TAB TABLET GT SCH (08:50)
[2021-10-07] MEDS: ACIDOPHILUS/BULGARICUS 1 EACH TAB.CHEW GT SCH ×2 (08:50→17:18)
[2021-10-07] MEDS: VITAMINS A AND D 56.7 GM TUBE TP SCH ×2 (08:50→21:11)
[2021-10-07] MEDS: PANTOPRAZOLE 40 MG/PACK PACK GT SCH (08:50)
[2021-10-07] MEDS: CHOLESTYRAMINE/ASPARTAME 4 G/PKT PACKET GT SCH ×2 (08:51→21:10)
[2021-10-07] MEDS: AMLODIPINE BESYLATE 10 MG TABLET PEG SCH (09:00)
[2021-10-07] MEDS: CARVEDILOL 6.25 MG TABLET PEG SCH (09:00)
[2021-10-07 13:54] VITALS: BP 144/77
[2021-10-07 19:45] VITALS: BP 127/70
[2021-10-07] MEDS: NEOMY SULF/BACITRAC ZN/POLY 15 GM TUBE TP SCH (21:10)
[2021-10-07] MEDS: NEPRO 1,000 ML BOTTLE GT PRN (21:11)
[2021-10-07] MEDS: ACETAMINOPHEN 650 MG/20 ML UDC- SA PATIENTS-PAIN ONLY GT PRN (21:12)
[2021-10-07] MEDS: MELATONIN 3 MG TABLET GT SCH (22:05)
[2021-10-08 00:23] VITALS: BP_SYST 130; BP_SYST 137; BP_DIAS 74; BP_DIAS 85
[2021-10-08] MEDS: METOCLOPRAMIDE HCL 10 MG/10 ML UDC GT SCH ×5 (00:23→23:26)
[2021-10-08] MEDS: GUAIFENESIN 300 MG/15 ML UDC GT PRN (00:23)
[2021-10-08] MEDS: ALBUTEROL FS 2.5 MG/0.5 ML VIAL.NEB NEB SCH ×5 (02:20→19:30)
[2021-10-08] MEDS: IPRATROPIUM NEB FS 0.5 MG/2.5 ML AMPUL.NEB NEB SCH ×5 (02:20→19:30)
[2021-10-08 08:10] VITALS: BP 139/70
[2021-10-08] MEDS: CHOLESTYRAMINE/ASPARTAME 4 G/PKT PACKET GT SCH ×2 (08:14→21:15)
[2021-10-08] MEDS: ACIDOPHILUS/BULGARICUS 1 EACH TAB.CHEW GT SCH ×2 (08:14→17:56)
[2021-10-08] MEDS: VIT B CMPLX 3/FA/VIT C/BIOTIN 1 TAB TABLET GT SCH (08:14)
[2021-10-08] MEDS: NEUTRA PHOS 1 POWD.PACKET GT SCH (08:14)
[2021-10-08] MEDS: NEOMY SULF/BACITRAC ZN/POLY 15 GM TUBE TP SCH ×2 (08:14→21:16)
[2021-10-08] MEDS: PROSOURCE / PROSTAT (PYXIS) 30 ML UDC GT SCH ×2 (08:14→17:56)
[2021-10-08] MEDS: PANTOPRAZOLE 40 MG/PACK PACK GT SCH (08:14)
[2021-10-08] MEDS: Z GUARD REMEDY 4 OZ OINT TP SCH ×2 (08:14→21:16)
[2021-10-08] MEDS: VITAMINS A AND D 56.7 GM TUBE TP SCH ×2 (08:14→21:16)
[2021-10-08] MEDS: ONDANSETRON 4 MG TAB.RAPDIS GT PRN (08:15)
[2021-10-08] MEDS: HYDROGEN PEROXIDE 480 ML BOTTLE TP SCH ×2 (09:09→21:00)
[2021-10-08 20:07] VITALS: BP 135/74
[2021-10-08] MEDS: ACETAMINOPHEN 650 MG/20 ML UDC- SA PATIENTS-PAIN ONLY GT PRN (21:17)
[2021-10-08] MEDS: NEPRO 1,000 ML BOTTLE GT PRN (21:59)
[2021-10-08] MEDS: MELATONIN 3 MG TABLET GT SCH (22:05)
[2021-10-09 00:40] VITALS: BP 162/77
[2021-10-09] MEDS: GUAIFENESIN 300 MG/15 ML UDC GT PRN (01:28)
[2021-10-09] MEDS: IPRATROPIUM NEB FS 0.5 MG/2.5 ML AMPUL.NEB NEB SCH ×4 (01:33→19:27)
[2021-10-09] MEDS: ALBUTEROL FS 2.5 MG/0.5 ML VIAL.NEB NEB SCH ×4 (01:33→19:27)
[2021-10-09] MEDS: METOCLOPRAMIDE HCL 10 MG/10 ML UDC GT SCH ×3 (05:37→17:52)
[2021-10-09 07:39] VITALS: BP 144/75
[2021-10-09] MEDS: HYDROGEN PEROXIDE 480 ML BOTTLE TP SCH ×2 (07:48→21:00)
[2021-10-09] MEDS: CARVEDILOL 6.25 MG TABLET PEG SCH (09:00)
[2021-10-09] MEDS: AMLODIPINE BESYLATE 10 MG TABLET PEG SCH (09:00)
[2021-10-09] MEDS: ACETAMINOPHEN 650 MG/20 ML UDC- SA PATIENTS-PAIN ONLY GT PRN (09:27)
[2021-10-09] MEDS: NEOMY SULF/BACITRAC ZN/POLY 15 GM TUBE TP SCH ×2 (09:27→21:00)
[2021-10-09] MEDS: NEUTRA PHOS 1 POWD.PACKET GT SCH (09:27)
[2021-10-09] MEDS: CHOLESTYRAMINE/ASPARTAME 4 G/PKT PACKET GT SCH ×2 (09:27→21:00)
[2021-10-09] MEDS: Z GUARD REMEDY 4 OZ OINT TP SCH ×2 (09:27→21:00)
[2021-10-09] MEDS: PROSOURCE / PROSTAT (PYXIS) 30 ML UDC GT SCH ×2 (09:27→17:07)
[2021-10-09] MEDS: PANTOPRAZOLE 40 MG/PACK PACK GT SCH (09:27)
[2021-10-09] MEDS: ACIDOPHILUS/BULGARICUS 1 EACH TAB.CHEW GT SCH ×2 (09:27→17:07)
[2021-10-09] MEDS: VIT B CMPLX 3/FA/VIT C/BIOTIN 1 TAB TABLET GT SCH (09:27)
[2021-10-09] MEDS: VITAMINS A AND D 56.7 GM TUBE TP SCH ×2 (09:28→21:00)
[2021-10-09 12:52] VITALS: BP 133/75
[2021-10-09] MEDS: MAG HYDROX/AL HYDROX/SIMETH 30 ML UDC GT PRN (17:07)
[2021-10-09] MEDS: ONDANSETRON 4 MG TAB.RAPDIS GT PRN (17:54)
[2021-10-09 20:17] VITALS: BP 148/91
[2021-10-09] MEDS: MELATONIN 3 MG TABLET GT SCH (22:00)
[2021-10-10 00:25] VITALS: BP 148/87
[2021-10-10] MEDS: IPRATROPIUM NEB FS 0.5 MG/2.5 ML AMPUL.NEB NEB SCH ×4 (01:40→20:05)
[2021-10-10] MEDS: ALBUTEROL FS 2.5 MG/0.5 ML VIAL.NEB NEB SCH ×4 (01:40→20:05)
[2021-10-10] MEDS: METOCLOPRAMIDE HCL 10 MG/10 ML UDC GT SCH ×5 (06:27→23:16)
[2021-10-10 08:28] VITALS: BP 153/85
[2021-10-10] MEDS: NEPRO 1,000 ML BOTTLE GT PRN (09:45)
[2021-10-10] MEDS: ACIDOPHILUS/BULGARICUS 1 EACH TAB.CHEW GT SCH ×2 (09:46→17:26)
[2021-10-10] MEDS: PROSOURCE / PROSTAT (PYXIS) 30 ML UDC GT SCH ×2 (09:46→17:26)
[2021-10-10] MEDS: VIT B CMPLX 3/FA/VIT C/BIOTIN 1 TAB TABLET GT SCH (09:46)
[2021-10-10] MEDS: CARVEDILOL 6.25 MG TABLET PEG SCH (09:46)
[2021-10-10] MEDS: CHOLESTYRAMINE/ASPARTAME 4 G/PKT PACKET GT SCH ×2 (09:46→21:25)
[2021-10-10] MEDS: NEUTRA PHOS 1 POWD.PACKET GT SCH (09:46)
[2021-10-10] MEDS: PANTOPRAZOLE 40 MG/PACK PACK GT SCH (09:46)
[2021-10-10] MEDS: VITAMINS A AND D 56.7 GM TUBE TP SCH ×2 (09:47→21:25)
[2021-10-10] MEDS: NEOMY SULF/BACITRAC ZN/POLY 15 GM TUBE TP SCH ×2 (09:47→21:25)
[2021-10-10] MEDS: Z GUARD REMEDY 4 OZ OINT TP SCH ×2 (09:47→21:25)
[2021-10-10] MEDS: AMLODIPINE BESYLATE 10 MG TABLET PEG SCH (09:47)
[2021-10-10] MEDS: HYDROGEN PEROXIDE 480 ML BOTTLE TP SCH ×2 (09:51→20:05)
[2021-10-10 20:30] VITALS: BP 134/71
[2021-10-10] MEDS: MELATONIN 3 MG TABLET GT SCH (21:25)
[2021-10-10] MEDS: HYDROCODONE/APAP 5/325MG TABLET GT PRN (23:17)
[2021-10-11 00:29] VITALS: BP 138/68
[2021-10-11] MEDS: ALBUTEROL FS 2.5 MG/0.5 ML VIAL.NEB NEB SCH ×4 (02:04→19:08)
[2021-10-11] MEDS: IPRATROPIUM NEB FS 0.5 MG/2.5 ML AMPUL.NEB NEB SCH ×4 (02:04→19:07)
[2021-10-11] MEDS: METOCLOPRAMIDE HCL 10 MG/10 ML UDC GT SCH ×4 (05:35→23:22)
[2021-10-11 07:23] VITALS: BP 138/64
[2021-10-11] MEDS: HYDROGEN PEROXIDE 480 ML BOTTLE TP SCH ×2 (09:20→20:25)
[2021-10-11] MEDS: ACIDOPHILUS/BULGARICUS 1 EACH TAB.CHEW GT SCH ×2 (09:43→17:23)
[2021-10-11] MEDS: NEOMY SULF/BACITRAC ZN/POLY 15 GM TUBE TP SCH ×2 (09:43→21:02)
[2021-10-11] MEDS: VITAMINS A AND D 56.7 GM TUBE TP SCH ×2 (09:43→21:02)
[2021-10-11] MEDS: Z GUARD REMEDY 4 OZ OINT TP SCH ×2 (09:43→21:02)
[2021-10-11] MEDS: PANTOPRAZOLE 40 MG/PACK PACK GT SCH (09:43)
[2021-10-11] MEDS: VIT B CMPLX 3/FA/VIT C/BIOTIN 1 TAB TABLET GT SCH (09:43)
[2021-10-11] MEDS: CHOLESTYRAMINE/ASPARTAME 4 G/PKT PACKET GT SCH ×2 (09:43→21:02)
[2021-10-11] MEDS: PROSOURCE / PROSTAT (PYXIS) 30 ML UDC GT SCH ×2 (09:43→17:23)
[2021-10-11] MEDS: NEUTRA PHOS 1 POWD.PACKET GT SCH (09:43)
[2021-10-11 12:09] VITALS: BP 123/53
[2021-10-11] MEDS: NEPRO 1,000 ML BOTTLE GT PRN (17:22)
[2021-10-11 20:07] VITALS: BP 139/88
[2021-10-11] MEDS: ACETAMINOPHEN 650 MG/20 ML UDC- SA PATIENTS-PAIN ONLY GT PRN (21:02)
[2021-10-11] MEDS: MELATONIN 3 MG TABLET GT SCH (21:02)
[2021-10-12] MEDS: ALBUTEROL FS 2.5 MG/0.5 ML VIAL.NEB NEB SCH ×4 (00:33→20:02)
[2021-10-12] MEDS: IPRATROPIUM NEB FS 0.5 MG/2.5 ML AMPUL.NEB NEB SCH ×4 (00:33→20:02)
[2021-10-12] MEDS: HYDROCODONE/APAP 5/325MG TABLET GT PRN (03:42)
[2021-10-12] MEDS: diphenhydrAMINE HCL ELIX 25 MG/10 ML UDC GT PRN (05:17)
[2021-10-12] MEDS: METOCLOPRAMIDE HCL 10 MG/10 ML UDC GT SCH ×3 (05:17→18:29)
[2021-10-12 07:27] VITALS: BP 136/69
[2021-10-12] MEDS: HYDROGEN PEROXIDE 480 ML BOTTLE TP SCH ×2 (08:53→20:03)
[2021-10-12] MEDS: PANTOPRAZOLE 40 MG/PACK PACK GT SCH (09:16)
[2021-10-12] MEDS: CARVEDILOL 6.25 MG TABLET PEG SCH (09:16)
[2021-10-12] MEDS: VIT B CMPLX 3/FA/VIT C/BIOTIN 1 TAB TABLET GT SCH (09:16)
[2021-10-12] MEDS: PROSOURCE / PROSTAT (PYXIS) 30 ML UDC GT SCH ×2 (09:16→16:59)
[2021-10-12] MEDS: ACIDOPHILUS/BULGARICUS 1 EACH TAB.CHEW GT SCH ×2 (09:16→16:59)
[2021-10-12] MEDS: NEUTRA PHOS 1 POWD.PACKET GT SCH (09:16)
[2021-10-12] MEDS: CHOLESTYRAMINE/ASPARTAME 4 G/PKT PACKET GT SCH ×2 (09:16→21:19)
[2021-10-12] MEDS: AMLODIPINE BESYLATE 10 MG TABLET PEG SCH (09:17)
[2021-10-12] MEDS: VITAMINS A AND D 56.7 GM TUBE TP SCH ×2 (09:17→21:19)
[2021-10-12] MEDS: Z GUARD REMEDY 4 OZ OINT TP SCH ×2 (09:17→21:19)
[2021-10-12] MEDS: NEOMY SULF/BACITRAC ZN/POLY 15 GM TUBE TP SCH ×2 (09:17→21:19)
[2021-10-12] MEDS: ACETAMINOPHEN 650 MG/20 ML UDC- SA PATIENTS-PAIN ONLY GT PRN ×2 (12:18→21:20)
[2021-10-12 13:11] VITALS: BP 118/68
[2021-10-12 20:40] VITALS: BP 138/75
[2021-10-12] MEDS: MELATONIN 3 MG TABLET GT SCH (21:19)
[2021-10-13] MEDS: METOCLOPRAMIDE HCL 10 MG/10 ML UDC GT SCH ×5 (00:03→23:43)
[2021-10-13] MEDS: HYDROCODONE/APAP 5/325MG TABLET GT PRN (00:44)
[2021-10-13] MEDS: IPRATROPIUM NEB FS 0.5 MG/2.5 ML AMPUL.NEB NEB SCH ×5 (01:44→19:14)
[2021-10-13] MEDS: ALBUTEROL FS 2.5 MG/0.5 ML VIAL.NEB NEB SCH ×4 (01:45→19:14)
[2021-10-13] MEDS: NEPRO 1,000 ML BOTTLE GT PRN (05:50)
[2021-10-13] MEDS: HYDROGEN PEROXIDE 480 ML BOTTLE TP SCH ×2 (07:32→21:47)
[2021-10-13 07:34] VITALS: BP 114/60
[2021-10-13] MEDS: PROSOURCE / PROSTAT (PYXIS) 30 ML UDC GT SCH ×2 (09:30→17:59)
[2021-10-13] MEDS: VIT B CMPLX 3/FA/VIT C/BIOTIN 1 TAB TABLET GT SCH (09:30)
[2021-10-13] MEDS: CHOLESTYRAMINE/ASPARTAME 4 G/PKT PACKET GT SCH ×2 (09:30→21:27)
[2021-10-13] MEDS: ACIDOPHILUS/BULGARICUS 1 EACH TAB.CHEW GT SCH ×2 (09:30→17:59)
[2021-10-13] MEDS: PANTOPRAZOLE 40 MG/PACK PACK GT SCH (09:30)
[2021-10-13] MEDS: NEUTRA PHOS 1 POWD.PACKET GT SCH (09:30)
[2021-10-13] MEDS: NEOMY SULF/BACITRAC ZN/POLY 15 GM TUBE TP SCH ×2 (09:31→21:27)
[2021-10-13] MEDS: VITAMINS A AND D 56.7 GM TUBE TP SCH ×2 (09:31→21:27)
[2021-10-13] MEDS: Z GUARD REMEDY 4 OZ OINT TP SCH ×2 (09:31→21:27)
[2021-10-13] MEDS: ONDANSETRON 4 MG TAB.RAPDIS GT PRN (11:36)
[2021-10-13 12:08] VITALS: BP 116/78
[2021-10-13 20:28] VITALS: BP 123/68
[2021-10-13] MEDS: ACETAMINOPHEN 650 MG/20 ML UDC- SA PATIENTS-PAIN ONLY GT PRN (21:27)
[2021-10-13] MEDS: MELATONIN 3 MG TABLET GT SCH (21:27)
[2021-10-13] MEDS: diphenhydrAMINE HCL ELIX 25 MG/10 ML UDC GT PRN (21:27)
[2021-10-14] MEDS: HYDROCODONE/APAP 5/325MG TABLET GT PRN (00:49)
[2021-10-14] MEDS: ALBUTEROL FS 2.5 MG/0.5 ML VIAL.NEB NEB SCH ×4 (02:06→19:48)
[2021-10-14] MEDS: IPRATROPIUM NEB FS 0.5 MG/2.5 ML AMPUL.NEB NEB SCH ×3 (02:06→19:48)
[2021-10-14] MEDS: METOCLOPRAMIDE HCL 10 MG/10 ML UDC GT SCH ×3 (05:46→17:36)
[2021-10-14 07:34] VITALS: BP 117/46
[2021-10-14] MEDS: HYDROGEN PEROXIDE 480 ML BOTTLE TP SCH ×2 (08:21→19:48)
[2021-10-14] MEDS: PANTOPRAZOLE 40 MG/PACK PACK GT SCH (08:59)
[2021-10-14] MEDS: NEUTRA PHOS 1 POWD.PACKET GT SCH (08:59)
[2021-10-14] MEDS: CARVEDILOL 6.25 MG TABLET PEG SCH (08:59)
[2021-10-14] MEDS: ACIDOPHILUS/BULGARICUS 1 EACH TAB.CHEW GT SCH ×2 (08:59→17:16)
[2021-10-14] MEDS: VIT B CMPLX 3/FA/VIT C/BIOTIN 1 TAB TABLET GT SCH (08:59)
[2021-10-14] MEDS: CHOLESTYRAMINE/ASPARTAME 4 G/PKT PACKET GT SCH ×2 (08:59→20:39)
[2021-10-14] MEDS: PROSOURCE / PROSTAT (PYXIS) 30 ML UDC GT SCH ×2 (08:59→17:16)
[2021-10-14] MEDS: Z GUARD REMEDY 4 OZ OINT TP SCH ×2 (09:00→20:39)
[2021-10-14] MEDS: VITAMINS A AND D 56.7 GM TUBE TP SCH ×2 (09:00→20:40)
[2021-10-14] MEDS: AMLODIPINE BESYLATE 10 MG TABLET PEG SCH (09:00)
[2021-10-14] MEDS: NEOMY SULF/BACITRAC ZN/POLY 15 GM TUBE TP SCH ×2 (09:00→20:39)
[2021-10-14] MEDS: ACETAMINOPHEN 650 MG/20 ML UDC- SA PATIENTS-PAIN ONLY GT PRN (12:30)
[2021-10-14 13:13] VITALS: BP 128/66
[2021-10-14] MEDS: NEPRO 1,000 ML BOTTLE GT PRN (17:38)
[2021-10-14 19:24] VITALS: BP 123/60
[2021-10-14] MEDS: MELATONIN 3 MG TABLET GT SCH (21:20)
[2021-10-14] MEDS: GUAIFENESIN 300 MG/15 ML UDC GT PRN (23:40)
[2021-10-15] MEDS: GUAIFENESIN 300 MG/15 ML UDC GT PRN (00:45)
[2021-10-15] MEDS: METOCLOPRAMIDE HCL 10 MG/10 ML UDC GT SCH ×5 (00:45→23:45)
[2021-10-15] MEDS: ACETAMINOPHEN 650 MG/20 ML UDC- SA PATIENTS-PAIN ONLY GT PRN ×2 (00:46→19:34)
[2021-10-15 00:52] VITALS: BP 128/65
[2021-10-15] MEDS: ALBUTEROL FS 2.5 MG/0.5 ML VIAL.NEB NEB SCH ×4 (00:58→19:25)
[2021-10-15] MEDS: IPRATROPIUM NEB FS 0.5 MG/2.5 ML AMPUL.NEB NEB SCH ×4 (00:58→19:25)
[2021-10-15] MEDS: HYDROCODONE/APAP 5/325MG TABLET GT PRN ×2 (05:37→22:25)
[2021-10-15 07:43] VITALS: BP 123/48
[2021-10-15] MEDS: NEUTRA PHOS 1 POWD.PACKET GT SCH (08:11)
[2021-10-15] MEDS: PANTOPRAZOLE 40 MG/PACK PACK GT SCH (08:11)
[2021-10-15] MEDS: PROSOURCE / PROSTAT (PYXIS) 30 ML UDC GT SCH ×2 (08:11→17:42)
[2021-10-15] MEDS: ACIDOPHILUS/BULGARICUS 1 EACH TAB.CHEW GT SCH ×2 (08:11→17:42)
[2021-10-15] MEDS: VIT B CMPLX 3/FA/VIT C/BIOTIN 1 TAB TABLET GT SCH (08:11)
[2021-10-15] MEDS: VITAMINS A AND D 56.7 GM TUBE TP SCH ×2 (08:12→21:08)
[2021-10-15] MEDS: NEOMY SULF/BACITRAC ZN/POLY 15 GM TUBE TP SCH ×2 (08:12→21:08)
[2021-10-15] MEDS: Z GUARD REMEDY 4 OZ OINT TP SCH ×2 (08:12→21:08)
[2021-10-15] MEDS: CHOLESTYRAMINE/ASPARTAME 4 G/PKT PACKET GT SCH ×2 (08:12→21:08)
[2021-10-15] MEDS: ONDANSETRON 4 MG TAB.RAPDIS GT PRN (08:15)
[2021-10-15] MEDS: HYDROGEN PEROXIDE 480 ML BOTTLE TP SCH ×2 (09:27→21:52)
[2021-10-15 11:52] VITALS: BP 115/46
[2021-10-15 20:14] VITALS: BP 135/70
[2021-10-15] MEDS: MELATONIN 3 MG TABLET GT SCH (21:08)
[2021-10-16] MEDS: IPRATROPIUM NEB FS 0.5 MG/2.5 ML AMPUL.NEB NEB SCH ×4 (01:41→19:18)
[2021-10-16] MEDS: ALBUTEROL FS 2.5 MG/0.5 ML VIAL.NEB NEB SCH ×4 (01:41→19:18)
[2021-10-16] MEDS: METOCLOPRAMIDE HCL 10 MG/10 ML UDC GT SCH ×4 (05:32→23:31)
[2021-10-16] MEDS: NEPRO 1,000 ML BOTTLE GT PRN (06:00)
[2021-10-16 07:41] VITALS: BP 146/69
[2021-10-16] MEDS: HYDROGEN PEROXIDE 480 ML BOTTLE TP SCH ×2 (07:53→21:02)
[2021-10-16] MEDS: AMLODIPINE BESYLATE 10 MG TABLET PEG SCH (09:10)
[2021-10-16] MEDS: ACIDOPHILUS/BULGARICUS 1 EACH TAB.CHEW GT SCH ×2 (09:10→17:35)
[2021-10-16] MEDS: CHOLESTYRAMINE/ASPARTAME 4 G/PKT PACKET GT SCH ×2 (09:10→21:33)
[2021-10-16] MEDS: PROSOURCE / PROSTAT (PYXIS) 30 ML UDC GT SCH ×2 (09:10→17:35)
[2021-10-16] MEDS: CARVEDILOL 6.25 MG TABLET PEG SCH (09:10)
[2021-10-16] MEDS: VIT B CMPLX 3/FA/VIT C/BIOTIN 1 TAB TABLET GT SCH (09:10)
[2021-10-16] MEDS: PANTOPRAZOLE 40 MG/PACK PACK GT SCH (09:10)
[2021-10-16] MEDS: NEUTRA PHOS 1 POWD.PACKET GT SCH (09:10)
[2021-10-16] MEDS: NEOMY SULF/BACITRAC ZN/POLY 15 GM TUBE TP SCH ×2 (09:11→21:33)
[2021-10-16] MEDS: VITAMINS A AND D 56.7 GM TUBE TP SCH ×2 (09:11→21:33)
[2021-10-16] MEDS: Z GUARD REMEDY 4 OZ OINT TP SCH ×2 (09:11→21:33)
[2021-10-16] MEDS: ONDANSETRON 4 MG TAB.RAPDIS GT PRN ×2 (10:24→14:57)
[2021-10-16 13:08] VITALS: BP 142/72
[2021-10-16] MEDS: GUAIFENESIN 300 MG/15 ML UDC GT PRN (18:13)
[2021-10-16 20:10] VITALS: BP 123/53
[2021-10-16] MEDS: MELATONIN 3 MG TABLET GT SCH (21:33)
[2021-10-17] MEDS: ALBUTEROL FS 2.5 MG/0.5 ML VIAL.NEB NEB SCH ×4 (00:25→19:00)
[2021-10-17] MEDS: IPRATROPIUM NEB FS 0.5 MG/2.5 ML AMPUL.NEB NEB SCH ×4 (00:25→19:00)
[2021-10-17] MEDS: HYDROCODONE/APAP 5/325MG TABLET GT PRN (01:24)
[2021-10-17] MEDS: METOCLOPRAMIDE HCL 10 MG/10 ML UDC GT SCH ×4 (05:38→23:49)
[2021-10-17] MEDS: NEPRO 1,000 ML BOTTLE GT PRN (05:38)
[2021-10-17 07:25] VITALS: BP 134/73
[2021-10-17] MEDS: HYDROGEN PEROXIDE 480 ML BOTTLE TP SCH ×2 (08:15→20:29)
[2021-10-17] MEDS: VITAMINS A AND D 56.7 GM TUBE TP SCH ×2 (09:00→21:33)
[2021-10-17] MEDS: NEUTRA PHOS 1 POWD.PACKET GT SCH (09:00)
[2021-10-17] MEDS: PROSOURCE / PROSTAT (PYXIS) 30 ML UDC GT SCH ×2 (09:00→17:21)
[2021-10-17] MEDS: NEOMY SULF/BACITRAC ZN/POLY 15 GM TUBE TP SCH ×2 (09:00→21:33)
[2021-10-17] MEDS: Z GUARD REMEDY 4 OZ OINT TP SCH ×2 (09:00→21:33)
[2021-10-17] MEDS: CHOLESTYRAMINE/ASPARTAME 4 G/PKT PACKET GT SCH ×2 (09:00→21:33)
[2021-10-17] MEDS: VIT B CMPLX 3/FA/VIT C/BIOTIN 1 TAB TABLET GT SCH (09:00)
[2021-10-17] MEDS: AMLODIPINE BESYLATE 10 MG TABLET PEG SCH (09:00)
[2021-10-17] MEDS: PANTOPRAZOLE 40 MG/PACK PACK GT SCH (09:00)
[2021-10-17] MEDS: ACIDOPHILUS/BULGARICUS 1 EACH TAB.CHEW GT SCH ×2 (09:00→17:21)
[2021-10-17] MEDS: CARVEDILOL 6.25 MG TABLET PEG SCH (09:00)
[2021-10-17 11:54] VITALS: BP 136/72
[2021-10-17 20:22] VITALS: BP 137/75
[2021-10-17] MEDS: MELATONIN 3 MG TABLET GT SCH (21:33)
[2021-10-17] MEDS: diphenhydrAMINE HCL ELIX 25 MG/10 ML UDC GT PRN (21:33)
[2021-10-18] MEDS: IPRATROPIUM NEB FS 0.5 MG/2.5 ML AMPUL.NEB NEB SCH ×4 (00:35→19:19)
[2021-10-18] MEDS: HYDROCODONE/APAP 5/325MG TABLET GT PRN ×3 (00:35→18:15)
[2021-10-18] MEDS: ALBUTEROL FS 2.5 MG/0.5 ML VIAL.NEB NEB SCH ×4 (00:35→19:19)
[2021-10-18] MEDS: METOCLOPRAMIDE HCL 10 MG/10 ML UDC GT SCH ×3 (05:39→18:12)
[2021-10-18 07:06] LABS: BASOPHILS # (AUTO) 0.1 K/uL (0.0-0.2); BASOPHILS % (AUTO) 0.7 % (0.0-2.0); EOSINOPHILS % (AUTO) 10.1 % (0.0-6.0); HEMATOCRIT 34 % (33-45); HEMOGLOBIN 10.5 g/dL (11.5-14.8); LYMPHOCYTES # (AUTO) 0.7 K/uL (0.8-4.8); LYMPHOCYTES % (AUTO) 8.1 % (20.0-44.0); MEAN CORPUSCULAR HGB CONC 31 g/dl (31.0-36.0); MEAN CORPUSCULAR VOLUME 115 fL (82-100); MONOCYTES # (AUTO) 0.6 K/uL (0.1-1.30); MONOCYTES % (AUTO) 7.3 % (2.0-12.0); NEUTROPHILS # (AUTO) 6.1 K/uL (1.8-8.9); NEUTROPHILS % (AUTO) 73.8 % (43.0-81.0); PLATELET COUNT (AUTO) 262 K/uL (150-450); RED BLOOD CELL COUNT(AUTO) 2.94 MIL/uL (4.0-5.2); WHITE BLOOD COUNT (AUTO) 8.3 K/uL (4.3-11.0)
[2021-10-18 07:15] LABS: CALCIUM, SERUM 8.1 mg/dL (8.5-10.1); CARBON DIOXIDE 23 mmol/L (21-32); CHLORIDE 98 mmol/L (98-107); CREATININE 2.9 mg/dL (0.6-1.3); GLUCOSE 96 mg/dL (74-106); MAGNESIUM 2.4 mg/dL (1.8-2.4); PHOSPHORUS 3.7 mg/dL (2.5-4.9); POTASSIUM 4.4 mmol/L (3.5-5.1); SODIUM SERUM 130 mmol/L (136-145); UREA NITROGEN, BLOOD 59 mg/dL (7-18)
[2021-10-18 07:54] VITALS: BP 136/69
[2021-10-18] MEDS: CHOLESTYRAMINE/ASPARTAME 4 G/PKT PACKET GT SCH ×2 (08:07→21:21)
[2021-10-18] MEDS: HYDROGEN PEROXIDE 480 ML BOTTLE TP SCH ×2 (09:00→21:39)
[2021-10-18] MEDS: VITAMINS A AND D 56.7 GM TUBE TP SCH ×2 (09:59→21:22)
[2021-10-18] MEDS: ACIDOPHILUS/BULGARICUS 1 EACH TAB.CHEW GT SCH ×2 (09:59→18:00)
[2021-10-18] MEDS: Z GUARD REMEDY 4 OZ OINT TP SCH ×2 (09:59→21:21)
[2021-10-18] MEDS: VIT B CMPLX 3/FA/VIT C/BIOTIN 1 TAB TABLET GT SCH (09:59)
[2021-10-18] MEDS: PANTOPRAZOLE 40 MG/PACK PACK GT SCH (09:59)
[2021-10-18] MEDS: NEUTRA PHOS 1 POWD.PACKET GT SCH (09:59)
[2021-10-18] MEDS: NEOMY SULF/BACITRAC ZN/POLY 15 GM TUBE TP SCH ×2 (09:59→21:21)
[2021-10-18] MEDS: PROSOURCE / PROSTAT (PYXIS) 30 ML UDC GT SCH ×2 (09:59→18:00)
[2021-10-18] MEDS: ONDANSETRON 4 MG TAB.RAPDIS GT PRN (10:03)
[2021-10-18 13:33] VITALS: BP 139/72
[2021-10-18 20:30] VITALS: BP 143/74
[2021-10-18] MEDS: MELATONIN 3 MG TABLET GT SCH (21:22)
[2021-10-19] MEDS: METOCLOPRAMIDE HCL 10 MG/10 ML UDC GT SCH ×5 (00:01→23:24)
[2021-10-19] MEDS: ALBUTEROL FS 2.5 MG/0.5 ML VIAL.NEB NEB SCH ×3 (01:08→19:43)
[2021-10-19] MEDS: IPRATROPIUM NEB FS 0.5 MG/2.5 ML AMPUL.NEB NEB SCH ×3 (01:08→19:43)
[2021-10-19] MEDS: NEPRO 1,000 ML BOTTLE GT PRN (05:36)
[2021-10-19 07:45] VITALS: BP 148/71
[2021-10-19] MEDS: ACIDOPHILUS/BULGARICUS 1 EACH TAB.CHEW GT SCH ×2 (08:53→17:07)
[2021-10-19] MEDS: VIT B CMPLX 3/FA/VIT C/BIOTIN 1 TAB TABLET GT SCH (08:53)
[2021-10-19] MEDS: NEUTRA PHOS 1 POWD.PACKET GT SCH (08:53)
[2021-10-19] MEDS: CHOLESTYRAMINE/ASPARTAME 4 G/PKT PACKET GT SCH ×2 (08:54→21:34)
[2021-10-19] MEDS: CARVEDILOL 6.25 MG TABLET PEG SCH (08:54)
[2021-10-19] MEDS: PANTOPRAZOLE 40 MG/PACK PACK GT SCH (08:54)
[2021-10-19] MEDS: AMLODIPINE BESYLATE 10 MG TABLET PEG SCH (08:56)
[2021-10-19] MEDS: NEOMY SULF/BACITRAC ZN/POLY 15 GM TUBE TP SCH ×2 (08:56→21:34)
[2021-10-19] MEDS: VITAMINS A AND D 56.7 GM TUBE TP SCH ×2 (08:57→21:34)
[2021-10-19] MEDS: Z GUARD REMEDY 4 OZ OINT TP SCH ×2 (08:57→21:34)
[2021-10-19] MEDS: PROSOURCE / PROSTAT (PYXIS) 30 ML UDC GT SCH ×2 (09:53→17:07)
[2021-10-19] MEDS: HYDROGEN PEROXIDE 480 ML BOTTLE TP SCH ×2 (09:54→23:12)
[2021-10-19 12:13] VITALS: BP 113/68
[2021-10-19 19:16] VITALS: BP 159/65
[2021-10-19] MEDS: MELATONIN 3 MG TABLET GT SCH (21:34)
[2021-10-19] MEDS: ACETAMINOPHEN 650 MG/20 ML UDC- SA PATIENTS-PAIN ONLY GT PRN (21:57)
[2021-10-19] MEDS: diphenhydrAMINE HCL ELIX 25 MG/10 ML UDC GT PRN (21:57)
[2021-10-20] MEDS: HYDROCODONE/APAP 5/325MG TABLET GT PRN (00:27)
[2021-10-20] MEDS: ALBUTEROL FS 2.5 MG/0.5 ML VIAL.NEB NEB SCH ×4 (01:41→20:01)
[2021-10-20] MEDS: IPRATROPIUM NEB FS 0.5 MG/2.5 ML AMPUL.NEB NEB SCH ×4 (01:41→20:01)
[2021-10-20] MEDS: METOCLOPRAMIDE HCL 10 MG/10 ML UDC GT SCH ×4 (05:35→23:37)
[2021-10-20 08:02] VITALS: BP 138/57
[2021-10-20] MEDS: HYDROGEN PEROXIDE 480 ML BOTTLE TP SCH ×2 (08:12→20:01)
[2021-10-20] MEDS: ACIDOPHILUS/BULGARICUS 1 EACH TAB.CHEW GT SCH ×2 (09:36→17:18)
[2021-10-20] MEDS: VIT B CMPLX 3/FA/VIT C/BIOTIN 1 TAB TABLET GT SCH (09:36)
[2021-10-20] MEDS: PANTOPRAZOLE 40 MG/PACK PACK GT SCH (09:36)
[2021-10-20] MEDS: Z GUARD REMEDY 4 OZ OINT TP SCH ×2 (09:36→21:09)
[2021-10-20] MEDS: PROSOURCE / PROSTAT (PYXIS) 30 ML UDC GT SCH ×2 (09:36→17:18)
[2021-10-20] MEDS: NEOMY SULF/BACITRAC ZN/POLY 15 GM TUBE TP SCH ×2 (09:36→21:09)
[2021-10-20] MEDS: NEUTRA PHOS 1 POWD.PACKET GT SCH (09:36)
[2021-10-20] MEDS: CHOLESTYRAMINE/ASPARTAME 4 G/PKT PACKET GT SCH ×2 (09:36→21:09)
[2021-10-20] MEDS: VITAMINS A AND D 56.7 GM TUBE TP SCH ×2 (09:36→21:09)
[2021-10-20 12:00] VITALS: BP 142/71
[2021-10-20] MEDS: ONDANSETRON 4 MG TAB.RAPDIS GT PRN (12:46)
[2021-10-20] MEDS: NEPRO 1,000 ML BOTTLE GT PRN (17:18)
[2021-10-20 20:53] VITALS: BP 135/59
[2021-10-20] MEDS: ACETAMINOPHEN 650 MG/20 ML UDC- SA PATIENTS-PAIN ONLY GT PRN (21:09)
[2021-10-20] MEDS: MELATONIN 3 MG TABLET GT SCH (21:09)
[2021-10-21 00:22] VITALS: BP 128/55
[2021-10-21] MEDS: HYDROCODONE/APAP 5/325MG TABLET GT PRN ×2 (00:51→12:28)
[2021-10-21] MEDS: ALBUTEROL FS 2.5 MG/0.5 ML VIAL.NEB NEB SCH ×4 (02:14→20:24)
[2021-10-21] MEDS: IPRATROPIUM NEB FS 0.5 MG/2.5 ML AMPUL.NEB NEB SCH ×4 (02:14→20:24)
[2021-10-21] MEDS: METOCLOPRAMIDE HCL 10 MG/10 ML UDC GT SCH ×4 (05:42→23:10)
[2021-10-21 07:51] VITALS: BP 140/65
[2021-10-21] MEDS: CHOLESTYRAMINE/ASPARTAME 4 G/PKT PACKET GT SCH ×2 (08:27→21:31)
[2021-10-21] MEDS: HYDROGEN PEROXIDE 480 ML BOTTLE TP SCH ×2 (08:45→21:00)
[2021-10-21] MEDS: AMLODIPINE BESYLATE 10 MG TABLET PEG SCH (09:00)
[2021-10-21] MEDS: CARVEDILOL 6.25 MG TABLET PEG SCH (09:00)
[2021-10-21] MEDS: ACIDOPHILUS/BULGARICUS 1 EACH TAB.CHEW GT SCH ×2 (09:37→18:49)
[2021-10-21] MEDS: VIT B CMPLX 3/FA/VIT C/BIOTIN 1 TAB TABLET GT SCH (09:37)
[2021-10-21] MEDS: PROSOURCE / PROSTAT (PYXIS) 30 ML UDC GT SCH ×2 (09:38→18:49)
[2021-10-21] MEDS: NEUTRA PHOS 1 POWD.PACKET GT SCH (09:38)
[2021-10-21] MEDS: PANTOPRAZOLE 40 MG/PACK PACK GT SCH (09:38)
[2021-10-21] MEDS: VITAMINS A AND D 56.7 GM TUBE TP SCH ×2 (09:40→21:31)
[2021-10-21] MEDS: Z GUARD REMEDY 4 OZ OINT TP SCH ×2 (09:40→21:31)
[2021-10-21] MEDS: NEOMY SULF/BACITRAC ZN/POLY 15 GM TUBE TP SCH (09:40)
[2021-10-21 12:46] VITALS: BP 135/62
[2021-10-21 19:46] VITALS: BP 155/72
[2021-10-21] MEDS: LOPERAMIDE HCL UDC 2 MG/15 ML LIQUID PO PRN (20:00)
[2021-10-21] MEDS: MELATONIN 3 MG TABLET GT SCH (21:31)
[2021-10-21] MEDS: ONDANSETRON 4 MG TAB.RAPDIS GT PRN (21:32)
[2021-10-22 00:09] VITALS: BP 132/68
[2021-10-22] MEDS: ALBUTEROL FS 2.5 MG/0.5 ML VIAL.NEB NEB SCH ×4 (01:49→19:29)
[2021-10-22] MEDS: IPRATROPIUM NEB FS 0.5 MG/2.5 ML AMPUL.NEB NEB SCH ×4 (01:49→19:29)
[2021-10-22] MEDS: METOCLOPRAMIDE HCL 10 MG/10 ML UDC GT SCH ×4 (05:10→23:00)
[2021-10-22] MEDS: NEPRO 1,000 ML BOTTLE GT PRN (05:10)
[2021-10-22 07:58] VITALS: BP 153/73
[2021-10-22] MEDS: CHOLESTYRAMINE/ASPARTAME 4 G/PKT PACKET GT SCH ×2 (08:33→20:38)
[2021-10-22] MEDS: HYDROGEN PEROXIDE 480 ML BOTTLE TP SCH ×2 (09:00→21:26)
[2021-10-22] MEDS: VIT B CMPLX 3/FA/VIT C/BIOTIN 1 TAB TABLET GT SCH (09:40)
[2021-10-22] MEDS: ACIDOPHILUS/BULGARICUS 1 EACH TAB.CHEW GT SCH ×2 (09:40→17:54)
[2021-10-22] MEDS: PROSOURCE / PROSTAT (PYXIS) 30 ML UDC GT SCH ×2 (09:40→17:54)
[2021-10-22] MEDS: PANTOPRAZOLE 40 MG/PACK PACK GT SCH (09:40)
[2021-10-22] MEDS: VITAMINS A AND D 56.7 GM TUBE TP SCH ×2 (09:40→20:38)
[2021-10-22] MEDS: NEUTRA PHOS 1 POWD.PACKET GT SCH (09:40)
[2021-10-22] MEDS: Z GUARD REMEDY 4 OZ OINT TP SCH ×2 (09:41→20:38)
[2021-10-22] MEDS: HYDROCODONE/APAP 5/325MG TABLET GT PRN ×2 (10:35→18:16)
[2021-10-22] MEDS: ONDANSETRON 4 MG TAB.RAPDIS GT PRN (18:42)
[2021-10-22 19:28] VITALS: BP 151/72
[2021-10-22] MEDS: ACETAMINOPHEN 650 MG/20 ML UDC- SA PATIENTS-FEVER ONLY GT PRN (19:43)
[2021-10-22] MEDS: MELATONIN 3 MG TABLET GT SCH (21:02)
[2021-10-22] MEDS: GUAIFENESIN 300 MG/15 ML UDC GT PRN (22:59)
[2021-10-23 01:06] VITALS: BP 138/65
[2021-10-23] MEDS: ALBUTEROL FS 2.5 MG/0.5 ML VIAL.NEB NEB SCH ×4 (02:05→20:03)
[2021-10-23] MEDS: IPRATROPIUM NEB FS 0.5 MG/2.5 ML AMPUL.NEB NEB SCH ×4 (02:05→20:03)
[2021-10-23] MEDS: NEPRO 1,000 ML BOTTLE GT PRN (05:21)
[2021-10-23] MEDS: METOCLOPRAMIDE HCL 10 MG/10 ML UDC GT SCH ×4 (05:21→23:50)
[2021-10-23] MEDS: LOPERAMIDE HCL UDC 2 MG/15 ML LIQUID PO PRN (05:21)
[2021-10-23 07:55] VITALS: BP 133/65
[2021-10-23] MEDS: ACETAMINOPHEN 650 MG/20 ML UDC- SA PATIENTS-FEVER ONLY GT PRN (08:30)
[2021-10-23] MEDS: ACIDOPHILUS/BULGARICUS 1 EACH TAB.CHEW GT SCH ×2 (08:43→17:12)
[2021-10-23] MEDS: VITAMINS A AND D 56.7 GM TUBE TP SCH ×2 (08:44→20:33)
[2021-10-23] MEDS: PROSOURCE / PROSTAT (PYXIS) 30 ML UDC GT SCH ×2 (08:44→17:12)
[2021-10-23] MEDS: Z GUARD REMEDY 4 OZ OINT TP SCH ×2 (08:44→20:33)
[2021-10-23] MEDS: NEUTRA PHOS 1 POWD.PACKET GT SCH (08:47)
[2021-10-23] MEDS: CHOLESTYRAMINE/ASPARTAME 4 G/PKT PACKET GT SCH ×2 (08:47→20:32)
[2021-10-23] MEDS: PANTOPRAZOLE 40 MG/PACK PACK GT SCH (08:47)
[2021-10-23] MEDS: VIT B CMPLX 3/FA/VIT C/BIOTIN 1 TAB TABLET GT SCH (08:47)
[2021-10-23] MEDS: CARVEDILOL 6.25 MG TABLET PEG SCH (08:48)
[2021-10-23] MEDS: AMLODIPINE BESYLATE 10 MG TABLET PEG SCH (08:48)
[2021-10-23] MEDS: HYDROGEN PEROXIDE 480 ML BOTTLE TP SCH ×2 (09:21→20:03)
[2021-10-23] MEDS ORDERED: MEROPENEM 500 MG in IV NS 0.9% 50 ML IV SCH ×2 (10:30→14:00)
[2021-10-23 11:35] LABS: BASOPHILS % (AUTO) 0.5 % (0.0-2.0); EOSINOPHILS % (AUTO) 2.9 % (0.0-6.0); HEMATOCRIT 31 % (33-45); HEMOGLOBIN 9.6 g/dL (11.5-14.8); LYMPHOCYTES # (AUTO) 0.5 K/uL (0.8-4.8); LYMPHOCYTES % (AUTO) 5.6 % (20.0-44.0); MEAN CORPUSCULAR HGB CONC 32 g/dl (31.0-36.0); MEAN CORPUSCULAR VOLUME 114 fL (82-100); MONOCYTES # (AUTO) 0.7 K/uL (0.1-1.30); MONOCYTES % (AUTO) 7.9 % (2.0-12.0); NEUTROPHILS # (AUTO) 7.6 K/uL (1.8-8.9); NEUTROPHILS % (AUTO) 83.1 % (43.0-81.0); PLATELET COUNT (AUTO) 307 K/uL (150-450); RED BLOOD CELL COUNT(AUTO) 2.67 MIL/uL (4.0-5.2); WHITE BLOOD COUNT (AUTO) 9.2 K/uL (4.3-11.0)
[2021-10-23 11:52] LABS: CALCIUM, SERUM 8.4 mg/dL (8.5-10.1); CARBON DIOXIDE 25 mmol/L (21-32); CHLORIDE 103 mmol/L (98-107); GLUCOSE 112 mg/dL (74-106); POTASSIUM 3.6 mmol/L (3.5-5.1); SODIUM SERUM 134 mmol/L (136-145); UREA NITROGEN, BLOOD 34 mg/dL (7-18)
[2021-10-23 11:58] LABS: ALANINE AMINOTRANSFERASE 9 U/L (12-78); ALBUMIN 1.6 g/dL (3.4-5.0); ALKALINE PHOSPHATASE 176 U/L (46-116); ASPARTATE AMINOTRANSFERASE 20 U/L (15-37); BILIRUBIN,TOTAL 0.4 mg/dL (0.2-1.0); TOTAL PROTEIN, SERUM 7.4 g/dL (6.4-8.2)
[2021-10-23 12:22] VITALS: BP 124/66
[2021-10-23] MEDS: MEROPENEM 500 MG in IV NS 0.9% 50 ML IV SCH (12:50)
[2021-10-23] MEDS ORDERED: VANCOMYCIN 1 GM in IV D5W 250ml IV ONE (14:00)
[2021-10-23] MEDS: ACETAMINOPHEN 650 MG/20 ML UDC- SA PATIENTS-PAIN ONLY GT PRN (20:33)
[2021-10-23] MEDS: MELATONIN 3 MG TABLET GT SCH (21:04)
[2021-10-23 21:29] VITALS: BP 153/87
[2021-10-23 23:52] VITALS: BP 135/72
[2021-10-24] MEDS: MEROPENEM 500 MG in IV NS 0.9% 50 ML IV SCH ×2 (00:23→13:00)
[2021-10-24] MEDS: ALBUTEROL FS 2.5 MG/0.5 ML VIAL.NEB NEB SCH ×4 (00:53→19:51)
[2021-10-24] MEDS: IPRATROPIUM NEB FS 0.5 MG/2.5 ML AMPUL.NEB NEB SCH ×4 (00:53→19:51)
[2021-10-24] MEDS: METOCLOPRAMIDE HCL 10 MG/10 ML UDC GT SCH ×4 (05:19→23:43)
[2021-10-24] MEDS: HYDROGEN PEROXIDE 480 ML BOTTLE TP SCH ×2 (07:16→20:03)
[2021-10-24 07:53] VITALS: BP 159/70
[2021-10-24] MEDS: CHOLESTYRAMINE/ASPARTAME 4 G/PKT PACKET GT SCH ×2 (09:00→21:17)
[2021-10-24] MEDS: NEUTRA PHOS 1 POWD.PACKET GT SCH (09:00)
[2021-10-24] MEDS: ACIDOPHILUS/BULGARICUS 1 EACH TAB.CHEW GT SCH ×2 (09:00→17:37)
[2021-10-24] MEDS: Z GUARD REMEDY 4 OZ OINT TP SCH ×2 (09:00→21:17)
[2021-10-24] MEDS: PANTOPRAZOLE 40 MG/PACK PACK GT SCH (09:00)
[2021-10-24] MEDS: PROSOURCE / PROSTAT (PYXIS) 30 ML UDC GT SCH ×2 (09:00→17:37)
[2021-10-24] MEDS: VIT B CMPLX 3/FA/VIT C/BIOTIN 1 TAB TABLET GT SCH (09:00)
[2021-10-24] MEDS: AMLODIPINE BESYLATE 10 MG TABLET PEG SCH (09:00)
[2021-10-24] MEDS: CARVEDILOL 6.25 MG TABLET PEG SCH (09:00)
[2021-10-24] MEDS: VITAMINS A AND D 56.7 GM TUBE TP SCH ×2 (09:00→21:17)
[2021-10-24] MEDS: NEPRO 1,000 ML BOTTLE GT PRN (12:13)
[2021-10-24 15:00] VITALS: BP 140/68
[2021-10-24] MEDS: ONDANSETRON 4 MG TAB.RAPDIS GT PRN (16:25)
[2021-10-24 19:56] VITALS: BP_SYST 129; BP_SYST 135; BP_DIAS 67; BP_DIAS 75
[2021-10-24] MEDS: MELATONIN 3 MG TABLET GT SCH (21:17)
[2021-10-24] MEDS: HYDROCODONE/APAP 5/325MG TABLET GT PRN (23:44)
[2021-10-25] MEDS ORDERED: VANCOMYCIN POST DIALYSIS 500MG IV PRN ×2
[2021-10-25] MEDS: MEROPENEM 500 MG in IV NS 0.9% 50 ML IV SCH (01:16)
[2021-10-25] MEDS: ALBUTEROL FS 2.5 MG/0.5 ML VIAL.NEB NEB SCH ×4 (01:47→20:06)
[2021-10-25] MEDS: IPRATROPIUM NEB FS 0.5 MG/2.5 ML AMPUL.NEB NEB SCH ×4 (01:47→20:06)
[2021-10-25] MEDS: METOCLOPRAMIDE HCL 10 MG/10 ML UDC GT SCH ×4 (05:41→23:40)
[2021-10-25 07:53] VITALS: BP 127/66
[2021-10-25] MEDS: HYDROGEN PEROXIDE 480 ML BOTTLE TP SCH ×2 (08:09→20:06)
[2021-10-25] MEDS: CHOLESTYRAMINE/ASPARTAME 4 G/PKT PACKET GT SCH ×2 (08:41→21:13)
[2021-10-25] MEDS: VITAMINS A AND D 56.7 GM TUBE TP SCH ×2 (09:50→21:13)
[2021-10-25] MEDS: VIT B CMPLX 3/FA/VIT C/BIOTIN 1 TAB TABLET GT SCH (09:50)
[2021-10-25] MEDS: Z GUARD REMEDY 4 OZ OINT TP SCH ×2 (09:50→21:13)
[2021-10-25] MEDS: NEUTRA PHOS 1 POWD.PACKET GT SCH (09:50)
[2021-10-25] MEDS: PANTOPRAZOLE 40 MG/PACK PACK GT SCH (09:50)
[2021-10-25] MEDS: PROSOURCE / PROSTAT (PYXIS) 30 ML UDC GT SCH ×2 (09:50→17:51)
[2021-10-25] MEDS: ACIDOPHILUS/BULGARICUS 1 EACH TAB.CHEW GT SCH ×2 (09:50→17:51)
[2021-10-25] MEDS: HYDROCODONE/APAP 5/325MG TABLET GT PRN (10:22)
[2021-10-25 12:30] VITALS: BP 163/74
[2021-10-25] MEDS ORDERED: VANCOMYCIN 1 GM in IV D5W 250 ML IV ONE (18:00)
[2021-10-25 20:08] VITALS: BP 155/66
[2021-10-25] MEDS: MELATONIN 3 MG TABLET GT SCH (21:13)
[2021-10-25] MEDS: ACETAMINOPHEN 650 MG/20 ML UDC- SA PATIENTS-PAIN ONLY GT PRN (21:14)
[2021-10-26] MEDS: IPRATROPIUM NEB FS 0.5 MG/2.5 ML AMPUL.NEB NEB SCH ×4 (00:41→19:53)
[2021-10-26] MEDS: ALBUTEROL FS 2.5 MG/0.5 ML VIAL.NEB NEB SCH ×4 (00:41→19:53)
[2021-10-26] MEDS: METOCLOPRAMIDE HCL 10 MG/10 ML UDC GT SCH ×3 (05:28→17:00)
[2021-10-26] MEDS: HYDROGEN PEROXIDE 480 ML BOTTLE TP SCH ×2 (08:05→21:16)
[2021-10-26] MEDS: CHOLESTYRAMINE/ASPARTAME 4 G/PKT PACKET GT SCH ×2 (08:10→21:16)
[2021-10-26 08:42] VITALS: BP 148/68
[2021-10-26] MEDS: CARVEDILOL 6.25 MG TABLET PEG SCH (09:00)
[2021-10-26] MEDS: ACIDOPHILUS/BULGARICUS 1 EACH TAB.CHEW GT SCH ×2 (09:42→17:00)
[2021-10-26] MEDS: PANTOPRAZOLE 40 MG/PACK PACK GT SCH (09:42)
[2021-10-26] MEDS: NEUTRA PHOS 1 POWD.PACKET GT SCH (09:42)
[2021-10-26] MEDS: VIT B CMPLX 3/FA/VIT C/BIOTIN 1 TAB TABLET GT SCH (09:42)
[2021-10-26] MEDS: PROSOURCE / PROSTAT (PYXIS) 30 ML UDC GT SCH ×2 (09:42→17:00)
[2021-10-26] MEDS: AMLODIPINE BESYLATE 10 MG TABLET PEG SCH (09:44)
[2021-10-26] MEDS: Z GUARD REMEDY 4 OZ OINT TP SCH ×2 (09:44→21:16)
[2021-10-26] MEDS: VITAMINS A AND D 56.7 GM TUBE TP SCH ×2 (09:44→21:16)
[2021-10-26 13:10] VITALS: BP 109/64
[2021-10-26] MEDS: HYDROCODONE/APAP 5/325MG TABLET GT PRN (15:31)
[2021-10-26] MEDS: NEPRO 1,000 ML BOTTLE GT PRN (17:02)
[2021-10-26 19:58] VITALS: BP 120/69
[2021-10-26] MEDS: MELATONIN 3 MG TABLET GT SCH (21:16)
[2021-10-26] MEDS: ACETAMINOPHEN 650 MG/20 ML UDC- SA PATIENTS-PAIN ONLY GT PRN (21:16)
[2021-10-26] MEDS: diphenhydrAMINE HCL ELIX 25 MG/10 ML UDC GT PRN (22:18)
[2021-10-27] MEDS: METOCLOPRAMIDE HCL 10 MG/10 ML UDC GT SCH ×5 (00:07→23:54)
[2021-10-27] MEDS: IPRATROPIUM NEB FS 0.5 MG/2.5 ML AMPUL.NEB NEB SCH ×4 (01:48→19:24)
[2021-10-27] MEDS: ALBUTEROL FS 2.5 MG/0.5 ML VIAL.NEB NEB SCH ×4 (01:48→19:24)
[2021-10-27 07:49] VITALS: BP 136/78
[2021-10-27] MEDS: VIT B CMPLX 3/FA/VIT C/BIOTIN 1 TAB TABLET GT SCH (09:00)
[2021-10-27] MEDS: NEUTRA PHOS 1 POWD.PACKET GT SCH (09:00)
[2021-10-27] MEDS: ACIDOPHILUS/BULGARICUS 1 EACH TAB.CHEW GT SCH ×2 (09:00→17:38)
[2021-10-27] MEDS: PANTOPRAZOLE 40 MG/PACK PACK GT SCH (09:00)
[2021-10-27] MEDS: PROSOURCE / PROSTAT (PYXIS) 30 ML UDC GT SCH ×2 (09:00→17:38)
[2021-10-27] MEDS: CHOLESTYRAMINE/ASPARTAME 4 G/PKT PACKET GT SCH ×2 (09:00→21:18)
[2021-10-27] MEDS: Z GUARD REMEDY 4 OZ OINT TP SCH ×2 (09:00→21:18)
[2021-10-27] MEDS: VITAMINS A AND D 56.7 GM TUBE TP SCH ×2 (09:00→21:18)
[2021-10-27] MEDS: HYDROGEN PEROXIDE 480 ML BOTTLE TP SCH ×2 (09:39→21:00)
[2021-10-27 12:20] VITALS: BP 158/72
[2021-10-27 19:26] VITALS: BP 164/74
[2021-10-27] MEDS: ACETAMINOPHEN 650 MG/20 ML UDC- SA PATIENTS-PAIN ONLY GT PRN (21:19)
[2021-10-27] MEDS: MELATONIN 3 MG TABLET GT SCH (22:29)
[2021-10-27] MEDS: HYDROCODONE/APAP 5/325MG TABLET GT PRN (23:55)
[2021-10-28 00:32] VITALS: BP 134/60
[2021-10-28] MEDS: IPRATROPIUM NEB FS 0.5 MG/2.5 ML AMPUL.NEB NEB SCH ×4 (01:36→19:36)
[2021-10-28] MEDS: ALBUTEROL FS 2.5 MG/0.5 ML VIAL.NEB NEB SCH ×4 (01:36→19:36)
[2021-10-28] MEDS: METOCLOPRAMIDE HCL 10 MG/10 ML UDC GT SCH ×4 (05:47→23:19)
[2021-10-28 07:34] VITALS: BP 156/65
[2021-10-28] MEDS: HYDROGEN PEROXIDE 480 ML BOTTLE TP SCH ×2 (07:56→19:37)
[2021-10-28] MEDS: ACIDOPHILUS/BULGARICUS 1 EACH TAB.CHEW GT SCH ×2 (08:55→17:38)
[2021-10-28] MEDS: VITAMINS A AND D 56.7 GM TUBE TP SCH ×2 (08:56→20:43)
[2021-10-28] MEDS: PANTOPRAZOLE 40 MG/PACK PACK GT SCH (08:56)
[2021-10-28] MEDS: Z GUARD REMEDY 4 OZ OINT TP SCH ×2 (08:56→20:43)
[2021-10-28] MEDS: NEUTRA PHOS 1 POWD.PACKET GT SCH (08:56)
[2021-10-28] MEDS: VIT B CMPLX 3/FA/VIT C/BIOTIN 1 TAB TABLET GT SCH (08:56)
[2021-10-28] MEDS: CARVEDILOL 6.25 MG TABLET PEG SCH (08:56)
[2021-10-28] MEDS: AMLODIPINE BESYLATE 10 MG TABLET PEG SCH (08:56)
[2021-10-28] MEDS: CHOLESTYRAMINE/ASPARTAME 4 G/PKT PACKET GT SCH ×2 (08:56→20:42)
[2021-10-28] MEDS: PROSOURCE / PROSTAT (PYXIS) 30 ML UDC GT SCH ×2 (08:56→17:38)
[2021-10-28 13:00] VITALS: BP 135/83
[2021-10-28] MEDS: NEPRO 1,000 ML BOTTLE GT PRN (17:39)
[2021-10-28] MEDS: ACETAMINOPHEN 650 MG/20 ML UDC- SA PATIENTS-PAIN ONLY GT PRN (18:12)
[2021-10-28 20:29] VITALS: BP 156/76
[2021-10-28] MEDS: MELATONIN 3 MG TABLET GT SCH (21:08)
[2021-10-28 23:34] VITALS: BP 135/71
[2021-10-29] MEDS: ALBUTEROL FS 2.5 MG/0.5 ML VIAL.NEB NEB SCH ×4 (01:48→19:52)
[2021-10-29] MEDS: IPRATROPIUM NEB FS 0.5 MG/2.5 ML AMPUL.NEB NEB SCH ×4 (01:48→19:51)
[2021-10-29] MEDS: METOCLOPRAMIDE HCL 10 MG/10 ML UDC GT SCH ×4 (05:29→23:32)
[2021-10-29 07:50] VITALS: BP 142/71
[2021-10-29] MEDS: HYDROGEN PEROXIDE 480 ML BOTTLE TP SCH ×2 (08:00→20:25)
[2021-10-29] MEDS: CHOLESTYRAMINE/ASPARTAME 4 G/PKT PACKET GT SCH ×2 (08:38→20:50)
[2021-10-29] MEDS: ACIDOPHILUS/BULGARICUS 1 EACH TAB.CHEW GT SCH ×2 (09:49→17:29)
[2021-10-29] MEDS: PROSOURCE / PROSTAT (PYXIS) 30 ML UDC GT SCH ×2 (09:50→17:29)
[2021-10-29] MEDS: VITAMINS A AND D 56.7 GM TUBE TP SCH ×2 (09:50→20:50)
[2021-10-29] MEDS: VIT B CMPLX 3/FA/VIT C/BIOTIN 1 TAB TABLET GT SCH (09:50)
[2021-10-29] MEDS: PANTOPRAZOLE 40 MG/PACK PACK GT SCH (09:50)
[2021-10-29] MEDS: NEUTRA PHOS 1 POWD.PACKET GT SCH (09:50)
[2021-10-29] MEDS: Z GUARD REMEDY 4 OZ OINT TP SCH ×2 (09:50→20:50)
[2021-10-29] MEDS: HYDROCODONE/APAP 5/325MG TABLET GT PRN (10:20)
[2021-10-29 19:05] VITALS: BP 151/76
[2021-10-29] MEDS: MELATONIN 3 MG TABLET GT SCH (21:07)
[2021-10-29 23:32] VITALS: BP 146/75
[2021-10-30] MEDS: IPRATROPIUM NEB FS 0.5 MG/2.5 ML AMPUL.NEB NEB SCH ×4 (01:40→19:08)
[2021-10-30] MEDS: ALBUTEROL FS 2.5 MG/0.5 ML VIAL.NEB NEB SCH ×4 (01:40→19:08)
[2021-10-30] MEDS: METOCLOPRAMIDE HCL 10 MG/10 ML UDC GT SCH ×4 (05:19→23:21)
[2021-10-30] MEDS: NEPRO 1,000 ML BOTTLE GT PRN (05:20)
[2021-10-30 07:35] VITALS: BP 139/76
[2021-10-30] MEDS: HYDROGEN PEROXIDE 480 ML BOTTLE TP SCH ×2 (08:15→21:00)
[2021-10-30] MEDS: NEUTRA PHOS 1 POWD.PACKET GT SCH (09:07)
[2021-10-30] MEDS: VIT B CMPLX 3/FA/VIT C/BIOTIN 1 TAB TABLET GT SCH (09:07)
[2021-10-30] MEDS: CHOLESTYRAMINE/ASPARTAME 4 G/PKT PACKET GT SCH ×2 (09:07→20:48)
[2021-10-30] MEDS: PROSOURCE / PROSTAT (PYXIS) 30 ML UDC GT SCH ×2 (09:07→17:18)
[2021-10-30] MEDS: PANTOPRAZOLE 40 MG/PACK PACK GT SCH (09:07)
[2021-10-30] MEDS: ACIDOPHILUS/BULGARICUS 1 EACH TAB.CHEW GT SCH ×2 (09:07→17:18)
[2021-10-30] MEDS: Z GUARD REMEDY 4 OZ OINT TP SCH ×2 (09:08→20:48)
[2021-10-30] MEDS: CARVEDILOL 6.25 MG TABLET PEG SCH (09:08)
[2021-10-30] MEDS: AMLODIPINE BESYLATE 10 MG TABLET PEG SCH (09:08)
[2021-10-30] MEDS: VITAMINS A AND D 56.7 GM TUBE TP SCH ×2 (09:08→20:48)
[2021-10-30 12:12] VITALS: BP 154/82
[2021-10-30 20:27] VITALS: BP 149/77
[2021-10-30] MEDS: GUAIFENESIN 300 MG/15 ML UDC GT PRN (20:45)
[2021-10-30] MEDS: MELATONIN 3 MG TABLET GT SCH (21:06)
[2021-10-31] MEDS: ALBUTEROL FS 2.5 MG/0.5 ML VIAL.NEB NEB SCH ×4 (00:42→19:53)
[2021-10-31] MEDS: IPRATROPIUM NEB FS 0.5 MG/2.5 ML AMPUL.NEB NEB SCH ×4 (00:42→19:53)
[2021-10-31 01:39] VITALS: BP 140/70
[2021-10-31] MEDS: METOCLOPRAMIDE HCL 10 MG/10 ML UDC GT SCH ×4 (05:36→23:49)
[2021-10-31 07:47] VITALS: BP 139/82
[2021-10-31] MEDS: HYDROGEN PEROXIDE 480 ML BOTTLE TP SCH ×2 (08:19→20:20)
[2021-10-31] MEDS: VIT B CMPLX 3/FA/VIT C/BIOTIN 1 TAB TABLET GT SCH (08:53)
[2021-10-31] MEDS: ACIDOPHILUS/BULGARICUS 1 EACH TAB.CHEW GT SCH ×2 (08:53→16:35)
[2021-10-31] MEDS: CHOLESTYRAMINE/ASPARTAME 4 G/PKT PACKET GT SCH ×2 (08:54→21:18)
[2021-10-31] MEDS: CARVEDILOL 6.25 MG TABLET PEG SCH (08:54)
[2021-10-31] MEDS: NEUTRA PHOS 1 POWD.PACKET GT SCH (08:54)
[2021-10-31] MEDS: PROSOURCE / PROSTAT (PYXIS) 30 ML UDC GT SCH ×2 (08:54→16:35)
[2021-10-31] MEDS: PANTOPRAZOLE 40 MG/PACK PACK GT SCH (08:54)
[2021-10-31] MEDS: AMLODIPINE BESYLATE 10 MG TABLET PEG SCH (08:55)
[2021-10-31] MEDS: VITAMINS A AND D 56.7 GM TUBE TP SCH ×2 (08:55→21:20)
[2021-10-31] MEDS: Z GUARD REMEDY 4 OZ OINT TP SCH ×2 (08:55→21:20)
[2021-10-31 13:17] VITALS: BP 128/78
[2021-10-31] MEDS: HYDROCODONE/APAP 5/325MG TABLET GT PRN (16:35)
[2021-10-31] MEDS: NEPRO 1,000 ML BOTTLE GT PRN (17:55)
[2021-10-31 20:31] VITALS: BP 126/65
[2021-10-31] MEDS: MELATONIN 3 MG TABLET GT SCH (21:20)
[2021-11-01] MEDS: ALBUTEROL FS 2.5 MG/0.5 ML VIAL.NEB NEB SCH ×5 (01:16→19:48)
[2021-11-01] MEDS: IPRATROPIUM NEB FS 0.5 MG/2.5 ML AMPUL.NEB NEB SCH ×5 (01:16→19:48)
[2021-11-01 01:22] VITALS: BP 141/79
[2021-11-01] MEDS: METOCLOPRAMIDE HCL 10 MG/10 ML UDC GT SCH ×3 (05:53→17:52)
[2021-11-01 07:31] VITALS: BP 149/70
[2021-11-01] MEDS: CHOLESTYRAMINE/ASPARTAME 4 G/PKT PACKET GT SCH ×2 (08:33→21:27)
[2021-11-01] MEDS: HYDROGEN PEROXIDE 480 ML BOTTLE TP SCH ×2 (09:00→20:12)
[2021-11-01] MEDS: Z GUARD REMEDY 4 OZ OINT TP SCH ×2 (09:51→21:27)
[2021-11-01] MEDS: PANTOPRAZOLE 40 MG/PACK PACK GT SCH (09:51)
[2021-11-01] MEDS: VIT B CMPLX 3/FA/VIT C/BIOTIN 1 TAB TABLET GT SCH (09:51)
[2021-11-01] MEDS: VITAMINS A AND D 56.7 GM TUBE TP SCH ×2 (09:51→21:27)
[2021-11-01] MEDS: NEUTRA PHOS 1 POWD.PACKET GT SCH (09:51)
[2021-11-01] MEDS: ACIDOPHILUS/BULGARICUS 1 EACH TAB.CHEW GT SCH ×2 (09:51→17:53)
[2021-11-01] MEDS: PROSOURCE / PROSTAT (PYXIS) 30 ML UDC GT SCH ×3 (09:51→17:52)
[2021-11-01] MEDS: GUAIFENESIN 300 MG/15 ML UDC GT PRN (09:52)
[2021-11-01] MEDS: HYDROCODONE/APAP 5/325MG TABLET GT PRN (09:52)
[2021-11-01 11:33] VITALS: BP 127/61
[2021-11-01 20:06] VITALS: BP 133/69
[2021-11-01] MEDS: MELATONIN 3 MG TABLET GT SCH (21:27)
[2021-11-02] MEDS: METOCLOPRAMIDE HCL 10 MG/10 ML UDC GT SCH ×5 (00:06→23:53)
[2021-11-02] MEDS: ALBUTEROL FS 2.5 MG/0.5 ML VIAL.NEB NEB SCH ×4 (01:52→19:39)
[2021-11-02] MEDS: IPRATROPIUM NEB FS 0.5 MG/2.5 ML AMPUL.NEB NEB SCH ×4 (01:53→19:39)
[2021-11-02 07:17] VITALS: BP 144/77
[2021-11-02] MEDS: CARVEDILOL 6.25 MG TABLET PEG SCH (09:00)
[2021-11-02] MEDS: VIT B CMPLX 3/FA/VIT C/BIOTIN 1 TAB TABLET GT SCH (09:21)
[2021-11-02] MEDS: CHOLESTYRAMINE/ASPARTAME 4 G/PKT PACKET GT SCH ×2 (09:21→21:13)
[2021-11-02] MEDS: ACIDOPHILUS/BULGARICUS 1 EACH TAB.CHEW GT SCH ×2 (09:21→17:16)
[2021-11-02] MEDS: PROSOURCE / PROSTAT (PYXIS) 30 ML UDC GT SCH ×3 (09:21→17:16)
[2021-11-02] MEDS: NEUTRA PHOS 1 POWD.PACKET GT SCH (09:21)
[2021-11-02] MEDS: PANTOPRAZOLE 40 MG/PACK PACK GT SCH (09:21)
[2021-11-02] MEDS: AMLODIPINE BESYLATE 10 MG TABLET PEG SCH (09:22)
[2021-11-02] MEDS: Z GUARD REMEDY 4 OZ OINT TP SCH ×2 (09:22→21:13)
[2021-11-02] MEDS: VITAMINS A AND D 56.7 GM TUBE TP SCH ×2 (09:23→21:13)
[2021-11-02] MEDS: HYDROGEN PEROXIDE 480 ML BOTTLE TP SCH ×2 (09:58→20:08)
[2021-11-02 10:55] LABS: BASOPHILS % (AUTO) 0.7 % (0.0-2.0); EOSINOPHILS % (AUTO) 9.3 % (0.0-6.0); HEMATOCRIT 34 % (33-45); HEMOGLOBIN 10.5 g/dL (11.5-14.8); LYMPHOCYTES # (AUTO) 0.7 K/uL (0.8-4.8); MEAN CORPUSCULAR HGB CONC 31 g/dl (31.0-36.0); MEAN CORPUSCULAR VOLUME 117 fL (82-100); MONOCYTES # (AUTO) 0.7 K/uL (0.1-1.30); MONOCYTES % (AUTO) 10.7 % (2.0-12.0); NEUTROPHILS # (AUTO) 4.2 K/uL (1.8-8.9); NEUTROPHILS % (AUTO) 67.3 % (43.0-81.0); PLATELET COUNT (AUTO) 212 K/uL (150-450); RED BLOOD CELL COUNT(AUTO) 2.89 MIL/uL (4.0-5.2); WHITE BLOOD COUNT (AUTO) 6.2 K/uL (4.3-11.0)
[2021-11-02 11:57] VITALS: BP 165/96
[2021-11-02] MEDS: NEPRO 1,000 ML BOTTLE GT PRN (17:17)
[2021-11-02 20:13] VITALS: BP 129/72
[2021-11-02] MEDS: MELATONIN 3 MG TABLET GT SCH (21:13)
[2021-11-02] MEDS: HYDROCODONE/APAP 5/325MG TABLET GT PRN (21:32)
[2021-11-03] MEDS: ALBUTEROL FS 2.5 MG/0.5 ML VIAL.NEB NEB SCH ×4 (01:03→19:53)
[2021-11-03] MEDS: IPRATROPIUM NEB FS 0.5 MG/2.5 ML AMPUL.NEB NEB SCH ×4 (01:03→19:53)
[2021-11-03] MEDS: METOCLOPRAMIDE HCL 10 MG/10 ML UDC GT SCH ×4 (06:00→23:37)
[2021-11-03] MEDS: HYDROGEN PEROXIDE 480 ML BOTTLE TP SCH ×2 (07:49→19:53)
[2021-11-03 08:00] VITALS: BP 145/72
[2021-11-03] MEDS: PANTOPRAZOLE 40 MG/PACK PACK GT SCH (09:38)
[2021-11-03] MEDS: PROSOURCE / PROSTAT (PYXIS) 30 ML UDC GT SCH ×3 (09:38→17:20)
[2021-11-03] MEDS: VIT B CMPLX 3/FA/VIT C/BIOTIN 1 TAB TABLET GT SCH (09:38)
[2021-11-03] MEDS: CHOLESTYRAMINE/ASPARTAME 4 G/PKT PACKET GT SCH ×2 (09:38→21:21)
[2021-11-03] MEDS: ACIDOPHILUS/BULGARICUS 1 EACH TAB.CHEW GT SCH ×2 (09:38→17:20)
[2021-11-03] MEDS: NEUTRA PHOS 1 POWD.PACKET GT SCH (09:38)
[2021-11-03] MEDS: HYDROCODONE/APAP 5/325MG TABLET GT PRN (09:39)
[2021-11-03] MEDS: Z GUARD REMEDY 4 OZ OINT TP SCH ×2 (09:39→21:21)
[2021-11-03] MEDS: VITAMINS A AND D 56.7 GM TUBE TP SCH ×2 (09:39→21:21)
[2021-11-03] MEDS: ONDANSETRON 4 MG TAB.RAPDIS GT PRN (09:40)
[2021-11-03 12:00] VITALS: BP 129/64
[2021-11-03] MEDS: ACETAMINOPHEN 650 MG/20 ML UDC- SA PATIENTS-PAIN ONLY GT PRN (19:17)
[2021-11-03 20:27] VITALS: BP 146/71
[2021-11-03] MEDS: MELATONIN 3 MG TABLET GT SCH (21:21)
[2021-11-04] MEDS: IPRATROPIUM NEB FS 0.5 MG/2.5 ML AMPUL.NEB NEB SCH ×4 (01:47→19:40)
[2021-11-04] MEDS: ALBUTEROL FS 2.5 MG/0.5 ML VIAL.NEB NEB SCH ×4 (01:47→19:40)
[2021-11-04] MEDS: NEPRO 1,000 ML BOTTLE GT PRN (05:50)
[2021-11-04] MEDS: LOPERAMIDE HCL UDC 2 MG/15 ML LIQUID PO PRN (05:50)
[2021-11-04] MEDS: METOCLOPRAMIDE HCL 10 MG/10 ML UDC GT SCH ×4 (05:50→23:54)
[2021-11-04 07:33] VITALS: BP 127/75
[2021-11-04] MEDS: CHOLESTYRAMINE/ASPARTAME 4 G/PKT PACKET GT SCH ×2 (08:25→21:25)
[2021-11-04] MEDS: CARVEDILOL 6.25 MG TABLET PEG SCH (09:00)
[2021-11-04] MEDS: AMLODIPINE BESYLATE 10 MG TABLET PEG SCH (09:00)
[2021-11-04] MEDS: HYDROGEN PEROXIDE 480 ML BOTTLE TP SCH ×2 (09:30→23:10)
[2021-11-04] MEDS: ACIDOPHILUS/BULGARICUS 1 EACH TAB.CHEW GT SCH ×2 (09:52→17:56)
[2021-11-04] MEDS: VIT B CMPLX 3/FA/VIT C/BIOTIN 1 TAB TABLET GT SCH (09:52)
[2021-11-04] MEDS: PANTOPRAZOLE 40 MG/PACK PACK GT SCH (09:52)
[2021-11-04] MEDS: NEUTRA PHOS 1 POWD.PACKET GT SCH (09:52)
[2021-11-04] MEDS: PROSOURCE / PROSTAT (PYXIS) 30 ML UDC GT SCH ×3 (09:52→17:56)
[2021-11-04] MEDS: VITAMINS A AND D 56.7 GM TUBE TP SCH ×2 (09:54→21:26)
[2021-11-04] MEDS: Z GUARD REMEDY 4 OZ OINT TP SCH ×2 (09:54→21:26)
[2021-11-04 12:29] VITALS: BP 97/144
[2021-11-04] MEDS: HYDROCODONE/APAP 5/325MG TABLET GT PRN (14:09)
[2021-11-04] MEDS: GUAIFENESIN 300 MG/15 ML UDC GT PRN (14:20)
[2021-11-04] MEDS: ONDANSETRON 4 MG TAB.RAPDIS GT PRN (15:35)
[2021-11-04 19:47] VITALS: BP 115/65
[2021-11-04] MEDS: MELATONIN 3 MG TABLET GT SCH (21:26)
[2021-11-04] MEDS: ACETAMINOPHEN 650 MG/20 ML UDC- SA PATIENTS-PAIN ONLY GT PRN (21:27)
[2021-11-04 23:47] VITALS: BP 135/69
[2021-11-05] MEDS: ALBUTEROL FS 2.5 MG/0.5 ML VIAL.NEB NEB SCH ×4 (01:41→19:17)
[2021-11-05] MEDS: IPRATROPIUM NEB FS 0.5 MG/2.5 ML AMPUL.NEB NEB SCH ×4 (01:41→19:17)
[2021-11-05] MEDS: METOCLOPRAMIDE HCL 10 MG/10 ML UDC GT SCH ×4 (05:23→23:25)
[2021-11-05 07:54] VITALS: BP 133/72
[2021-11-05] MEDS: CHOLESTYRAMINE/ASPARTAME 4 G/PKT PACKET GT SCH ×2 (08:38→21:34)
[2021-11-05] MEDS: HYDROGEN PEROXIDE 480 ML BOTTLE TP SCH ×2 (09:05→19:17)
[2021-11-05] MEDS: NEUTRA PHOS 1 POWD.PACKET GT SCH (09:33)
[2021-11-05] MEDS: PANTOPRAZOLE 40 MG/PACK PACK GT SCH (09:33)
[2021-11-05] MEDS: VITAMINS A AND D 56.7 GM TUBE TP SCH ×2 (09:33→21:34)
[2021-11-05] MEDS: Z GUARD REMEDY 4 OZ OINT TP SCH ×2 (09:33→21:34)
[2021-11-05] MEDS: PROSOURCE / PROSTAT (PYXIS) 30 ML UDC GT SCH ×3 (09:33→17:40)
[2021-11-05] MEDS: ACIDOPHILUS/BULGARICUS 1 EACH TAB.CHEW GT SCH ×2 (09:33→17:40)
[2021-11-05] MEDS: VIT B CMPLX 3/FA/VIT C/BIOTIN 1 TAB TABLET GT SCH (09:33)
[2021-11-05] MEDS: HYDROCODONE/APAP 5/325MG TABLET GT PRN ×2 (12:31→18:02)
[2021-11-05] MEDS: LOPERAMIDE HCL UDC 2 MG/15 ML LIQUID PO PRN (18:03)
[2021-11-05 22:06] VITALS: BP 127/69
[2021-11-05] MEDS: MELATONIN 3 MG TABLET GT SCH (22:25)
[2021-11-06 00:27] VITALS: BP 129/72
[2021-11-06] MEDS: IPRATROPIUM NEB FS 0.5 MG/2.5 ML AMPUL.NEB NEB SCH ×4 (01:51→19:30)
[2021-11-06] MEDS: ALBUTEROL FS 2.5 MG/0.5 ML VIAL.NEB NEB SCH ×4 (01:51→19:30)
[2021-11-06] MEDS: METOCLOPRAMIDE HCL 10 MG/10 ML UDC GT SCH ×4 (05:27→23:01)
[2021-11-06 08:01] VITALS: BP 142/71
[2021-11-06] MEDS: NEUTRA PHOS 1 POWD.PACKET GT SCH (08:59)
[2021-11-06] MEDS: PANTOPRAZOLE 40 MG/PACK PACK GT SCH (08:59)
[2021-11-06] MEDS: ACIDOPHILUS/BULGARICUS 1 EACH TAB.CHEW GT SCH ×2 (08:59→17:55)
[2021-11-06] MEDS: PROSOURCE / PROSTAT (PYXIS) 30 ML UDC GT SCH ×3 (08:59→17:55)
[2021-11-06] MEDS: CHOLESTYRAMINE/ASPARTAME 4 G/PKT PACKET GT SCH ×2 (08:59→20:16)
[2021-11-06] MEDS: VIT B CMPLX 3/FA/VIT C/BIOTIN 1 TAB TABLET GT SCH (08:59)
[2021-11-06] MEDS: CARVEDILOL 6.25 MG TABLET PEG SCH (09:00)
[2021-11-06] MEDS: AMLODIPINE BESYLATE 10 MG TABLET PEG SCH (09:00)
[2021-11-06] MEDS: Z GUARD REMEDY 4 OZ OINT TP SCH ×2 (09:01→20:16)
[2021-11-06] MEDS: VITAMINS A AND D 56.7 GM TUBE TP SCH ×2 (09:01→20:17)
[2021-11-06] MEDS: HYDROGEN PEROXIDE 480 ML BOTTLE TP SCH ×2 (09:13→19:31)
[2021-11-06] MEDS: diphenhydrAMINE HCL ELIX 25 MG/10 ML UDC GT PRN (10:05)
[2021-11-06] MEDS: HYDROCODONE/APAP 5/325MG TABLET GT PRN ×2 (14:23→23:01)
[2021-11-06 20:53] VITALS: BP 136/63
[2021-11-06] MEDS: MELATONIN 3 MG TABLET GT SCH (21:13)
[2021-11-07] VITALS: BP 115/83
[2021-11-07] MEDS: ALBUTEROL FS 2.5 MG/0.5 ML VIAL.NEB NEB SCH ×4 (02:00→19:28)
[2021-11-07] MEDS: IPRATROPIUM NEB FS 0.5 MG/2.5 ML AMPUL.NEB NEB SCH ×4 (02:00→19:28)
[2021-11-07] MEDS: METOCLOPRAMIDE HCL 10 MG/10 ML UDC GT SCH ×4 (05:49→23:35)
[2021-11-07] MEDS: HYDROGEN PEROXIDE 480 ML BOTTLE TP SCH ×2 (07:53→19:29)
[2021-11-07 08:15] VITALS: BP 142/65
[2021-11-07] MEDS: ONDANSETRON 4 MG TAB.RAPDIS GT PRN (08:30)
[2021-11-07] MEDS: ACIDOPHILUS/BULGARICUS 1 EACH TAB.CHEW GT SCH ×2 (08:51→16:19)
[2021-11-07] MEDS: PROSOURCE / PROSTAT (PYXIS) 30 ML UDC GT SCH ×3 (08:51→16:19)
[2021-11-07] MEDS: VIT B CMPLX 3/FA/VIT C/BIOTIN 1 TAB TABLET GT SCH (08:51)
[2021-11-07] MEDS: PANTOPRAZOLE 40 MG/PACK PACK GT SCH (08:51)
[2021-11-07] MEDS: NEUTRA PHOS 1 POWD.PACKET GT SCH (08:51)
[2021-11-07] MEDS: CHOLESTYRAMINE/ASPARTAME 4 G/PKT PACKET GT SCH ×2 (08:51→21:01)
[2021-11-07] MEDS: CARVEDILOL 6.25 MG TABLET PEG SCH (08:52)
[2021-11-07] MEDS: Z GUARD REMEDY 4 OZ OINT TP SCH ×2 (08:52→21:02)
[2021-11-07] MEDS: AMLODIPINE BESYLATE 10 MG TABLET PEG SCH (08:52)
[2021-11-07] MEDS: VITAMINS A AND D 56.7 GM TUBE TP SCH ×2 (08:52→21:02)
[2021-11-07 13:55] VITALS: BP 156/83
[2021-11-07] MEDS: ACETAMINOPHEN 650 MG/20 ML UDC- SA PATIENTS-PAIN ONLY GT PRN (16:21)
[2021-11-07 20:19] VITALS: BP 142/75
[2021-11-07] MEDS: MELATONIN 3 MG TABLET GT SCH (21:02)
[2021-11-07] MEDS: HYDROCODONE/APAP 5/325MG TABLET GT PRN (22:48)
[2021-11-08] MEDS: IPRATROPIUM NEB FS 0.5 MG/2.5 ML AMPUL.NEB NEB SCH ×4 (01:47→19:57)
[2021-11-08] MEDS: ALBUTEROL FS 2.5 MG/0.5 ML VIAL.NEB NEB SCH ×4 (01:48→19:57)
[2021-11-08] MEDS: METOCLOPRAMIDE HCL 10 MG/10 ML UDC GT SCH ×3 (05:30→18:07)
[2021-11-08 07:43] VITALS: BP 136/68
[2021-11-08 07:59] VITALS: BP 136/68
[2021-11-08] MEDS: CHOLESTYRAMINE/ASPARTAME 4 G/PKT PACKET GT SCH ×2 (08:15→20:41)
[2021-11-08] MEDS: HYDROGEN PEROXIDE 480 ML BOTTLE TP SCH ×2 (09:00→21:20)
[2021-11-08] MEDS: VITAMINS A AND D 56.7 GM TUBE TP SCH ×2 (09:51→20:42)
[2021-11-08] MEDS: PROSOURCE / PROSTAT (PYXIS) 30 ML UDC GT SCH ×3 (09:51→17:59)
[2021-11-08] MEDS: Z GUARD REMEDY 4 OZ OINT TP SCH ×2 (09:51→20:41)
[2021-11-08] MEDS: NEUTRA PHOS 1 POWD.PACKET GT SCH (09:51)
[2021-11-08] MEDS: PANTOPRAZOLE 40 MG/PACK PACK GT SCH (09:51)
[2021-11-08] MEDS: VIT B CMPLX 3/FA/VIT C/BIOTIN 1 TAB TABLET GT SCH (09:51)
[2021-11-08] MEDS: ACIDOPHILUS/BULGARICUS 1 EACH TAB.CHEW GT SCH ×2 (09:51→17:59)
[2021-11-08] MEDS: ONDANSETRON 4 MG TAB.RAPDIS GT PRN ×2 (12:13→13:15)
[2021-11-08 13:10] VITALS: BP 138/70
[2021-11-08 20:26] VITALS: BP 138/74
[2021-11-08] MEDS: MELATONIN 3 MG TABLET GT SCH (21:09)
[2021-11-09] MEDS: METOCLOPRAMIDE HCL 10 MG/10 ML UDC GT SCH ×2 (00:05→06:00)
[2021-11-09] MEDS: IPRATROPIUM NEB FS 0.5 MG/2.5 ML AMPUL.NEB NEB SCH (01:33)
[2021-11-09] MEDS: ALBUTEROL FS 2.5 MG/0.5 ML VIAL.NEB NEB SCH (01:33)
[2021-11-10] MEDS ORDERED: COVID-19 VACC,MRNA(MODERNA) 100 MCG/0.5 ML IM ONE (11:00)
[2022-04-04] MEDS ORDERED: TUBERCULIN,PURIF.PROT.DERIV. 5 TU/0.1 ML VIAL ID SCH (10:00)
== END 2021-11-09 13:00 | disposition short-term general hospital (02) | DRG 207 ==
LOC: SA 00:01
PROVIDERS: ADMIT Internal Medicine; ATTEND Internal Medicine
PROC: 5A1955Z Respiratory Ventilation, Greater than 96 Consecutive Hours (ICD-10-PCS; principal; 2021-09-25)
DX: J96.11 Chronic respiratory failure with hypoxia (principal); G93.41 Metabolic encephalopathy; N18.6 End stage renal disease; I13.2 Hypertensive heart and chronic kidney disease with heart failure and with stage 5 chronic kidney disease, or end stage renal disease; D68.59 Other primary thrombophilia; Z99.11 Dependence on respirator [ventilator] status; K92.2 Gastrointestinal hemorrhage, unspecified; Z20.822 Contact with and (suspected) exposure to COVID-19; I50.9 Heart failure, unspecified; E78.5 Hyperlipidemia, unspecified; Z87.440 Personal history of urinary (tract) infections; Z79.51 Long term (current) use of inhaled steroids; Z79.899 Other long term (current) drug therapy; D50.0 Iron deficiency anemia secondary to blood loss (chronic); Z86.19 Personal history of other infectious and parasitic diseases; R13.10 Dysphagia, unspecified; L89.156 Pressure-induced deep tissue damage of sacral region; Z86.73 Personal history of transient ischemic attack (TIA), and cerebral infarction without residual deficits; Z87.09 Personal history of other diseases of the respiratory system; Z74.01 Bed confinement status; Z74.09 Other reduced mobility; Z93.0 Tracheostomy status; Z93.1 Gastrostomy status; Z99.2 Dependence on renal dialysis; L98.9 Disorder of the skin and subcutaneous tissue, unspecified; L89.896 Pressure-induced deep tissue damage of other site
CPT/HCPCS: 31720; 36410; 36415; 71045-TC; 80048-TC; 80053-TC; 80202-TC; 83735-TC; 84100-TC; 85025-TC; 94003-TC; 94760-TC; 94762-TC; 94799-TC; A4623; A7526; J2185; J3370; J7060; J8597; Q0162; U0003

== ENCOUNTER 2021-11-09 05:46 | Inpatient (IN) | payer MEDICARE, OTHER ==
[~2021-11-09] VITALS: Ht 152.4 cm; Wt 78.0 kg
[2021-11-09] VITALS (9 sets, daily range): BP systolic 0–164; BP diastolic 0–90
--- NOTE | 2021-11-09 05:46 | NUR ---
PT TRANSFERRED FROM [facility] SUBACUTE TO ER VIA ACLS FOR LOW O2 SAT. PT A/OX0 AMS. TRACH DEPENDED. GTUBE INTACT. RECTAL TUBE INTACT. CHANDNI #18G MIDLINE; PATENT AND INTACT. LFA FISTUA NO THRILL FELT. BLE EDEMA. CONNECTED PT TO POX AND MONITOR.
--- NOTE | 2021-11-09 05:50 | NUR ---
PT ON VENT SETTINGS: TOLERATING FROM 90 - 100% TV 450 FIO2 100% PEEP 5
--- NOTE | 2021-11-09 06:03 | NUR ---
MOBILE PHONE SALESPERSON AT PT'S BEDSIDE
--- NOTE | 2021-11-09 06:05 | NUR ---
POC BS ACCUCHECK 28. PT AWAKE AND RESPONSIVE. NOTIFIED DR. DOAN WITH VERBAL ORDER D50 IVP
[2021-11-09] MEDS ORDERED: DEXTROSE 50%-WATER 50 ML DISP.SYRIN ONE ×2 (06:08→07:21)
--- NOTE | 2021-11-09 06:09 | NUR ---
ICE CREAM MAN AT PT'S BEDSIDE
[2021-11-09] MEDS ORDERED: PIPERACILLIN /TAZOBACTAM 3.375 G VIAL IV ONE (06:28)
[2021-11-09] MEDS ORDERED: NOREPINEPHRINE 4 MG/4 ML AMPUL IV ONE (06:28)
[2021-11-09] MEDS ORDERED: NOREPINEPHRINE 8 MG in IV NS 0.9% 250 ML IV ONE (06:30)
[2021-11-09] MEDS ORDERED: PIPERACILLIN /TAZOBACTAM 3.375 G in IV D5W 50 ML IV ONE (06:30)
[2021-11-09] MEDS ORDERED: DEXTROSE 50%-WATER 50 ML DISP.SYRIN IVP ONE ×2 (06:30→07:30)
--- NOTE | 2021-11-09 06:40 | NUR ---
Note marcy in ED - 11/09/21 at 0750 by YEMI INITIATED LEVOPHED ORDERED 0.5MCG/KG/HR. WILL TITRATE ACCORDINGLY PER MD'S ORDERS.
--- NOTE | 2021-11-09 06:40 | NUR ---
INITIATED LEVOPHED ORDERED 0.5MCG/KG/HR. WILL TITRATE ACCORDINGLY PER MD'S ORDERS. BP 62/27 HR 107
[2021-11-09 06:44] LABS: BASOPHILS % (AUTO) 0.2 % (0.0-2.0); EOSINOPHILS % (AUTO) 0.5 % (0.0-6.0); HEMATOCRIT 38 % (33-45); HEMOGLOBIN 11.5 g/dL (11.5-14.8); LYMPHOCYTES # (AUTO) 1.1 K/uL (0.8-4.8); LYMPHOCYTES % (AUTO) 22.1 % (20.0-44.0); MEAN CORPUSCULAR HGB CONC 30 g/dl (31.0-36.0); MEAN CORPUSCULAR VOLUME 122 fL (82-100); MONOCYTES # (AUTO) 0.2 K/uL (0.1-1.30); MONOCYTES % (AUTO) 4.1 % (2.0-12.0); NEUTROPHILS # (AUTO) 3.5 K/uL (1.8-8.9); NEUTROPHILS % (AUTO) 73.1 % (43.0-81.0); PLATELET COUNT (AUTO) 267 K/uL (150-450); RED BLOOD CELL COUNT(AUTO) 3.11 MIL/uL (4.0-5.2); WHITE BLOOD COUNT (AUTO) 4.8 K/uL (4.3-11.0)
[2021-11-09 07:14] LABS: ALANINE AMINOTRANSFERASE 74 U/L (12-78); ALBUMIN 1.5 g/dL (3.4-5.0); ALKALINE PHOSPHATASE 179 U/L (46-116); ASPARTATE AMINOTRANSFERASE 126 U/L (15-37); BILIRUBIN,DIRECT 0.4 mg/dL (0.0-0.2); BILIRUBIN,TOTAL 0.9 mg/dL (0.2-1.0); CALCIUM, SERUM 8.5 mg/dL (8.5-10.1); CARBON DIOXIDE 20 mmol/L (21-32); CHLORIDE 105 mmol/L (98-107); CREATININE 2.3 mg/dL (0.6-1.3); SODIUM SERUM 137 mmol/L (136-145); UREA NITROGEN, BLOOD 40 mg/dL (7-18)
--- NOTE | 2021-11-09 07:24 | NUR ---
BS 77 DR[address] DOAN VERBAL ORDER FOR D50. ORDERS CARRIED CARRIED OUT AND ADMINISTERED IVP.
--- NOTE | 2021-11-09 07:26 | NUR ---
CRITICAL VALUES GLUCOSE 35 LACTIC ACID 8.1
[2021-11-09 07:27] LABS: GLUCOSE 38 mg/dL (74-106)
[2021-11-09] MEDS ORDERED: IV NS 0.9% 500 ML BAG IV ONE (07:30)
--- NOTE | 2021-11-09 07:32 | NUR ---
UPDATED VIKTORIA (DAUGHTER) [phone]
--- NOTE | 2021-11-09 07:38 | NUR ---
COVID SWAB COLLECTED AND SENT TO LAB
[2021-11-09] MEDS ORDERED: VANCOMYCIN 1 GM in IV D5W 250 ML IV ONE (08:00)
--- NOTE | 2021-11-09 08:05 | NUR ---
called [facility] - hospitalist vocational counselor via exchange
--- NOTE | 2021-11-09 08:07 | NUR ---
called [facility] - hospitalist contract programmer via exchange- Ilene Lazo - will be paged
--- NOTE | 2021-11-09 08:20 | NUR ---
BED ASSIGNED IS [id number]
--- NOTE | 2021-11-09 08:22 | NUR ---
VITALS UPDATED. B/P 137/56. MAINTANIED ON LEVOPHED AT 0.1. PEEP ADJUSTED TO 8 PER ERMD ORDER. WILL CONTINUE TO MONITOR.
--- NOTE | 2021-11-09 08:45 | NUR ---
REPORT GIVEN TO ICU NURSE. AWAITING TRANSFER.
[2021-11-09] MEDS ORDERED: ONDANSETRON HCL/PF 4 MG/2 ML VIAL IVP PRN (09:30)
[2021-11-09] MEDS ORDERED: MAG HYDROX/AL HYDROX/SIMETH 30 ML UDC PO PRN (09:30)
[2021-11-09] MEDS ORDERED: MAGNESIUM HYDROXIDE 30 ML UDC PO PRN (09:30)
[2021-11-09] MEDS ORDERED: Z GUARD REMEDY 4 OZ OINT TP PRN (09:30)
[2021-11-09] MEDS ORDERED: IV NS 0.9% 1,000 ML IV PRN (09:30)
[2021-11-09] MEDS ORDERED: ACETAMINOPHEN 325 MG TABLET PO PRN (09:30)
[2021-11-09] MEDS ORDERED: ZOLPIDEM TARTRATE 5 MG TABLET PO PRN (09:30)
[2021-11-09] MEDS ORDERED: VANCOMYCIN 500 MG in IV D5W 100 ML IV PRN (09:30)
--- NOTE | 2021-11-09 09:32 | NUR ---
PT WAS TAKEN TO RADIOLOGY FOR HEAD CT SCAN THEN TRANSFERED TO ICU.
--- NOTE | 2021-11-09 10:00 | NUR ---
Patient admitted to ICU AT 939 AM FROM ED. Patient is on levo drip at 0.1 mcg and vancomycin. Patient assessed and noted with feeding coming out of trach and from mouth. HOB kept elevated. Patient noted with firm distended abdomen and pitting edema of bilateral lower extremities. Skin assessment done and pictures taken. Patient is currently full code.
[2021-11-09] MEDS ORDERED: EPINEPHRINE (1:10,000) SYRINGE 1 MG/10 ML DISP.SYRIN IVP ONE (10:29)
[2021-11-09] MEDS ORDERED: CALCIUM CHLORIDE 1,000 MG/10 ML DISP.SYRIN IV ONE (10:29)
[2021-11-09] MEDS ORDERED: SODIUM BICARBONATE SYR 50 MEQ/50 ML DISP.SYRIN IV ONE (10:29)
[2021-11-09] MEDS ORDERED: DEXTROSE 50%-WATER 50 ML DISP.SYRIN IV ONE (10:29)
--- NOTE | 2021-11-09 10:30 | NUR ---
Patient noted with no pulse, code blue initiated. ROSC AT 10 22. See record for drug administration.
[2021-11-09] MEDS ORDERED: NOREPINEPHRINE 32 MG in IV NS 0.9% 218 ML IV PRN (11:00)
--- NOTE | 2021-11-09 11:55 | NUR ---
Code blue initiated due to no pulse, PEA, ROSC AT 11:46. Family spoke to ED physician and code status changed to DNR.
[2021-11-09] MEDS ORDERED: BLOOD SUGAR DIAGNOSTIC 1 EACH STRIP IN SCH (12:00)
--- NOTE | 2021-11-09 12:17 | NUR ---
Patient 12 14 pm with family at bedside. Doctor Lazo and housetrailer servicer made aware.
--- NOTE | 2021-11-09 13:00 | NUR ---
[facility] [employer] called and body released [id number]
--- NOTE | 2021-11-09 13:56 | NUR ---
1216 Both code blue overseen by ed physician Vahid.
[2021-11-09] MEDS ORDERED: PIPERACILLIN /TAZOBACTAM 2.25 G in IV D5W 50 ML IV SCH (14:00)
[2021-11-09 17:52] LABS: BAND % (MANUAL) 4 % (0.0-5.0); EOSINOPHILS % (MANUAL) 2 % (0-4); LYMPHOCYTES % (MANUAL) 13 % (16-48); MONOCYTES % (MANUAL) 12 % (0-11.0); NEUTROPHILS % (MANUAL) 69 (42-76)
[2021-11-09] MEDS ORDERED: HEPARIN SODIUM, PORCINE 5000 UNITS/1 ML VIAL SQ SCH (21:00)
[2021-11-10 04:06] LABS: ABG BASE EXCESS -16.8 mmol/L; ABG PCO2 45.7 mmHg (35.0-45.0); ABG PH 7.066 (7.350-7.450); COHb 0.3 % (0.5-1.5); MetHb 0.1 % (0.0-1.5); O2Hb 87.4 % (94.0-97.0); SITE, ABG Right Radial; VENT MODE, BG ac14 400 100% +5
[2021-11-10] MEDS ORDERED: PANTOPRAZOLE 40 MG VIAL IV SCH (09:00)
== END 2021-11-09 17:36 | DRG 871 ==
LOC: ER 05:48 → ICU 08:43
PROVIDERS: ADMIT Student in an Organized Health Care Education/Training Program; ATTEND Student in an Organized Health Care Education/Training Program
PROC: 5A1935Z Respiratory Ventilation, Less than 24 Consecutive Hours (ICD-10-PCS; principal; 2021-11-09)
DX: A41.9 Sepsis, unspecified organism (principal); R65.21 Severe sepsis with septic shock; J96.01 Acute respiratory failure with hypoxia; J69.0 Pneumonitis due to inhalation of food and vomit; N18.6 End stage renal disease; G93.40 Encephalopathy, unspecified; I13.2 Hypertensive heart and chronic kidney disease with heart failure and with stage 5 chronic kidney disease, or end stage renal disease; Z66 Do not resuscitate; Z51.5 Encounter for palliative care; R57.0 Cardiogenic shock; E86.0 Dehydration; Z99.2 Dependence on renal dialysis; I46.9 Cardiac arrest, cause unspecified; I50.9 Heart failure, unspecified; M81.0 Age-related osteoporosis without current pathological fracture; Z93.1 Gastrostomy status; Z79.899 Other long term (current) drug therapy; Z88.8 Allergy status to other drugs, medicaments and biological substances
CPT/HCPCS: 36415; 36600; 70450-TC; 71045-TC; 80048-TC; 80076-TC; 82962-TC; 83605-TC; 83880; 84484-TC; 85025-TC; 85730-TC; 87040-TC; 87186-TC; G0378; J0171; J2543; J3370; J3490; J7040; J7050; J7060; U0003